=== PATIENT | female | born 1950 | race American Indian/Alaskan Native ===

== ENCOUNTER 2017-04-05 15:20 | Inpatient (IN) | payer MEDICAID, MEDICARE ==
[2017-04-05] MEDS: PROVENTIL IH ONE ×2 (15:35→15:36)
[2017-04-05] MEDS ORDERED: PROVENTIL IH ONE ×2 (15:37→20:37)
[2017-04-05] MEDS ORDERED: ADRENALIN ONE ×2 (15:42→15:44)
[2017-04-05] MEDS ORDERED: ADRENALIN SUB-Q ONE (15:47)
[2017-04-05 16:37] LABS: Hematocrit 27.2 % (30.3-42.9); Hemoglobin 8.9 gm/dl (10.1-14.3); Mean Corpuscular HGB Conc 33 % (30-34); Mean Corpuscular Hemoglobin 33 pg (28-32); Mean Corpuscular Volume 101 fl (79-97); Platelet Count 151 K/mm3 (140-440); Red Blood Count 2.69 M/mm3 (3.65-5.03)
[2017-04-05 16:39] LABS: Red Cell Distribution Width 20.4 % (13.2-15.2)
[2017-04-05 17:13] LABS: Alanine Aminotransferase 45 units/L (7-56); Albumin 2.2 g/dL (3.9-5); BUN/Creatinine Ratio 16; Blood Urea Nitrogen 8 mg/dL (7-17); Calcium 6.7 mg/dL (8.4-10.2); Hemolysis Index 10
--- NOTE | 2017-04-05 17:24 | XRay Report ---
FINAL REPORT PROCEDURE: XR CHEST 1V AP TECHNIQUE: Chest radiograph anteroposterior view. CPT 96469 HISTORY: Dyspnea COMPARISON: No prior studies are available for comparison. FINDINGS: Heart: Normal. Mediastinum/Vessels: Normal. Lungs/Pleural space: No infiltrate, effusion, or pneumothorax. Bony thorax: There is an old healed fracture of the proximal left humerus. Life support devices: None. IMPRESSION: No radiographic evidence of acute cardiopulmonary abnormality.
[2017-04-05 17:32] LABS: Basophils % (Manual) 0 % (0.0-1.8); Eosinophils % (Manual) 0 % (0.0-4.3); Monocytes % (Manual) 0 % (0.0-7.3); Total Cells Counted 100
[2017-04-05 17:35] LABS: Anisocytosis 1+; Target Cells 2+; Tear Drop Cells Few
[2017-04-05 17:36] LABS: Platelet Estimate Consistent w Auto
--- NOTE | 2017-04-05 20:36 | Emergency Department Report ---
ED General Adult HPI - General Chief complaint: Dyspnea/Respdistress Stated complaint: DIFFICULTY BREATHING Time Seen by Provider: 04/05/17 20:13 Source: EMS Mode of arrival: Stretcher Limitations: Other - History of Present Illness Initial comments: Patient is a 67-year-old [place] female with a past medical historyCOPD hypertension who is presenting with shortness of breath and respiratory distress. Patient was noted by family to have facial swelling blistering on the legs and shortness of breath several days ago. The leg swelling has decreased however the shortness of breath is gotten worse. Patient is complaining of a mild cough for the last 1-2 days. She denies fever nausea vomiting diarrhea body aches at this time. Patient was noted by paramedics to be 84% on room air on arrival. Patient was started on CPAP and continued on BiPAP on her arrival. - Related Data Home Medications Medication Instructions Recorded Confirmed Last Taken Budesoni/Formotero 160-4.5(Nf) 2 puff INHALATION BID 10/05/13 10/05/13 Unknown [Symbicort 160-4.5 (Nf)] Furosemide [Lasix] 10 mg PO QDAY 10/05/13 10/05/13 Unknown Previous Rx's Medication Instructions Recorded Last Taken Type Aspirin [Aspirin BABY CHEW TAB] 81 mg PO QDAY #60 tab.chew 07/28/14 Unknown Rx Budesoni/Formotero 160-4.5(Nf) 2 puff IH BID #1 inha 07/28/14 Unknown Rx [Symbicort 160-4.5] Furosemide [Lasix] 20 mg PO DAILY #30 vial 07/28/14 Unknown Rx Ipratropium/Albuterol Sulfate 1 spray IH QID #1 aer.w.adap 07/28/14 Unknown Rx [Combivent Respimat] Ipratropium/Albuterol Sulfate 1 ampul IH Q8HRT #90 ampul.neb 07/28/14 Unknown Rx [Duoneb 0.5 mg-3 mg/3 ml Soln] Levothyroxine [Synthroid] 100 mcg PO DAILY@0600 #30 tablet 07/28/14 Unknown Rx Levothyroxine [Synthroid] 125 mcg PO QAM #30 tablet 07/28/14 Unknown Rx Losartan [Cozaar] 25 mg PO QDAY #30 tablet 07/28/14 Unknown Rx Losartan [Cozaar] 25 mg PO QDAY #30 tablet 07/28/14 Unknown Rx Potassium Chloride 10 Meq [KCl 10 meq PO ONCE #30 piggyback 07/28/14 Unknown Rx 10Meq/100Ml] Potassium Chloride [K-Dur] 20 meq PO QDAY #30 tablet 07/28/14 Unknown Rx Prednisone 20 mg PO BID #10 tablet 07/28/14 Unknown Rx levETIRAcetam [Keppra TAB] 500 mg PO BID #60 tablet 07/28/14 Unknown Rx HYDROcodone/APAP 5-325 [Early 1 - 2 each PO Q6HR PRN #30 tablet 05/25/15 Unknown Rx 5/325] Allergies Allergy/AdvReac Type Severity Reaction Status Date / Time No Known Allergies Allergy Unverified 10/02/13 20:47 ED Review of Systems ROS: Stated complaint: DIFFICULTY BREATHING Other details as noted in HPI Cardiovascular: dyspnea on exertion, orthopnea, edema. denies: chest pain, palpitations ED Past Medical Hx - Past Medical History Previous Medical History?: Yes Hx Hypertension: Yes Hx Heart Attack/AMI: No Hx Congestive Heart Failure: No Hx Diabetes: No Hx Deep Vein Thrombosis: No Hx Pulmonary Embolism: No Hx Liver Disease: No Hx Renal Disease: No Hx Arthritis: Yes Hx Seizures: No Hx Kidney Stones: No Hx Asthma: No Hx COPD: Yes Hx Tuberculosis: No Hx Dementia: No Hx HIV: No Additional medical history: hypothyroid - Surgical History Past Surgical History?: Yes Hx Coronary Stent: No Hx Open Heart Surgery: No Hx Pacemaker: No Hx Internal Defibrillator: No Hx Cholecystectomy: No Hx Appendectomy: No Hx Breast Surgery: No Additional Surgical History: Tubal ligation - Social History Smoking Status: Current Some Day Smoker (occasional) Substance Use Type: Alcohol (daily beer) - Medications Home Medications: Home Medications Medication Instructions Recorded Confirmed Last Taken Type Budesoni/Formotero 160-4.5(Nf) 2 puff INHALATION BID 10/05/13 10/05/13 Unknown History [Symbicort 160-4.5 (Nf)] Furosemide [Lasix] 10 mg PO QDAY 10/05/13 10/05/13 Unknown History Aspirin [Aspirin BABY CHEW TAB] 81 mg PO QDAY #60 tab.chew 07/28/14 Unknown Rx Budesoni/Formotero 160-4.5(Nf) 2 puff IH BID #1 inha 07/28/14 Unknown Rx [Symbicort 160-4.5] Furosemide [Lasix] 20 mg PO DAILY #30 vial 07/28/14 Unknown Rx Ipratropium/Albuterol Sulfate 1 spray IH QID #1 aer.w.adap 07/28/14 Unknown Rx [Combivent Respimat] Ipratropium/Albuterol Sulfate 1 ampul IH Q8HRT #90 ampul.neb 07/28/14 Unknown Rx [Duoneb 0.5 mg-3 mg/3 ml Soln] Levothyroxine [Synthroid] 100 mcg PO DAILY@0600 #30 tablet 07/28/14 Unknown Rx Levothyroxine [Synthroid] 125 mcg PO QAM #30 tablet 07/28/14 Unknown Rx Losartan [Cozaar] 25 mg PO QDAY #30 tablet 07/28/14 Unknown Rx Losartan [Cozaar] 25 mg PO QDAY #30 tablet 07/28/14 Unknown Rx Potassium Chloride 10 Meq [KCl 10 meq PO ONCE #30 piggyback 07/28/14 Unknown Rx 10Meq/100Ml] Potassium Chloride [K-Dur] 20 meq PO QDAY #30 tablet 07/28/14 Unknown Rx Prednisone 20 mg PO BID #10 tablet 07/28/14 Unknown Rx levETIRAcetam [Keppra TAB] 500 mg PO BID #60 tablet 07/28/14 Unknown Rx HYDROcodone/APAP 5-325 [Early 1 - 2 each PO Q6HR PRN #30 tablet 05/25/15 Unknown Rx 5/325] ED Physical Exam - General Limitations: Other General appearance: alert, in no apparent distress - Head Head exam: Present: atraumatic, normocephalic - Eye Eye exam: Present: normal appearance - ENT ENT exam: Present: mucous membranes moist - Neck Neck exam: Present: normal inspection - Respiratory Respiratory exam: Present: respiratory distress, wheezes, rales, rhonchi. Absent: stridor, chest wall tenderness, accessory muscle use - Cardiovascular Cardiovascular Exam: Present: normal rhythm, tachycardia. Absent: regular rate , systolic murmur, diastolic murmur, rubs, gallop - GI/Abdominal GI/Abdominal exam: Present: soft, normal bowel sounds. Absent: distended, tenderness, guarding - Extremities Exam Extremities exam: Present: pedal edema, other (patient has several areas of blistering on the bilateral legs). Absent: normal inspection - Back Exam Back exam: Present: normal inspection - Neurological Exam Neurological exam: Present: alert, oriented X3 - Psychiatric Psychiatric exam: Present: normal affect, normal mood - Skin Skin exam: Present: warm, dry, intact, normal color. Absent: rash ED Course Vital Signs 04/05/17 04/05/17 04/05/17 15:30 15:32 15:35 Temperature Pulse Rate 92 H Pulse Rate [ 92 H Anterior Bilateral Middle Lobe] Respiratory 28 H Rate Respiratory 28 H Rate [Anterior Bilateral Middle Lobe] Blood Pressure 138/119 O2 Sat by Pulse 99 37 L Oximetry 04/05/17 04/05/17 04/05/17 15:45 15:46 15:48 Temperature Pulse Rate 99 H Pulse Rate [ 98 H Anterior Bilateral Middle Lobe] Respiratory 24 24 Rate Respiratory 23 Rate [Anterior Bilateral Middle Lobe] Blood Pressure 136/84 O2 Sat by Pulse 84 Oximetry 04/05/17 04/05/17 04/05/17 16:03 16:12 16:15 Temperature 97.6 F Pulse Rate 93 H 109 H 97 H Pulse Rate [ Anterior Bilateral Middle Lobe] Respiratory 24 25 H 24 Rate Respiratory Rate [Anterior Bilateral Middle Lobe] Blood Pressure 138/119 O2 Sat by Pulse Oximetry 04/05/17 04/05/17 04/05/17 16:31 16:45 17:00 Temperature Pulse Rate 97 H 97 H 95 H Pulse Rate [ Anterior Bilateral Middle Lobe] Respiratory 23 26 H 21 Rate Respiratory Rate [Anterior Bilateral Middle Lobe] Blood Pressure 138/119 109/78 118/70 O2 Sat by Pulse 41 L 100 Oximetry 04/05/17 04/05/17 04/05/17 19:00 19:30 20:00 Temperature Pulse Rate 105 H 105 H 103 H Pulse Rate [ Anterior Bilateral Middle Lobe] Respiratory 26 H 27 H 26 H Rate Respiratory Rate [Anterior Bilateral Middle Lobe] Blood Pressure 94/69 111/82 119/68 O2 Sat by Pulse Oximetry 04/05/17 04/05/17 04/05/17 20:30 21:00 21:02 Temperature Pulse Rate 107 H 106 H Pulse Rate [ 106 H Anterior Bilateral Middle Lobe] Respiratory 22 26 H Rate Respiratory 24 Rate [Anterior Bilateral Middle Lobe] Blood Pressure 97/57 108/59 O2 Sat by Pulse 100 Oximetry 04/05/17 04/05/17 04/05/17 21:42 22:00 23:00 Temperature Pulse Rate 115 H 115 H Pulse Rate [ 110 H Anterior Bilateral Middle Lobe] Respiratory 26 H 16 Rate Respiratory 22 Rate [Anterior Bilateral Middle Lobe] Blood Pressure 113/54 118/93 O2 Sat by Pulse 96 Oximetry 04/05/17 04/06/17 23:10 00:00 Temperature Pulse Rate 111 H 111 H Pulse Rate [ Anterior Bilateral Middle Lobe] Respiratory 13 21 Rate Respiratory Rate [Anterior Bilateral Middle Lobe] Blood Pressure 95/64 118/93 O2 Sat by Pulse 97 Oximetry - Phlebotomy Reason for Blood Draw by MD: to place line Obtained Bloods via: peripheral vein stick Additional Comments: 20-gauge IV was placed in the left antecubital fossa secondary to patient needing a CTA of the chest to rule out PE. ED Medical Decision Making - Lab Data Result diagrams: 04/05/17 16:14 04/05/17 16:14 Lab Results 04/05/17 04/05/17 04/05/17 Range/Units 16:14 16:14 20:43 WBC 17.4 H (4.5-11.0) K/mm3 RBC 2.69 L (3.65-5.03) M/mm3 Hgb 8.9 L (10.1-14.3) gm/dl Hct 27.2 L (30.3-42.9) % MCV 101 H (79-97) fl MCH 33 H (28-32) pg MCHC 33 (30-34) % RDW 20.4 H (13.2-15.2) % Plt Count 151 (140-440) K/mm3 Add Manual Diff Complete Total Counted 100 Seg Neuts % (Manual) 98.0 H (40.0-70.0) % Band Neutrophils % 0 % Lymphocytes % (Manual) 2.0 L (13.4-35.0) % Reactive Lymphs % (Man) 0 % Monocytes % (Manual) 0 (0.0-7.3) % Eosinophils % (Manual) 0 (0.0-4.3) % Basophils % (Manual) 0 (0.0-1.8) % Metamyelocytes % 0 % Myelocytes % 0 % Promyelocytes % 0 % Blast Cells % 0 % Nucleated RBC % 4.0 H (0.0-0.9) % Seg Neutrophils # Man 17.1 H (1.8-7.7) K/mm3 Band Neutrophils # 0.0 K/mm3 Lymphocytes # (Manual) 0.3 L (1.2-5.4) K/mm3 Abs React Lymphs (Man) 0.0 K/mm3 Monocytes # (Manual) 0.0 (0.0-0.8) K/mm3 Eosinophils # (Manual) 0.0 (0.0-0.4) K/mm3 Basophils # (Manual) 0.0 (0.0-0.1) K/mm3 Metamyelocytes # 0.0 K/mm3 Myelocytes # 0.0 K/mm3 Promyelocytes # 0.0 K/mm3 Blast Cells # 0.0 K/mm3 WBC Morphology Not Reportable Hypersegmented Neuts Not Reportable Hyposegmented Neuts Not Reportable Hypogranular Neuts Not Reportable Smudge Cells Not Reportable Toxic Granulation Not Reportable Toxic Vacuolation Not Reportable Dohle Bodies Not Reportable Pelger-Huet Anomaly Not Reportable Monique Rods Not Reportable Platelet Estimate Consistent w auto Clumped Platelets Not Reportable Plt Clumps, EDTA Not Reportable Large Platelets Not Reportable Giant Platelets Not Reportable Platelet Satelliting Not Reportable Plt Morphology Comment Not Reportable RBC Morphology Not Reportable Dimorphic RBCs Not Reportable Polychromasia Not Reportable Hypochromasia Not Reportable Poikilocytosis Not Reportable Anisocytosis 1+ Microcytosis Not Reportable Macrocytosis Not Reportable Spherocytes Not Reportable Pappenheimer Bodies Not Reportable Sickle Cells Not Reportable Target Cells 2+ Tear Drop Cells Few Ovalocytes Not Reportable Helmet Cells Not Reportable [place] Bodies Not Reportable [place] Rings Not Reportable [place] Cells Not Reportable Bite Cells Not Reportable Crenated Cell Not Reportable Elliptocytes Not Reportable Acanthocytes (Spur) Not Reportable Rouleaux Not Reportable Hemoglobin C Crystals Not Reportable Schistocytes Not Reportable Malaria parasites Not Reportable Vincent Bodies Not Reportable Hem Pathologist Commnt No D-Dimer (0-234) ng/mlDDU Sodium 140 (137-145) mmol/L Potassium 3.3 L (3.6-5.0) mmol/L Chloride 95.0 L (98-107) mmol/L Carbon Dioxide 25 (22-30) mmol/L Anion Gap 23 mmol/L BUN 8 (7-17) mg/dL Creatinine 0.5 L (0.7-1.2) mg/dL Estimated GFR > 60 ml/min BUN/Creatinine Ratio 16 % Glucose 65 (65-100) mg/dL Calcium 6.7 L (8.4-10.2) mg/dL Total Bilirubin 1.00 (0.1-1.2) mg/dL AST 166 H (5-40) units/L ALT 45 (7-56) units/L Alkaline Phosphatase 124 (35-129) units/L Troponin T 0.090 H (0.00-0.029) ng/mL NT-Pro-B Natriuret Pep 6486 H (0-900) pg/mL Total Protein 6.7 (6.3-8.2) g/dL Albumin 2.2 L (3.9-5) g/dL Albumin/Globulin Ratio 0.5 % Triglycerides 64 (2-149) mg/dL Cholesterol 98 (50-199) mg/dL LDL Cholesterol Direct 54 (50-130) mg/dL HDL Cholesterol 32 L (40-59) mg/dL Cholesterol/HDL Ratio 3.06 % 04/05/17 Range/Units 20:43 WBC (4.5-11.0) K/mm3 RBC (3.65-5.03) M/mm3 Hgb (10.1-14.3) gm/dl Hct (30.3-42.9) % MCV (79-97) fl MCH (28-32) pg MCHC (30-34) % RDW (13.2-15.2) % Plt Count (140-440) K/mm3 Add Manual Diff Total Counted Seg Neuts % (Manual) (40.0-70.0) % Band Neutrophils % % Lymphocytes % (Manual) (13.4-35.0) % Reactive Lymphs % (Man) % Monocytes % (Manual) (0.0-7.3) % Eosinophils % (Manual) (0.0-4.3) % Basophils % (Manual) (0.0-1.8) % Metamyelocytes % % Myelocytes % % Promyelocytes % % Blast Cells % % Nucleated RBC % (0.0-0.9) % Seg Neutrophils # Man (1.8-7.7) K/mm3 Band Neutrophils # K/mm3 Lymphocytes # (Manual) (1.2-5.4) K/mm3 Abs React Lymphs (Man) K/mm3 Monocytes # (Manual) (0.0-0.8) K/mm3 Eosinophils # (Manual) (0.0-0.4) K/mm3 Basophils # (Manual) (0.0-0.1) K/mm3 Metamyelocytes # K/mm3 Myelocytes # K/mm3 Promyelocytes # K/mm3 Blast Cells # K/mm3 WBC Morphology Hypersegmented Neuts Hyposegmented Neuts Hypogranular Neuts Smudge Cells Toxic Granulation Toxic Vacuolation Dohle Bodies Pelger-Huet Anomaly Monique Rods Platelet Estimate Clumped Platelets Plt Clumps, EDTA Large Platelets Giant Platelets Platelet Satelliting Plt Morphology Comment RBC Morphology Dimorphic RBCs Polychromasia Hypochromasia Poikilocytosis Anisocytosis Microcytosis Macrocytosis Spherocytes Pappenheimer Bodies Sickle Cells Target Cells Tear Drop Cells Ovalocytes Helmet Cells [place] Bodies [place] Rings Alfred[place] Cells Bite Cells Crenated Cell Elliptocytes Acanthocytes (Spur) Rouleaux Hemoglobin C Crystals Schistocytes Malaria parasites Vincent Bodies Hem Pathologist Commnt D-Dimer 4892.81 H (0-234) ng/mlDDU Sodium (137-145) mmol/L Potassium (3.6-5.0) mmol/L Chloride (98-107) mmol/L Carbon Dioxide (22-30) mmol/L Anion Gap mmol/L BUN (7-17) mg/dL Creatinine (0.7-1.2) mg/dL Estimated GFR ml/min BUN/Creatinine Ratio % Glucose (65-100) mg/dL Calcium (8.4-10.2) mg/dL Total Bilirubin (0.1-1.2) mg/dL AST (5-40) units/L ALT (7-56) units/L Alkaline Phosphatase (35-129) units/L Troponin T (0.00-0.029) ng/mL NT-Pro-B Natriuret Pep (0-900) pg/mL Total Protein (6.3-8.2) g/dL Albumin (3.9-5) g/dL Albumin/Globulin Ratio % Triglycerides (2-149) mg/dL Cholesterol (50-199) mg/dL LDL Cholesterol Direct (50-130) mg/dL HDL Cholesterol (40-59) mg/dL Cholesterol/HDL Ratio % - EKG Data -: EKG Interpreted by Me - EKG Data Interpretation: other (EKG shows sinus tachycardia with a rate of 114 axis is leftward intervals is a prolonged QT is no ST segment elevation or depression time of interpretation 2144) - Radiology Data Radiology results: report reviewed Chest x-ray read as within normal limits. CT angiogram showed no evidence of PE however there is a right upper lobe infiltrate consistent with pneumonia as well as COPD changes - Medical Decision Making Patient is a 67-year-old F Gilberto a female who is presenting with respiratory distress patient was started on BiPAP and her breathing has improved since her arrival. Patient initially thought to have possible COPD CHF combination secondary to the recent history of leg swelling. Patient does sound as though she has rails as well. BNP was elevated patient was given Lasix. Elevated d- dimer was seen on laboratory studies as well. I placed a peripheral line in the left before meals joint and was able to do a CT with contrast. There is no PE seen on this exam however pneumonia was noted. Patient will be started on Levaquin and antibiotics. She'll be admitted at this time. Critical care time in (mins) excluding proc time.: 30 Critical care attestation.: If time is entered above; I have spent that time in minutes in the direct care of this critically ill patient, excluding procedure time. ED Disposition Clinical Impression: COPD exacerbation, Acute respiratory distress Pneumonia Qualifiers: Pneumonia type: due to unspecified organism Laterality: right Lung location: upper lobe of lung Qualified Code(s): J18.1 - Lobar pneumonia, unspecified organism Disposition: OP ADMIT IP TO THIS HOSP Is pt being admited?: Yes Does the pt Need Aspirin: No Condition: Critical Instructions: Bacterial Pneumonia (ED), Chronic Bronchitis (ED) Referrals: PRIMARY CARE, [Primary Care Provider] - 3-5 Days
[2017-04-05] MEDS ORDERED: ATROVENT IH ONE (20:37)
[2017-04-05] MEDS ORDERED: LASIX IV ONE (21:20)
[2017-04-05 21:49] LABS: Chol/HDL Ratio 3.06 %
--- NOTE | 2017-04-06 01:18 | Cat Scan Report ---
FINAL REPORT PROCEDURE: CT ANGIO CHEST TECHNIQUE: Computerized tomographic angiography of the chest was performed after the IV injection of iodinated nonionic contrast including image processing. The image data was postprocessed using 2-dimensional multiplanar reformatted (MPR) and 3-dimensional (MIP and/or volume rendered) techniques. HISTORY: elevated ddimer COMPARISON: No prior studies are available for comparison. FINDINGS: Heart and pericardium: Normal. Thoracic aorta: Mild atherosclerosis of the aorta. Pulmonary vasculature: Normal. Lymph nodes: No enlarged thoracic lymph nodes. Lungs: COPD with fibrosis. Slight infiltrate right upper lung. Mild atelectasis bilateral lower lungs. No effusion or pneumothorax. The central airway is patent. Pleural space: No effusion, thickening, or pneumothorax. Musculoskeletal structures: Moderate degenerative changes of the thoracic spine. Upper abdominal structures: Fatty infiltration of the liver. Multiple stones identified within the gallbladder lumen.. IMPRESSION: COPD with fibrosis. Slight infiltrate right upper lung. Mild atelectasis bilateral lower lungs. There is no evidence of pulmonary arterial emboli
[2017-04-06] MEDS ORDERED: LEVAQUIN PO ONE (01:25)
[2017-04-06] MEDS ORDERED: MILK OF MAGNESIA PO PRN (02:10)
[2017-04-06] MEDS ORDERED: TYLENOL PO PRN (02:10)
[2017-04-06] MEDS ORDERED: DULCOLAX PR PRN (02:10)
--- NOTE | 2017-04-06 02:10 | History and Physical Report ---
History of Present Illness Date of examination: 04/06/17 History of present illness: 67-year-old woman with a history of COPD, CHF, hyperlipidemia, hypothyroidism, stroke was brought to the emergency room complaining of shortness of breath and a rattling cough. Review Of Systems: Constitutional: no weight loss Ears, eyes, nose, mouth and throat: no nasal congestion, no nasal discharge, no sinus pressure, blurry vision, diplopia Neck: No neck pain or rigidity. Cardiovascular: No chest pain, palpitations Respiratory: + shortness of breath, cough Gastrointestinal: No abdominal pain, hematochezia Genitourinary : no dysuria, frequency , hematuria Musculoskeletal: no muscle ache Integumentary: no rash, no pruritis Neurological: no parathesias, focal weakness Endocrine: no cold or heat intolerance, no polyuria or polydipsia Hematologic/Lymphatic: no easy bruising, no easy bleeding, no gland swelling Allergic/Immunologic: no urticaria, no angioedema. PAST MEDICAL HISTORY: COPD, CHF, hyperlipidemia, hypothyroidism, stroke PAST SURGICAL HISTORY: Tubal ligation FAMILY HISTORY: Hypertension, diabetes SOCIAL HISTORY: Family state that she smokes and drinks, no drugs Medications and Allergies Allergies Allergy/AdvReac Type Severity Reaction Status Date / Time No Known Allergies Allergy Unverified 10/02/13 20:47 Home Medications Medication Instructions Recorded Confirmed Last Taken Type Aspirin [Aspirin BABY CHEW TAB] 81 mg PO QDAY #60 tab.chew 07/28/14 04/07/17 Unknown Rx Budesoni/Formotero 160-4.5(Nf) 2 puff IH BID #1 inha 07/28/14 04/07/17 Unknown Rx [Symbicort 160-4.5] Ipratropium/Albuterol Sulfate 1 ampul IH Q8HRT #90 ampul.neb 07/28/14 04/07/17 Unknown Rx [Duoneb 0.5 mg-3 mg/3 ml Soln] Levothyroxine [Synthroid] 125 mcg PO QAM #30 tablet 07/28/14 04/07/17 Unknown Rx HYDROcodone/APAP 5-325 [[place] 1 - 2 each PO Q6HR PRN #30 tablet 05/25/ Unknown Rx 5/325] Furosemide [Lasix] 40 mg PO DAILY 04/07/17 04/07/17 Unknown History Losartan [Cozaar] 50 mg PO QDAY 04/07/17 04/07/17 Unknown History Losartan/Hydrochlorothiazide 1 each PO DAILY 04/07/17 04/07/17 Unknown History [Losartan-Hctz 50-12.5 mg Tab] Potassium Chloride 10 Meq [KCl 40 meq PO ONCE 04/07/17 04/07/17 Unknown History 10Meq/100Ml] Exam - Physical Exam Narrative exam: Gen. appearance: Patient lying in bed in no acute distress HEENT: Normocephalic/atraumatic, pupils equal round reactive to light, extra occular movement intact, no scleral icterus, no JVD or thyromegaly or nodule, neck is supple, mucous membrane moist, no erythema or exudate Heart: S1-S2, regular rate and rhythm Lungs: Crackles bilateral breathing comfortable Abdomen: Positive bowel sounds, nontender, nondistended, no organomegaly Extremities: No edema, cyanosis, clubbing Neuro:: Oriented 3 , cranial nerves II-12 intact, speech, motor intact Skin: No rash, nodules, warm dry - Constitutional Vitals: Temp Pulse Resp BP Pulse Ox 97.6 F 111 H 21 118/93 97 04/05/17 16:03 04/06/17 00:00 04/06/17 00:00 04/06/17 00:00 04/06/17 00:00 Results - Labs CBC & Chem 7: 04/16/17 18:20 04/16/17 05:30 Labs: Abnormal lab results 04/05/17 04/05/17 04/05/17 Range/Units 16:14 16:14 20:43 WBC 17.4 H (4.5-11.0) K/mm3 RBC 2.69 L (3.65-5.03) M/mm3 Hgb 8.9 L (10.1-14.3) gm/dl Hct 27.2 L (30.3-42.9) % MCV 101 H (79-97) fl MCH 33 H (28-32) pg RDW 20.4 H (13.2-15.2) % Seg Neuts % (Manual) 98.0 H (40.0-70.0) % Lymphocytes % (Manual) 2.0 L (13.4-35.0) % Nucleated RBC % 4.0 H (0.0-0.9) % Seg Neutrophils # Man 17.1 H (1.8-7.7) K/mm3 Lymphocytes # (Manual) 0.3 L (1.2-5.4) K/mm3 D-Dimer (0-234) ng/mlDDU Potassium 3.3 L (3.6-5.0) mmol/L Chloride 95.0 L (98-107) mmol/L Creatinine 0.5 L (0.7-1.2) mg/dL Calcium 6.7 L (8.4-10.2) mg/dL AST 166 H (5-40) units/L Troponin T 0.090 H (0.00-0.029) ng/mL NT-Pro-B Natriuret Pep 6486 H (0-900) pg/mL Albumin 2.2 L (3.9-5) g/dL HDL Cholesterol 32 L (40-59) mg/dL 04/05/17 Range/Units 20:43 WBC (4.5-11.0) K/mm3 RBC (3.65-5.03) M/mm3 Hgb (10.1-14.3) gm/dl Hct (30.3-42.9) % MCV (79-97) fl MCH (28-32) pg RDW (13.2-15.2) % Seg Neuts % (Manual) (40.0-70.0) % Lymphocytes % (Manual) (13.4-35.0) % Nucleated RBC % (0.0-0.9) % Seg Neutrophils # Man (1.8-7.7) K/mm3 Lymphocytes # (Manual) (1.2-5.4) K/mm3 D-Dimer 4892.81 H (0-234) ng/mlDDU Potassium (3.6-5.0) mmol/L Chloride (98-107) mmol/L Creatinine (0.7-1.2) mg/dL Calcium (8.4-10.2) mg/dL AST (5-40) units/L Troponin T (0.00-0.029) ng/mL NT-Pro-B Natriuret Pep (0-900) pg/mL Albumin (3.9-5) g/dL HDL Cholesterol (40-59) mg/dL - Imaging and Cardiology EKG: image reviewed Chest x-ray: image reviewed Assessment and Plan Assessment Acute respiratory failure Community-acquired pneumonia COPD exacerbation CHF, stable Hyperlipidemia Hypothyroidism History of severe Plan Admit medicine Start high-dose steroids, neb treatment, IV antibiotics, continue BiPAP Continue appropriate outpatient medications DVT Prophylaxis
[2017-04-06] MEDS ORDERED: NACL 0.9% 500 ML IR ONE (03:12)
[2017-04-06] MEDS: ZITHROMAX 500 MG in NACL 0.9% 250ML 250 ML IV SCH (04:04)
[2017-04-06] MEDS ORDERED: LEVAQUIN ONE (04:15)
[2017-04-06] MEDS: DUONEB *Not for PRN Use IH SCH ×3 (07:27→20:01)
[2017-04-06] MEDS ORDERED: LOVENOX SUB-Q SCH (10:00)
[2017-04-06] MEDS: LOVENOX SUB-Q SCH (10:49)
--- NOTE | 2017-04-06 11:41 | Event Note ---
Date: 04/06/17 Pateint seen and evaluated Assessment Acute respiratory failure Community-acquired pneumonia COPD exacerbation CHF, stable Hyperlipidemia Hypothyroidism Plan high-dose steroids, neb treatment, IV antibiotics, continue BiPAP Continue appropriate outpatient medications DVT Prophylaxis
[2017-04-06] MEDS: cefTRIAXone 1 GM in NACL 0.9% 20 ML IV SCH (12:39)
[2017-04-06] MEDS ORDERED: LOPRESSOR IV ONE (16:02)
[2017-04-06] MEDS: NACL 0.9% 1000 ML 1,000 ML IV SCH ×2 (16:21→21:59)
[2017-04-06] MEDS ORDERED: CARDIZEM IV SCH (17:00)
[2017-04-06] MEDS ORDERED: CARDIZEM/D5W 100MG/100ML 100 MG/100 ML BAG IV SCH (17:00)
[2017-04-07] MEDS: ZITHROMAX 500 MG in NACL 0.9% 250ML 250 ML IV SCH ×2 (03:00→10:55)
[2017-04-07] MEDS: DUONEB *Not for PRN Use IH SCH ×4 (03:14→20:05)
[2017-04-07 06:08] LABS: Hematocrit 23.2 % (30.3-42.9); Hemoglobin 7.4 gm/dl (10.1-14.3); Mean Corpuscular HGB Conc 32 % (30-34); Mean Corpuscular Hemoglobin 32 pg (28-32); Mean Corpuscular Volume 101 fl (79-97); Platelet Count 104 K/mm3 (140-440); Red Blood Count 2.29 M/mm3 (3.65-5.03)
[2017-04-07 06:30] LABS: BUN/Creatinine Ratio 17; Blood Urea Nitrogen 15 mg/dL (7-17); Calcium 6.2 mg/dL (8.4-10.2); Hemolysis Index 3
[2017-04-07 08:22] LABS: Anisocytosis 1+; Band Neutrophils # (Manual) 1.9 K/mm3; Basophils % (Manual) 0 % (0.0-1.8); Eosinophils % (Manual) 0 % (0.0-4.3); Hypochromasia 1+; Target Cells 2+; Total Cells Counted 100
[2017-04-07 08:23] LABS: Platelet Estimate Consistent w Auto
[2017-04-07] MEDS: LOVENOX SUB-Q SCH (09:13)
[2017-04-07] MEDS ORDERED: K-DUR PO NR (10:00)
[2017-04-07] MEDS: cefTRIAXone 1 GM in NACL 0.9% 20 ML IV SCH (10:13)
[2017-04-07] MEDS ORDERED: Fluarix Quad 2017-2018(36 MOS+ IM ONE (12:00)
[2017-04-07] MEDS ORDERED: HCTZ PO SCH (14:00)
[2017-04-07] MEDS ORDERED: COZAAR PO SCH ×2 (14:00→15:00)
[2017-04-07] MEDS ORDERED: NORCO 5/325 PO PRN (14:25)
[2017-04-07] MEDS ORDERED: POTASSIUM CHLORIDE PO SCH (14:30)
[2017-04-07] MEDS ORDERED: NON-FORMULARY (Losartan/Hydrochlorothiazide [Losartan-Hctz 50-12.5 Mg Tab] 1 EACH) PO SCH (14:30)
[2017-04-07] MEDS ORDERED: NON-FORMULARY (Budesoni/Formotero 160-4.5(Nf) 2 PUFF) IH SCH (14:30)
--- NOTE | 2017-04-07 14:35 | Progress Note ---
Assessment and Plan - Patient Problems (1) Acute respiratory distress Current Visit: Yes Status: Acute Plan to address problem: Cont Abx neb tx and bipap if necessary (2) COPD exacerbation Current Visit: Yes Status: Acute Plan to address problem: Cont Neb tx solu medrol and abx (3) Pneumonia Current Visit: Yes Status: Acute Qualifiers: Pneumonia type: due to unspecified organism Laterality: right Lung location: upper lobe of lung Qualified Code(s): J18.1 - Lobar pneumonia, unspecified organism Plan to address problem: Cont Abx (4) CHF (congestive heart failure) Current Visit: Yes Status: Chronic Qualifiers: Congestive heart failure type: combined Plan to address problem: Cont Lasix (5) HLD (hyperlipidemia) Current Visit: Yes Status: Chronic Qualifiers: Hyperlipidemia type: mixed hyperlipidemia Qualified Code(s): E78.2 - Mixed hyperlipidemia Plan to address problem: Cont statins (6) Hypothyroidism (acquired) Current Visit: Yes Status: Chronic Plan to address problem: Cont Synthyroid (7) Hypokalemia Current Visit: Yes Status: Acute Plan to address problem: Supplemented (8) DVT prophylaxis Current Visit: Yes Status: Acute Plan to address problem: on Lovenox Subjective Date of service: 04/07/17 Principal diagnosis: CAP Acute resp failure Interval history: Sx better Objective - Constitutional Vitals: Vital Signs - 12hr 04/07/17 04/07/17 04/07/17 03:50 03:52 06:11 Temperature 98.3 F 98.3 F Pulse Rate 92 H 101 H Pulse Rate [ Anterior Bilateral Middle Lobe] Pulse Rate [ Right Radial] Respiratory 22 22 Rate Respiratory Rate [Anterior Bilateral Middle Lobe] Blood Pressure 108/64 Blood Pressure [Right] O2 Sat by Pulse 99 Oximetry 04/07/17 04/07/17 04/07/17 09:00 09:54 09:55 Temperature 99.0 F 98.4 F Pulse Rate 51 L 82 Pulse Rate [ 96 H Anterior Bilateral Middle Lobe] Pulse Rate [ Right Radial] Respiratory 18 20 Rate Respiratory 16 Rate [Anterior Bilateral Middle Lobe] Blood Pressure Blood Pressure 124/85 92/53 [Right] O2 Sat by Pulse 98 93 Oximetry 04/07/17 04/07/17 04/07/17 09:59 10:09 10:29 Temperature Pulse Rate Pulse Rate [ 124 H Anterior Bilateral Middle Lobe] Pulse Rate [ 92 H Right Radial] Respiratory 20 Rate Respiratory 18 Rate [Anterior Bilateral Middle Lobe] Blood Pressure Blood Pressure [Right] O2 Sat by Pulse 93 94 Oximetry General appearance: Present: no acute distress, well-nourished - EENT Eyes: PERRL, EOM intact ENT: hearing intact, clear oral mucosa Ears: bilateral: normal - Neck Neck: supple, normal ROM - Respiratory Respiratory effort: normal Respiratory: bilateral: CTA, rhonchi - Breasts Breasts: deferred, normal - Cardiovascular Rhythm: regular Heart Sounds: Present: S1 & S2. Absent: gallop, rub Extremities: pulses intact, No edema, normal color, Full ROM - Gastrointestinal General gastrointestinal: Present: soft, non-tender, non-distended, normal bowel sounds - Genitourinary Female genitourinary: normal - Integumentary Integumentary: clear, warm, dry - Musculoskeletal Musculoskeletal: 1, strength equal bilaterally - Neurologic Neurologic: moves all extremities - Psychiatric Psychiatric: memory intact, appropriate mood/affect, intact judgment & insight - Labs CBC & Chem 7: 04/07/17 05:35 04/07/17 05:35 Labs: Abnormal lab results 04/07/17 04/07/17 Range/Units 05:35 05:35 WBC 17.7 H (4.5-11.0) K/mm3 RBC 2.29 L (3.65-5.03) M/mm3 Hgb 7.4 L (10.1-14.3) gm/dl Hct 23.2 L (30.3-42.9) % MCV 101 H (79-97) fl RDW 20.0 H (13.2-15.2) % Plt Count 104 L (140-440) K/mm3 Seg Neuts % (Manual) 81.0 H (40.0-70.0) % Lymphocytes % (Manual) 4.0 L (13.4-35.0) % Nucleated RBC % 12.0 H (0.0-0.9) % Seg Neutrophils # Man 14.3 H (1.8-7.7) K/mm3 Lymphocytes # (Manual) 0.7 L (1.2-5.4) K/mm3 Potassium 2.9 L* (3.6-5.0) mmol/L Glucose 144 H (65-100) mg/dL Calcium 6.2 L (8.4-10.2) mg/dL - Imaging and cardiology Chest x-ray: report reviewed (Copd) CT scan - chest: report reviewed (Copd with fibrosis Slight infiltrate RUL lung.Mild atelectasis bilateral lower lungs)
[2017-04-07] MEDS ORDERED: K-DUR PO ONE ×2 (14:55→15:00)
[2017-04-07] MEDS ORDERED: DUONEB *Not for PRN Use IH (14:55)
[2017-04-07] MEDS: HCTZ PO SCH (15:27)
[2017-04-07] MEDS: BABY ASPIRIN PO SCH (15:27)
[2017-04-07] MEDS ORDERED: DUONEB *Not for PRN Use IH SCH (16:00)
[2017-04-07] MEDS: LASIX IV SCH (17:31)
[2017-04-07] MEDS: KCL 10MEQ/100ML 10 MEQ/100 ML BAG IV SCH ×2 (17:35→17:36)
[2017-04-07] MEDS: PULMICORT IH SCH (20:05)
[2017-04-07] MEDS: BROVANA NEBU IH SCH (20:56)
[2017-04-07] MEDS: ATIVAN PO PRN (23:56)
[2017-04-08] MEDS ORDERED: ATIVAN IM PRN (00:04)
[2017-04-08] MEDS: DUONEB *Not for PRN Use IH SCH ×4 (02:04→19:26)
[2017-04-08] MEDS: cefTRIAXone 1 GM in NACL 0.9% 20 ML IV SCH (10:00)
[2017-04-08] MEDS: HCTZ PO SCH (10:00)
[2017-04-08] MEDS: SYNTHROID PO SCH (10:00)
[2017-04-08] MEDS: ZITHROMAX 500 MG in NACL 0.9% 250ML 250 ML IV SCH (10:00)
[2017-04-08] MEDS: LOVENOX SUB-Q SCH (10:00)
[2017-04-08] MEDS: LASIX IV SCH (10:00)
[2017-04-08] MEDS: BABY ASPIRIN PO SCH (10:00)
[2017-04-08] MEDS: ATIVAN PO PRN (10:30)
--- NOTE | 2017-04-08 11:03 | Query-Infection ---
Dear ____Roz Date:___04/08/17 Clamshell Operator/CDS: Rohit Phone#:__[phone] Exercise your independent professional judgment when responding to this query. Questions asked do not imply a particular answer is desired or expected. We greatly appreciate your clarification on this issue. Clinical Documentation States: 67 year old female was admitted on 04/06/17 The H&P (Dr. Turner) states " 67-year-old woman with a history of COPD, CHF, hyperlipidemia, hypothyroidism, stroke was brought to the emergency room complaining of shortness of breath " The Progress note (Dr. Courtney 04/07/17) states " - Patient Problems (1) Acute respiratory distress (3) Pneumonia " WBC: 17.7 Pulse rate: 109 Respiratory rate: 28 Clinical findings show: (please check applicable parameters) Infection, known /suspected, with some of the following indicators; Specify the infection: 3 General parameters [ ] Fever (core temp >38.30C or 100.40F) [ ] Hypothermia (core temp <36C) [ x] Heart rate >90 bpm [x ] Tachypnea: >20 bpm or pCO2 < 32 mmHg [ ] Altered mental status [ ] Significant edema / +ve fluid balance (>20 ml/kg 24 h) [ ] Hyperglycemia (Bl. glucose >110 mg/dl) w/o diabetes Inflammatory parameters [x ] Leukocytosis (white blood cell count >12,000/l) [ ] Leukopenia (white blood cell count <4,000/l) [ ] Bandemia (immature WBC > 10%) [ ] Leucocyte Left Shift [ ] Plasma procalcitonin>2 SD above the normal value Hemodynamic and tissue perfusion parameters [ ] Arterial hypotension(SBP <90 mmHg, MAP <70 mmHg,or a SBP drop >40 mmHg in adults) [ ] Hyperlactatemia (>3 mmol/l) [ ] Anion Gap (> 11mEG/l) [ ] Decreased capillary refill or mottling Organ dysfunction parameters [ ] Arterial hypoxemia (PaO2/FIO2 <300) [ ] Creatinine increase =0.5 mg/dl [ ] Acute oliguria (urine output <0.5 ml | kg |h or 45 mM/l for at least 2 hrs) [ ] Coagulation abnormalities (INR >1.5 or activated partial thromboplastin time >60 s) [ ] Ileus (absent gardenia wel sounds) [ ] Thrombocytopenia (platelet count <100,000/l) [ ] Hyperbilirubinemia (plasma total bilirubin >4 mg/dl) According to the clinical indications above, can Bacteremia be further specified? If so, please indicate below and in your Progress Notes and/ or Discharge Summary. Indicate if the condition was present on admission. PHYSICIAN RESPONSE: [ ] Sepsis [ ] Severe Sepsis [ ] Septic Shock [ ] Septicemia [ ] Sepsis now resolved [ ] SIRS due to non-infectious cause with organ dysfunction [ x] SIRS due to non-infectious cause without organ dysfunction [ ] Other: [ ] Comment/Explanation: Present on Admission: [x ] Yes (Y) [ ] Clinically undeterminable (W) [ ] No (N) [ ] Ruled Out Please also document response in your Progress Notes and/or Discharge Summary and indicate if the condition was present on admission Notes: SIRS/ SIRS WITH ORGAN DYSFUNCTION Systemic inflammatory response syndrome (SIRS) generally refers to the systemic response to trauma/neff or other insult such as Acute Myocardial Infarction, Acute Pancreatitis, and Major Surgery with symptoms including fever, tachycardia , tachypnea, and leukocytosis (1). BACTEREMIA Presence of viable bacteria in the circulating blood (2). This term is reserved for patients that do not manifest above SIRS response. SEPTICEMIA Generally refers to a systemic disease associated with the presence of pathological microorganisms or toxins in the blood, which can include bacteria, viruses, fungi or other organisms (1). SEPSIS Generally refers to SIRS due infection (1). SEVERE SEPSIS Generally refers to sepsis associated with acute organ dysfunction (1). SEPTIC SHOCK Generally refers to circulatory failure associated with severe sepsis (2), and defined as hypotension or hypoperfusion despite adequate fluid resuscitation (1 hour) (3). REFERENCES: 1. [place] [employer]/Society of Critical Care Medicine Consensus Conference. Definitions for sepsis and organ failure and guidelines for the use of innovative therapies in sepsis. Critical Care Med 1992;20:864 - 74. 2. Moses segal MM, Nany NOEL, Brandon ABBIE, Norman E, [place] D, Chuck D, Palmer J, [place] SM , Ming JL, Ida G; International Sepsis Definitions Conference. 2001 SCCM/ESICM/ACCP/ATS/SIS International Sepsis Definitions Conference. Intensive Care Med. 2002 Apr;29(4):530-8. Epub 2002Jun 25. Review. PubMed PMID:[id number] 3. ICD-9-CM Official Guidelines for Coding and Reporting 4. Medscape Drugs, Diseases and Procedures references 5. [employer] Textbook of Internal Medicine. 18th Edition MTDD
[2017-04-08] MEDS: PULMICORT IH SCH ×2 (13:04→19:26)
[2017-04-08] MEDS: BROVANA NEBU IH SCH ×2 (13:04→19:26)
[2017-04-08] MEDS ORDERED: ATIVAN IM ONE (15:00)
--- NOTE | 2017-04-08 15:12 | Progress Note ---
Assessment and Plan Assessment and plan: (1) Acute respiratory distress Cont Abx neb tx and bipap if necessary (2) COPD exacerbation Cont Neb tx solu medrol and abx (3) Pneumonia Cont Abx (4) CHF (congestive heart failure) cont lasix (5) HLD (hyperlipidemia) Cont statins (6) Hypothyroidism (acquired) Cont Synthyroid (7) Hypokalemia Supplemented (8) EtOH abuse. CIWA protocol. (9) Sepsis. Present on admission. Elevated lactate and dx of pneumonia. F/U cx results and consider ID consultation History Interval history: Nurse reports patient drinks several beers daily. Hospitalist Physical - Constitutional Vitals: Temp Pulse Resp BP Pulse Ox 97.4 F L 90 16 110/81 99 04/08/17 07:41 04/08/17 10:00 04/08/17 10:00 04/08/17 07:41 04/08/17 10:00 General appearance: Present: no acute distress, well-nourished - EENT Eyes: Present: PERRL, EOM intact ENT: hearing intact, clear oral mucosa, dentition normal - Neck Neck: Present: supple, normal ROM - Respiratory Respiratory effort: normal Respiratory: bilateral: CTA - Cardiovascular Rhythm: regular Heart Sounds: Present: S1 & S2. Absent: gallop, rub - Extremities Extremities: no ischemia, No edema, Full ROM - Abdominal General gastrointestinal: soft, non-tender, non-distended, normal bowel sounds - Integumentary Integumentary: Present: clear, warm, dry - Neurologic Neurologic: CNII-XII intact, moves all extremities Results - Labs CBC & Chem 7: 04/07/17 05:35 04/07/17 05:35 Labs: Laboratory Last Values WBC 17.7 K/mm3 (4.5-11.0) H 04/07/17 05:35 RBC 2.29 M/mm3 (3.65-5.03) L 04/07/17 05:35 Hgb 7.4 gm/dl (10.1-14.3) L 04/07/17 05:35 Hct 23.2 % (30.3-42.9) L 04/07/17 05:35 MCV 101 fl (79-97) H 04/07/17 05:35 MCH 32 pg (28-32) 04/07/17 05:35 MCHC 32 % (30-34) 04/07/17 05:35 RDW 20.0 % (13.2-15.2) H 04/07/17 05:35 Plt Count 104 K/mm3 (140-440) L 04/07/17 05:35 Add Manual Diff Complete 04/07/17 05:35 Total Counted 100 04/07/17 05:35 Seg Neutrophils % Kiln Remover 04/07/17 05:35 Seg Neuts % (Manual) 81.0 % (40.0-70.0) H 04/07/17 05:35 Band Neutrophils % 11.0 % 04/07/17 05:35 Lymphocytes % (Manual) 4.0 % (13.4-35.0) L 04/07/17 05:35 Reactive Lymphs % (Man) 0 % 04/07/17 05:35 Monocytes % (Manual) 4.0 % (0.0-7.3) 04/07/17 05:35 Eosinophils % (Manual) 0 % (0.0-4.3) 04/07/17 05:35 Basophils % (Manual) 0 % (0.0-1.8) 04/07/17 05:35 Metamyelocytes % 0 % 04/07/17 05:35 Myelocytes % 0 % 04/07/17 05:35 Promyelocytes % 0 % 04/07/17 05:35 Blast Cells % 0 % 04/07/17 05:35 Nucleated RBC % 12.0 % (0.0-0.9) H 04/07/17 05:35 Seg Neutrophils # Man 14.3 K/mm3 (1.8-7.7) H 04/07/17 05:35 Band Neutrophils # 1.9 K/mm3 04/07/17 05:35 Lymphocytes # (Manual) 0.7 K/mm3 (1.2-5.4) L 04/07/17 05:35 Abs React Lymphs (Man) 0.0 K/mm3 04/07/17 05:35 Monocytes # (Manual) 0.7 K/mm3 (0.0-0.8) 04/07/17 05:35 Eosinophils # (Manual) 0.0 K/mm3 (0.0-0.4) 04/07/17 05:35 Basophils # (Manual) 0.0 K/mm3 (0.0-0.1) 04/07/17 05:35 Metamyelocytes # 0.0 K/mm3 04/07/17 05:35 Myelocytes # 0.0 K/mm3 04/07/17 05:35 Promyelocytes # 0.0 K/mm3 04/07/17 05:35 Blast Cells # 0.0 K/mm3 04/07/17 05:35 WBC Morphology Not Reportable 04/07/17 05:35 Hypersegmented Neuts Not Reportable 04/07/17 05:35 Hyposegmented Neuts Not Reportable 04/07/17 05:35 Hypogranular Neuts Not Reportable 04/07/17 05:35 Smudge Cells Not Reportable 04/07/17 05:35 Toxic Granulation Not Reportable 04/07/17 05:35 Toxic Vacuolation Not Reportable 04/07/17 05:35 Dohle Bodies Not Reportable 04/07/17 05:35 Pelger-Huet Anomaly Not Reportable 04/07/17 05:35 Monique Rods Not Reportable 04/07/17 05:35 Platelet Estimate Consistent w auto 04/07/17 05:35 Clumped Platelets Not Reportable 04/07/17 05:35 Plt Clumps, EDTA Not Reportable 04/07/17 05:35 Large Platelets Not Reportable 04/07/17 05:35 Giant Platelets Not Reportable 04/07/17 05:35 Platelet Satelliting Not Reportable 04/07/17 05:35 Plt Morphology Comment Not Reportable 04/07/17 05:35 RBC Morphology Not Reportable 04/07/17 05:35 Dimorphic RBCs Not Reportable 04/07/17 05:35 Polychromasia Rare 04/07/17 05:35 Hypochromasia 1+ 04/07/17 05:35 Poikilocytosis Not Reportable 04/07/17 05:35 Anisocytosis 1+ 04/07/17 05:35 Microcytosis Not Reportable 04/07/17 05:35 Macrocytosis Not Reportable 04/07/17 05:35 Spherocytes Not Reportable 04/07/17 05:35 Pappenheimer Bodies Not Reportable 04/07/17 05:35 Sickle Cells Not Reportable 04/07/17 05:35 Target Cells 2+ 04/07/17 05:35 Tear Drop Cells Not Reportable 04/07/17 05:35 Ovalocytes Not Reportable 04/07/17 05:35 Helmet Cells Not Reportable 04/07/17 05:35 [place] Bodies Not Reportable 04/07/17 05:35 [place] Rings Not Reportable 04/07/17 05:35 [place] Cells Not Reportable 04/07/17 05:35 Bite Cells Not Reportable 04/07/17 05:35 Crenated Cell Not Reportable 04/07/17 05:35 Elliptocytes Not Reportable 04/07/17 05:35 Acanthocytes (Spur) Not Reportable 04/07/17 05:35 Rouleaux Not Reportable 04/07/17 05:35 Hemoglobin C Crystals Not Reportable 04/07/17 05:35 Schistocytes Not Reportable 04/07/17 05:35 Malaria parasites Not Reportable 04/07/17 05:35 Vincent Bodies Not Reportable 04/07/17 05:35 Hem Pathologist Commnt No 04/07/17 05:35 D-Dimer 4892.81 ng/mlDDU (0-234) H 04/05/17 20:43 POC ABG pH 7.524 (7.35-7.45) H 04/06/17 04:56 POC ABG pCO2 34.7 (35-45) L 04/06/17 04:56 POC ABG pO2 85 (80-105) 04/06/17 04:56 POC ABG HCO3 28.6 04/06/17 04:56 POC ABG Total CO2 30 04/06/17 04:56 POC ABG O2 Sat 98 04/06/17 04:56 POC ABG Base Excess 6 04/06/17 04:56 FiO2 30 % 04/06/17 04:56 Sodium 140 mmol/L (137-145) 04/07/17 05:35 Potassium 2.9 mmol/L (3.6-5.0) L* 04/07/17 05:35 Chloride 98.3 mmol/L (98-107) 04/07/17 05:35 Carbon Dioxide 25 mmol/L (22-30) 04/07/17 05:35 Anion Gap 20 mmol/L 04/07/17 05:35 BUN 15 mg/dL (7-17) 04/07/17 05:35 Creatinine 0.9 mg/dL (0.7-1.2) D 04/07/17 05:35 Estimated GFR > 60 ml/min 04/07/17 05:35 BUN/Creatinine Ratio 17 % 04/07/17 05:35 Glucose 144 mg/dL (65-100) H 04/07/17 05:35 Lactic Acid 3.60 mmol/L (0.7-2.0) H* 04/06/17 Unknown Calcium 6.2 mg/dL (8.4-10.2) L 04/07/17 05:35 Total Bilirubin 1.00 mg/dL (0.1-1.2) 04/05/17 16:14 AST 166 units/L (5-40) H 04/05/17 16:14 ALT 45 units/L (7-56) 04/05/17 16:14 Alkaline Phosphatase 124 units/L (35-129) 04/05/17 16:14 Troponin T 0.090 ng/mL (0.00-0.029) H 04/05/17 20:43 NT-Pro-B Natriuret Pep 6486 pg/mL (0-900) H 04/05/17 20:43 Total Protein 6.7 g/dL (6.3-8.2) 04/05/17 16:14 Albumin 2.2 g/dL (3.9-5) L 04/05/17 16:14 Albumin/Globulin Ratio 0.5 % 04/05/17 16:14 Triglycerides 64 mg/dL (2-149) 04/05/17 20:43 Cholesterol 98 mg/dL (50-199) 04/05/17 20:43 LDL Cholesterol Direct 54 mg/dL (50-130) 04/05/17 20:43 HDL Cholesterol 32 mg/dL (40-59) L 04/05/17 20:43 Cholesterol/HDL Ratio 3.06 % 04/05/17 20:43
[2017-04-08] MEDS ORDERED: K-DUR PO ONE (16:30)
--- NOTE | 2017-04-08 16:55 | XRay Report ---
FINAL REPORT PROCEDURE: Chest. TECHNIQUE: Portable AP view. HISTORY: Right arm PICC line placement. COMPARISON: Chest 04/05/2017. FINDINGS: The patient is rotated to the right. The heart size is borderline. There is mild tortuosity of the thoracic aorta. The lungs are grossly clear. There are no pleural effusions. There is a right arm PICC line catheter that terminates in the SVC. There are old fractures of left ribs 6, 7, 8 and 9. IMPRESSION: Satisfactory PICC line placement.
[2017-04-08] MEDS: COZAAR PO SCH (18:51)
[2017-04-09] MEDS: DUONEB *Not for PRN Use IH SCH ×4 (02:42→20:50)
[2017-04-09 06:33] LABS: Hemoglobin 6.4 gm/dl (10.1-14.3); Mean Corpuscular HGB Conc 33 % (30-34); Mean Corpuscular Hemoglobin 33 pg (28-32); Mean Corpuscular Volume 101 fl (79-97); Red Blood Count 1.94 M/mm3 (3.65-5.03); Red Cell Distribution Width 19.3 % (13.2-15.2)
[2017-04-09 06:42] LABS: Platelet Count 53 K/mm3 (140-440)
[2017-04-09 06:43] LABS: Hematocrit 19.7 % (30.3-42.9)
[2017-04-09] MEDS ORDERED: NACL 0.9% 500 ML 500 ML IV ONE (06:49)
[2017-04-09 07:01] LABS: Calcium 6.2 mg/dL (8.4-10.2)
[2017-04-09] MEDS: PULMICORT IH SCH ×2 (07:31→20:46)
[2017-04-09] MEDS: BROVANA NEBU IH SCH ×2 (07:31→20:47)
[2017-04-09 08:36] LABS: Basophils % (Manual) 0 % (0.0-1.8); Eosinophils % (Manual) 0 % (0.0-4.3); Total Cells Counted 100
[2017-04-09 08:38] LABS: Band Neutrophils # (Manual) 1.7 K/mm3
[2017-04-09 08:39] LABS: Macrocytosis 1+; Target Cells 3+
[2017-04-09 08:40] LABS: Platelet Estimate Consistent w Auto
--- NOTE | 2017-04-09 10:25 | Progress Note ---
Assessment and Plan Assessment and plan: (1) Acute respiratory distress Cont Abx neb tx and bipap if necessary (2) COPD exacerbation Cont Neb tx solu medrol and abx (3) Pneumonia Cont Abx (4) CHF (congestive heart failure) cont lasix (5) HLD (hyperlipidemia) Cont statins (6) Hypothyroidism (acquired) Cont Synthyroid (7) Hypokalemia Supplemented (8) EtOH abuse. [place] protocol. (9) Sepsis. Present on admission. Elevated lactate and dx of pneumonia. F/U cx results and consider ID consultation (10) Anemia She is status post PRBCs. Follow-up occult stool. Check iron, ferritin, TIBC, B12, folate and reticulocyte count. Consider hematology consultation. (11) Dysphagia. Speech Consultation. History Interval history: Nurse reports patient was coughing while swallowing food. Hospitalist Physical - Constitutional Vitals: Temp Pulse Resp BP Pulse Ox 96.5 F L 84 24 131/89 98 04/09/17 09:49 04/09/17 09:49 04/09/17 09:49 04/09/17 09:49 04/09/17 09:49 General appearance: Present: no acute distress, well-nourished - EENT Eyes: Present: PERRL, EOM intact ENT: hearing intact, clear oral mucosa, dentition normal - Neck Neck: Present: supple, normal ROM - Respiratory Respiratory effort: normal Respiratory: bilateral: CTA - Cardiovascular Rhythm: regular Heart Sounds: Present: S1 & S2. Absent: gallop, rub - Extremities Extremities: no ischemia, No edema, Full ROM - Abdominal General gastrointestinal: soft, non-tender, non-distended, normal bowel sounds - Integumentary Integumentary: Present: clear, warm, dry - Neurologic Neurologic: CNII-XII intact, moves all extremities Results - Labs CBC & Chem 7: 04/09/17 05:30 04/09/17 05:30 Labs: Laboratory Last Values WBC 15.3 K/mm3 (4.5-11.0) H 04/09/17 05:30 RBC 1.94 M/mm3 (3.65-5.03) L 04/09/17 05:30 Hgb 6.4 gm/dl (10.1-14.3) L 04/09/17 05:30 Hct 19.7 % (30.3-42.9) L* 04/09/17 05:30 MCV 101 fl (79-97) H 04/09/17 05:30 MCH 33 pg (28-32) H 04/09/17 05:30 MCHC 33 % (30-34) 04/09/17 05:30 RDW 19.3 % (13.2-15.2) H 04/09/17 05:30 Plt Count 53 K/mm3 (140-440) L 04/09/17 05:30 Add Manual Diff Complete 04/07/17 05:35 Total Counted 100 04/09/17 05:30 Seg Neutrophils % Display Coordinator 04/07/17 05:35 Seg Neuts % (Manual) 78.0 % (40.0-70.0) H 04/09/17 05:30 Band Neutrophils % 11.0 % 04/09/17 05:30 Lymphocytes % (Manual) 5.0 % (13.4-35.0) L 04/09/17 05:30 Reactive Lymphs % (Man) 0 % 04/09/17 05:30 Monocytes % (Manual) 6.0 % (0.0-7.3) 04/09/17 05:30 Eosinophils % (Manual) 0 % (0.0-4.3) 04/09/17 05:30 Basophils % (Manual) 0 % (0.0-1.8) 04/09/17 05:30 Metamyelocytes % 0 % 04/09/17 05:30 Myelocytes % 0 % 04/09/17 05:30 Promyelocytes % 0 % 04/09/17 05:30 Blast Cells % 0 % 04/09/17 05:30 Nucleated RBC % 16.0 % (0.0-0.9) H 04/09/17 05:30 Seg Neutrophils # Man 11.9 K/mm3 (1.8-7.7) H 04/09/17 05:30 Band Neutrophils # 1.7 K/mm3 04/09/17 05:30 Lymphocytes # (Manual) 0.8 K/mm3 (1.2-5.4) L 04/09/17 05:30 Abs React Lymphs (Man) 0.0 K/mm3 04/09/17 05:30 Monocytes # (Manual) 0.9 K/mm3 (0.0-0.8) H 04/09/17 05:30 Eosinophils # (Manual) 0.0 K/mm3 (0.0-0.4) 04/09/17 05:30 Basophils # (Manual) 0.0 K/mm3 (0.0-0.1) 04/09/17 05:30 Metamyelocytes # 0.0 K/mm3 04/09/17 05:30 Myelocytes # 0.0 K/mm3 04/09/17 05:30 Promyelocytes # 0.0 K/mm3 04/09/17 05:30 Blast Cells # 0.0 K/mm3 04/09/17 05:30 WBC Morphology Not Reportable 04/07/17 05:35 Hypersegmented Neuts Not Reportable 04/07/17 05:35 Hyposegmented Neuts Not Reportable 04/07/17 05:35 Hypogranular Neuts Not Reportable 04/07/17 05:35 Smudge Cells Not Reportable 04/07/17 05:35 Toxic Granulation Not Reportable 04/07/17 05:35 Toxic Vacuolation Not Reportable 04/07/17 05:35 Dohle Bodies Not Reportable 04/07/17 05:35 Pelger-Huet Anomaly Not Reportable 04/07/17 05:35 Monique Rods Not Reportable 04/07/17 05:35 Platelet Estimate Consistent w auto 04/09/17 05:30 Clumped Platelets Not Reportable 04/07/17 05:35 Plt Clumps, EDTA Not Reportable 04/07/17 05:35 Large Platelets Not Reportable 04/07/17 05:35 Giant Platelets Not Reportable 04/07/17 05:35 Platelet Satelliting Not Reportable 04/07/17 05:35 Plt Morphology Comment Not Reportable 04/07/17 05:35 RBC Morphology Not Reportable 04/07/17 05:35 Dimorphic RBCs Not Reportable 04/07/17 05:35 Polychromasia Rare 04/07/17 05:35 Hypochromasia 1+ 04/07/17 05:35 Poikilocytosis Not Reportable 04/07/17 05:35 Anisocytosis 1+ 04/07/17 05:35 Microcytosis Not Reportable 04/07/17 05:35 Macrocytosis 1+ 04/09/17 05:30 Spherocytes Not Reportable 04/07/17 05:35 Pappenheimer Bodies Not Reportable 04/07/17 05:35 Sickle Cells Not Reportable 04/07/17 05:35 Target Cells 3+ 04/09/17 05:30 Tear Drop Cells Not Reportable 04/07/17 05:35 Ovalocytes Not Reportable 04/07/17 05:35 Helmet Cells Not Reportable 04/07/17 05:35 [place] Bodies Not Reportable 04/07/17 05:35 [place] Rings Not Reportable 04/07/17 05:35 [place] Cells Not Reportable 04/07/17 05:35 Bite Cells Not Reportable 04/07/17 05:35 Crenated Cell Not Reportable 04/07/17 05:35 Elliptocytes Not Reportable 04/07/17 05:35 Acanthocytes (Spur) Not Reportable 04/07/17 05:35 Rouleaux Not Reportable 04/07/17 05:35 Hemoglobin C Crystals Not Reportable 04/07/17 05:35 Schistocytes Not Reportable 04/07/17 05:35 Malaria parasites Not Reportable 04/07/17 05:35 Vincent Bodies Not Reportable 04/07/17 05:35 Hem Pathologist Commnt No 04/07/17 05:35 D-Dimer 4892.81 ng/mlDDU (0-234) H 04/05/17 20:43 POC ABG pH 7.524 (7.35-7.45) H 04/06/17 04:56 POC ABG pCO2 34.7 (35-45) L 04/06/17 04:56 POC ABG pO2 85 (80-105) 04/06/17 04:56 POC ABG HCO3 28.6 04/06/17 04:56 POC ABG Total CO2 30 04/06/17 04:56 POC ABG O2 Sat 98 04/06/17 04:56 POC ABG Base Excess 6 04/06/17 04:56 FiO2 30 % 04/06/17 04:56 Sodium 140 mmol/L (137-145) 04/09/17 05:30 Potassium 4.4 mmol/L (3.6-5.0) D 04/09/17 05:30 Chloride 100.5 mmol/L (98-107) 04/09/17 05:30 Carbon Dioxide 27 mmol/L (22-30) 04/09/17 05:30 Anion Gap 17 mmol/L 04/09/17 05:30 BUN 20 mg/dL (7-17) H 04/09/17 05:30 Creatinine 1.2 mg/dL (0.7-1.2) 04/09/17 05:30 Estimated GFR 54 ml/min 04/09/17 05:30 BUN/Creatinine Ratio 17 % 04/09/17 05:30 Glucose 126 mg/dL (65-100) H 04/09/17 05:30 Lactic Acid 3.60 mmol/L (0.7-2.0) H* 04/06/17 Unknown Calcium 6.2 mg/dL (8.4-10.2) L 04/09/17 05:30 Total Bilirubin 1.00 mg/dL (0.1-1.2) 04/05/17 16:14 AST 166 units/L (5-40) H 04/05/17 16:14 ALT 45 units/L (7-56) 04/05/17 16:14 Alkaline Phosphatase 124 units/L (35-129) 04/05/17 16:14 Troponin T 0.090 ng/mL (0.00-0.029) H 04/05/17 20:43 NT-Pro-B Natriuret Pep 6486 pg/mL (0-900) H 04/05/17 20:43 Total Protein 6.7 g/dL (6.3-8.2) 04/05/17 16:14 Albumin 2.2 g/dL (3.9-5) L 04/05/17 16:14 Albumin/Globulin Ratio 0.5 % 04/05/17 16:14 Triglycerides 64 mg/dL (2-149) 04/05/17 20:43 Cholesterol 98 mg/dL (50-199) 04/05/17 20:43 LDL Cholesterol Direct 54 mg/dL (50-130) 04/05/17 20:43 HDL Cholesterol 32 mg/dL (40-59) L 04/05/17 20:43 Cholesterol/HDL Ratio 3.06 % 04/05/17 20:43 Blood Type O POSITIVE 04/09/17 07:00 Antibody Screen Negative 04/09/17 07:00 Crossmatch See Detail 04/09/17 07:00
[2017-04-09] MEDS: LOVENOX SUB-Q SCH (10:49)
[2017-04-09] MEDS: COZAAR PO SCH (10:50)
[2017-04-09] MEDS: HCTZ PO SCH (10:50)
[2017-04-09] MEDS: LASIX IV SCH (10:50)
[2017-04-09] MEDS: SYNTHROID PO SCH (10:51)
[2017-04-09] MEDS: BABY ASPIRIN PO SCH (10:51)
--- NOTE | 2017-04-09 11:51 | Consultation ---
History of Present Illness Consult date: 04/09/17 Consult reason: congestive heart failure History of present illness: This is a 67yr old woman with a history of dilated nonischemic cardiomyopathy. 3 years ago she had a normal perfusion thallium stress test but a moderately decreased left ventricular systolic function, EF 35-40% on echocardiogram. 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 She was brought to this hospital with complaints of shortness of breath. A cardiac consultation was requested for CHF. Patient denies chest pain and palpitations. A chest x-ray reports no evidence of CHF. CTA chest reports COPD with fibrosis and infiltrate of right upper lung. No evidence of pulmonary embolus. Labs most notable for a WBC of 15 and severe anemia, hemoglobin of 6.4. Medications and Allergies Allergies Allergy/AdvReac Type Severity Reaction Status Date / Time No Known Allergies Allergy Unverified 10/02/13 20:47 Home Medications Medication Instructions Recorded Confirmed Last Taken Type Aspirin [Aspirin BABY CHEW TAB] 81 mg PO QDAY #60 tab.chew 07/28/14 04/07/17 Unknown Rx Budesoni/Formotero 160-4.5(Nf) 2 puff IH BID #1 inha 07/28/14 04/07/17 Unknown Rx [Symbicort 160-4.5] Ipratropium/Albuterol Sulfate 1 ampul IH Q8HRT #90 ampul.neb 07/28/14 04/07/17 Unknown Rx [Duoneb 0.5 mg-3 mg/3 ml Soln] Levothyroxine [Synthroid] 125 mcg PO QAM #30 tablet 07/28/14 04/07/17 Unknown Rx HYDROcodone/APAP 5-325 [[place] 1 - 2 each PO Q6HR PRN #30 tablet 05/25/15 Unknown Rx 5/325] Furosemide [Lasix] 40 mg PO DAILY 04/07/17 04/07/17 Unknown History Losartan [Cozaar] 50 mg PO QDAY 04/07/17 04/07/17 Unknown History Losartan/Hydrochlorothiazide 1 each PO DAILY 04/07/17 04/07/17 Unknown History [Losartan-Hctz 50-12.5 mg Tab] Potassium Chloride 10 Meq [KCl 40 meq PO ONCE 04/07/17 04/07/17 Unknown History 10Meq/100Ml] Active Meds: Active Medications Acetaminophen (Tylenol) 650 mg PO Q4H PRN PRN Reason: Pain MILD(1-3)/Fever >100.5/YE Acetaminophen/Hydrocodone Bitart ([place] 5/325) 2 each PO Q6HR PRN PRN Reason: Pain Last Admin: 04/07/17 23:55 Dose: 2 each Albuterol (Proventil) 2.5 mg IH Q4HRT PRN PRN Reason: Shortness Of Breath Albuterol/Ipratropium (Duoneb *Not For Prn Use*) 1 ampul IH Q6HRT [facility] Last Admin: 04/09/17 07:31 Dose: Not Given Arformoterol Tartrate (Brovana Nebu) 15 mcg IH Q12HRT [facility] Last Admin: 04/09/17 07:31 Dose: 15 mcg Aspirin (Baby Aspirin) 81 mg PO QDAY [facility] Last Admin: 04/09/17 10:51 Dose: 81 mg Bisacodyl (Dulcolax) 10 mg HI QDAY PRN PRN Reason: Constipation unrelieved by MOM Budesonide (Pulmicort) 1 mg IH Q12HRT [facility] Last Admin: 04/09/17 07:31 Dose: 1 mg Enoxaparin Sodium (Lovenox) 40 mg SUB-Q QDAY@1000 [facility] Last Admin: 04/09/17 10:49 Dose: 40 mg Furosemide (Lasix) 40 mg IV DAILY [facility] Last Admin: 04/09/17 10:50 Dose: 40 mg Hydrochlorothiazide (Hctz) 25 mg PO QDAY [facility] Last Admin: 04/09/17 10:50 Dose: 25 mg Ceftriaxone Sodium 1 gm/ (Sodium Chloride) 20 mls @ 20 mls/10 min IV Q24HR [facility] PRN Reason: Protocol Last Admin: 04/08/17 10:00 Dose: Not Given Sodium Chloride (Nacl 0.9% 1000 Ml) 1,000 mls @ 100 mls/hr IV DIRECT [facility] Last Admin: 04/06/17 21:59 Dose: 100 mls/hr Azithromycin 500 mg/ Sodium (Chloride) 250 mls @ 250 mls/hr IV DAILY [facility] Last Admin: 04/08/17 10:00 Dose: Not Given Levothyroxine Sodium (Synthroid) 125 mcg PO QAM [facility] Last Admin: 04/09/17 10:51 Dose: 125 mcg Lorazepam (Ativan) 0.5 mg IM Q4H PRN PRN Reason: Agitation Losartan Potassium (Cozaar) 50 mg PO QDAY [facility] Last Admin: 04/09/17 10:50 Dose: 50 mg Magnesium Hydroxide (Milk Of Magnesia) 30 ml PO Q4H PRN PRN Reason: Constipation Methylprednisolone Sodium Succinate (Solu-Medrol) 80 mg IV Q6H [facility] Last Admin: 04/09/17 10:48 Dose: 80 mg Ondansetron HCl (Zofran) 4 mg IV Q8H PRN PRN Reason: [facility] Physical Examination Vital Signs Pulse Resp BP Pulse Ox 92 H 28 H 138/119 99 04/05/17 15:30 04/05/17 15:30 04/05/17 15:30 04/05/17 15:30 General appearance: no acute distress Cardiac: Positive: Reg Rate and Rhythm Lungs: Positive: Wheezes Results 04/09/17 05:30 04/09/17 05:30 CBC 04/09/17 Range/Units 05:30 WBC 15.3 H (4.5-11.0) K/mm3 RBC 1.94 L (3.65-5.03) M/mm3 Hgb 6.4 L (10.1-14.3) gm/dl Hct 19.7 L* (30.3-42.9) % Plt Count 53 L (140-440) K/mm3 Comprehensive Metabolic Panel 04/09/17 Range/Units 05:30 Sodium 140 (137-145) mmol/L Potassium 4.4 D (3.6-5.0) mmol/L Chloride 100.5 (98-107) mmol/L Carbon Dioxide 27 (22-30) mmol/L BUN 20 H (7-17) mg/dL Creatinine 1.2 (0.7-1.2) mg/dL Glucose 126 H (65-100) mg/dL Calcium 6.2 L (8.4-10.2) mg/dL Assessment and Plan COPD exacerbation Pneumonia Severe Anemia s/p blood transfusion Dilated Nonischemic CMP EF 35-40% on echo 09/2013 normal perfusion MPI 09/2013 Tobacco abuse
[2017-04-09 11:53] LABS: Iron 42 ug/dL (37-170); Total Iron Binding Capacity 81 mcg/dL (250-450)
[2017-04-09] MEDS: ZITHROMAX 500 MG in NACL 0.9% 250ML 250 ML IV SCH (15:22)
[2017-04-09] MEDS: cefTRIAXone 1 GM in NACL 0.9% 20 ML IV SCH (17:53)
[2017-04-10] MEDS: DUONEB *Not for PRN Use IH SCH ×4 (02:47→19:58)
[2017-04-10] MEDS: PULMICORT IH SCH ×2 (07:15→19:52)
[2017-04-10] MEDS: BROVANA NEBU IH SCH ×2 (07:16→19:52)
[2017-04-10 08:06] LABS: Hematocrit 21.3 % (30.3-42.9)
[2017-04-10] MEDS: LASIX IV SCH (09:53)
[2017-04-10] MEDS: HCTZ PO SCH (09:54)
[2017-04-10] MEDS: COZAAR PO SCH (09:54)
[2017-04-10] MEDS ORDERED: NACL 0.9% 500 ML 500 ML IV ONE (10:00)
[2017-04-10] MEDS: BABY ASPIRIN PO SCH (10:33)
[2017-04-10] MEDS: SYNTHROID PO SCH (10:33)
[2017-04-10] MEDS: LOVENOX SUB-Q SCH (10:33)
[2017-04-10] MEDS: ZITHROMAX 500 MG in NACL 0.9% 250ML 250 ML IV SCH (10:36)
[2017-04-10] MEDS: cefTRIAXone 1 GM in NACL 0.9% 20 ML IV SCH (10:36)
[2017-04-10] MEDS ORDERED: NACL 0.9% 500 ML 500 ML IV SCH (12:18)
--- NOTE | 2017-04-10 12:22 | Progress Note ---
Assessment and Plan Assessment and plan: (1) Acute respiratory distress Cont Abx neb tx and bipap if necessary (2) COPD exacerbation Cont Neb tx solu medrol and abx. Pulmonary consultation. (3) Pneumonia Cont Abx (4) chronic systolic heart failure Compensated. cont lasix. Cardiology signed out (5) HLD (hyperlipidemia) Cont statins (6) Hypothyroidism (acquired) Cont Synthyroid (7) Hypokalemia Supplemented (8) EtOH abuse. CIWA protocol. (9) Sepsis. Present on admission. Elevated lactate and dx of pneumonia. F/U cx results and consider ID consultation (10) Anemia She is status post PRBCs. Follow-up occult stool. Check iron, ferritin, TIBC, B12, folate and reticulocyte count. Consider hematology consultation. (11) Dysphagia. Speech Consultation. History Interval history: Nurse reports patient was coughing while swallowing food. Hospitalist Physical - Constitutional Vitals: Temp Pulse Resp BP Pulse Ox 98.3 F 77 18 79/44 95 04/10/17 05:13 04/10/17 08:28 04/10/17 08:28 04/10/17 08:54 04/10/17 08:28 General appearance: Present: no acute distress - EENT Eyes: Present: PERRL, EOM intact ENT: hearing intact, clear oral mucosa, dentition normal - Neck Neck: Present: supple, normal ROM - Respiratory Respiratory effort: normal Respiratory: bilateral: CTA - Cardiovascular Rhythm: regular Heart Sounds: Present: S1 & S2. Absent: gallop, rub - Extremities Extremities: no ischemia, No edema, Full ROM - Abdominal General gastrointestinal: soft, non-tender, non-distended, normal bowel sounds - Integumentary Integumentary: Present: clear, warm, dry - Neurologic Neurologic: CNII-XII intact, moves all extremities Results - Labs CBC & Chem 7: 04/10/17 Unknown 04/09/17 05:30 Labs: Laboratory Last Values WBC 15.3 K/mm3 (4.5-11.0) H 04/09/17 05:30 RBC 1.94 M/mm3 (3.65-5.03) L 04/09/17 05:30 Hgb 7.0 gm/dl (10.1-14.3) L 04/10/17 Unknown Hct 21.3 % (30.3-42.9) L 04/10/17 Unknown MCV 101 fl (79-97) H 04/09/17 05:30 MCH 33 pg (28-32) H 04/09/17 05:30 MCHC 33 % (30-34) 04/09/17 05:30 RDW 19.3 % (13.2-15.2) H 04/09/17 05:30 Plt Count 53 K/mm3 (140-440) L 04/09/17 05:30 Add Manual Diff Complete 04/09/17 05:30 Total Counted 100 04/09/17 05:30 Seg Neutrophils % Special Investigation Unit Investigator 04/07/17 05:35 Seg Neuts % (Manual) 78.0 % (40.0-70.0) H 04/09/17 05:30 Band Neutrophils % 11.0 % 04/09/17 05:30 Lymphocytes % (Manual) 5.0 % (13.4-35.0) L 04/09/17 05:30 Reactive Lymphs % (Man) 0 % 04/09/17 05:30 Monocytes % (Manual) 6.0 % (0.0-7.3) 04/09/17 05:30 Eosinophils % (Manual) 0 % (0.0-4.3) 04/09/17 05:30 Basophils % (Manual) 0 % (0.0-1.8) 04/09/17 05:30 Metamyelocytes % 0 % 04/09/17 05:30 Myelocytes % 0 % 04/09/17 05:30 Promyelocytes % 0 % 04/09/17 05:30 Blast Cells % 0 % 04/09/17 05:30 Nucleated RBC % 16.0 % (0.0-0.9) H 04/09/17 05:30 Seg Neutrophils # Man 11.9 K/mm3 (1.8-7.7) H 04/09/17 05:30 Band Neutrophils # 1.7 K/mm3 04/09/17 05:30 Lymphocytes # (Manual) 0.8 K/mm3 (1.2-5.4) L 04/09/17 05:30 Abs React Lymphs (Man) 0.0 K/mm3 04/09/17 05:30 Monocytes # (Manual) 0.9 K/mm3 (0.0-0.8) H 04/09/17 05:30 Eosinophils # (Manual) 0.0 K/mm3 (0.0-0.4) 04/09/17 05:30 Basophils # (Manual) 0.0 K/mm3 (0.0-0.1) 04/09/17 05:30 Metamyelocytes # 0.0 K/mm3 04/09/17 05:30 Myelocytes # 0.0 K/mm3 04/09/17 05:30 Promyelocytes # 0.0 K/mm3 04/09/17 05:30 Blast Cells # 0.0 K/mm3 04/09/17 05:30 WBC Morphology Not Reportable 04/09/17 05:30 Hypersegmented Neuts Not Reportable 04/09/17 05:30 Hyposegmented Neuts Not Reportable 04/09/17 05:30 Hypogranular Neuts Not Reportable 04/09/17 05:30 Smudge Cells Not Reportable 04/09/17 05:30 Toxic Granulation Not Reportable 04/09/17 05:30 Toxic Vacuolation Not Reportable 04/09/17 05:30 Dohle Bodies Not Reportable 04/09/17 05:30 Pelger-Huet Anomaly Not Reportable 04/09/17 05:30 Monique Rods Not Reportable 04/09/17 05:30 Platelet Estimate Consistent w auto 04/09/17 05:30 Clumped Platelets Not Reportable 04/09/17 05:30 Plt Clumps, EDTA Not Reportable 04/09/17 05:30 Large Platelets Not Reportable 04/09/17 05:30 Giant Platelets Not Reportable 04/09/17 05:30 Platelet Satelliting Not Reportable 04/09/17 05:30 Plt Morphology Comment Not Reportable 04/09/17 05:30 RBC Morphology Not Reportable 04/09/17 05:30 Dimorphic RBCs Not Reportable 04/09/17 05:30 Polychromasia Not Reportable 04/09/17 05:30 Hypochromasia Not Reportable 04/09/17 05:30 Poikilocytosis Not Reportable 04/09/17 05:30 Anisocytosis Not Reportable 04/09/17 05:30 Microcytosis Not Reportable 04/09/17 05:30 Macrocytosis 1+ 04/09/17 05:30 Spherocytes Not Reportable 04/09/17 05:30 Pappenheimer Bodies Not Reportable 04/09/17 05:30 Sickle Cells Not Reportable 04/09/17 05:30 Target Cells 3+ 04/09/17 05:30 Tear Drop Cells Not Reportable 04/09/17 05:30 Ovalocytes Not Reportable 04/09/17 05:30 Helmet Cells Not Reportable 04/09/17 05:30 Aparicio-F[place] Bodies Not Reportable 04/09/17 05:30 [place] Rings Not Reportable 04/09/17 05:30 [place] Cells Not Reportable 04/09/17 05:30 Bite Cells Not Reportable 04/09/17 05:30 Crenated Cell Not Reportable 04/09/17 05:30 Elliptocytes Not Reportable 04/09/17 05:30 Acanthocytes (Spur) Not Reportable 04/09/17 05:30 Rouleaux Not Reportable 04/09/17 05:30 Hemoglobin C Crystals Not Reportable 04/09/17 05:30 Schistocytes Not Reportable 04/09/17 05:30 Malaria parasites Not Reportable 04/09/17 05:30 Percent Retic 1.53 % (0.78-2.58) 04/09/17 11:23 Vincent Bodies Not Reportable 04/09/17 05:30 Hem Pathologist Commnt No 04/09/17 05:30 D-Dimer 4892.81 ng/mlDDU (0-234) H 04/05/17 20:43 POC ABG pH 7.524 (7.35-7.45) H 04/06/17 04:56 POC ABG pCO2 34.7 (35-45) L 04/06/17 04:56 POC ABG pO2 85 (80-105) 04/06/17 04:56 POC ABG HCO3 28.6 04/06/17 04:56 POC ABG Total CO2 30 04/06/17 04:56 POC ABG O2 Sat 98 04/06/17 04:56 POC ABG Base Excess 6 04/06/17 04:56 FiO2 30 % 04/06/17 04:56 Sodium 140 mmol/L (137-145) 04/09/17 05:30 Potassium 4.4 mmol/L (3.6-5.0) D 04/09/17 05:30 Chloride 100.5 mmol/L (98-107) 04/09/17 05:30 Carbon Dioxide 27 mmol/L (22-30) 04/09/17 05:30 Anion Gap 17 mmol/L 04/09/17 05:30 BUN 20 mg/dL (7-17) H 04/09/17 05:30 Creatinine 1.2 mg/dL (0.7-1.2) 04/09/17 05:30 Estimated GFR 54 ml/min 04/09/17 05:30 BUN/Creatinine Ratio 17 % 04/09/17 05:30 Glucose 126 mg/dL (65-100) H 04/09/17 05:30 Lactic Acid 3.60 mmol/L (0.7-2.0) H* 04/06/17 Unknown Calcium 6.2 mg/dL (8.4-10.2) L 04/09/17 05:30 Iron 42 ug/dL (37-170) 04/09/17 11:23 TIBC 81 mcg/dL (250-450) L 04/09/17 11:23 Ferritin 2314.0 ng/mL (13.0-400.0) H 04/09/17 11:23 Total Bilirubin 1.00 mg/dL (0.1-1.2) 04/05/17 16:14 AST 166 units/L (5-40) H 04/05/17 16:14 ALT 45 units/L (7-56) 04/05/17 16:14 Alkaline Phosphatase 124 units/L (35-129) 04/05/17 16:14 Troponin T 0.090 ng/mL (0.00-0.029) H 04/05/17 20:43 NT-Pro-B Natriuret Pep 6486 pg/mL (0-900) H 04/05/17 20:43 Total Protein 6.7 g/dL (6.3-8.2) 04/05/17 16:14 Albumin 2.2 g/dL (3.9-5) L 04/05/17 16:14 Albumin/Globulin Ratio 0.5 % 04/05/17 16:14 Triglycerides 64 mg/dL (2-149) 04/05/17 20:43 Cholesterol 98 mg/dL (50-199) 04/05/17 20:43 LDL Cholesterol Direct 54 mg/dL (50-130) 04/05/17 20:43 HDL Cholesterol 32 mg/dL (40-59) L 04/05/17 20:43 Cholesterol/HDL Ratio 3.06 % 04/05/17 20:43 Vitamin B12 1641 pg/mL (211-911) H 04/09/17 11:23 Folate 4.55 ng/mL (7.3-26.0) L 04/09/17 11:23 Blood Type O POSITIVE 04/09/17 07:00 Antibody Screen Negative 04/09/17 07:00 Crossmatch See Detail 04/09/17 07:00
--- NOTE | 2017-04-10 14:31 | Consultation ---
History of Present Illness Consult date: 04/10/17 Reason for consult: dyspnea, cough, COPD History of present illness: Called to evaluate case of a 67-year-old female, admitted on April 05 with chief complaint of progressive shortness of breath and coughing. The patient reportedly has prior history of COPD and also congestive heart failure. Per daughter, the patient had been suffering from breathing problems a few days prior to admission. This associated with nonproductive cough. Also lower extremity and facial edema. No allergic reaction reported. She denies fever or chills. She denies also hemoptysis. No chest pain reported. Per family report, the patient smokes daily and also drinks beer frequently Admission chest x-ray showed evidence of COPD with a right upper lobe infiltrate. Chest CTA showed no evidence of pulmonary embolism. It did show COPD changes with mild fibrosis and again a right upper lobe infiltrate Medications and Allergies Allergies Allergy/AdvReac Type Severity Reaction Status Date / Time No Known Allergies Allergy Unverified 10/02/13 20:47 Home Medications Medication Instructions Recorded Confirmed Last Taken Type Aspirin [Aspirin BABY CHEW TAB] 81 mg PO QDAY #60 tab.chew 07/28/14 04/07/17 Unknown Rx Budesoni/Formotero 160-4.5(Nf) 2 puff IH BID #1 inha 07/28/14 04/07/17 Unknown Rx [Symbicort 160-4.5] Ipratropium/Albuterol Sulfate 1 ampul IH Q8HRT #90 ampul.neb 07/28/14 04/07/17 Unknown Rx [Duoneb 0.5 mg-3 mg/3 ml Soln] Levothyroxine [Synthroid] 125 mcg PO QAM #30 tablet 07/28/14 04/07/17 Unknown Rx HYDROcodone/APAP 5-325 [[place] 1 - 2 each PO Q6HR PRN #30 tablet 05/25/15 Unknown Rx 5/325] Furosemide [Lasix] 40 mg PO DAILY 04/07/17 04/07/17 Unknown History Losartan [Cozaar] 50 mg PO QDAY 04/07/17 04/07/17 Unknown History Losartan/Hydrochlorothiazide 1 each PO DAILY 04/07/17 04/07/17 Unknown History [Losartan-Hctz 50-12.5 mg Tab] Potassium Chloride 10 Meq [KCl 40 meq PO ONCE 04/07/17 04/07/17 Unknown History 10Meq/100Ml] Active Meds: Active Medications Acetaminophen (Tylenol) 650 mg PO Q4H PRN PRN Reason: Pain MILD(1-3)/Fever >100.5/YE Acetaminophen/Hydrocodone Bitart ([place] 5/325) 2 each PO Q6HR PRN PRN Reason: Pain Last Admin: 04/07/17 23:55 Dose: 2 each Albuterol (Proventil) 2.5 mg IH Q4HRT PRN PRN Reason: Shortness Of Breath Albuterol/Ipratropium (Duoneb *Not For Prn Use*) 1 ampul IH Q6HRT [facility] Last Admin: 04/10/17 14:05 Dose: 1 ampul Arformoterol Tartrate (Brovana Nebu) 15 mcg IH Q12HRT [facility] Last Admin: 04/10/17 07:16 Dose: 15 mcg Aspirin (Baby Aspirin) 81 mg PO QDAY [facility] Last Admin: 04/10/17 10:33 Dose: 81 mg Bisacodyl (Dulcolax) 10 mg MS QDAY PRN PRN Reason: Constipation unrelieved by MOM Budesonide (Pulmicort) 1 mg IH Q12HRT [facility] Last Admin: 04/10/17 07:15 Dose: 1 mg Enoxaparin Sodium (Lovenox) 40 mg SUB-Q QDAY@1000 [facility] Last Admin: 04/10/17 10:33 Dose: 40 mg Furosemide (Lasix) 40 mg IV DAILY [facility] Last Admin: 04/10/17 09:53 Dose: Not Given Hydrochlorothiazide (Hctz) 25 mg PO QDAY [facility] Last Admin: 04/10/17 09:54 Dose: Not Given Ceftriaxone Sodium 1 gm/ (Sodium Chloride) 20 mls @ 20 mls/10 min IV Q24HR [facility] PRN Reason: Protocol Last Admin: 04/10/17 10:36 Dose: 20 mls/10 min Sodium Chloride (Nacl 0.9% 1000 Ml) 1,000 mls @ 100 mls/hr IV DIRECT [facility] Last Admin: 04/06/17 21:59 Dose: 100 mls/hr Azithromycin 500 mg/ Sodium (Chloride) 250 mls @ 250 mls/hr IV DAILY [facility] Last Admin: 04/10/17 10:36 Dose: 250 mls/hr Sodium Chloride (Nacl 0.9% 500 Ml) 500 mls @ 0 mls/hr IV ONCE [facility] PRN Reason: As Directed Stop: 04/10/17 23:00 Levothyroxine Sodium (Synthroid) 125 mcg PO QAM [facility] Last Admin: 04/10/17 10:33 Dose: 125 mcg Lorazepam (Ativan) 0.5 mg IM Q4H PRN PRN Reason: Agitation Last Admin: 04/09/17 22:03 Dose: 0.5 mg Losartan Potassium (Cozaar) 50 mg PO QDAY [facility] Last Admin: 04/10/17 09:54 Dose: Not Given Magnesium Hydroxide (Milk Of Magnesia) 30 ml PO Q4H PRN PRN Reason: Constipation Methylprednisolone Sodium Succinate (Solu-Medrol) 80 mg IV Q6H [facility] Last Admin: 04/10/17 10:36 Dose: 80 mg Ondansetron HCl (Zofran) 4 mg IV Q8H PRN PRN Reason: N/V unrelieved by Reglan Review of Systems ROS unobtainable: due to mental status Physical Examination Vital signs: Vital Signs Pulse Resp BP Pulse Ox 92 H 28 H 138/119 99 04/05/17 15:30 04/05/17 15:30 04/05/17 15:30 04/05/17 15:30 General appearance: no acute distress, asleep Eyes: non-icteric ENT: oropharynx moist Neck: supple, no JVD Ascultation: Bilateral: wheezes, rales, rhonchi Cardiovascular: regular rate and rhythm Gastrointestinal: normoactive bowel sounds, non-distended Integumentary: normal Extremities: no cyanosis, no edema Musculoskeletal: no deformities non-focal exam, CN II-XII normal mood appropriate, affect normal Results - Laboratory Findings CBC and BMP: 04/10/17 Unknown 04/09/17 05:30 ABG POC ABG pH 7.524 (7.35-7.45) H 04/06/17 04:56 POC ABG pCO2 34.7 (35-45) L 04/06/17 04:56 POC ABG pO2 85 (80-105) 04/06/17 04:56 POC ABG HCO3 28.6 04/06/17 04:56 POC ABG Total CO2 30 04/06/17 04:56 POC ABG O2 Sat 98 04/06/17 04:56 PT/INR, D-dimer D-Dimer 4892.81 ng/mlDDU (0-234) H 04/05/17 20:43 Abnormal lab findings: Abnormal Labs 04/05/17 04/05/17 04/05/17 16:14 16:14 20:43 WBC 17.4 H RBC 2.69 L Hgb 8.9 L Hct 27.2 L MCV 101 H MCH 33 H RDW 20.4 H Plt Count Seg Neuts % (Manual) 98.0 H Lymphocytes % (Manual) 2.0 L Nucleated RBC % 4.0 H Seg Neutrophils # Man 17.1 H Lymphocytes # (Manual) 0.3 L Monocytes # (Manual) D-Dimer POC ABG pH POC ABG pCO2 Potassium 3.3 L Chloride 95.0 L BUN Creatinine 0.5 L Glucose Lactic Acid Calcium 6.7 L TIBC Ferritin AST 166 H Troponin T 0.090 H NT-Pro-B Natriuret Pep 6486 H Albumin 2.2 L HDL Cholesterol 32 L Vitamin B12 Folate Crossmatch 04/05/17 04/06/17 04/06/17 20:43 02:30 04:56 WBC RBC Hgb Hct MCV MCH RDW Plt Count Seg Neuts % (Manual) Lymphocytes % (Manual) Nucleated RBC % Seg Neutrophils # Man Lymphocytes # (Manual) Monocytes # (Manual) D-Dimer 4892.81 H POC ABG pH 7.524 H POC ABG pCO2 34.7 L Potassium Chloride BUN Creatinine Glucose Lactic Acid 3.30 H* Calcium TIBC Ferritin AST Troponin T NT-Pro-B Natriuret Pep Albumin HDL Cholesterol Vitamin B12 Folate Crossmatch 04/06/17 04/06/17 04/07/17 07:38 Unknown 05:35 WBC 17.7 H RBC 2.29 L Hgb 7.4 L Hct 23.2 L MCV 101 H MCH RDW 20.0 H Plt Count 104 L Seg Neuts % (Manual) 81.0 H Lymphocytes % (Manual) 4.0 L Nucleated RBC % 12.0 H Seg Neutrophils # Man 14.3 H Lymphocytes # (Manual) 0.7 L Monocytes # (Manual) D-Dimer POC ABG pH POC ABG pCO2 Potassium Chloride BUN Creatinine Glucose Lactic Acid 3.10 H* 3.60 H* Calcium TIBC Ferritin AST Troponin T NT-Pro-B Natriuret Pep Albumin HDL Cholesterol Vitamin B12 Folate Crossmatch 04/07/17 04/09/17 04/09/17 05:35 05:30 05:30 WBC 15.3 H RBC 1.94 L Hgb 6.4 L Hct 19.7 L* MCV 101 H MCH 33 H RDW 19.3 H Plt Count 53 L Seg Neuts % (Manual) 78.0 H Lymphocytes % (Manual) 5.0 L Nucleated RBC % 16.0 H Seg Neutrophils # Man 11.9 H Lymphocytes # (Manual) 0.8 L Monocytes # (Manual) 0.9 H D-Dimer POC ABG pH POC ABG pCO2 Potassium 2.9 L* Chloride BUN 20 H Creatinine Glucose 144 H 126 H Lactic Acid Calcium 6.2 L 6.2 L TIBC Ferritin AST Troponin T NT-Pro-B Natriuret Pep Albumin HDL Cholesterol Vitamin B12 Folate Crossmatch 04/09/17 04/09/17 04/09/17 07:00 11:23 11:23 WBC RBC Hgb Hct MCV MCH RDW Plt Count Seg Neuts % (Manual) Lymphocytes % (Manual) Nucleated RBC % Seg Neutrophils # Man Lymphocytes # (Manual) Monocytes # (Manual) D-Dimer POC ABG pH POC ABG pCO2 Potassium Chloride BUN Creatinine Glucose Lactic Acid Calcium TIBC 81 L Ferritin 2314.0 H AST Troponin T NT-Pro-B Natriuret Pep Albumin HDL Cholesterol Vitamin B12 Folate Crossmatch See Detail 04/09/17 04/09/17 04/10/17 11:23 11:23 Unknown WBC RBC Hgb 7.0 L Hct 21.3 L MCV MCH RDW Plt Count Seg Neuts % (Manual) Lymphocytes % (Manual) Nucleated RBC % Seg Neutrophils # Man Lymphocytes # (Manual) Monocytes # (Manual) D-Dimer POC ABG pH POC ABG pCO2 Potassium Chloride BUN Creatinine Glucose Lactic Acid Calcium TIBC Ferritin AST Troponin T NT-Pro-B Natriuret Pep Albumin HDL Cholesterol Vitamin B12 1641 H Folate 4.55 L Crossmatch - Diagnostic Findings Chest x-ray: report reviewed, image reviewed CT scan - chest: report reviewed, image reviewed Assessment and Plan Pneumonia. CAP per history COPD with exacerbation Respiratory alkalosis Congestive heart failure/cardiomyopathy with decompensation Tobacco abuse Alcohol abuse. Recommendations Albuterol 2.5 milligram nebulizations every 4-6 hours with or without ipratropium Solu-Medrol 40-60 mg IV every 6-8 hours Oxygen support via nasal cannula or mask to maintain oximetry over 92% Continue antibiotics Gentle diuretics as deemed necessary. Cardiology followed Watch for alcohol withdrawal symptoms and initiate CIWA protocol if necessary Check culture results and adjust antibiotics accordingly DVT prophylaxis
[2017-04-11] MEDS: DUONEB *Not for PRN Use IH SCH ×4 (02:11→22:25)
[2017-04-11 06:12] LABS: Hematocrit 20.9 % (30.3-42.9); Hemoglobin 6.9 gm/dl (10.1-14.3); Mean Corpuscular HGB Conc 33 % (30-34); Mean Corpuscular Hemoglobin 31 pg (28-32); Mean Corpuscular Volume 94 fl (79-97); Red Blood Count 2.24 M/mm3 (3.65-5.03); Red Cell Distribution Width 17.4 % (13.2-15.2)
[2017-04-11 06:19] LABS: Platelet Count 28 K/mm3 (140-440)
[2017-04-11 06:45] LABS: Calcium 5.6 mg/dL (8.4-10.2)
[2017-04-11 07:18] LABS: Basophils % (Manual) 0 % (0.0-1.8); Total Cells Counted 100
[2017-04-11 07:19] LABS: Anisocytosis 1+; Band Neutrophils # (Manual) 2.9 K/mm3; Eosinophils % (Manual) 0 % (0.0-4.3); Macrocytosis 1+; Target Cells 2+
[2017-04-11 07:20] LABS: Platelet Estimate Consistent w Auto; Spherocytes Few
[2017-04-11] MEDS: PULMICORT IH SCH ×2 (07:23→21:33)
[2017-04-11] MEDS: BROVANA NEBU IH SCH ×2 (07:24→21:32)
[2017-04-11] MEDS: NACL 0.9% 1000 ML 1,000 ML IV SCH (09:16)
[2017-04-11] MEDS: cefTRIAXone 1 GM in NACL 0.9% 20 ML IV SCH (09:19)
[2017-04-11] MEDS: SYNTHROID PO SCH (09:20)
[2017-04-11] MEDS: LOVENOX SUB-Q SCH (09:20)
[2017-04-11] MEDS: LASIX IV SCH (09:20)
[2017-04-11] MEDS: BABY ASPIRIN PO SCH (09:21)
--- NOTE | 2017-04-11 09:31 | XRay Report ---
AP CHEST: HISTORY: Pneumonia Bibasilar atelectasis and trace right pleural effusion are suspected. The upper lung zones are clear. Heart size is borderline. Chronic left rib deformities and left humeral deformity are noted. IMPRESSION: Mild bibasilar atelectasis and small right pleural effusion.
--- NOTE | 2017-04-11 11:27 | Progress Note ---
Assessment and Plan Assessment and plan: (1) Acute respiratory distress Cont Abx neb tx and bipap if necessary (2) COPD exacerbation Cont Neb tx solu medrol and abx. Pulmonary consultation. (3) Pneumonia Cont Abx (4) chronic systolic heart failure Compensated. cont lasix. Cardiology signed out (5) HLD (hyperlipidemia) Cont statins (6) Hypothyroidism (acquired) Cont Synthyroid (7) Hypokalemia Supplemented (8) EtOH abuse. CIWA protocol. (9) Sepsis. Present on admission. Elevated lactate and dx of pneumonia. F/U cx results and consider ID consultation (10) Anemia She is status post PRBCs. Follow-up occult stool positive. Consult GI Check iron, ferritin, TIBC, B12, folate and reticulocyte count. Consider hematology consultation. (11) Dysphagia. Speech Consultation. History Interval history: No new issues Hospitalist Physical - Constitutional Vitals: Temp Pulse Resp BP Pulse Ox 97.8 F 80 20 95/57 95 04/11/17 04:39 04/11/17 04:39 04/11/17 04:39 04/11/17 04:39 04/11/17 04:39 General appearance: Present: no acute distress - EENT Eyes: Present: PERRL, EOM intact ENT: hearing intact, clear oral mucosa, dentition normal - Neck Neck: Present: supple, normal ROM - Respiratory Respiratory effort: normal Respiratory: bilateral: CTA - Cardiovascular Rhythm: regular Heart Sounds: Present: S1 & S2. Absent: gallop, rub - Extremities Extremities: no ischemia, No edema, Full ROM - Abdominal General gastrointestinal: soft, non-tender, non-distended, normal bowel sounds - Integumentary Integumentary: Present: clear, warm, dry - Neurologic Neurologic: CNII-XII intact, moves all extremities Results - Labs CBC & Chem 7: 04/11/17 04:30 04/11/17 04:30 Labs: Laboratory Last Values WBC 13.8 K/mm3 (4.5-11.0) H 04/11/17 04:30 RBC 2.24 M/mm3 (3.65-5.03) L 04/11/17 04:30 Hgb 6.9 gm/dl (10.1-14.3) L 04/11/17 04:30 Hct 20.9 % (30.3-42.9) L 04/11/17 04:30 MCV 94 fl (79-97) 04/11/17 04:30 MCH 31 pg (28-32) 04/11/17 04:30 MCHC 33 % (30-34) 04/11/17 04:30 RDW 17.4 % (13.2-15.2) H 04/11/17 04:30 Plt Count 28 K/mm3 (140-440) L 04/11/17 04:30 Add Manual Diff Complete 04/11/17 04:30 Total Counted 100 04/11/17 04:30 Seg Neutrophils % Biologist Aide 04/07/17 05:35 Seg Neuts % (Manual) 66.0 % (40.0-70.0) 04/11/17 04:30 Band Neutrophils % 21.0 % 04/11/17 04:30 Lymphocytes % (Manual) 8.0 % (13.4-35.0) L 04/11/17 04:30 Reactive Lymphs % (Man) 0 % 04/11/17 04:30 Monocytes % (Manual) 5.0 % (0.0-7.3) 04/11/17 04:30 Eosinophils % (Manual) 0 % (0.0-4.3) 04/11/17 04:30 Basophils % (Manual) 0 % (0.0-1.8) 04/11/17 04:30 Metamyelocytes % 0 % 04/11/17 04:30 Myelocytes % 0 % 04/11/17 04:30 Promyelocytes % 0 % 04/11/17 04:30 Blast Cells % 0 % 04/11/17 04:30 Nucleated RBC % 12.0 % (0.0-0.9) H 04/11/17 04:30 Seg Neutrophils # Man 9.1 K/mm3 (1.8-7.7) H 04/11/17 04:30 Band Neutrophils # 2.9 K/mm3 04/11/17 04:30 Lymphocytes # (Manual) 1.1 K/mm3 (1.2-5.4) L 04/11/17 04:30 Abs React Lymphs (Man) 0.0 K/mm3 04/11/17 04:30 Monocytes # (Manual) 0.7 K/mm3 (0.0-0.8) 04/11/17 04:30 Eosinophils # (Manual) 0.0 K/mm3 (0.0-0.4) 04/11/17 04:30 Basophils # (Manual) 0.0 K/mm3 (0.0-0.1) 04/11/17 04:30 Metamyelocytes # 0.0 K/mm3 04/11/17 04:30 Myelocytes # 0.0 K/mm3 04/11/17 04:30 Promyelocytes # 0.0 K/mm3 04/11/17 04:30 Blast Cells # 0.0 K/mm3 04/11/17 04:30 WBC Morphology Not Reportable 04/11/17 04:30 Hypersegmented Neuts Not Reportable 04/11/17 04:30 Hyposegmented Neuts Not Reportable 04/11/17 04:30 Hypogranular Neuts Not Reportable 04/11/17 04:30 Smudge Cells Not Reportable 04/11/17 04:30 Toxic Granulation Not Reportable 04/11/17 04:30 Toxic Vacuolation Not Reportable 04/11/17 04:30 Dohle Bodies Not Reportable 04/11/17 04:30 Pelger-Huet Anomaly Not Reportable 04/11/17 04:30 Monique Rods Not Reportable 04/11/17 04:30 Platelet Estimate Consistent w auto 04/11/17 04:30 Clumped Platelets Not Reportable 04/11/17 04:30 Plt Clumps, EDTA Not Reportable 04/11/17 04:30 Large Platelets Not Reportable 04/11/17 04:30 Giant Platelets Not Reportable 04/11/17 04:30 Platelet Satelliting Not Reportable 04/11/17 04:30 Plt Morphology Comment Not Reportable 04/11/17 04:30 RBC Morphology Not Reportable 04/11/17 04:30 Dimorphic RBCs Not Reportable 04/11/17 04:30 Polychromasia Few 04/11/17 04:30 Hypochromasia Not Reportable 04/11/17 04:30 Poikilocytosis Not Reportable 04/11/17 04:30 Anisocytosis 1+ 04/11/17 04:30 Microcytosis Not Reportable 04/11/17 04:30 Macrocytosis 1+ 04/11/17 04:30 Spherocytes Few 04/11/17 04:30 Pappenheimer Bodies Not Reportable 04/11/17 04:30 Sickle Cells Not Reportable 04/11/17 04:30 Target Cells 2+ 04/11/17 04:30 Tear Drop Cells Not Reportable 04/11/17 04:30 Ovalocytes Not Reportable 04/11/17 04:30 Helmet Cells Not Reportable 04/11/17 04:30 Aparicio-[place] Bodies Not Reportable 04/11/17 04:30 [place] Rings Not Reportable 04/11/17 04:30 [place] Cells Not Reportable 04/11/17 04:30 Bite Cells Not Reportable 04/11/17 04:30 Crenated Cell Not Reportable 04/11/17 04:30 Elliptocytes Not Reportable 04/11/17 04:30 Acanthocytes (Spur) Not Reportable 04/11/17 04:30 Rouleaux Not Reportable 04/11/17 04:30 Hemoglobin C Crystals Not Reportable 04/11/17 04:30 Schistocytes Not Reportable 04/11/17 04:30 Malaria parasites Not Reportable 04/11/17 04:30 Percent Retic 1.53 % (0.78-2.58) 04/09/17 11:23 Vincent Bodies Not Reportable 04/11/17 04:30 Hem Pathologist Commnt No 04/11/17 04:30 D-Dimer 4892.81 ng/mlDDU (0-234) H 04/05/17 20:43 POC ABG pH 7.524 (7.35-7.45) H 04/06/17 04:56 POC ABG pCO2 34.7 (35-45) L 04/06/17 04:56 POC ABG pO2 85 (80-105) 04/06/17 04:56 POC ABG HCO3 28.6 04/06/17 04:56 POC ABG Total CO2 30 04/06/17 04:56 POC ABG O2 Sat 98 04/06/17 04:56 POC ABG Base Excess 6 04/06/17 04:56 FiO2 30 % 04/06/17 04:56 Sodium 134 mmol/L (137-145) L 04/11/17 04:30 Potassium 3.5 mmol/L (3.6-5.0) L D 04/11/17 04:30 Chloride 95.6 mmol/L (98-107) L 04/11/17 04:30 Carbon Dioxide 26 mmol/L (22-30) 04/11/17 04:30 Anion Gap 16 mmol/L 04/11/17 04:30 BUN 24 mg/dL (7-17) H 04/11/17 04:30 Creatinine 1.5 mg/dL (0.7-1.2) H 04/11/17 04:30 Estimated GFR 42 ml/min 04/11/17 04:30 BUN/Creatinine Ratio 16 % 04/11/17 04:30 Glucose 215 mg/dL (65-100) H 04/11/17 04:30 Lactic Acid 3.60 mmol/L (0.7-2.0) H* 04/06/17 Unknown Calcium 5.6 mg/dL (8.4-10.2) L* 04/11/17 04:30 Iron 42 ug/dL (37-170) 04/09/17 11:23 TIBC 81 mcg/dL (250-450) L 04/09/17 11:23 Ferritin 2314.0 ng/mL (13.0-400.0) H 04/09/17 11:23 Total Bilirubin 1.00 mg/dL (0.1-1.2) 04/05/17 16:14 AST 166 units/L (5-40) H 04/05/17 16:14 ALT 45 units/L (7-56) 04/05/17 16:14 Alkaline Phosphatase 124 units/L (35-129) 04/05/17 16:14 Troponin T 0.090 ng/mL (0.00-0.029) H 04/05/17 20:43 NT-Pro-B Natriuret Pep 6486 pg/mL (0-900) H 04/05/17 20:43 Total Protein 6.7 g/dL (6.3-8.2) 04/05/17 16:14 Albumin 2.2 g/dL (3.9-5) L 04/05/17 16:14 Albumin/Globulin Ratio 0.5 % 04/05/17 16:14 Triglycerides 64 mg/dL (2-149) 04/05/17 20:43 Cholesterol 98 mg/dL (50-199) 04/05/17 20:43 LDL Cholesterol Direct 54 mg/dL (50-130) 04/05/17 20:43 HDL Cholesterol 32 mg/dL (40-59) L 04/05/17 20:43 Cholesterol/HDL Ratio 3.06 % 04/05/17 20:43 Vitamin B12 1641 pg/mL (211-911) H 04/09/17 11:23 Folate 4.55 ng/mL (7.3-26.0) L 04/09/17 11:23 Blood Type O POSITIVE 04/09/17 07:00 Antibody Screen Negative 04/09/17 07:00 Crossmatch See Detail 04/09/17 07:00
[2017-04-11] MEDS ORDERED: NACL 0.9% 500 ML 500 ML IV NR (12:00)
--- NOTE | 2017-04-11 14:00 | Gastroenterology Consultation ---
History of Present Illness - Reason for Consult Consult date: 04/11/17 anemia, occult stool positive Requesting physician: SHANNEN RICHARDSON - History of Present Illness Patient is a 67 y/o female with PMH of COPD, CHF, HLD, hypothyroidism, stroke who presented to ED with c/o SOB and cough. She was admitted for acute respiratory distress, COPD exacerbation and Pneumonia. GI has been consulted for anemia. Stool is occult positive. This morning pt was resting in bed w/o acute distress and family at bedside. No hematemesis, melena, or hematochezia per pt and nursing. Admits to occasional dysphagia and 1 episode of vomiting today after lunch. Speech eval is pending for dysphagia. Denies fever, wt loss, abd pain, diarrhea, or constipation. Drinks alcohol almost daily but denies a hx of liver disease. No hx of PUD. Takes ASA daily at home. No Fhx of GI cancers. No previous EGD. Last colonoscopy in 2010 revealed diverticulosis and hemorrhoids. Past History Past Medical History: COPD, heart failure, hyperlipidemia, hypothyroidism, stroke Past Surgical History: Other (tubal ligation) Social history: lives with family, smoking, alcohol abuse Family history: diabetes, hypertension Medications and Allergies Allergies Allergy/AdvReac Type Severity Reaction Status Date / Time No Known Allergies Allergy Unverified 10/02/13 20:47 Home Medications Medication Instructions Recorded Confirmed Last Taken Type Aspirin [Aspirin BABY CHEW TAB] 81 mg PO QDAY #60 tab.chew 07/28/14 04/07/17 Unknown Rx Budesoni/Formotero 160-4.5(Nf) 2 puff IH BID #1 inha 07/28/14 04/07/17 Unknown Rx [Symbicort 160-4.5] Ipratropium/Albuterol Sulfate 1 ampul IH Q8HRT #90 ampul.neb 07/28/14 04/07/17 Unknown Rx [Duoneb 0.5 mg-3 mg/3 ml Soln] Levothyroxine [Synthroid] 125 mcg PO QAM #30 tablet 07/28/14 04/07/17 Unknown Rx HYDROcodone/APAP 5-325 [Par[place]ise 1 - 2 each PO Q6HR PRN #30 tablet 05/25/15 Unknown Rx 5/325] Furosemide [Lasix] 40 mg PO DAILY 04/07/17 04/07/17 Unknown History Losartan [Cozaar] 50 mg PO QDAY 04/07/17 04/07/17 Unknown History Losartan/Hydrochlorothiazide 1 each PO DAILY 04/07/17 04/07/17 Unknown History [Losartan-Hctz 50-12.5 mg Tab] Potassium Chloride 10 Meq [KCl 40 meq PO ONCE 04/07/17 04/07/17 Unknown History 10Meq/100Ml] Active Meds: Active Medications Acetaminophen (Tylenol) 650 mg PO Q4H PRN PRN Reason: Pain MILD(1-3)/Fever >100.5/YE Acetaminophen/Hydrocodone Bitart (Par[place]ise 5/325) 2 each PO Q6HR PRN PRN Reason: Pain Last Admin: 04/07/17 23:55 Dose: 2 each Albuterol (Proventil) 2.5 mg IH Q4HRT PRN PRN Reason: Shortness Of Breath Albuterol/Ipratropium (Duoneb *Not For Prn Use*) 1 ampul IH Q6HRT [facility] Last Admin: 04/11/17 13:32 Dose: 1 ampul Arformoterol Tartrate (Brovana Nebu) 15 mcg IH Q12HRT [facility] Last Admin: 04/11/17 07:24 Dose: 15 mcg Aspirin (Baby Aspirin) 81 mg PO QDAY [facility] Last Admin: 04/11/17 09:21 Dose: 81 mg Azithromycin (Zithromax) 500 mg PO QDAY [facility] Bisacodyl (Dulcolax) 10 mg NV QDAY PRN PRN Reason: Constipation unrelieved by MOM Budesonide (Pulmicort) 1 mg IH Q12HRT [facility] Last Admin: 04/11/17 07:23 Dose: 1 mg Furosemide (Lasix) 40 mg IV DAILY [facility] Last Admin: 04/11/17 09:20 Dose: 40 mg Hydrochlorothiazide (Hctz) 25 mg PO QDAY [facility] Last Admin: 04/10/17 09:54 Dose: Not Given Ceftriaxone Sodium 1 gm/ (Sodium Chloride) 20 mls @ 20 mls/10 min IV Q24HR [facility] PRN Reason: Protocol Last Admin: 04/11/17 09:19 Dose: 20 mls/10 min Sodium Chloride (Nacl 0.9% 1000 Ml) 1,000 mls @ 100 mls/hr IV DIRECT [facility] Last Admin: 04/11/17 09:16 Dose: 100 mls/hr Azithromycin 500 mg/ Sodium (Chloride) 250 mls @ 250 mls/hr IV DAILY [facility] Stop: 04/11/17 23:59 Last Admin: 04/10/17 10:36 Dose: 250 mls/hr Sodium Chloride (Nacl 0.9% 500 Ml) 500 mls @ 0 mls/hr IV ONCE NR PRN Reason: As Directed Stop: 04/11/17 15:00 Levothyroxine Sodium (Synthroid) 125 mcg PO QAM [facility] Last Admin: 04/11/17 09:20 Dose: 125 mcg Lorazepam (Ativan) 0.5 mg IM Q4H PRN PRN Reason: Agitation Last Admin: 04/09/17 22:03 Dose: 0.5 mg Losartan Potassium (Cozaar) 50 mg PO QDAY [facility] Last Admin: 04/10/17 09:54 Dose: Not Given Magnesium Hydroxide (Milk Of Magnesia) 30 ml PO Q4H PRN PRN Reason: Constipation Methylprednisolone Sodium Succinate (Solu-Medrol) 80 mg IV Q6H [facility] Last Admin: 04/11/17 09:19 Dose: 80 mg Ondansetron HCl (Zofran) 4 mg IV Q8H PRN PRN Reason: N/V unrelieved by Regjimmy Review of Systems - Review of Systems All systems: negative Respiratory: shortness of breath Gastrointestinal: vomiting, other (dysphagia), no abdominal pain, no hematemesis , no coffee ground emesis, no BRBPR, no melena, no hematochezia Exam - Constitutional Vital Signs: Temp Pulse Resp BP Pulse Ox 98.2 F 73 18 78/50 99 04/11/17 12:56 04/11/17 13:32 04/11/17 13:32 04/11/17 12:56 04/11/17 12:56 General appearance: no acute distress, obese - EENT Eyes: PERRL, EOM intact ENT: hearing intact - Respiratory Respiratory: bilateral: rhonchi - Cardiovascular Rhythm: regular Heart Sounds: Present: S1 & S2 - Gastrointestinal General gastrointestinal: Present: soft, non-tender, non-distended, normal bowel sounds - Integumentary Integumentary: Present: warm, dry - Neurologic Neurological: alert and oriented x3 - Labs CBC & Chem 7: 04/11/17 04:30 04/11/17 04:30 Lab Results: Laboratory Results - last 24 hr 04/09/17 04/11/17 04/11/17 07:00 04:30 04:30 WBC 13.8 H RBC 2.24 L Hgb 6.9 L Hct 20.9 L MCV 94 MCH 31 MCHC 33 RDW 17.4 H Plt Count 28 L Add Manual Diff Complete Total Counted 100 Seg Neuts % (Manual) 66.0 Band Neutrophils % 21.0 Lymphocytes % (Manual) 8.0 L Reactive Lymphs % (Man) 0 Monocytes % (Manual) 5.0 Eosinophils % (Manual) 0 Basophils % (Manual) 0 Metamyelocytes % 0 Myelocytes % 0 Promyelocytes % 0 Blast Cells % 0 Nucleated RBC % 12.0 H Seg Neutrophils # Man 9.1 H Band Neutrophils # 2.9 Lymphocytes # (Manual) 1.1 L Abs React Lymphs (Man) 0.0 Monocytes # (Manual) 0.7 Eosinophils # (Manual) 0.0 Basophils # (Manual) 0.0 Metamyelocytes # 0.0 Myelocytes # 0.0 Promyelocytes # 0.0 Blast Cells # 0.0 WBC Morphology Not Reportable Hypersegmented Neuts Not Reportable Hyposegmented Neuts Not Reportable Hypogranular Neuts Not Reportable Smudge Cells Not Reportable Toxic Granulation Not Reportable Toxic Vacuolation Not Reportable Dohle Bodies Not Reportable Pelger-Huet Anomaly Not Reportable Monique Rods Not Reportable Platelet Estimate Consistent w auto Clumped Platelets Not Reportable Plt Clumps, EDTA Not Reportable Large Platelets Not Reportable Giant Platelets Not Reportable Platelet Satelliting Not Reportable Plt Morphology Comment Not Reportable RBC Morphology Not Reportable Dimorphic RBCs Not Reportable Polychromasia Few Hypochromasia Not Reportable Poikilocytosis Not Reportable Anisocytosis 1+ Microcytosis Not Reportable Macrocytosis 1+ Spherocytes Few Pappenheimer Bodies Not Reportable Sickle Cells Not Reportable Target Cells 2+ Tear Drop Cells Not Reportable Ovalocytes Not Reportable Helmet Cells Not Reportable [place] Bodies Not Reportable [place] Rings Not Reportable [place] Cells Not Reportable Bite Cells Not Reportable Crenated Cell Not Reportable Elliptocytes Not Reportable Acanthocytes (Spur) Not Reportable Rouleaux Not Reportable Hemoglobin C Crystals Not Reportable Schistocytes Not Reportable Malaria parasites Not Reportable Vincent Bodies Not Reportable Hem Pathologist Commnt No Sodium 134 L Potassium 3.5 L D Chloride 95.6 L Carbon Dioxide 26 Anion Gap 16 BUN 24 H Creatinine 1.5 H Estimated GFR 42 BUN/Creatinine Ratio 16 Glucose 215 H Calcium 5.6 L* Blood Type O POSITIVE Antibody Screen Negative Crossmatch See Detail Assessment and Plan 1.anemia 2.occult stool positive 3.dysphagia- speech eval pending 4.acute respiratory distress 5.COPD exacerbation 6.sepsis 7.pneumonia 8.ETOH abuse -plt 28 -AST elevated at 166 on admission -consistent pattern with alcohol use, however cirrhosis can not be excluded -will order abd U/S and hepatitis panel -continue [facility] protocol -iron 42, TIBC 81, Ferritin 2314, vit B12 1641, folate 4.55 -HGB 6.9- 1 unit of PRBCs transfusing -continue to monitor H/H and transfuse as needed -no active signs of bleeding -hold blood thinning medications-d/c ASA -start on daily PPI -etiology unclear- most likely multifactorial -recommend pt have an EGD/colonoscopy once medically stable -continue supportive care -will follow
--- NOTE | 2017-04-11 14:17 | Progress Note ---
Assessment and Plan Pneumonia. Antibiotics. No fever GI bleeding. Been followed by gastroenterology at this point. Completing blood transfusions due to anemia COPD with exacerbation Respiratory alkalosis Congestive heart failure/cardiomyopathy with decompensation Tobacco abuse Alcohol abuse. Recommendations Continue with Albuterol 2.5 milligram nebulizations every 4-6 hours with ipratropium Solu-Medrol 40-60 mg IV every 6-8 hours Follow GI recommendations regarding GI bleeding management Blood transfusions if hemoglobin under 7 g DL Continue oxygen support via nasal cannula or mask to maintain oximetry over 92% Watch for alcohol withdrawal symptoms and initiate CIWA protocol if necessary Check culture results and adjust antibiotics accordingly DVT prophylaxis with SCDs only Watch for fluid overload/TRACO Discussed with patient daughter in detail. All questions answered. Subjective Date of service: 04/11/17 Principal diagnosis: CAP Acute resp failure Interval history: Feels weak today. Some sharp pressure pain ordered earlier. No cough or expectoration. She is getting her third blood transfusion in the last 24 hours , per family. No other complaints Objective Vital Signs - 12hr 04/11/17 04/11/17 04/11/17 04:39 07:24 07:34 Temperature 97.8 F Pulse Rate 80 Pulse Rate [ 76 81 Anterior Bilateral Throughout] Respiratory 20 Rate Respiratory 20 20 Rate [Anterior Bilateral Throughout] Blood Pressure Blood Pressure 95/57 [Left] O2 Sat by Pulse 95 100 Oximetry 04/11/17 04/11/17 04/11/17 12:41 12:52 12:56 Temperature 87.2 F L 98.2 F 98.2 F Pulse Rate 83 68 85 Pulse Rate [ Anterior Bilateral Throughout] Respiratory 20 18 19 Rate Respiratory Rate [Anterior Bilateral Throughout] Blood Pressure 77/50 55/40 78/50 Blood Pressure [Left] O2 Sat by Pulse 100 97 99 Oximetry 04/11/17 04/11/17 13:32 13:42 Temperature Pulse Rate Pulse Rate [ 73 78 Anterior Bilateral Throughout] Respiratory Rate Respiratory 18 20 Rate [Anterior Bilateral Throughout] Blood Pressure Blood Pressure [Left] O2 Sat by Pulse Oximetry Constitutional: no acute distress, asleep Eyes: non-icteric ENT: oropharynx moist Neck: supple, no JVD Ascultation: Bilateral: wheezes (mild), rhonchi (mild) Cardiovascular: regular rate and rhythm Gastrointestinal: normoactive bowel sounds, non-distended Integumentary: normal Extremities: no cyanosis, no edema Neurologic: normal mental status, non-focal exam, pupils equal and round, CN II- XII normal, other (easily arousable and able to answer all questions) Psychiatric: mood appropriate, affect normal CBC and BMP: 04/11/17 04:30 04/11/17 04:30 ABG, PT/INR, D-dimer: ABG POC ABG pH 7.524 (7.35-7.45) H 04/06/17 04:56 POC ABG pCO2 34.7 (35-45) L 04/06/17 04:56 POC ABG pO2 85 (80-105) 04/06/17 04:56 POC ABG HCO3 28.6 04/06/17 04:56 POC ABG Total CO2 30 04/06/17 04:56 POC ABG O2 Sat 98 04/06/17 04:56 PT/INR, D-dimer D-Dimer 4892.81 ng/mlDDU (0-234) H 04/05/17 20:43 Abnormal lab findings: Abnormal Labs 04/05/17 04/05/17 04/05/17 16:14 16:14 20:43 WBC 17.4 H RBC 2.69 L Hgb 8.9 L Hct 27.2 L MCV 101 H MCH 33 H RDW 20.4 H Plt Count Seg Neuts % (Manual) 98.0 H Lymphocytes % (Manual) 2.0 L Nucleated RBC % 4.0 H Seg Neutrophils # Man 17.1 H Lymphocytes # (Manual) 0.3 L Monocytes # (Manual) D-Dimer POC ABG pH POC ABG pCO2 Sodium Potassium 3.3 L Chloride 95.0 L BUN Creatinine 0.5 L Glucose Lactic Acid Calcium 6.7 L TIBC Ferritin AST 166 H Troponin T 0.090 H NT-Pro-B Natriuret Pep 6486 H Albumin 2.2 L HDL Cholesterol 32 L Vitamin B12 Folate Crossmatch 04/05/17 04/06/17 04/06/17 20:43 02:30 04:56 WBC RBC Hgb Hct MCV MCH RDW Plt Count Seg Neuts % (Manual) Lymphocytes % (Manual) Nucleated RBC % Seg Neutrophils # Man Lymphocytes # (Manual) Monocytes # (Manual) D-Dimer 4892.81 H POC ABG pH 7.524 H POC ABG pCO2 34.7 L Sodium Potassium Chloride BUN Creatinine Glucose Lactic Acid 3.30 H* Calcium TIBC Ferritin AST Troponin T NT-Pro-B Natriuret Pep Albumin HDL Cholesterol Vitamin B12 Folate Crossmatch 04/06/17 04/06/17 04/07/17 07:38 Unknown 05:35 WBC 17.7 H RBC 2.29 L Hgb 7.4 L Hct 23.2 L MCV 101 H MCH RDW 20.0 H Plt Count 104 L Seg Neuts % (Manual) 81.0 H Lymphocytes % (Manual) 4.0 L Nucleated RBC % 12.0 H Seg Neutrophils # Man 14.3 H Lymphocytes # (Manual) 0.7 L Monocytes # (Manual) D-Dimer POC ABG pH POC ABG pCO2 Sodium Potassium Chloride BUN Creatinine Glucose Lactic Acid 3.10 H* 3.60 H* Calcium TIBC Ferritin AST Troponin T NT-Pro-B Natriuret Pep Albumin HDL Cholesterol Vitamin B12 Folate Crossmatch 04/07/17 04/09/17 04/09/17 05:35 05:30 05:30 WBC 15.3 H RBC 1.94 L Hgb 6.4 L Hct 19.7 L* MCV 101 H MCH 33 H RDW 19.3 H Plt Count 53 L Seg Neuts % (Manual) 78.0 H Lymphocytes % (Manual) 5.0 L Nucleated RBC % 16.0 H Seg Neutrophils # Man 11.9 H Lymphocytes # (Manual) 0.8 L Monocytes # (Manual) 0.9 H D-Dimer POC ABG pH POC ABG pCO2 Sodium Potassium 2.9 L* Chloride BUN 20 H Creatinine Glucose 144 H 126 H Lactic Acid Calcium 6.2 L 6.2 L TIBC Ferritin AST Troponin T NT-Pro-B Natriuret Pep Albumin HDL Cholesterol Vitamin B12 Folate Crossmatch 04/09/17 04/09/17 04/09/17 07:00 11:23 11:23 WBC RBC Hgb Hct MCV MCH RDW Plt Count Seg Neuts % (Manual) Lymphocytes % (Manual) Nucleated RBC % Seg Neutrophils # Man Lymphocytes # (Manual) Monocytes # (Manual) D-Dimer POC ABG pH POC ABG pCO2 Sodium Potassium Chloride BUN Creatinine Glucose Lactic Acid Calcium TIBC 81 L Ferritin 2314.0 H AST Troponin T NT-Pro-B Natriuret Pep Albumin HDL Cholesterol Vitamin B12 Folate Crossmatch See Detail 01/01/1504/09/17 04/10/17 11:23 11:23 Unknown WBC RBC Hgb 7.0 L Hct 21.3 L MCV MCH RDW Plt Count Seg Neuts % (Manual) Lymphocytes % (Manual) Nucleated RBC % Seg Neutrophils # Man Lymphocytes # (Manual) Monocytes # (Manual) D-Dimer POC ABG pH POC ABG pCO2 Sodium Potassium Chloride BUN Creatinine Glucose Lactic Acid Calcium TIBC Ferritin AST Troponin T NT-Pro-B Natriuret Pep Albumin HDL Cholesterol Vitamin B12 1641 H Folate 4.55 L Crossmatch 04/11/17 04/11/17 04:30 04:30 WBC 13.8 H RBC 2.24 L Hgb 6.9 L Hct 20.9 L MCV MCH RDW 17.4 H Plt Count 28 L Seg Neuts % (Manual) Lymphocytes % (Manual) 8.0 L Nucleated RBC % 12.0 H Seg Neutrophils # Man 9.1 H Lymphocytes # (Manual) 1.1 L Monocytes # (Manual) D-Dimer POC ABG pH POC ABG pCO2 Sodium 134 L Potassium 3.5 L D Chloride 95.6 L BUN 24 H Creatinine 1.5 H Glucose 215 H Lactic Acid Calcium 5.6 L* TIBC Ferritin AST Troponin T NT-Pro-B Natriuret Pep Albumin HDL Cholesterol Vitamin B12 Folate Crossmatch
[2017-04-11] MEDS ORDERED: PROTONIX IV SCH (15:00)
[2017-04-11] MEDS: COZAAR PO SCH (15:43)
[2017-04-11] MEDS: HCTZ PO SCH (15:44)
[2017-04-11] MEDS: ZITHROMAX 500 MG in NACL 0.9% 250ML 250 ML IV SCH (17:52)
[2017-04-11] MEDS: THERAGRAN-M Tab PO SCH (17:58)
[2017-04-12] MEDS: NACL 0.9% 1000 ML 1,000 ML IV SCH ×2 (00:13→17:55)
[2017-04-12] MEDS: DUONEB *Not for PRN Use IH SCH ×4 (03:04→20:35)
[2017-04-12 06:32] LABS: Hemoglobin 7.6 gm/dl (10.1-14.3); Mean Corpuscular HGB Conc 33 % (30-34); Mean Corpuscular Hemoglobin 31 pg (28-32); Mean Corpuscular Volume 92 fl (79-97); Red Blood Count 2.49 M/mm3 (3.65-5.03); Red Cell Distribution Width 15.8 % (13.2-15.2)
[2017-04-12 06:35] LABS: Platelet Count 37 K/mm3 (140-440)
[2017-04-12 06:41] LABS: INR 1.38 (0.87-1.13)
[2017-04-12 06:46] LABS: Albumin 1.6 g/dL (3.9-5)
[2017-04-12 06:52] LABS: Calcium 5.8 mg/dL (8.4-10.2)
[2017-04-12] MEDS: BROVANA NEBU IH SCH ×2 (07:29→20:35)
[2017-04-12] MEDS: PULMICORT IH SCH ×2 (07:29→20:35)
[2017-04-12 08:07] LABS: Anisocytosis 1+; Macrocytosis 1+; Target Cells 1+
[2017-04-12 08:08] LABS: Platelet Estimate Consistent w Auto
[2017-04-12 08:11] LABS: Band Neutrophils # (Manual) 0.1 K/mm3; Basophils % (Manual) 0 % (0.0-1.8); Eosinophils % (Manual) 0 % (0.0-4.3); Monocytes % (Manual) 0 % (0.0-7.3); Total Cells Counted 100
--- NOTE | 2017-04-12 10:43 | Ultrasound Report ---
ABDOMINAL ULTRASOUND: 04/12/17 CLINICAL: Elevated liver function tests. FINDINGS: Fair quality imaging of the liver with limitations due to body habitus and shadowing from bowel gas. Diffuse increased echogenicity of the liver. The liver appears borderline small with surface nodularity. There is also attenuation of the sound by the liver. No liver mass identified. Partially contracted gallbladder with multiple dependent stones. The gallbladder wall measures 3 mm thick. No pericholecystic fluid. However there is a small amount of perihepatic fluid. The common bile duct measured normal intrahepatic and extrahepatic bile ducts. The common bile duct measures 3 mm. The pancreas is not well imaged due to bowel gas and body habitus. Normal kidneys with nondilated renal collecting systems. The right kidney measures 9.6 x 4.6 x 3.5 cm and the left kidney measures 10.3 x 4.0 x 5.4 cm. No renal mass, calculus or cyst. The spleen is normal and measures approximately 6.9 cm maximum. IMPRESSION: Borderline small liver with increased echogenicity and nodularity suggestive of hepatic cirrhosis. However, no signs of portal hypertension other than mild ascites. Cholelithiasis but no signs of acute cholecystitis or choledocholithiasis. No biliary obstruction. The pancreas was not imaged.
[2017-04-12 11:07] LABS: Hepatitis A Antibody IgM Non-Reactive (NonReactive); Hepatitis B Core IgM Non-Reactive (NonReactive); Hepatitis B Surface Antigen Non-Reactive (Negative); Hepatitis C Virus Antibody Non-Reactive (NonReactive)
[2017-04-12] MEDS: LASIX IV SCH (11:12)
[2017-04-12] MEDS: HCTZ PO SCH (11:12)
[2017-04-12] MEDS: COZAAR PO SCH (11:12)
[2017-04-12] MEDS: cefTRIAXone 1 GM in NACL 0.9% 20 ML IV SCH (11:53)
[2017-04-12] MEDS: THERAGRAN-M Tab PO SCH (11:53)
[2017-04-12] MEDS: NORCO 5/325 PO PRN ×2 (11:53→21:45)
[2017-04-12] MEDS: SYNTHROID PO SCH (11:53)
[2017-04-12] MEDS: ZITHROMAX PO SCH (11:53)
[2017-04-12] MEDS: PROTONIX PO SCH (11:54)
--- NOTE | 2017-04-12 12:09 | Progress Note ---
Assessment and Plan Assessment and plan: (1) Acute respiratory distress Cont Abx neb tx and bipap if necessary (2) COPD exacerbation Cont Neb tx solu medrol and abx. Pulmonary consultation. (3) Pneumonia Cont Abx (4) chronic systolic heart failure Compensated. cont lasix. Cardiology signed out (5) HLD (hyperlipidemia) Cont statins (6) Hypothyroidism (acquired) Cont Synthyroid (7) Hypokalemia Supplemented (8) EtOH abuse. CIWA protocol. (9) Sepsis. Present on admission. Elevated lactate and dx of pneumonia. F/U cx results and consider ID consultation (10) Anemia She is status post PRBCs. Occult stool positive. GI we will hold off on EGD/ colonoscopy until patient medically stable iron 42, TIBC 81, Ferritin 2314, vit B12 1641, folate 4.55. Consider hematology consultation. Aspirin discontinued. Continue PPI daily (11) thrombocytopenia Consider hematology evaluation. (12) Dysphagia. Speech Consultation. (13) . Disposition Patient is requesting for SNF. Case management consultation. History Interval history: No new issues Hospitalist Physical - Constitutional Vitals: Temp Pulse Resp BP Pulse Ox 94.8 F L 59 L 21 102/76 99 04/11/17 15:16 04/12/17 11:12 04/12/17 07:40 04/12/17 11:12 04/12/17 07:30 General appearance: Present: no acute distress - EENT Eyes: Present: PERRL, EOM intact ENT: hearing intact, clear oral mucosa, dentition normal - Neck Neck: Present: supple, normal ROM - Respiratory Respiratory effort: normal Respiratory: bilateral: CTA - Cardiovascular Rhythm: regular Heart Sounds: Present: S1 & S2. Absent: gallop, rub - Extremities Extremities: no ischemia, No edema, Full ROM - Abdominal General gastrointestinal: soft, non-tender, non-distended, normal bowel sounds - Integumentary Integumentary: Present: clear, warm, dry - Neurologic Neurologic: CNII-XII intact, moves all extremities Results - Labs CBC & Chem 7: 04/12/17 06:05 04/12/17 06:05 Labs: Laboratory Last Values WBC 11.4 K/mm3 (4.5-11.0) H 04/12/17 06:05 RBC 2.49 M/mm3 (3.65-5.03) L 04/12/17 06:05 Hgb 7.6 gm/dl (10.1-14.3) L 04/12/17 06:05 Hct 23.0 % (30.3-42.9) L 04/12/17 06:05 MCV 92 fl (79-97) 04/12/17 06:05 MCH 31 pg (28-32) 04/12/17 06:05 MCHC 33 % (30-34) 04/12/17 06:05 RDW 15.8 % (13.2-15.2) H 04/12/17 06:05 Plt Count 37 K/mm3 (140-440) L 04/12/17 06:05 Add Manual Diff Complete 04/12/17 06:05 Total Counted 100 04/12/17 06:05 Seg Neutrophils % Surgical Technologist 04/07/17 05:35 Seg Neuts % (Manual) 97.0 % (40.0-70.0) H 04/12/17 06:05 Band Neutrophils % 1.0 % 04/12/17 06:05 Lymphocytes % (Manual) 2.0 % (13.4-35.0) L 04/12/17 06:05 Reactive Lymphs % (Man) 0 % 04/12/17 06:05 Monocytes % (Manual) 0 % (0.0-7.3) 04/12/17 06:05 Eosinophils % (Manual) 0 % (0.0-4.3) 04/12/17 06:05 Basophils % (Manual) 0 % (0.0-1.8) 04/12/17 06:05 Metamyelocytes % 0 % 04/12/17 06:05 Myelocytes % 0 % 04/12/17 06:05 Promyelocytes % 0 % 04/12/17 06:05 Blast Cells % 0 % 04/12/17 06:05 Nucleated RBC % 31.0 % (0.0-0.9) H 04/12/17 06:05 Seg Neutrophils # Man 11.1 K/mm3 (1.8-7.7) H 04/12/17 06:05 Band Neutrophils # 0.1 K/mm3 04/12/17 06:05 Lymphocytes # (Manual) 0.2 K/mm3 (1.2-5.4) L 04/12/17 06:05 Abs React Lymphs (Man) 0.0 K/mm3 04/12/17 06:05 Monocytes # (Manual) 0.0 K/mm3 (0.0-0.8) 04/12/17 06:05 Eosinophils # (Manual) 0.0 K/mm3 (0.0-0.4) 04/12/17 06:05 Basophils # (Manual) 0.0 K/mm3 (0.0-0.1) 04/12/17 06:05 Metamyelocytes # 0.0 K/mm3 04/12/17 06:05 Myelocytes # 0.0 K/mm3 04/12/17 06:05 Promyelocytes # 0.0 K/mm3 04/12/17 06:05 Blast Cells # 0.0 K/mm3 04/12/17 06:05 WBC Morphology Not Reportable 04/12/17 06:05 Hypersegmented Neuts Not Reportable 04/12/17 06:05 Hyposegmented Neuts Not Reportable 04/12/17 06:05 Hypogranular Neuts Not Reportable 04/12/17 06:05 Smudge Cells Not Reportable 04/12/17 06:05 Toxic Granulation Not Reportable 04/12/17 06:05 Toxic Vacuolation Not Reportable 04/12/17 06:05 Dohle Bodies Not Reportable 04/12/17 06:05 Pelger-Huet Anomaly Not Reportable 04/12/17 06:05 Monique Rods Not Reportable 04/12/17 06:05 Platelet Estimate Consistent w auto 04/12/17 06:05 Clumped Platelets Not Reportable 04/12/17 06:05 Plt Clumps, EDTA Not Reportable 04/12/17 06:05 Large Platelets Not Reportable 04/12/17 06:05 Giant Platelets Not Reportable 04/12/17 06:05 Platelet Satelliting Not Reportable 04/12/17 06:05 Plt Morphology Comment Not Reportable 04/12/17 06:05 RBC Morphology Not Reportable 04/12/17 06:05 Dimorphic RBCs Not Reportable 04/12/17 06:05 Polychromasia Few 04/12/17 06:05 Hypochromasia Not Reportable 04/12/17 06:05 Poikilocytosis Not Reportable 04/12/17 06:05 Anisocytosis 1+ 04/12/17 06:05 Microcytosis Not Reportable 04/12/17 06:05 Macrocytosis 1+ 04/12/17 06:05 Spherocytes Not Reportable 04/12/17 06:05 Pappenheimer Bodies Not Reportable 04/12/17 06:05 Sickle Cells Not Reportable 04/12/17 06:05 Target Cells 1+ 04/12/17 06:05 Tear Drop Cells Not Reportable 04/12/17 06:05 Ovalocytes Not Reportable 04/12/17 06:05 Helmet Cells Not Reportable 04/12/17 06:05 Aparicio-[place] Bodies Not Reportable 04/12/17 06:05 [place] Rings Not Reportable 04/12/17 06:05 [place] Cells Not Reportable 04/12/17 06:05 Bite Cells Not Reportable 04/12/17 06:05 Crenated Cell Not Reportable 04/12/17 06:05 Elliptocytes Not Reportable 04/12/17 06:05 Acanthocytes (Spur) Not Reportable 04/12/17 06:05 Rouleaux Not Reportable 04/12/17 06:05 Hemoglobin C Crystals Not Reportable 04/12/17 06:05 Schistocytes Not Reportable 04/12/17 06:05 Malaria parasites Not Reportable 04/12/17 06:05 Percent Retic 1.53 % (0.78-2.58) 04/09/17 11:23 Vincent Bodies Not Reportable 04/12/17 06:05 Hem Pathologist Commnt No 04/12/17 06:05 PT 17.7 Sec. (12.2-14.9) H 04/12/17 06:05 INR 1.38 (0.87-1.13) H 04/12/17 06:05 D-Dimer 4892.81 ng/mlDDU (0-234) H 04/05/17 20:43 POC ABG pH 7.410 (7.35-7.45) 04/11/17 22:15 POC ABG pCO2 35.2 (35-45) 04/11/17 22:15 POC ABG pO2 55 (80-105) L 04/11/17 22:15 POC ABG HCO3 22.3 04/11/17 22:15 POC ABG Total CO2 23 04/11/17 22:15 POC ABG O2 Sat 89 04/11/17 22:15 POC ABG Base Excess -2 04/11/17 22:15 FiO2 21 % 04/11/17 22:15 Sodium 131 mmol/L (137-145) L 04/12/17 06:05 Potassium 4.0 mmol/L (3.6-5.0) 04/12/17 06:05 Chloride 95.4 mmol/L (98-107) L 04/12/17 06:05 Carbon Dioxide 21 mmol/L (22-30) L 04/12/17 06:05 Anion Gap 19 mmol/L 04/12/17 06:05 BUN 30 mg/dL (7-17) H 04/12/17 06:05 Creatinine 1.9 mg/dL (0.7-1.2) H 04/12/17 06:05 Estimated GFR 32 ml/min 04/12/17 06:05 BUN/Creatinine Ratio 16 % 04/12/17 06:05 Glucose 208 mg/dL (65-100) H 04/12/17 06:05 Lactic Acid 3.60 mmol/L (0.7-2.0) H* 04/06/17 Unknown Calcium 5.8 mg/dL (8.4-10.2) L* 04/12/17 06:05 Iron 42 ug/dL (37-170) 04/09/17 11:23 TIBC 81 mcg/dL (250-450) L 04/09/17 11:23 Ferritin 2314.0 ng/mL (13.0-400.0) H 04/09/17 11:23 Total Bilirubin 0.50 mg/dL (0.1-1.2) 04/12/17 06:05 AST 75 units/L (5-40) H 04/12/17 06:05 ALT 57 units/L (7-56) H 04/12/17 06:05 Alkaline Phosphatase 72 units/L (35-129) 04/12/17 06:05 Troponin T 0.090 ng/mL (0.00-0.029) H 04/05/17 20:43 NT-Pro-B Natriuret Pep 6486 pg/mL (0-900) H 04/05/17 20:43 Total Protein 4.0 g/dL (6.3-8.2) L 04/12/17 06:05 Albumin 1.6 g/dL (3.9-5) L 04/12/17 06:05 Albumin/Globulin Ratio 0.7 % 04/12/17 06:05 Triglycerides 64 mg/dL (2-149) 04/05/17 20:43 Cholesterol 98 mg/dL (50-199) 04/05/17 20:43 LDL Cholesterol Direct 54 mg/dL (50-130) 04/05/17 20:43 HDL Cholesterol 32 mg/dL (40-59) L 04/05/17 20:43 Cholesterol/HDL Ratio 3.06 % 04/05/17 20:43 Vitamin B12 1641 pg/mL (211-911) H 04/09/17 11:23 Folate 4.55 ng/mL (7.3-26.0) L 04/09/17 11:23 Hepatitis A IgM Ab Non-reactive (NonReactive) 04/12/17 07:42 Hep Bs Antigen Non-reactive (Negative) 04/12/17 07:42 Hep B Core IgM Ab Non-reactive (NonReactive) 04/12/17 07:42 Hepatitis C Antibody Non-reactive (NonReactive) 04/12/17 07:42 Blood Type O POSITIVE 04/09/17 07:00 Antibody Screen Negative 04/09/17 07:00 Crossmatch See Detail 04/09/17 07:00
[2017-04-12] MEDS: ZOFRAN IV PRN (13:56)
--- NOTE | 2017-04-12 17:02 | Progress Note ---
Assessment and Plan Pneumonia. Antibiotics. No fever GI bleeding. Been followed by gastroenterology at this point. Completing blood transfusions due to anemia COPD with exacerbation Respiratory alkalosis Congestive heart failure/cardiomyopathy with decompensation Tobacco abuse Alcohol abuse. Recommendations Continue with Albuterol 2.5 milligram nebulizations every 4-6 hours with ipratropium Solu-Medrol 40-60 mg IV every 6-8 hours Follow GI recommendations regarding GI bleeding management Blood transfusions if hemoglobin under 7 g DL Continue oxygen support via nasal cannula or mask to maintain oximetry over 92% Watch for alcohol withdrawal symptoms and initiate CIWA protocol if necessary Check culture results and adjust antibiotics accordingly DVT prophylaxis with SCDs only Watch for fluid overload/TRACO Subjective Date of service: 04/12/17 Principal diagnosis: CAP Acute resp failure Interval history: Patient feeling better no increased shortness of breath. Objective Vital Signs - 12hr 04/12/17 04/12/17 04/12/17 07:30 07:40 09:43 Pulse Rate 59 L Pulse Rate [ 53 L 55 L Anterior Bilateral Throughout] Respiratory Rate Respiratory 18 21 Rate [Anterior Bilateral Throughout] Blood Pressure 95/72 O2 Sat by Pulse 99 93 Oximetry 04/12/17 04/12/17 04/12/17 09:44 11:12 13:15 Pulse Rate 59 L Pulse Rate [ 59 L Anterior Bilateral Throughout] Respiratory 22 Rate Respiratory 18 Rate [Anterior Bilateral Throughout] Blood Pressure 95/72 102/76 O2 Sat by Pulse Oximetry 04/12/17 13:24 Pulse Rate Pulse Rate [ 61 Anterior Bilateral Throughout] Respiratory Rate Respiratory 18 Rate [Anterior Bilateral Throughout] Blood Pressure O2 Sat by Pulse Oximetry Constitutional: no acute distress, asleep Eyes: non-icteric ENT: oropharynx moist Neck: supple, no JVD Ascultation: Bilateral: wheezes (mild), rales, rhonchi (mild) Cardiovascular: regular rate and rhythm Gastrointestinal: normoactive bowel sounds, non-distended Integumentary: normal Extremities: no cyanosis, no edema Neurologic: normal mental status, non-focal exam, pupils equal and round, CN II- XII normal, other (easily arousable and able to answer all questions) Psychiatric: mood appropriate, affect normal CBC and BMP: 04/12/17 06:05 04/12/17 06:05 ABG, PT/INR, D-dimer: ABG POC ABG pH 7.410 (7.35-7.45) 04/11/17 22:15 POC ABG pCO2 35.2 (35-45) 04/11/17 22:15 POC ABG pO2 55 (80-105) L 04/11/17 22:15 POC ABG HCO3 22.3 04/11/17 22:15 POC ABG Total CO2 23 04/11/17 22:15 POC ABG O2 Sat 89 04/11/17 22:15 PT/INR, D-dimer PT 17.7 Sec. (12.2-14.9) H 04/12/17 06:05 INR 1.38 (0.87-1.13) H 04/12/17 06:05 D-Dimer 4892.81 ng/mlDDU (0-234) H 04/05/17 20:43 Abnormal lab findings: Abnormal Labs 04/05/17 04/05/17 04/05/17 16:14 16:14 20:43 WBC 17.4 H RBC 2.69 L Hgb 8.9 L Hct 27.2 L MCV 101 H MCH 33 H RDW 20.4 H Plt Count Seg Neuts % (Manual) 98.0 H Lymphocytes % (Manual) 2.0 L Nucleated RBC % 4.0 H Seg Neutrophils # Man 17.1 H Lymphocytes # (Manual) 0.3 L Monocytes # (Manual) PT INR D-Dimer POC ABG pH POC ABG pCO2 POC ABG pO2 Sodium Potassium 3.3 L Chloride 95.0 L Carbon Dioxide BUN Creatinine 0.5 L Glucose Lactic Acid Calcium 6.7 L TIBC Ferritin AST 166 H ALT Troponin T 0.090 H NT-Pro-B Natriuret Pep 6486 H Total Protein Albumin 2.2 L HDL Cholesterol 32 L Vitamin B12 Folate Crossmatch 04/05/17 04/06/17 04/06/17 20:43 02:30 04:56 WBC RBC Hgb Hct MCV MCH RDW Plt Count Seg Neuts % (Manual) Lymphocytes % (Manual) Nucleated RBC % Seg Neutrophils # Man Lymphocytes # (Manual) Monocytes # (Manual) PT INR D-Dimer 4892.81 H POC ABG pH 7.524 H POC ABG pCO2 34.7 L POC ABG pO2 Sodium Potassium Chloride Carbon Dioxide BUN Creatinine Glucose Lactic Acid 3.30 H* Calcium TIBC Ferritin AST ALT Troponin T NT-Pro-B Natriuret Pep Total Protein Albumin HDL Cholesterol Vitamin B12 Folate Crossmatch 04/06/17 04/06/17 04/07/17 07:38 Unknown 05:35 WBC 17.7 H RBC 2.29 L Hgb 7.4 L Hct 23.2 L MCV 101 H MCH RDW 20.0 H Plt Count 104 L Seg Neuts % (Manual) 81.0 H Lymphocytes % (Manual) 4.0 L Nucleated RBC % 12.0 H Seg Neutrophils # Man 14.3 H Lymphocytes # (Manual) 0.7 L Monocytes # (Manual) PT INR D-Dimer POC ABG pH POC ABG pCO2 POC ABG pO2 Sodium Potassium Chloride Carbon Dioxide BUN Creatinine Glucose Lactic Acid 3.10 H* 3.60 H* Calcium TIBC Ferritin AST ALT Troponin T NT-Pro-B Natriuret Pep Total Protein Albumin HDL Cholesterol Vitamin B12 Folate Crossmatch 04/07/17 04/09/17 04/09/17 05:35 05:30 05:30 WBC 15.3 H RBC 1.94 L Hgb 6.4 L Hct 19.7 L* MCV 101 H MCH 33 H RDW 19.3 H Plt Count 53 L Seg Neuts % (Manual) 78.0 H Lymphocytes % (Manual) 5.0 L Nucleated RBC % 16.0 H Seg Neutrophils # Man 11.9 H Lymphocytes # (Manual) 0.8 L Monocytes # (Manual) 0.9 H PT INR D-Dimer POC ABG pH POC ABG pCO2 POC ABG pO2 Sodium Potassium 2.9 L* Chloride Carbon Dioxide BUN 20 H Creatinine Glucose 144 H 126 H Lactic Acid Calcium 6.2 L 6.2 L TIBC Ferritin AST ALT Troponin T NT-Pro-B Natriuret Pep Total Protein Albumin HDL Cholesterol Vitamin B12 Folate Crossmatch 04/09/17 04/09/17 04/09/17 07:00 11:23 11:23 WBC RBC Hgb Hct MCV MCH RDW Plt Count Seg Neuts % (Manual) Lymphocytes % (Manual) Nucleated RBC % Seg Neutrophils # Man Lymphocytes # (Manual) Monocytes # (Manual) PT INR D-Dimer POC ABG pH POC ABG pCO2 POC ABG pO2 Sodium Potassium Chloride Carbon Dioxide BUN Creatinine Glucose Lactic Acid Calcium TIBC 81 L Ferritin 2314.0 H AST ALT Troponin T NT-Pro-B Natriuret Pep Total Protein Albumin HDL Cholesterol Vitamin B12 Folate Crossmatch See Detail 04/09/17 04/09/17 04/10/17 11:23 11:23 Unknown WBC RBC Hgb 7.0 L Hct 21.3 L MCV MCH RDW Plt Count Seg Neuts % (Manual) Lymphocytes % (Manual) Nucleated RBC % Seg Neutrophils # Man Lymphocytes # (Manual) Monocytes # (Manual) PT INR D-Dimer POC ABG pH POC ABG pCO2 POC ABG pO2 Sodium Potassium Chloride Carbon Dioxide BUN Creatinine Glucose Lactic Acid Calcium TIBC Ferritin AST ALT Troponin T NT-Pro-B Natriuret Pep Total Protein Albumin HDL Cholesterol Vitamin B12 1641 H Folate 4.55 L Crossmatch 04/11/17 04/11/17 04/11/17 04:30 04:30 22:15 WBC 13.8 H RBC 2.24 L Hgb 6.9 L Hct 20.9 L MCV MCH RDW 17.4 H Plt Count 28 L Seg Neuts % (Manual) Lymphocytes % (Manual) 8.0 L Nucleated RBC % 12.0 H Seg Neutrophils # Man 9.1 H Lymphocytes # (Manual) 1.1 L Monocytes # (Manual) PT INR D-Dimer POC ABG pH POC ABG pCO2 POC ABG pO2 55 L Sodium 134 L Potassium 3.5 L D Chloride 95.6 L Carbon Dioxide BUN 24 H Creatinine 1.5 H Glucose 215 H Lactic Acid Calcium 5.6 L* TIBC Ferritin AST ALT Troponin T NT-Pro-B Natriuret Pep Total Protein Albumin HDL Cholesterol Vitamin B12 Folate Crossmatch 04/12/17 04/12/17 04/12/17 06:05 06:05 06:05 WBC 11.4 H RBC 2.49 L Hgb 7.6 L Hct 23.0 L MCV MCH RDW 15.8 H Plt Count 37 L Seg Neuts % (Manual) 97.0 H Lymphocytes % (Manual) 2.0 L Nucleated RBC % 31.0 H Seg Neutrophils # Man 11.1 H Lymphocytes # (Manual) 0.2 L Monocytes # (Manual) PT 17.7 H INR 1.38 H D-Dimer POC ABG pH POC ABG pCO2 POC ABG pO2 Sodium 131 L Potassium Chloride 95.4 L Carbon Dioxide 21 L BUN 30 H Creatinine 1.9 H Glucose 208 H Lactic Acid Calcium 5.8 L* TIBC Ferritin AST 75 H ALT 57 H Troponin T NT-Pro-B Natriuret Pep Total Protein 4.0 L Albumin 1.6 L HDL Cholesterol Vitamin B12 Folate Crossmatch
--- NOTE | 2017-04-12 20:02 | Gastroenterology Progress Note ---
Assessment and Plan - Patient Problems (1) Anemia Current Visit: Yes Status: Acute Plan to address problem: - Hx of negative EGD/colon in the recent past ([facility] per family; encouraged to get records). - Likely multifactorial and at least partly due to EtOH use and malnutrition. - Stable without gross bleeding upper or lower. - Will continue MVI therapy, CIWA protocol, and nutritional support. - Possible EGD/colonoscopy repeat next week depending on clinical course including current COPD flare as well as course of thrombocytopenia. Subjective Date of service: 04/12/17 Principal diagnosis: Liver Disease Interval history: The patient has mild anemia, but no significant vomiting. She is much more alert today without abdominal pain. No blood in the stool. Objective - Constitutional Vitals: Temp Pulse Resp BP Pulse Ox 94.8 F L 61 18 102/76 93 04/11/17 15:16 04/12/17 13:24 04/12/17 13:24 04/12/17 11:12 04/12/17 09:43 General appearance: no acute distress - Respiratory Respiratory effort: normal Respiratory: bilateral: CTA - Cardiovascular Rhythm: regular Heart Sounds: Present: S1 & S2 - Gastrointestinal General gastrointestinal: Present: soft, non-tender, non-distended - Labs CBC & Chem 7: 04/12/17 06:05 04/12/17 06:05 Labs: Laboratory Results - last 24 hr 04/09/17 04/11/17 04/12/17 07:00 22:15 06:05 WBC 11.4 H RBC 2.49 L Hgb 7.6 L Hct 23.0 L MCV 92 MCH 31 MCHC 33 RDW 15.8 H Plt Count 37 L Add Manual Diff Complete Total Counted 100 Seg Neuts % (Manual) 97.0 H Band Neutrophils % 1.0 Lymphocytes % (Manual) 2.0 L Reactive Lymphs % (Man) 0 Monocytes % (Manual) 0 Eosinophils % (Manual) 0 Basophils % (Manual) 0 Metamyelocytes % 0 Myelocytes % 0 Promyelocytes % 0 Blast Cells % 0 Nucleated RBC % 31.0 H Seg Neutrophils # Man 11.1 H Band Neutrophils # 0.1 Lymphocytes # (Manual) 0.2 L Abs React Lymphs (Man) 0.0 Monocytes # (Manual) 0.0 Eosinophils # (Manual) 0.0 Basophils # (Manual) 0.0 Metamyelocytes # 0.0 Myelocytes # 0.0 Promyelocytes # 0.0 Blast Cells # 0.0 WBC Morphology Not Reportable Hypersegmented Neuts Not Reportable Hyposegmented Neuts Not Reportable Hypogranular Neuts Not Reportable Smudge Cells Not Reportable Toxic Granulation Not Reportable Toxic Vacuolation Not Reportable Dohle Bodies Not Reportable Pelger-Huet Anomaly Not Reportable Monique Rods Not Reportable Platelet Estimate Consistent w auto Clumped Platelets Not Reportable Plt Clumps, EDTA Not Reportable Large Platelets Not Reportable Giant Platelets Not Reportable Platelet Satelliting Not Reportable Plt Morphology Comment Not Reportable RBC Morphology Not Reportable Dimorphic RBCs Not Reportable Polychromasia Few Hypochromasia Not Reportable Poikilocytosis Not Reportable Anisocytosis 1+ Microcytosis Not Reportable Macrocytosis 1+ Spherocytes Not Reportable Pappenheimer Bodies Not Reportable Sickle Cells Not Reportable Target Cells 1+ Tear Drop Cells Not Reportable Ovalocytes Not Reportable Helmet Cells Not Reportable [place] Bodies Not Reportable [place] Rings Not Reportable [place] Cells Not Reportable Bite Cells Not Reportable Crenated Cell Not Reportable Elliptocytes Not Reportable Acanthocytes (Spur) Not Reportable Rouleaux Not Reportable Hemoglobin C Crystals Not Reportable Schistocytes Not Reportable Malaria parasites Not Reportable Vincent Bodies Not Reportable Hem Pathologist Commnt No PT INR POC ABG pH 7.410 POC ABG pCO2 35.2 POC ABG pO2 55 L POC ABG HCO3 22.3 POC ABG Total CO2 23 POC ABG O2 Sat 89 POC ABG Base Excess -2 FiO2 21 Sodium Potassium Chloride Carbon Dioxide Anion Gap BUN Creatinine Estimated GFR BUN/Creatinine Ratio Glucose Calcium Total Bilirubin AST ALT Alkaline Phosphatase Total Protein Albumin Albumin/Globulin Ratio Hepatitis A IgM Ab Hep Bs Antigen Hep B Core IgM Ab Hepatitis C Antibody Crossmatch See Detail 04/12/17 04/12/17 04/12/17 06:05 06:05 07:42 WBC RBC Hgb Hct MCV MCH MCHC RDW Plt Count Add Manual Diff Total Counted Seg Neuts % (Manual) Band Neutrophils % Lymphocytes % (Manual) Reactive Lymphs % (Man) Monocytes % (Manual) Eosinophils % (Manual) Basophils % (Manual) Metamyelocytes % Myelocytes % Promyelocytes % Blast Cells % Nucleated RBC % Seg Neutrophils # Man Band Neutrophils # Lymphocytes # (Manual) Abs React Lymphs (Man) Monocytes # (Manual) Eosinophils # (Manual) Basophils # (Manual) Metamyelocytes # Myelocytes # Promyelocytes # Blast Cells # WBC Morphology Hypersegmented Neuts Hyposegmented Neuts Hypogranular Neuts Smudge Cells Toxic Granulation Toxic Vacuolation Dohle Bodies Pelger-Huet Anomaly Monique Rods Platelet Estimate Clumped Platelets Plt Clumps, EDTA Large Platelets Giant Platelets Platelet Satelliting Plt Morphology Comment RBC Morphology Dimorphic RBCs Polychromasia Hypochromasia Poikilocytosis Anisocytosis Microcytosis Macrocytosis Spherocytes Pappenheimer Bodies Sickle Cells Target Cells Tear Drop Cells Ovalocytes Helmet Cells [place] Bodies [place] Rings Alfredito Cells Bite Cells Crenated Cell Elliptocytes Acanthocytes (Spur) Rouleaux Hemoglobin C Crystals Schistocytes Malaria parasites Vincent Bodies Hem Pathologist Commnt PT 17.7 H INR 1.38 H POC ABG pH POC ABG pCO2 POC ABG pO2 POC ABG HCO3 POC ABG Total CO2 POC ABG O2 Sat POC ABG Base Excess FiO2 Sodium 131 L Potassium 4.0 Chloride 95.4 L Carbon Dioxide 21 L Anion Gap 19 BUN 30 H Creatinine 1.9 H Estimated GFR 32 BUN/Creatinine Ratio 16 Glucose 208 H Calcium 5.8 L* Total Bilirubin 0.50 AST 75 H ALT 57 H Alkaline Phosphatase 72 Total Protein 4.0 L Albumin 1.6 L Albumin/Globulin Ratio 0.7 Hepatitis A IgM Ab Non-reactive Hep Bs Antigen Non-reactive Hep B Core IgM Ab Non-reactive Hepatitis C Antibody Non-reactive Crossmatch
--- NOTE | 2017-04-12 23:23 | Consultation ---
History of Present Illness - Reason for Consult Consult date: 04/12/17 bicytopenia. Requesting physician: JULIET PEREZ - History of Present Illness Thank you for this consult, patient seen/examined, records reviewed from the computer. kindly asked to see for the reasons above. She presented with CHF/PNa , had previous hx of CVA.feretin elevated, and may be reactive.Hepatitis panel negative so far.folate low, B12 ok.pt elevated.with mild elevation of the LTFs.ABD US ok.CTa no arterial embolism.see further w/up. will follow you. Past History Past Medical History: COPD, heart failure, hyperlipidemia, hypothyroidism, stroke Past Surgical History: Other (tubal ligation) Social history: lives with family, smoking, alcohol abuse Family history: diabetes, hypertension Medications and Allergies Allergies Allergy/AdvReac Type Severity Reaction Status Date / Time No Known Allergies Allergy Unverified 10/02/13 20:47 Home Medications Medication Instructions Recorded Confirmed Last Taken Type Aspirin [Aspirin BABY CHEW TAB] 81 mg PO QDAY #60 tab.chew 07/28/14 04/07/17 Unknown Rx Budesoni/Formotero 160-4.5(Nf) 2 puff IH BID #1 inha 07/28/14 04/07/17 Unknown Rx [Symbicort 160-4.5] Ipratropium/Albuterol Sulfate 1 ampul IH Q8HRT #90 ampul.neb 07/28/14 04/07/17 Unknown Rx [Duoneb 0.5 mg-3 mg/3 ml Soln] Levothyroxine [Synthroid] 125 mcg PO QAM #30 tablet 07/28/14 04/07/17 Unknown Rx HYDROcodone/APAP 5-325 [[place] 1 - 2 each PO Q6HR PRN #30 tablet 05/25/15 Unknown Rx 5/325] Furosemide [Lasix] 40 mg PO DAILY 04/07/17 04/07/17 Unknown History Losartan [Cozaar] 50 mg PO QDAY 04/07/17 04/07/17 Unknown History Losartan/Hydrochlorothiazide 1 each PO DAILY 04/07/17 04/07/17 Unknown History [Losartan-Hctz 50-12.5 mg Tab] Potassium Chloride 10 Meq [KCl 40 meq PO ONCE 04/07/17 04/07/17 Unknown History 10Meq/100Ml] Active Meds: Active Medications Acetaminophen (Tylenol) 650 mg PO Q4H PRN PRN Reason: Pain MILD(1-3)/Fever >100.5/YE Acetaminophen/Hydrocodone Bitart ([place] 5/325) 1 each PO Q8HR PRN PRN Reason: Pain Last Admin: 04/12/17 11:53 Dose: 1 each Albuterol (Proventil) 2.5 mg IH Q4HRT PRN PRN Reason: Shortness Of Breath Albuterol/Ipratropium (Duoneb *Not For Prn Use*) 1 ampul IH Q6HRT [facility] Last Admin: 04/12/17 20:35 Dose: Not Given Arformoterol Tartrate (Brovana Nebu) 15 mcg IH Q12HRT [facility] Last Admin: 04/12/17 20:35 Dose: 15 mcg Azithromycin (Zithromax) 500 mg PO QDAY [facility] Last Admin: 04/12/17 11:53 Dose: 500 mg Bisacodyl (Dulcolax) 10 mg NC QDAY PRN PRN Reason: Constipation unrelieved by MOM Budesonide (Pulmicort) 1 mg IH Q12HRT [facility] Last Admin: 04/12/17 20:35 Dose: 1 mg Furosemide (Lasix) 40 mg IV DAILY [facility] Last Admin: 04/12/17 11:12 Dose: Not Given Hydrochlorothiazide (Hctz) 25 mg PO QDAY [facility] Last Admin: 04/12/17 11:12 Dose: Not Given Ceftriaxone Sodium 1 gm/ (Sodium Chloride) 20 mls @ 20 mls/10 min IV Q24HR [facility] PRN Reason: Protocol Last Admin: 04/12/17 11:53 Dose: 20 mls/10 min Sodium Chloride (Nacl 0.9% 1000 Ml) 1,000 mls @ 100 mls/hr IV DIRECT [facility] Last Admin: 04/12/17 17:55 Dose: 100 mls/hr Levothyroxine Sodium (Synthroid) 125 mcg PO QAM [facility] Last Admin: 04/12/17 11:53 Dose: 125 mcg Lorazepam (Ativan) 0.5 mg IM Q4H PRN PRN Reason: Agitation Last Admin: 04/09/17 22:03 Dose: 0.5 mg Losartan Potassium (Cozaar) 50 mg PO QDAY [facility] Last Admin: 01/13/18 11:12 Dose: Not Given Magnesium Hydroxide (Milk Of Magnesia) 30 ml PO Q4H PRN PRN Reason: Constipation Methylprednisolone Sodium Succinate (Solu-Medrol) 80 mg IV Q6H [facility] Last Admin: 04/12/17 16:50 Dose: 80 mg Multivitamins/Minerals (Theragran-M Tab) 1 each PO QDAY [facility] Last Admin: 04/12/17 11:53 Dose: 1 each Ondansetron HCl (Zofran) 4 mg IV Q8H PRN PRN Reason: N/V unrelieved by Regjimmy Last Admin: 04/12/17 13:56 Dose: 4 mg Pantoprazole Sodium (Protonix) 40 mg PO QDAY [facility] Last Admin: 04/12/17 11:54 Dose: 40 mg Review of Systems Constitutional: fatigue, weakness Breasts: deferred Exam - Constitutional Vitals: Temp Pulse Resp BP Pulse Ox 94.8 F L 100 H 20 102/76 98 04/11/17 15:16 04/12/17 20:55 04/12/17 20:55 04/12/17 11:12 04/12/17 20:37 General appearance: Present: mild distress - EENT Eyes: Present: PERRL ENT: hearing intact, clear oral mucosa - Neck Neck: Present: supple, normal ROM - Respiratory Respiratory effort: normal Respiratory: bilateral: CTA - Cardiovascular Heart Sounds: Present: S1 & S2. Absent: rub, click - Extremities Extremities: pulses symmetrical, No edema Peripheral Pulses: within normal limits - Abdominal General gastrointestinal: Present: soft, non-tender, non-distended, normal bowel sounds Female genitourinary: Present: deferred - Rectal Rectal Exam: deferred - Integumentary Integumentary: Present: clear, warm, dry - Musculoskeletal Musculoskeletal: gait normal, strength equal bilaterally - Psychiatric Psychiatric: appropriate mood/affect - Neurologic Neurologic: moves all extremities Results - Labs CBC & Chem 7: 04/12/17 06:05 04/12/17 06:05 Labs: Abnormal lab results 04/12/17 04/12/17 04/12/17 Range/Units 06:05 06:05 06:05 WBC 11.4 H (4.5-11.0) K/mm3 RBC 2.49 L (3.65-5.03) M/mm3 Hgb 7.6 L (10.1-14.3) gm/dl Hct 23.0 L (30.3-42.9) % RDW 15.8 H (13.2-15.2) % Plt Count 37 L (140-440) K/mm3 Seg Neuts % (Manual) 97.0 H (40.0-70.0) % Lymphocytes % (Manual) 2.0 L (13.4-35.0) % Nucleated RBC % 31.0 H (0.0-0.9) % Seg Neutrophils # Man 11.1 H (1.8-7.7) K/mm3 Lymphocytes # (Manual) 0.2 L (1.2-5.4) K/mm3 PT 17.7 H (12.2-14.9) Sec. INR 1.38 H (0.87-1.13) Sodium 131 L (137-145) mmol/L Chloride 95.4 L (98-107) mmol/L Carbon Dioxide 21 L (22-30) mmol/L BUN 30 H (7-17) mg/dL Creatinine 1.9 H (0.7-1.2) mg/dL Glucose 208 H (65-100) mg/dL Calcium 5.8 L* (8.4-10.2) mg/dL AST 75 H (5-40) units/L ALT 57 H (7-56) units/L Total Protein 4.0 L (6.3-8.2) g/dL Albumin 1.6 L (3.9-5) g/dL Assessment and Plan - Patient Problems (1) Anemia Current Visit: Yes Status: Acute Plan to address problem: see orders. (2) CHF (congestive heart failure) Current Visit: Yes Status: Chronic Qualifiers: Congestive heart failure type: combined Plan to address problem: follow you. (3) Thrombocytopenia Current Visit: Yes Status: Acute Plan to address problem: see orders.
[2017-04-13] MEDS ORDERED: CATHFLO IV ONE (00:19)
[2017-04-13] MEDS ORDERED: WATER FOR INJ (PF) 10 ML ONE (00:41)
[2017-04-13] MEDS: ZOFRAN IV PRN ×2 (00:54→10:56)
[2017-04-13] MEDS: DUONEB *Not for PRN Use IH SCH ×4 (02:49→20:38)
[2017-04-13 03:45] LABS: INR 1.33 (0.87-1.13)
[2017-04-13 03:46] LABS: Partial Thromboplastin Time 33.2 Sec. (24.2-36.6)
[2017-04-13] MEDS: BROVANA NEBU IH SCH ×2 (08:11→20:38)
[2017-04-13] MEDS: PULMICORT IH SCH ×2 (08:11→20:37)
--- NOTE | 2017-04-13 10:17 | Progress Note ---
Assessment and Plan Assessment and plan: (1) Acute respiratory distress Cont Abx neb tx and bipap if necessary (2) COPD exacerbation Cont Neb tx solu medrol and abx. Pulmonary consultation. (3) Pneumonia Cont Abx (4) chronic systolic heart failure Compensated. cont lasix. Cardiology signed off (5) HLD (hyperlipidemia) Cont statins (6) Hypothyroidism (acquired) Cont Synthyroid (7) Hypokalemia Supplemented (8) EtOH abuse. CIWA protocol. (9) Sepsis. Present on admission. Elevated lactate and dx of pneumonia. F/U cx results and consider ID consultation (10) Anemia She is status post PRBCs. Occult stool positive. GI we will hold off on EGD/ colonoscopy until patient medically stable, potentially next week iron 42, TIBC 81, Ferritin 2314, vit B12 1641, folate 4.55. Consider hematology consultation. Aspirin discontinued. Continue PPI daily. Likely multifactorial and at least partly due to EtOH use and malnutrition. (11) thrombocytopenia Consider hematology evaluation. (12) Dysphagia. Speech Consultation. (13) . Disposition Patient is requesting for SNF. Case management consultation. History Interval history: No new issues Hospitalist Physical - Constitutional Vitals: Temp Pulse Resp BP Pulse Ox 98.9 F 69 18 92/64 100 04/13/17 09:54 04/13/17 09:54 04/13/17 09:54 04/13/17 09:54 04/13/17 09:54 General appearance: Present: no acute distress - EENT Eyes: Present: PERRL, EOM intact ENT: hearing intact, clear oral mucosa, dentition normal - Neck Neck: Present: supple, normal ROM - Respiratory Respiratory effort: normal Respiratory: bilateral: CTA - Cardiovascular Rhythm: regular Heart Sounds: Present: S1 & S2. Absent: gallop, rub - Extremities Extremities: no ischemia, No edema, Full ROM - Abdominal General gastrointestinal: soft, non-tender, non-distended, normal bowel sounds - Integumentary Integumentary: Present: clear, warm, dry - Neurologic Neurologic: CNII-XII intact, moves all extremities Results - Labs CBC & Chem 7: 04/14/17 06:10 04/14/17 06:10 Labs: Laboratory Last Values WBC 11.4 K/mm3 (4.5-11.0) H 04/12/17 06:05 RBC 2.49 M/mm3 (3.65-5.03) L 04/12/17 06:05 Hgb 7.6 gm/dl (10.1-14.3) L 04/12/17 06:05 Hct 23.0 % (30.3-42.9) L 04/12/17 06:05 MCV 92 fl (79-97) 04/12/17 06:05 MCH 31 pg (28-32) 04/12/17 06:05 MCHC 33 % (30-34) 04/12/17 06:05 RDW 15.8 % (13.2-15.2) H 04/12/17 06:05 Plt Count 37 K/mm3 (140-440) L 04/12/17 06:05 Add Manual Diff Complete 04/12/17 06:05 Total Counted 100 04/12/17 06:05 Seg Neutrophils % Tea Leaf Reader 04/07/17 05:35 Seg Neuts % (Manual) 97.0 % (40.0-70.0) H 04/12/17 06:05 Band Neutrophils % 1.0 % 04/12/17 06:05 Lymphocytes % (Manual) 2.0 % (13.4-35.0) L 04/12/17 06:05 Reactive Lymphs % (Man) 0 % 04/12/17 06:05 Monocytes % (Manual) 0 % (0.0-7.3) 04/12/17 06:05 Eosinophils % (Manual) 0 % (0.0-4.3) 04/12/17 06:05 Basophils % (Manual) 0 % (0.0-1.8) 04/12/17 06:05 Metamyelocytes % 0 % 04/12/17 06:05 Myelocytes % 0 % 04/12/17 06:05 Promyelocytes % 0 % 04/12/17 06:05 Blast Cells % 0 % 04/12/17 06:05 Nucleated RBC % 31.0 % (0.0-0.9) H 04/12/17 06:05 Seg Neutrophils # Man 11.1 K/mm3 (1.8-7.7) H 04/12/17 06:05 Band Neutrophils # 0.1 K/mm3 04/12/17 06:05 Lymphocytes # (Manual) 0.2 K/mm3 (1.2-5.4) L 04/12/17 06:05 Abs React Lymphs (Man) 0.0 K/mm3 04/12/17 06:05 Monocytes # (Manual) 0.0 K/mm3 (0.0-0.8) 04/12/17 06:05 Eosinophils # (Manual) 0.0 K/mm3 (0.0-0.4) 04/12/17 06:05 Basophils # (Manual) 0.0 K/mm3 (0.0-0.1) 04/12/17 06:05 Metamyelocytes # 0.0 K/mm3 04/12/17 06:05 Myelocytes # 0.0 K/mm3 04/12/17 06:05 Promyelocytes # 0.0 K/mm3 04/12/17 06:05 Blast Cells # 0.0 K/mm3 04/12/17 06:05 WBC Morphology Not Reportable 04/12/17 06:05 Hypersegmented Neuts Not Reportable 04/12/17 06:05 Hyposegmented Neuts Not Reportable 04/12/17 06:05 Hypogranular Neuts Not Reportable 04/12/17 06:05 Smudge Cells Not Reportable 04/12/17 06:05 Toxic Granulation Not Reportable 04/12/17 06:05 Toxic Vacuolation Not Reportable 04/12/17 06:05 Dohle Bodies Not Reportable 04/12/17 06:05 Pelger-Huet Anomaly Not Reportable 04/12/17 06:05 Monique Rods Not Reportable 04/12/17 06:05 Platelet Estimate Consistent w auto 04/12/17 06:05 Clumped Platelets Not Reportable 04/12/17 06:05 Plt Clumps, EDTA Not Reportable 04/12/17 06:05 Large Platelets Not Reportable 04/12/17 06:05 Giant Platelets Not Reportable 04/12/17 06:05 Platelet Satelliting Not Reportable 04/12/17 06:05 Plt Morphology Comment Not Reportable 04/12/17 06:05 RBC Morphology Not Reportable 04/12/17 06:05 Dimorphic RBCs Not Reportable 04/12/17 06:05 Polychromasia Few 04/12/17 06:05 Hypochromasia Not Reportable 04/12/17 06:05 Poikilocytosis Not Reportable 04/12/17 06:05 Anisocytosis 1+ 04/12/17 06:05 Microcytosis Not Reportable 04/12/17 06:05 Macrocytosis 1+ 04/12/17 06:05 Spherocytes Not Reportable 04/12/17 06:05 Pappenheimer Bodies Not Reportable 04/12/17 06:05 Sickle Cells Not Reportable 04/12/17 06:05 Target Cells 1+ 04/12/17 06:05 Tear Drop Cells Not Reportable 04/12/17 06:05 Ovalocytes Not Reportable 04/12/17 06:05 Helmet Cells Not Reportable 04/12/17 06:05 A[place] Bodies Not Reportable 04/12/17 06:05 Rochelle Rings Not Reportable 04/12/17 06:05 [place] Cells Not Reportable 04/12/17 06:05 Bite Cells Not Reportable 04/12/17 06:05 Crenated Cell Not Reportable 04/12/17 06:05 Elliptocytes Not Reportable 04/12/17 06:05 Acanthocytes (Spur) Not Reportable 04/12/17 06:05 Rouleaux Not Reportable 04/12/17 06:05 Hemoglobin C Crystals Not Reportable 04/12/17 06:05 Schistocytes Not Reportable 04/12/17 06:05 Malaria parasites Not Reportable 04/12/17 06:05 ESR 24 mm/Hr (0-20) 04/13/17 03:00 Percent Retic 1.53 % (0.78-2.58) 04/09/17 11:23 Vincent Bodies Not Reportable 04/12/17 06:05 Hem Pathologist Commnt No 04/12/17 06:05 PT 17.2 Sec. (12.2-14.9) H 04/13/17 03:00 INR 1.33 (0.87-1.13) H 04/13/17 03:00 APTT 33.2 Sec. (24.2-36.6) 04/13/17 03:00 Fibrinogen 153 mg/dl (211-480) L 04/13/17 03:00 D-Dimer 2989.51 ng/mlDDU (0-234) H 04/13/17 03:00 POC ABG pH 7.410 (7.35-7.45) 04/11/17 22:15 POC ABG pCO2 35.2 (35-45) 04/11/17 22:15 POC ABG pO2 55 (80-105) L 04/11/17 22:15 POC ABG HCO3 22.3 04/11/17 22:15 POC ABG Total CO2 23 04/11/17 22:15 POC ABG O2 Sat 89 04/11/17 22:15 POC ABG Base Excess -2 04/11/17 22:15 FiO2 21 % 04/11/17 22:15 Sodium 131 mmol/L (137-145) L 04/12/17 06:05 Potassium 4.0 mmol/L (3.6-5.0) 04/12/17 06:05 Chloride 95.4 mmol/L (98-107) L 04/12/17 06:05 Carbon Dioxide 21 mmol/L (22-30) L 04/12/17 06:05 Anion Gap 19 mmol/L 04/12/17 06:05 BUN 30 mg/dL (7-17) H 04/12/17 06:05 Creatinine 1.9 mg/dL (0.7-1.2) H 04/12/17 06:05 Estimated GFR 32 ml/min 04/12/17 06:05 BUN/Creatinine Ratio 16 % 04/12/17 06:05 Glucose 208 mg/dL (65-100) H 04/12/17 06:05 Lactic Acid 3.60 mmol/L (0.7-2.0) H* 04/06/17 Unknown Calcium 5.8 mg/dL (8.4-10.2) L* 04/12/17 06:05 Iron 42 ug/dL (37-170) 04/09/17 11:23 TIBC 81 mcg/dL (250-450) L 04/09/17 11:23 Ferritin 2314.0 ng/mL (13.0-400.0) H 04/09/17 11:23 Total Bilirubin 0.50 mg/dL (0.1-1.2) 04/12/17 06:05 AST 75 units/L (5-40) H 04/12/17 06:05 ALT 57 units/L (7-56) H 04/12/17 06:05 Alkaline Phosphatase 72 units/L (35-129) 04/12/17 06:05 Lactate Dehydrogenase 648 units/L (91-180) H 04/13/17 03:00 Troponin T 0.090 ng/mL (0.00-0.029) H 04/05/17 20:43 NT-Pro-B Natriuret Pep 6486 pg/mL (0-900) H 04/05/17 20:43 Total Protein 4.0 g/dL (6.3-8.2) L 04/12/17 06:05 Albumin 1.6 g/dL (3.9-5) L 04/12/17 06:05 Albumin/Globulin Ratio 0.7 % 04/12/17 06:05 Triglycerides 64 mg/dL (2-149) 04/05/17 20:43 Cholesterol 98 mg/dL (50-199) 04/05/17 20:43 LDL Cholesterol Direct 54 mg/dL (50-130) 04/05/17 20:43 HDL Cholesterol 32 mg/dL (40-59) L 04/05/17 20:43 Cholesterol/HDL Ratio 3.06 % 04/05/17 20:43 Vitamin B12 1641 pg/mL (211-911) H 04/09/17 11:23 Folate 4.55 ng/mL (7.3-26.0) L 04/09/17 11:23 Rheumatoid Factor 32 IU/ml (0-13) H 04/13/17 03:00 Hepatitis A IgM Ab Non-reactive (NonReactive) 04/12/17 07:42 Hep Bs Antigen Non-reactive (Negative) 04/12/17 07:42 Hep B Core IgM Ab Non-reactive (NonReactive) 04/12/17 07:42 Hepatitis C Antibody Non-reactive (NonReactive) 04/12/17 07:42 Blood Type O POSITIVE 04/09/17 07:00 Antibody Screen Negative 04/09/17 07:00 Crossmatch See Detail 04/09/17 07:00
[2017-04-13] MEDS: THERAGRAN-M Tab PO SCH (10:41)
[2017-04-13] MEDS: ZITHROMAX PO SCH (10:42)
[2017-04-13] MEDS: SYNTHROID PO SCH (10:42)
[2017-04-13] MEDS: cefTRIAXone 1 GM in NACL 0.9% 20 ML IV SCH (10:43)
[2017-04-13] MEDS: PROTONIX PO SCH (10:43)
[2017-04-13] MEDS: LASIX IV SCH (10:43)
[2017-04-13] MEDS: COZAAR PO SCH (10:44)
[2017-04-13] MEDS: HCTZ PO SCH (10:44)
[2017-04-13] MEDS: NACL 0.9% 1000 ML 1,000 ML IV SCH (10:53)
--- NOTE | 2017-04-13 17:24 | Progress Note ---
Assessment and Plan Pneumonia. Antibiotics. No fever GI bleeding. Been followed by gastroenterology at this point. Completing blood transfusions due to anemia COPD with exacerbation Respiratory alkalosis Congestive heart failure/cardiomyopathy with decompensation Tobacco abuse Alcohol abuse. Recommendations Continue with Albuterol 2.5 milligram nebulizations every 4-6 hours with ipratropium Solu-Medrol 40-60 mg IV every 6-8 hours Follow GI recommendations regarding GI bleeding management Blood transfusions if hemoglobin under 7 g DL Continue oxygen support via nasal cannula or mask to maintain oximetry over 92% Watch for alcohol withdrawal symptoms and initiate CIWA protocol if necessary Check culture results and adjust antibiotics accordingly DVT prophylaxis with SCDs only Repeat CXR Subjective Date of service: 04/13/17 Principal diagnosis: Liver Disease Interval history: Patient feeling better no increased shortness of breath. Objective Vital Signs - 12hr 04/13/17 04/13/17 04/13/17 08:09 08:20 09:09 Temperature Pulse Rate Pulse Rate [ 102 H 102 H Anterior Bilateral Throughout] Pulse Rate [ Apical] Respiratory Rate Respiratory 18 18 Rate [Anterior Bilateral Throughout] Blood Pressure Blood Pressure [Left] O2 Sat by Pulse 98 Oximetry 04/13/17 04/13/17 04/13/17 09:54 10:00 10:44 Temperature 98.9 F Pulse Rate 69 85 Pulse Rate [ Anterior Bilateral Throughout] Pulse Rate [ 74 Apical] Respiratory 18 19 Rate Respiratory Rate [Anterior Bilateral Throughout] Blood Pressure 92/62 Blood Pressure 92/64 [Left] O2 Sat by Pulse 100 Oximetry 04/13/17 04/13/17 04/13/17 13:29 15:30 15:40 Temperature 97.9 F Pulse Rate 92 H Pulse Rate [ 103 H 104 H Anterior Bilateral Throughout] Pulse Rate [ Apical] Respiratory 20 Rate Respiratory 18 18 Rate [Anterior Bilateral Throughout] Blood Pressure Blood Pressure 149/99 [Left] O2 Sat by Pulse 95 Oximetry Constitutional: no acute distress, asleep Eyes: non-icteric ENT: oropharynx moist Neck: supple, no JVD Ascultation: Bilateral: wheezes (mild), rales, rhonchi (mild) Cardiovascular: regular rate and rhythm Gastrointestinal: normoactive bowel sounds, non-distended Integumentary: normal Extremities: no cyanosis, no edema Neurologic: normal mental status, non-focal exam, pupils equal and round, CN II- XII normal, other (easily arousable and able to answer all questions) Psychiatric: mood appropriate, affect normal CBC and BMP: 04/12/17 06:05 04/12/17 06:05 ABG, PT/INR, D-dimer: ABG POC ABG pH 7.410 (7.35-7.45) 04/11/17 22:15 POC ABG pCO2 35.2 (35-45) 04/11/17 22:15 POC ABG pO2 55 (80-105) L 04/11/17 22:15 POC ABG HCO3 22.3 04/11/17 22:15 POC ABG Total CO2 23 04/11/17 22:15 POC ABG O2 Sat 89 04/11/17 22:15 PT/INR, D-dimer PT 17.2 Sec. (12.2-14.9) H 04/13/17 03:00 INR 1.33 (0.87-1.13) H 04/13/17 03:00 D-Dimer 2989.51 ng/mlDDU (0-234) H 04/13/17 03:00 Abnormal lab findings: Abnormal Labs 04/05/17 04/05/17 04/05/17 16:14 16:14 20:43 WBC 17.4 H RBC 2.69 L Hgb 8.9 L Hct 27.2 L MCV 101 H MCH 33 H RDW 20.4 H Plt Count Seg Neuts % (Manual) 98.0 H Lymphocytes % (Manual) 2.0 L Nucleated RBC % 4.0 H Seg Neutrophils # Man 17.1 H Lymphocytes # (Manual) 0.3 L Monocytes # (Manual) PT INR Fibrinogen D-Dimer POC ABG pH POC ABG pCO2 POC ABG pO2 Sodium Potassium 3.3 L Chloride 95.0 L Carbon Dioxide BUN Creatinine 0.5 L Glucose Lactic Acid Calcium 6.7 L TIBC Ferritin AST 166 H ALT Lactate Dehydrogenase Troponin T 0.090 H NT-Pro-B Natriuret Pep 6486 H Total Protein Albumin 2.2 L HDL Cholesterol 32 L Vitamin B12 Folate Rheumatoid Factor Crossmatch 04/05/17 04/06/17 04/06/17 20:43 02:30 04:56 WBC RBC Hgb Hct MCV MCH RDW Plt Count Seg Neuts % (Manual) Lymphocytes % (Manual) Nucleated RBC % Seg Neutrophils # Man Lymphocytes # (Manual) Monocytes # (Manual) PT INR Fibrinogen D-Dimer 4892.81 H POC ABG pH 7.524 H POC ABG pCO2 34.7 L POC ABG pO2 Sodium Potassium Chloride Carbon Dioxide BUN Creatinine Glucose Lactic Acid 3.30 H* Calcium TIBC Ferritin AST ALT Lactate Dehydrogenase Troponin T NT-Pro-B Natriuret Pep Total Protein Albumin HDL Cholesterol Vitamin B12 Folate Rheumatoid Factor Crossmatch 04/06/17 04/06/17 04/07/17 07:38 Unknown 05:35 WBC 17.7 H RBC 2.29 L Hgb 7.4 L Hct 23.2 L MCV 101 H MCH RDW 20.0 H Plt Count 104 L Seg Neuts % (Manual) 81.0 H Lymphocytes % (Manual) 4.0 L Nucleated RBC % 12.0 H Seg Neutrophils # Man 14.3 H Lymphocytes # (Manual) 0.7 L Monocytes # (Manual) PT INR Fibrinogen D-Dimer POC ABG pH POC ABG pCO2 POC ABG pO2 Sodium Potassium Chloride Carbon Dioxide BUN Creatinine Glucose Lactic Acid 3.10 H* 3.60 H* Calcium TIBC Ferritin AST ALT Lactate Dehydrogenase Troponin T NT-Pro-B Natriuret Pep Total Protein Albumin HDL Cholesterol Vitamin B12 Folate Rheumatoid Factor Crossmatch 04/07/17 04/09/17 04/09/17 05:35 05:30 05:30 WBC 15.3 H RBC 1.94 L Hgb 6.4 L Hct 19.7 L* MCV 101 H MCH 33 H RDW 19.3 H Plt Count 53 L Seg Neuts % (Manual) 78.0 H Lymphocytes % (Manual) 5.0 L Nucleated RBC % 16.0 H Seg Neutrophils # Man 11.9 H Lymphocytes # (Manual) 0.8 L Monocytes # (Manual) 0.9 H PT INR Fibrinogen D-Dimer POC ABG pH POC ABG pCO2 POC ABG pO2 Sodium Potassium 2.9 L* Chloride Carbon Dioxide BUN 20 H Creatinine Glucose 144 H 126 H Lactic Acid Calcium 6.2 L 6.2 L TIBC Ferritin AST ALT Lactate Dehydrogenase Troponin T NT-Pro-B Natriuret Pep Total Protein Albumin HDL Cholesterol Vitamin B12 Folate Rheumatoid Factor Crossmatch 04/09/17 04/09/17 04/09/17 07:00 11:23 11:23 WBC RBC Hgb Hct MCV MCH RDW Plt Count Seg Neuts % (Manual) Lymphocytes % (Manual) Nucleated RBC % Seg Neutrophils # Man Lymphocytes # (Manual) Monocytes # (Manual) PT INR Fibrinogen D-Dimer POC ABG pH POC ABG pCO2 POC ABG pO2 Sodium Potassium Chloride Carbon Dioxide BUN Creatinine Glucose Lactic Acid Calcium TIBC 81 L Ferritin 2314.0 H AST ALT Lactate Dehydrogenase Troponin T NT-Pro-B Natriuret Pep Total Protein Albumin HDL Cholesterol Vitamin B12 Folate Rheumatoid Factor Crossmatch See Detail 04/09/17 04/09/17 04/10/17 11:23 11:23 Unknown WBC RBC Hgb 7.0 L Hct 21.3 L MCV MCH RDW Plt Count Seg Neuts % (Manual) Lymphocytes % (Manual) Nucleated RBC % Seg Neutrophils # Man Lymphocytes # (Manual) Monocytes # (Manual) PT INR Fibrinogen D-Dimer POC ABG pH POC ABG pCO2 POC ABG pO2 Sodium Potassium Chloride Carbon Dioxide BUN Creatinine Glucose Lactic Acid Calcium TIBC Ferritin AST ALT Lactate Dehydrogenase Troponin T NT-Pro-B Natriuret Pep Total Protein Albumin HDL Cholesterol Vitamin B12 1641 H Folate 4.55 L Rheumatoid Factor Crossmatch 04/11/17 04/11/17 04/11/17 04:30 04:30 22:15 WBC 13.8 H RBC 2.24 L Hgb 6.9 L Hct 20.9 L MCV MCH RDW 17.4 H Plt Count 28 L Seg Neuts % (Manual) Lymphocytes % (Manual) 8.0 L Nucleated RBC % 12.0 H Seg Neutrophils # Man 9.1 H Lymphocytes # (Manual) 1.1 L Monocytes # (Manual) PT INR Fibrinogen D-Dimer POC ABG pH POC ABG pCO2 POC ABG pO2 55 L Sodium 134 L Potassium 3.5 L D Chloride 95.6 L Carbon Dioxide BUN 24 H Creatinine 1.5 H Glucose 215 H Lactic Acid Calcium 5.6 L* TIBC Ferritin AST ALT Lactate Dehydrogenase Troponin T NT-Pro-B Natriuret Pep Total Protein Albumin HDL Cholesterol Vitamin B12 Folate Rheumatoid Factor Crossmatch 04/12/17 04/12/17 04/12/17 06:05 06:05 06:05 WBC 11.4 H RBC 2.49 L Hgb 7.6 L Hct 23.0 L MCV MCH RDW 15.8 H Plt Count 37 L Seg Neuts % (Manual) 97.0 H Lymphocytes % (Manual) 2.0 L Nucleated RBC % 31.0 H Seg Neutrophils # Man 11.1 H Lymphocytes # (Manual) 0.2 L Monocytes # (Manual) PT 17.7 H INR 1.38 H Fibrinogen D-Dimer POC ABG pH POC ABG pCO2 POC ABG pO2 Sodium 131 L Potassium Chloride 95.4 L Carbon Dioxide 21 L BUN 30 H Creatinine 1.9 H Glucose 208 H Lactic Acid Calcium 5.8 L* TIBC Ferritin AST 75 H ALT 57 H Lactate Dehydrogenase Troponin T NT-Pro-B Natriuret Pep Total Protein 4.0 L Albumin 1.6 L HDL Cholesterol Vitamin B12 Folate Rheumatoid Factor Crossmatch 04/13/17 04/13/17 04/13/17 03:00 03:00 03:00 WBC RBC Hgb Hct MCV MCH RDW Plt Count Seg Neuts % (Manual) Lymphocytes % (Manual) Nucleated RBC % Seg Neutrophils # Man Lymphocytes # (Manual) Monocytes # (Manual) PT 17.2 H INR 1.33 H Fibrinogen 153 L D-Dimer 2989.51 H POC ABG pH POC ABG pCO2 POC ABG pO2 Sodium Potassium Chloride Carbon Dioxide BUN Creatinine Glucose Lactic Acid Calcium TIBC Ferritin AST ALT Lactate Dehydrogenase 648 H Troponin T NT-Pro-B Natriuret Pep Total Protein Albumin HDL Cholesterol Vitamin B12 Folate Rheumatoid Factor 32 H Crossmatch
[2017-04-13] MEDS ORDERED: TYLENOL PO PRN (20:39)
--- NOTE | 2017-04-13 20:49 | Gastroenterology Progress Note ---
Assessment and Plan - Patient Problems (1) Anemia Current Visit: Yes Status: Acute Plan to address problem: - Hx of negative EGD/colon in the recent past ([facility] per family; encouraged to get records). - Likely multifactorial and at least partly due to EtOH use/cirrhosis and malnutrition. - Stable without gross bleeding upper or lower. - Will continue MVI therapy, and nutritional support. - Possible EGD/colonoscopy repeat next week depending on clinical course including current COPD flare as well as course of thrombocytopenia. (2) Cirrhosis Current Visit: Yes Status: Acute Plan to address problem: - Hepatitis panel (-); hx of heavy EtOH. - Continue supportive care with MVI therapy, nutrition, albumin. - Will hold lasix as creatinine worsening. - Protonix daily therapy, and endoscopy (for varices screen) when clinically improved. - No signs of withdrawal or agitation; will markedly reduce her benzos and d/c all narcotics given her lethargy. - Patient must resume PT tomorrow. (3) Acute renal insufficiency Current Visit: Yes Status: Acute Plan to address problem: - Will hold lasix, and give IV albumin. (4) CHF (congestive heart failure) Current Visit: Yes Status: Acute Plan to address problem: - Given EtOH and ascites/edema with EF 35-40% 4 years ago, will repeat TTE tomorrow. Subjective Date of service: 04/13/17 Principal diagnosis: Liver Disease Interval history: The patient remains lethargic but answers questions. States she is nauseated and has a poor appetite. No gross bleeding noted. Objective - Constitutional Vitals: Temp Pulse Resp BP Pulse Ox 97.9 F 98 H 18 149/99 96 04/13/17 13:29 04/13/17 20:38 04/13/17 20:38 04/13/17 13:29 04/13/17 20:39 General appearance: no acute distress - Respiratory Respiratory effort: normal Respiratory: bilateral: CTA - Cardiovascular Rhythm: regular Heart Sounds: Present: S1 & S2 - Gastrointestinal General gastrointestinal: Present: soft, non-tender, distended (minimal ascites) - Labs CBC & Chem 7: 04/12/17 06:05 04/12/17 06:05 Labs: Laboratory Results - last 24 hr 04/13/17 04/13/17 04/13/17 03:00 03:00 03:00 ESR 24 PT 17.2 H INR 1.33 H APTT 33.2 Fibrinogen 153 L D-Dimer 2989.51 H Lactate Dehydrogenase Rheumatoid Factor 32 H 04/13/17 03:00 ESR PT INR APTT Fibrinogen D-Dimer Lactate Dehydrogenase 648 H Rheumatoid Factor
--- NOTE | 2017-04-13 22:26 | Progress Note ---
Assessment and Plan - Patient Problems (1) Anemia Current Visit: Yes Status: Acute Plan to address problem: see orders. transfusion replacements. (2) CHF (congestive heart failure) Current Visit: Yes Status: Chronic Qualifiers: Congestive heart failure type: combined Plan to address problem: follow you. (3) Thrombocytopenia Current Visit: Yes Status: Acute Plan to address problem: see orders. see notes. Subjective Date of service: 04/13/17 Principal diagnosis: Liver Disease Interval history: Patient seen/examined, resting in bed, sluggish.labs reviewed, as well as notes.Fibrinogen low, D-dimer elevated, with very high Ldh, indicating consumptive coagulopathy. She may have some auto immune d/o. along with other things l, and perhaps bkleeding contributing to her thrombocytopenia. She may benefit from some steriods.IF any procedure is intended, PLT can be given, +/_ FFP if indicated.Will continue to follow you.Still awaiting [id number]., and folate. Objective - Constitutional Vitals: Vital Signs - 12hr 04/13/17 04/13/17 04/13/17 10:44 13:29 15:30 Temperature 97.9 F Pulse Rate 85 92 H Pulse Rate [ 103 H Anterior Bilateral Throughout] Pulse Rate [ Posterior Bilateral Throughout] Respiratory 20 Rate Respiratory 18 Rate [Anterior Bilateral Throughout] Respiratory Rate [Posterior Bilateral Throughout] Blood Pressure 92/62 Blood Pressure 149/99 [Left] O2 Sat by Pulse 95 Oximetry 04/13/17 04/13/17 04/13/17 15:40 17:27 19:32 Temperature 98.2 F Pulse Rate 74 73 Pulse Rate [ 104 H Anterior Bilateral Throughout] Pulse Rate [ Posterior Bilateral Throughout] Respiratory 23 Rate Respiratory 18 Rate [Anterior Bilateral Throughout] Respiratory Rate [Posterior Bilateral Throughout] Blood Pressure 69/40 Blood Pressure [Left] O2 Sat by Pulse 93 Oximetry 04/13/17 04/13/17 20:38 20:39 Temperature Pulse Rate Pulse Rate [ Anterior Bilateral Throughout] Pulse Rate [ 98 H Posterior Bilateral Throughout] Respiratory Rate Respiratory Rate [Anterior Bilateral Throughout] Respiratory 18 Rate [Posterior Bilateral Throughout] Blood Pressure Blood Pressure [Left] O2 Sat by Pulse 96 Oximetry General appearance: Present: mild distress - EENT Eyes: PERRL, EOM intact ENT: hearing intact, clear oral mucosa Ears: bilateral: normal - Neck Neck: supple, normal ROM - Respiratory Respiratory effort: normal Respiratory: bilateral: CTA - Breasts Breasts: normal - Cardiovascular Rhythm: regular Heart Sounds: Present: S1 & S2. Absent: gallop, rub Extremities: pulses intact, No edema, normal color, Full ROM - Gastrointestinal General gastrointestinal: Present: soft, non-tender, non-distended, normal bowel sounds - Genitourinary Female genitourinary: normal - Integumentary Integumentary: clear, warm, dry - Musculoskeletal Musculoskeletal: 1, strength equal bilaterally - Neurologic Neurologic: moves all extremities - Psychiatric Psychiatric: memory intact, appropriate mood/affect, intact judgment & insight - Labs CBC & Chem 7: 04/12/17 06:05 04/12/17 06:05 Labs: Abnormal lab results 04/13/17 04/13/17 04/13/17 Range/Units 03:00 03:00 03:00 PT 17.2 H (12.2-14.9) Sec. INR 1.33 H (0.87-1.13) Fibrinogen 153 L (211-480) mg/dl D-Dimer 2989.51 H (0-234) ng/mlDDU Lactate Dehydrogenase 648 H (91-180) units/L Rheumatoid Factor 32 H (0-13) IU/ml
--- NOTE | 2017-04-13 23:12 | XRay Report ---
FINAL REPORT EXAM: XR CHEST 1V AP HISTORY: Pneumonia TECHNIQUE: AP portable view of the chest. PRIORS: 04/08/2017 FINDINGS: The cardiomediastinal silhouette appears normal. The lungs are hypo aerated but clear. There is chronic deformity of the left humerus consistent with an old fracture. IMPRESSION: No evidence of acute cardiopulmonary disease.
[2017-04-13] MEDS: ALBURX 25% (ALBUMIN) IV SCH (23:21)
[2017-04-14] MEDS: ZOFRAN IV PRN (02:55)
[2017-04-14] MEDS: DUONEB *Not for PRN Use IH SCH ×4 (03:27→20:34)
[2017-04-14 07:02] LABS: Mean Corpuscular HGB Conc 31 % (30-34); Mean Corpuscular Hemoglobin 29 pg (28-32); Mean Corpuscular Volume 93 fl (79-97); Platelet Count 111 K/mm3 (140-440); Red Blood Count 1.66 M/mm3 (3.65-5.03); Red Cell Distribution Width 16.8 % (13.2-15.2)
[2017-04-14 07:33] LABS: Albumin 2.2 g/dL (3.9-5); Calcium 6.1 mg/dL (8.4-10.2)
[2017-04-14] MEDS: ALBURX 25% (ALBUMIN) IV SCH ×3 (07:35→22:55)
[2017-04-14 07:41] LABS: Hematocrit 15.5 % (30.3-42.9); Hemoglobin 4.8 gm/dl (10.1-14.3)
--- NOTE | 2017-04-14 08:45 | Gastroenterology Progress Note ---
Assessment and Plan - Patient Problems (1) Anemia Current Visit: Yes Status: Acute Plan to address problem: Falling H&H precipitously overnight, but no signs of GI blood loss per d/w nurse. Transfusion ordered per nurse by Dr. Calderón. Will need close f/u given risks of GI blood loss. (2) Cirrhosis Current Visit: Yes Status: Acute Plan to address problem: Stable, probably improving mental status. (3) TIA (transient ischemic attack) Current Visit: No Status: Acute (4) COPD (chronic obstructive pulmonary disease) Current Visit: No Status: Chronic (5) Cardiomyopathy Current Visit: No Status: Chronic Subjective Date of service: 04/14/17 Principal diagnosis: Liver Disease Interval history: The patient denies any discomfort. Weeping from skin lesions per nurse. Objective - Exam Narrative Exam: No BMs overnight per d/w nurse. No vomiting. - Constitutional Vitals: Temp Pulse Resp BP Pulse Ox 99.0 F 83 21 154/120 96 04/14/17 01:12 04/14/17 04:53 04/14/17 04:53 04/14/17 04:53 04/14/17 04:53 General appearance: no acute distress - EENT ENT: hearing intact - Neck Neck: supple, normal ROM - Respiratory Respiratory effort: normal Respiratory: bilateral: CTA - Cardiovascular Rhythm: regular - Gastrointestinal General gastrointestinal: Present: soft, non-tender, non-distended, normal bowel sounds - Neurologic Neurological: oriented to person, oriented to place, oriented to time, other ( mild lethargy) - Labs CBC & Chem 7: 04/14/17 06:10 04/14/17 06:10 Labs: Laboratory Results - last 24 hr 04/14/17 04/14/17 06:10 06:10 WBC 26.3 H RBC 1.66 L Hgb 4.8 L* Hct 15.5 L* D MCV 93 MCH 29 MCHC 31 RDW 16.8 H Plt Count 111 L D Seg Neutrophils % Computer Artist Sodium 132 L Potassium 4.8 Chloride 95.3 L Carbon Dioxide 20 L Anion Gap 22 BUN 41 H Creatinine 2.7 H Estimated GFR 21 BUN/Creatinine Ratio 15 Glucose 124 H Calcium 6.1 L Total Bilirubin 0.80 AST 73 H ALT 53 Alkaline Phosphatase 66 Total Protein 4.4 L Albumin 2.2 L Albumin/Globulin Ratio 1.0
--- NOTE | 2017-04-14 09:06 | Progress Note ---
Assessment and Plan 67 y/o female with acute exacerbation of COPD, now with acute blood loss anemia , concern for GI bleed, source not known. 1. IV working, please give steroids. 2. Would suggest giving lasix in between transfusions as she did not get her HCTZ yesterday secondary to "low blood pressure", although MAP was adequate 3. continue supplemental O2 4. Continue neb treatments. 5. Pending further results and testing, may need emergent scope, ICU care. Should consider repeating H/H if no overt signs of bleeding. Subjective Date of service: 04/14/17 Principal diagnosis: Liver Disease Interval history: HgB dropped to 5 this am. Vitals stable. patient sleepy but easily aroused. Transfusion ordered by primary and GI saw this am. Per patient breathing is stable. Did not get steroids as her IV access was not working. Adjusted by IV team now and it works. Objective Vital Signs - 12hr 04/13/17 04/13/17 04/13/17 22:00 23:36 23:54 Temperature Pulse Rate 89 69 Pulse Rate [ 68 Apical] Respiratory 20 20 20 Rate Blood Pressure 122/88 108/93 O2 Sat by Pulse Oximetry 04/14/17 04/14/17 04/14/17 00:24 01:12 04:53 Temperature 99.0 F Pulse Rate 54 L 64 83 Pulse Rate [ Apical] Respiratory 20 21 21 Rate Blood Pressure 155/83 125/103 154/120 O2 Sat by Pulse 96 96 Oximetry Constitutional: no acute distress, asleep Eyes: non-icteric ENT: oropharynx moist Neck: supple, no JVD Ascultation: Bilateral: wheezes (mild), rales, rhonchi (mild) Cardiovascular: regular rate and rhythm Gastrointestinal: normoactive bowel sounds, non-distended Integumentary: normal Extremities: no cyanosis, no edema Neurologic: normal mental status, non-focal exam, pupils equal and round, CN II- XII normal, other (easily arousable and able to answer all questions) Psychiatric: mood appropriate, affect normal CBC and BMP: 04/14/17 06:10 04/14/17 06:10 ABG, PT/INR, D-dimer: ABG POC ABG pH 7.410 (7.35-7.45) 04/11/17 22:15 POC ABG pCO2 35.2 (35-45) 04/11/17 22:15 POC ABG pO2 55 (80-105) L 04/11/17 22:15 POC ABG HCO3 22.3 04/11/17 22:15 POC ABG Total CO2 23 04/11/17 22:15 POC ABG O2 Sat 89 04/11/17 22:15 PT/INR, D-dimer PT 17.2 Sec. (12.2-14.9) H 04/13/17 03:00 INR 1.33 (0.87-1.13) H 04/13/17 03:00 D-Dimer 2989.51 ng/mlDDU (0-234) H 04/13/17 03:00 Abnormal lab findings: Abnormal Labs 04/05/17 04/05/17 04/05/17 16:14 16:14 20:43 WBC 17.4 H RBC 2.69 L Hgb 8.9 L Hct 27.2 L MCV 101 H MCH 33 H RDW 20.4 H Plt Count Seg Neuts % (Manual) 98.0 H Lymphocytes % (Manual) 2.0 L Nucleated RBC % 4.0 H Seg Neutrophils # Man 17.1 H Lymphocytes # (Manual) 0.3 L Monocytes # (Manual) PT INR Fibrinogen D-Dimer POC ABG pH POC ABG pCO2 POC ABG pO2 Sodium Potassium 3.3 L Chloride 95.0 L Carbon Dioxide BUN Creatinine 0.5 L Glucose Lactic Acid Calcium 6.7 L TIBC Ferritin AST 166 H ALT Lactate Dehydrogenase Troponin T 0.090 H NT-Pro-B Natriuret Pep 6486 H Total Protein Albumin 2.2 L HDL Cholesterol 32 L Vitamin B12 Folate Rheumatoid Factor Crossmatch 04/05/17 04/06/17 04/06/17 20:43 02:30 04:56 WBC RBC Hgb Hct MCV MCH RDW Plt Count Seg Neuts % (Manual) Lymphocytes % (Manual) Nucleated RBC % Seg Neutrophils # Man Lymphocytes # (Manual) Monocytes # (Manual) PT INR Fibrinogen D-Dimer 4892.81 H POC ABG pH 7.524 H POC ABG pCO2 34.7 L POC ABG pO2 Sodium Potassium Chloride Carbon Dioxide BUN Creatinine Glucose Lactic Acid 3.30 H* Calcium TIBC Ferritin AST ALT Lactate Dehydrogenase Troponin T NT-Pro-B Natriuret Pep Total Protein Albumin HDL Cholesterol Vitamin B12 Folate Rheumatoid Factor Crossmatch 04/06/17 04/06/17 04/07/17 07:38 Unknown 05:35 WBC 17.7 H RBC 2.29 L Hgb 7.4 L Hct 23.2 L MCV 101 H MCH RDW 20.0 H Plt Count 104 L Seg Neuts % (Manual) 81.0 H Lymphocytes % (Manual) 4.0 L Nucleated RBC % 12.0 H Seg Neutrophils # Man 14.3 H Lymphocytes # (Manual) 0.7 L Monocytes # (Manual) PT INR Fibrinogen D-Dimer POC ABG pH POC ABG pCO2 POC ABG pO2 Sodium Potassium Chloride Carbon Dioxide BUN Creatinine Glucose Lactic Acid 3.10 H* 3.60 H* Calcium TIBC Ferritin AST ALT Lactate Dehydrogenase Troponin T NT-Pro-B Natriuret Pep Total Protein Albumin HDL Cholesterol Vitamin B12 Folate Rheumatoid Factor Crossmatch 04/07/17 04/09/17 04/09/17 05:35 05:30 05:30 WBC 15.3 H RBC 1.94 L Hgb 6.4 L Hct 19.7 L* MCV 101 H MCH 33 H RDW 19.3 H Plt Count 53 L Seg Neuts % (Manual) 78.0 H Lymphocytes % (Manual) 5.0 L Nucleated RBC % 16.0 H Seg Neutrophils # Man 11.9 H Lymphocytes # (Manual) 0.8 L Monocytes # (Manual) 0.9 H PT INR Fibrinogen D-Dimer POC ABG pH POC ABG pCO2 POC ABG pO2 Sodium Potassium 2.9 L* Chloride Carbon Dioxide BUN 20 H Creatinine Glucose 144 H 126 H Lactic Acid Calcium 6.2 L 6.2 L TIBC Ferritin AST ALT Lactate Dehydrogenase Troponin T NT-Pro-B Natriuret Pep Total Protein Albumin HDL Cholesterol Vitamin B12 Folate Rheumatoid Factor Crossmatch 04/09/17 04/09/17 04/09/17 07:00 11:23 11:23 WBC RBC Hgb Hct MCV MCH RDW Plt Count Seg Neuts % (Manual) Lymphocytes % (Manual) Nucleated RBC % Seg Neutrophils # Man Lymphocytes # (Manual) Monocytes # (Manual) PT INR Fibrinogen D-Dimer POC ABG pH POC ABG pCO2 POC ABG pO2 Sodium Potassium Chloride Carbon Dioxide BUN Creatinine Glucose Lactic Acid Calcium TIBC 81 L Ferritin 2314.0 H AST ALT Lactate Dehydrogenase Troponin T NT-Pro-B Natriuret Pep Total Protein Albumin HDL Cholesterol Vitamin B12 Folate Rheumatoid Factor Crossmatch See Detail 04/09/17 04/09/17 04/10/17 11:23 11:23 Unknown WBC RBC Hgb 7.0 L Hct 21.3 L MCV MCH RDW Plt Count Seg Neuts % (Manual) Lymphocytes % (Manual) Nucleated RBC % Seg Neutrophils # Man Lymphocytes # (Manual) Monocytes # (Manual) PT INR Fibrinogen D-Dimer POC ABG pH POC ABG pCO2 POC ABG pO2 Sodium Potassium Chloride Carbon Dioxide BUN Creatinine Glucose Lactic Acid Calcium TIBC Ferritin AST ALT Lactate Dehydrogenase Troponin T NT-Pro-B Natriuret Pep Total Protein Albumin HDL Cholesterol Vitamin B12 1641 H Folate 4.55 L Rheumatoid Factor Crossmatch 04/11/17 04/11/17 04/11/17 04:30 04:30 22:15 WBC 13.8 H RBC 2.24 L Hgb 6.9 L Hct 20.9 L MCV MCH RDW 17.4 H Plt Count 28 L Seg Neuts % (Manual) Lymphocytes % (Manual) 8.0 L Nucleated RBC % 12.0 H Seg Neutrophils # Man 9.1 H Lymphocytes # (Manual) 1.1 L Monocytes # (Manual) PT INR Fibrinogen D-Dimer POC ABG pH POC ABG pCO2 POC ABG pO2 55 L Sodium 134 L Potassium 3.5 L D Chloride 95.6 L Carbon Dioxide BUN 24 H Creatinine 1.5 H Glucose 215 H Lactic Acid Calcium 5.6 L* TIBC Ferritin AST ALT Lactate Dehydrogenase Troponin T NT-Pro-B Natriuret Pep Total Protein Albumin HDL Cholesterol Vitamin B12 Folate Rheumatoid Factor Crossmatch 04/12/17 04/12/17 04/12/17 06:05 06:05 06:05 WBC 11.4 H RBC 2.49 L Hgb 7.6 L Hct 23.0 L MCV MCH RDW 15.8 H Plt Count 37 L Seg Neuts % (Manual) 97.0 H Lymphocytes % (Manual) 2.0 L Nucleated RBC % 31.0 H Seg Neutrophils # Man 11.1 H Lymphocytes # (Manual) 0.2 L Monocytes # (Manual) PT 17.7 H INR 1.38 H Fibrinogen D-Dimer POC ABG pH POC ABG pCO2 POC ABG pO2 Sodium 131 L Potassium Chloride 95.4 L Carbon Dioxide 21 L BUN 30 H Creatinine 1.9 H Glucose 208 H Lactic Acid Calcium 5.8 L* TIBC Ferritin AST 75 H ALT 57 H Lactate Dehydrogenase Troponin T NT-Pro-B Natriuret Pep Total Protein 4.0 L Albumin 1.6 L HDL Cholesterol Vitamin B12 Folate Rheumatoid Factor Crossmatch 04/13/17 04/13/17 04/13/17 03:00 03:00 03:00 WBC RBC Hgb Hct MCV MCH RDW Plt Count Seg Neuts % (Manual) Lymphocytes % (Manual) Nucleated RBC % Seg Neutrophils # Man Lymphocytes # (Manual) Monocytes # (Manual) PT 17.2 H INR 1.33 H Fibrinogen 153 L D-Dimer 2989.51 H POC ABG pH POC ABG pCO2 POC ABG pO2 Sodium Potassium Chloride Carbon Dioxide BUN Creatinine Glucose Lactic Acid Calcium TIBC Ferritin AST ALT Lactate Dehydrogenase 648 H Troponin T NT-Pro-B Natriuret Pep Total Protein Albumin HDL Cholesterol Vitamin B12 Folate Rheumatoid Factor 32 H Crossmatch 04/14/17 04/14/17 06:10 06:10 WBC 26.3 H RBC 1.66 L Hgb 4.8 L* Hct 15.5 L* D MCV MCH RDW 16.8 H Plt Count 111 L D Seg Neuts % (Manual) Lymphocytes % (Manual) Nucleated RBC % Seg Neutrophils # Man Lymphocytes # (Manual) Monocytes # (Manual) PT INR Fibrinogen D-Dimer POC ABG pH POC ABG pCO2 POC ABG pO2 Sodium 132 L Potassium Chloride 95.3 L Carbon Dioxide 20 L BUN 41 H Creatinine 2.7 H Glucose 124 H Lactic Acid Calcium 6.1 L TIBC Ferritin AST 73 H ALT Lactate Dehydrogenase Troponin T NT-Pro-B Natriuret Pep Total Protein 4.4 L Albumin 2.2 L HDL Cholesterol Vitamin B12 Folate Rheumatoid Factor Crossmatch
[2017-04-14] MEDS: PULMICORT IH SCH ×2 (09:11→20:34)
[2017-04-14] MEDS: BROVANA NEBU IH SCH ×2 (09:11→20:34)
[2017-04-14 09:48] LABS: Anisocytosis 1+; Band Neutrophils # (Manual) 1.8 K/mm3; Basophils % (Manual) 0 % (0.0-1.8); Eosinophils % (Manual) 0 % (0.0-4.3); Total Cells Counted 100
[2017-04-14 09:49] LABS: Hypochromasia 2+; Target Cells 1+
[2017-04-14] MEDS ORDERED: NACL 0.9% 500 ML 500 ML IV NR (10:00)
[2017-04-14] MEDS: ZITHROMAX PO SCH (10:51)
[2017-04-14] MEDS: SYNTHROID PO SCH (10:51)
[2017-04-14] MEDS: cefTRIAXone 1 GM in NACL 0.9% 20 ML IV SCH (10:51)
[2017-04-14] MEDS: THERAGRAN-M Tab PO SCH (10:51)
[2017-04-14] MEDS: PROTONIX PO SCH (10:51)
[2017-04-14] MEDS: HCTZ PO SCH (11:03)
[2017-04-14] MEDS: COZAAR PO SCH (11:03)
--- NOTE | 2017-04-14 11:19 | Progress Note ---
<EDWARD CERDA - Last Filed: 04/14/17 11:41> Assessment and Plan Assessment and plan: (1) Acute respiratory distress Cont Abx neb tx and bipap if necessary (2) COPD exacerbation Cont Neb tx solu medrol and abx. Pulmonary consultation. (3) Pneumonia Cont Abx (4) chronic systolic heart failure Compensated. cont lasix. Cardiology signed off (5) HLD (hyperlipidemia) Cont statins (6) Hypothyroidism (acquired) Cont Synthyroid (7) Hypokalemia Now stable, will continue to montor (8) EtOH abuse. CIWA protocol. (9) Sepsis. Present on admission. Elevated lactate and dx of pneumonia. F/U cx results and consider ID consultation (10) Anemia Hbg dropped to 4.8 overnight 2 units PRBC ordered Occult stool positive. GI we will hold off on EGD/colonoscopy until patient medically stable, potentially next week iron 42, TIBC 81, Ferritin 2314, vit B12 1641, folate 4.55. Aspirin discontinued. Continue PPI daily. Likely multifactorial and at least partly due to EtOH use and malnutrition. Hematology following (11) thrombocytopenia Hematology following (12) Dysphagia. Speech Consultation (13) . Disposition Patient is requesting for SNF. Case management consultation. History Interval history: Patient was seen and examined. She wasn't responsive to verbal stimuli but was awaken by light touch. Appeared very lethargic. Labs and nursing notes reviewed Hospitalist Physical - Constitutional Vitals: Temp Pulse Resp BP Pulse Ox 97.4 F L 83 18 68/46 92 04/14/17 08:05 04/14/17 04:53 04/14/17 08:05 04/14/17 11:03 04/14/17 09:19 General appearance: Present: no acute distress, other (lethargic) - EENT Eyes: Present: PERRL, EOM intact ENT: hearing intact, clear oral mucosa - Respiratory Respiratory effort: normal Respiratory: bilateral: rhonchi, wheezing - Cardiovascular Rhythm: regular Heart Sounds: Present: S1 & S2 - Extremities Extremities: pulses intact Extremity abnormal: edema (1+) - Abdominal General gastrointestinal: soft, non-tender, non-distended - Integumentary Integumentary: Present: clear, warm, dry - Psychiatric Psychiatric: appropriate mood/affect, cooperative - Neurologic Neurologic: CNII-XII intact, moves all extremities - Allied Health Allied health notes reviewed: nursing Results - Labs CBC & Chem 7: 04/14/17 06:10 04/14/17 06:10 Labs: Laboratory Last Values WBC 26.3 K/mm3 (4.5-11.0) H 04/14/17 06:10 RBC 1.66 M/mm3 (3.65-5.03) L 04/14/17 06:10 Hgb 4.8 gm/dl (10.1-14.3) L* 04/14/17 06:10 Hct 15.5 % (30.3-42.9) L* D 04/14/17 06:10 MCV 93 fl (79-97) 04/14/17 06:10 MCH 29 pg (28-32) 04/14/17 06:10 MCHC 31 % (30-34) 04/14/17 06:10 RDW 16.8 % (13.2-15.2) H 04/14/17 06:10 Plt Count 111 K/mm3 (140-440) L D 04/14/17 06:10 Add Manual Diff Complete 04/14/17 06:10 Total Counted 100 04/14/17 06:10 Seg Neutrophils % Consulting Services Manager 04/14/17 06:10 Seg Neuts % (Manual) 89.0 % (40.0-70.0) H 04/14/17 06:10 Band Neutrophils % 7.0 % 04/14/17 06:10 Lymphocytes % (Manual) 3.0 % (13.4-35.0) L 04/14/17 06:10 Reactive Lymphs % (Man) 0 % 04/14/17 06:10 Monocytes % (Manual) 1.0 % (0.0-7.3) 04/14/17 06:10 Eosinophils % (Manual) 0 % (0.0-4.3) 04/14/17 06:10 Basophils % (Manual) 0 % (0.0-1.8) 04/14/17 06:10 Metamyelocytes % 0 % 04/14/17 06:10 Myelocytes % 0 % 04/14/17 06:10 Promyelocytes % 0 % 04/14/17 06:10 Blast Cells % 0 % 04/14/17 06:10 Nucleated RBC % 6.0 % (0.0-0.9) H 04/14/17 06:10 Seg Neutrophils # Man 23.4 K/mm3 (1.8-7.7) H 04/14/17 06:10 Band Neutrophils # 1.8 K/mm3 04/14/17 06:10 Lymphocytes # (Manual) 0.8 K/mm3 (1.2-5.4) L 04/14/17 06:10 Abs React Lymphs (Man) 0.0 K/mm3 04/14/17 06:10 Monocytes # (Manual) 0.3 K/mm3 (0.0-0.8) 04/14/17 06:10 Eosinophils # (Manual) 0.0 K/mm3 (0.0-0.4) 04/14/17 06:10 Basophils # (Manual) 0.0 K/mm3 (0.0-0.1) 04/14/17 06:10 Metamyelocytes # 0.0 K/mm3 04/14/17 06:10 Myelocytes # 0.0 K/mm3 04/14/17 06:10 Promyelocytes # 0.0 K/mm3 04/14/17 06:10 Blast Cells # 0.0 K/mm3 04/14/17 06:10 WBC Morphology Not Reportable 04/14/17 06:10 Hypersegmented Neuts Not Reportable 04/14/17 06:10 Hyposegmented Neuts Not Reportable 04/14/17 06:10 Hypogranular Neuts Not Reportable 04/14/17 06:10 Smudge Cells Not Reportable 04/14/17 06:10 Toxic Granulation Not Reportable 04/14/17 06:10 Toxic Vacuolation Not Reportable 04/14/17 06:10 Dohle Bodies Not Reportable 04/14/17 06:10 Pelger-Huet Anomaly Not Reportable 04/14/17 06:10 Monique Rods Not Reportable 04/14/17 06:10 Platelet Estimate Not Reportable 04/14/17 06:10 Clumped Platelets Not Reportable 04/14/17 06:10 Plt Clumps, EDTA Not Reportable 04/14/17 06:10 Large Platelets Not Reportable 04/14/17 06:10 Giant Platelets Not Reportable 04/14/17 06:10 Platelet Satelliting Not Reportable 04/14/17 06:10 Plt Morphology Comment Not Reportable 04/14/17 06:10 RBC Morphology Not Reportable 04/14/17 06:10 Dimorphic RBCs Not Reportable 04/14/17 06:10 Polychromasia Few 04/14/17 06:10 Hypochromasia 2+ 04/14/17 06:10 Poikilocytosis Not Reportable 04/14/17 06:10 Anisocytosis 1+ 04/14/17 06:10 Microcytosis Not Reportable 04/14/17 06:10 Macrocytosis Not Reportable 04/14/17 06:10 Spherocytes Not Reportable 04/14/17 06:10 Pappenheimer Bodies Not Reportable 04/14/17 06:10 Sickle Cells Not Reportable 04/14/17 06:10 Target Cells 1+ 04/14/17 06:10 Tear Drop Cells Not Reportable 04/14/17 06:10 Ovalocytes Not Reportable 04/14/17 06:10 Helmet Cells Not Reportable 04/14/17 06:10 [place] Bodies Not Reportable 04/14/17 06:10 [place] Rings Not Reportable 04/14/17 06:10 [place] Cells Not Reportable 04/14/17 06:10 Bite Cells Not Reportable 04/14/17 06:10 Crenated Cell Not Reportable 04/14/17 06:10 Elliptocytes Not Reportable 04/14/17 06:10 Acanthocytes (Spur) Not Reportable 04/14/17 06:10 Rouleaux Not Reportable 04/14/17 06:10 Hemoglobin C Crystals Not Reportable 04/14/17 06:10 Schistocytes Not Reportable 04/14/17 06:10 Malaria parasites Not Reportable 04/14/17 06:10 ESR 24 mm/Hr (0-20) 04/13/17 03:00 Percent Retic 1.53 % (0.78-2.58) 04/09/17 11:23 Vincent Bodies Not Reportable 04/14/17 06:10 Hem Pathologist Commnt No 04/14/17 06:10 PT 17.2 Sec. (12.2-14.9) H 04/13/17 03:00 INR 1.33 (0.87-1.13) H 04/13/17 03:00 APTT 33.2 Sec. (24.2-36.6) 04/13/17 03:00 Fibrinogen 153 mg/dl (211-480) L 04/13/17 03:00 D-Dimer 2989.51 ng/mlDDU (0-234) H 04/13/17 03:00 POC ABG pH 7.410 (7.35-7.45) 04/11/17 22:15 POC ABG pCO2 35.2 (35-45) 04/11/17 22:15 POC ABG pO2 55 (80-105) L 04/11/17 22:15 POC ABG HCO3 22.3 04/11/17 22:15 POC ABG Total CO2 23 04/11/17 22:15 POC ABG O2 Sat 89 04/11/17 22:15 POC ABG Base Excess -2 04/11/17 22:15 FiO2 21 % 04/11/17 22:15 Sodium 132 mmol/L (137-145) L 04/14/17 06:10 Potassium 4.8 mmol/L (3.6-5.0) 04/14/17 06:10 Chloride 95.3 mmol/L (98-107) L 04/14/17 06:10 Carbon Dioxide 20 mmol/L (22-30) L 04/14/17 06:10 Anion Gap 22 mmol/L 04/14/17 06:10 BUN 41 mg/dL (7-17) H 04/14/17 06:10 Creatinine 2.7 mg/dL (0.7-1.2) H 04/14/17 06:10 Estimated GFR 21 ml/min 04/14/17 06:10 BUN/Creatinine Ratio 15 % 04/14/17 06:10 Glucose 124 mg/dL (65-100) H 04/14/17 06:10 Lactic Acid 3.60 mmol/L (0.7-2.0) H* 04/06/17 Unknown Calcium 6.1 mg/dL (8.4-10.2) L 04/14/17 06:10 Iron 42 ug/dL (37-170) 04/09/17 11:23 TIBC 81 mcg/dL (250-450) L 04/09/17 11:23 Ferritin 2314.0 ng/mL (13.0-400.0) H 04/09/17 11:23 Total Bilirubin 0.80 mg/dL (0.1-1.2) 04/14/17 06:10 AST 73 units/L (5-40) H 04/14/17 06:10 ALT 53 units/L (7-56) 04/14/17 06:10 Alkaline Phosphatase 66 units/L (35-129) 04/14/17 06:10 Lactate Dehydrogenase 648 units/L (91-180) H 04/13/17 03:00 Troponin T 0.090 ng/mL (0.00-0.029) H 04/05/17 20:43 NT-Pro-B Natriuret Pep 6486 pg/mL (0-900) H 04/05/17 20:43 Total Protein 4.4 g/dL (6.3-8.2) L 04/14/17 06:10 Albumin 2.2 g/dL (3.9-5) L 04/14/17 06:10 Albumin/Globulin Ratio 1.0 % 04/14/17 06:10 Triglycerides 64 mg/dL (2-149) 04/05/17 20:43 Cholesterol 98 mg/dL (50-199) 04/05/17 20:43 LDL Cholesterol Direct 54 mg/dL (50-130) 04/05/17 20:43 HDL Cholesterol 32 mg/dL (40-59) L 04/05/17 20:43 Cholesterol/HDL Ratio 3.06 % 04/05/17 20:43 Vitamin B12 1641 pg/mL (211-911) H 04/09/17 11:23 Folate 4.55 ng/mL (7.3-26.0) L 04/09/17 11:23 Rheumatoid Factor 32 IU/ml (0-13) H 04/13/17 03:00 Hepatitis A IgM Ab Non-reactive (NonReactive) 04/12/17 07:42 Hep Bs Antigen Non-reactive (Negative) 04/12/17 07:42 Hep B Core IgM Ab Non-reactive (NonReactive) 04/12/17 07:42 Hepatitis C Antibody Non-reactive (NonReactive) 04/12/17 07:42 Blood Type O POSITIVE 04/09/17 07:00 Antibody Screen Negative 04/09/17 07:00 Crossmatch See Detail 04/09/17 07:00 <SHANNEN RICHARDSON R - Last Filed: 04/15/17 10:54> Assessment and Plan Assessment and plan: I saw and evaluated the patient. I agree with the findings and the plan of care as documented in the Nurse Practitioner's~note, with the following corrections and additions. Hospitalist Physical - Constitutional Vitals: Temp Pulse Resp BP Pulse Ox 97.7 F 81 20 89/62 96 04/15/17 08:28 04/15/17 08:28 04/15/17 08:28 04/15/17 08:28 04/15/17 08:28 Results - Labs CBC & Chem 7: 04/15/17 07:30 04/15/17 07:30 Labs: Laboratory Last Values WBC 22.0 K/mm3 (4.5-11.0) H 04/15/17 07:30 RBC 2.16 M/mm3 (3.65-5.03) L 04/15/17 07:30 Hgb 6.1 gm/dl (10.1-14.3) L 04/15/17 07:30 Hct 18.9 % (30.3-42.9) L* 04/15/17 07:30 MCV 88 fl (79-97) 04/15/17 07:30 MCH 28 pg (28-32) 04/15/17 07:30 MCHC 32 % (30-34) 04/15/17 07:30 RDW 18.2 % (13.2-15.2) H 04/15/17 07:30 Plt Count 96 K/mm3 (140-440) L 04/15/17 07:30 Add Manual Diff Complete 04/15/17 07:30 Total Counted 100 04/15/17 07:30 Seg Neutrophils % Consulting Services Manager 04/15/17 07:30 Seg Neuts % (Manual) 92.0 % (40.0-70.0) H 04/15/17 07:30 Band Neutrophils % 6.0 % 04/15/17 07:30 Lymphocytes % (Manual) 1.0 % (13.4-35.0) L 04/15/17 07:30 Reactive Lymphs % (Man) 0 % 04/15/17 07:30 Monocytes % (Manual) 1.0 % (0.0-7.3) 04/15/17 07:30 Eosinophils % (Manual) 0 % (0.0-4.3) 04/15/17 07:30 Basophils % (Manual) 0 % (0.0-1.8) 04/15/17 07:30 Metamyelocytes % 0 % 04/15/17 07:30 Myelocytes % 0 % 04/15/17 07:30 Promyelocytes % 0 % 04/15/17 07:30 Blast Cells % 0 % 04/15/17 07:30 Nucleated RBC % 7.0 % (0.0-0.9) H 04/15/17 07:30 Seg Neutrophils # Man 20.2 K/mm3 (1.8-7.7) H 04/15/17 07:30 Band Neutrophils # 1.3 K/mm3 04/15/17 07:30 Lymphocytes # (Manual) 0.2 K/mm3 (1.2-5.4) L 04/15/17 07:30 Abs React Lymphs (Man) 0.0 K/mm3 04/15/17 07:30 Monocytes # (Manual) 0.2 K/mm3 (0.0-0.8) 04/15/17 07:30 Eosinophils # (Manual) 0.0 K/mm3 (0.0-0.4) 04/15/17 07:30 Basophils # (Manual) 0.0 K/mm3 (0.0-0.1) 04/15/17 07:30 Metamyelocytes # 0.0 K/mm3 04/15/17 07:30 Myelocytes # 0.0 K/mm3 04/15/17 07:30 Promyelocytes # 0.0 K/mm3 04/15/17 07:30 Blast Cells # 0.0 K/mm3 04/15/17 07:30 WBC Morphology Not Reportable 04/15/17 07:30 Hypersegmented Neuts Not Reportable 04/15/17 07:30 Hyposegmented Neuts Not Reportable 04/15/17 07:30 Hypogranular Neuts Not Reportable 04/15/17 07:30 Smudge Cells Not Reportable 04/15/17 07:30 Toxic Granulation Not Reportable 04/15/17 07:30 Toxic Vacuolation Not Reportable 04/15/17 07:30 Dohle Bodies Not Reportable 04/15/17 07:30 Pelger-Huet Anomaly Not Reportable 04/15/17 07:30 Monique Rods Not Reportable 04/15/17 07:30 Platelet Estimate Consistent w auto 04/15/17 07:30 Clumped Platelets Not Reportable 04/15/17 07:30 Plt Clumps, EDTA Not Reportable 04/15/17 07:30 Large Platelets Not Reportable 04/15/17 07:30 Giant Platelets Not Reportable 04/15/17 07:30 Platelet Satelliting Not Reportable 04/15/17 07:30 Plt Morphology Comment Not Reportable 04/15/17 07:30 RBC Morphology Not Reportable 04/15/17 07:30 Dimorphic RBCs Not Reportable 04/15/17 07:30 Polychromasia Not Reportable 04/15/17 07:30 Hypochromasia Not Reportable 04/15/17 07:30 Poikilocytosis Not Reportable 04/15/17 07:30 Anisocytosis 2+ 04/15/17 07:30 Microcytosis Not Reportable 04/15/17 07:30 Macrocytosis 1+ 04/15/17 07:30 Spherocytes Not Reportable 04/15/17 07:30 Pappenheimer Bodies Not Reportable 04/15/17 07:30 Sickle Cells Not Reportable 04/15/17 07:30 Target Cells 1+ 04/15/17 07:30 Tear Drop Cells Not Reportable 04/15/17 07:30 Ovalocytes Not Reportable 04/15/17 07:30 Helmet Cells Not Reportable 04/15/17 07:30 [place] Bodies Not Reportable 04/15/17 07:30 [place] Rings Not Reportable 04/15/17 07:30 [place] Cells Not Reportable 04/15/17 07:30 Bite Cells Not Reportable 04/15/17 07:30 Crenated Cell Not Reportable 04/15/17 07:30 Elliptocytes Not Reportable 04/15/17 07:30 Acanthocytes (Spur) Not Reportable 04/15/17 07:30 Rouleaux Not Reportable 04/15/17 07:30 Hemoglobin C Crystals Not Reportable 04/15/17 07:30 Schistocytes Not Reportable 04/15/17 07:30 Malaria parasites Not Reportable 04/15/17 07:30 ESR 24 mm/Hr (0-20) 04/13/17 03:00 Percent Retic 1.53 % (0.78-2.58) 04/09/17 11:23 Vincent Bodies Not Reportable 04/15/17 07:30 Hem Pathologist Commnt No 04/15/17 07:30 PT 17.2 Sec. (12.2-14.9) H 04/13/17 03:00 INR 1.33 (0.87-1.13) H 04/13/17 03:00 APTT 33.2 Sec. (24.2-36.6) 04/13/17 03:00 Fibrinogen 153 mg/dl (211-480) L 04/13/17 03:00 D-Dimer 2989.51 ng/mlDDU (0-234) H 04/13/17 03:00 POC ABG pH 7.410 (7.35-7.45) 04/11/17 22:15 POC ABG pCO2 35.2 (35-45) 04/11/17 22:15 POC ABG pO2 55 (80-105) L 04/11/17 22:15 POC ABG HCO3 22.3 04/11/17 22:15 POC ABG Total CO2 23 04/11/17 22:15 POC ABG O2 Sat 89 04/11/17 22:15 POC ABG Base Excess -2 04/11/17 22:15 FiO2 21 % 04/11/17 22:15 Sodium 134 mmol/L (137-145) L 04/15/17 07:30 Potassium 5.4 mmol/L (3.6-5.0) H 04/15/17 07:30 Chloride 95.1 mmol/L (98-107) L 04/15/17 07:30 Carbon Dioxide 20 mmol/L (22-30) L 04/15/17 07:30 Anion Gap 24 mmol/L 04/15/17 07:30 BUN 45 mg/dL (7-17) H 04/15/17 07:30 Creatinine 2.9 mg/dL (0.7-1.2) H 04/15/17 07:30 Estimated GFR 19 ml/min 04/15/17 07:30 BUN/Creatinine Ratio 16 % 04/15/17 07:30 Glucose 103 mg/dL (65-100) H 04/15/17 07:30 POC Glucose 121 (70-105) H 04/14/17 22:15 Lactic Acid 3.60 mmol/L (0.7-2.0) H* 04/06/17 Unknown Calcium 6.5 mg/dL (8.4-10.2) L 04/15/17 07:30 Iron 42 ug/dL (37-170) 04/09/17 11:23 TIBC 81 mcg/dL (250-450) L 04/09/17 11:23 Ferritin 2314.0 ng/mL (13.0-400.0) H 04/09/17 11:23 Total Bilirubin 0.80 mg/dL (0.1-1.2) 04/14/17 06:10 AST 73 units/L (5-40) H 04/14/17 06:10 ALT 53 units/L (7-56) 04/14/17 06:10 Alkaline Phosphatase 66 units/L (35-129) 04/14/17 06:10 Lactate Dehydrogenase 648 units/L (91-180) H 04/13/17 03:00 Troponin T 0.090 ng/mL (0.00-0.029) H 04/05/17 20:43 NT-Pro-B Natriuret Pep 6486 pg/mL (0-900) H 04/05/17 20:43 Total Protein 4.4 g/dL (6.3-8.2) L 04/14/17 06:10 Albumin 2.2 g/dL (3.9-5) L 04/14/17 06:10 Albumin/Globulin Ratio 1.0 % 04/14/17 06:10 Triglycerides 64 mg/dL (2-149) 04/05/17 20:43 Cholesterol 98 mg/dL (50-199) 04/05/17 20:43 LDL Cholesterol Direct 54 mg/dL (50-130) 04/05/17 20:43 HDL Cholesterol 32 mg/dL (40-59) L 04/05/17 20:43 Cholesterol/HDL Ratio 3.06 % 04/05/17 20:43 Vitamin B12 1641 pg/mL (211-911) H 04/09/17 11:23 Folate 4.55 ng/mL (7.3-26.0) L 04/09/17 11:23 Rheumatoid Factor 32 IU/ml (0-13) H 04/13/17 03:00 Hepatitis A IgM Ab Non-reactive (NonReactive) 04/12/17 07:42 Hep Bs Antigen Non-reactive (Negative) 04/12/17 07:42 Hep B Core IgM Ab Non-reactive (NonReactive) 04/12/17 07:42 Hepatitis C Antibody Non-reactive (NonReactive) 04/12/17 07:42 Blood Type O POSITIVE 04/14/17 11:31 Antibody Screen Negative 04/14/17 11:31 Crossmatch See Detail 04/14/17 11:31
--- NOTE | 2017-04-14 22:08 | Progress Note ---
Assessment and Plan - Patient Problems (1) Anemia Current Visit: Yes Status: Acute Plan to address problem: see orders. transfusion replacements. (2) CHF (congestive heart failure) Current Visit: Yes Status: Chronic Qualifiers: Congestive heart failure type: combined Plan to address problem: follow you. (3) Thrombocytopenia Current Visit: Yes Status: Acute Plan to address problem: see orders. see notes. Subjective Date of service: 04/14/17 Principal diagnosis: Liver Disease Interval history: Patient seen/examined, resting in bed, sluggish.labs reviewed, as well as notes.Fibrinogen low, D-dimer elevated, with very high Ldh, indicating consumptive coagulopathy. She may have some auto immune d/o. along with other things l, and perhaps bkleeding contributing to her thrombocytopenia. She may benefit from some steriods.IF any procedure is intended, PLT can be given, +/_ FFP if indicated.Will continue to follow you.Still awaiting [id number]., and folate. Patient seen, resting in bed. Labs/notes reviewed, s/p replacement transfusion. Will do P[facility] panel.Steroid still recommended. Objective - Constitutional Vitals: Vital Signs - 12hr 04/14/17 04/14/17 04/14/17 11:03 13:00 13:15 Temperature 97.7 F Pulse Rate 66 Pulse Rate [ Anterior Bilateral Throughout] Pulse Rate [ Posterior Bilateral Throughout] Respiratory 18 Rate Respiratory Rate [Anterior Bilateral Throughout] Respiratory Rate [Posterior Bilateral Throughout] Blood Pressure 68/46 80/56 69/50 Blood Pressure 69/50 [Left] O2 Sat by Pulse Oximetry 04/14/17 04/14/17 04/14/17 13:30 14:00 14:02 Temperature 97 F L 96.8 F L Pulse Rate 56 L 91 H Pulse Rate [ Anterior Bilateral Throughout] Pulse Rate [ Posterior Bilateral Throughout] Respiratory 19 18 Rate Respiratory Rate [Anterior Bilateral Throughout] Respiratory Rate [Posterior Bilateral Throughout] Blood Pressure 58/43 70/42 Blood Pressure 58/43 70/42 [Left] O2 Sat by Pulse 95 Oximetry 04/14/17 04/14/17 04/14/17 14:30 15:00 15:30 Temperature 97.1 F L 97.2 F L 96.9 F L Pulse Rate 68 87 53 L Pulse Rate [ Anterior Bilateral Throughout] Pulse Rate [ Posterior Bilateral Throughout] Respiratory 18 19 20 Rate Respiratory Rate [Anterior Bilateral Throughout] Respiratory Rate [Posterior Bilateral Throughout] Blood Pressure Blood Pressure 74/47 71/52 67/43 [Left] O2 Sat by Pulse 93 91 Oximetry 04/14/17 04/14/17 04/14/17 16:00 16:30 16:53 Temperature 97.2 F L 98.1 F 97.4 F L Pulse Rate 72 56 L 69 Pulse Rate [ Anterior Bilateral Throughout] Pulse Rate [ Posterior Bilateral Throughout] Respiratory 20 18 20 Rate Respiratory Rate [Anterior Bilateral Throughout] Respiratory Rate [Posterior Bilateral Throughout] Blood Pressure Blood Pressure 84/49 86/56 83/45 [Left] O2 Sat by Pulse 93 Oximetry 04/14/17 04/14/17 04/14/17 20:23 20:24 20:30 Temperature Pulse Rate 55 L Pulse Rate [ Anterior Bilateral Throughout] Pulse Rate [ 68 Posterior Bilateral Throughout] Respiratory 16 Rate Respiratory Rate [Anterior Bilateral Throughout] Respiratory 20 Rate [Posterior Bilateral Throughout] Blood Pressure 68/45 Blood Pressure [Left] O2 Sat by Pulse 25 L 19 L Oximetry 04/14/17 04/14/17 04/14/17 20:45 20:47 21:00 Temperature Pulse Rate 83 Pulse Rate [ 62 Anterior Bilateral Throughout] Pulse Rate [ Posterior Bilateral Throughout] Respiratory 18 Rate Respiratory 20 Rate [Anterior Bilateral Throughout] Respiratory Rate [Posterior Bilateral Throughout] Blood Pressure 100/52 Blood Pressure [Left] O2 Sat by Pulse 70 L 88 Oximetry 04/14/17 04/14/17 21:15 21:39 Temperature 92.6 F L Pulse Rate 77 Pulse Rate [ Anterior Bilateral Throughout] Pulse Rate [ Posterior Bilateral Throughout] Respiratory 16 Rate Respiratory Rate [Anterior Bilateral Throughout] Respiratory Rate [Posterior Bilateral Throughout] Blood Pressure 96/76 96/76 Blood Pressure [Left] O2 Sat by Pulse 81 L Oximetry General appearance: Present: mild distress, well-nourished - EENT Eyes: PERRL, EOM intact ENT: hearing intact, clear oral mucosa Ears: bilateral: normal - Neck Neck: supple, normal ROM - Respiratory Respiratory: bilateral: diminished - Breasts Breasts: deferred - Cardiovascular Rhythm: regular Heart Sounds: Present: S1 & S2. Absent: gallop, rub Extremities: pulses intact, No edema, normal color, Full ROM - Gastrointestinal General gastrointestinal: Present: soft, non-tender, non-distended, normal bowel sounds Rectal Exam: deferred - Genitourinary Female genitourinary: deferred - Integumentary Integumentary: clear, warm, dry - Musculoskeletal Musculoskeletal: 1, strength equal bilaterally - Neurologic Neurologic: moves all extremities - Psychiatric Psychiatric: memory intact, appropriate mood/affect, intact judgment & insight - Labs CBC & Chem 7: 04/14/17 06:10 04/14/17 06:10 Labs: Abnormal lab results 04/09/17 04/14/17 04/14/17 Range/Units 07:00 06:10 06:10 WBC 26.3 H (4.5-11.0) K/mm3 RBC 1.66 L (3.65-5.03) M/mm3 Hgb 4.8 L* (10.1-14.3) gm/dl Hct 15.5 L* D (30.3-42.9) % RDW 16.8 H (13.2-15.2) % Plt Count 111 L D (140-440) K/mm3 Seg Neuts % (Manual) 89.0 H (40.0-70.0) % Lymphocytes % (Manual) 3.0 L (13.4-35.0) % Nucleated RBC % 6.0 H (0.0-0.9) % Seg Neutrophils # Man 23.4 H (1.8-7.7) K/mm3 Lymphocytes # (Manual) 0.8 L (1.2-5.4) K/mm3 Sodium 132 L (137-145) mmol/L Chloride 95.3 L (98-107) mmol/L Carbon Dioxide 20 L (22-30) mmol/L BUN 41 H (7-17) mg/dL Creatinine 2.7 H (0.7-1.2) mg/dL Glucose 124 H (65-100) mg/dL Calcium 6.1 L (8.4-10.2) mg/dL AST 73 H (5-40) units/L Total Protein 4.4 L (6.3-8.2) g/dL Albumin 2.2 L (3.9-5) g/dL Crossmatch See Detail 04/14/17 Range/Units 11:31 WBC (4.5-11.0) K/mm3 RBC (3.65-5.03) M/mm3 Hgb (10.1-14.3) gm/dl Hct (30.3-42.9) % RDW (13.2-15.2) % Plt Count (140-440) K/mm3 Seg Neuts % (Manual) (40.0-70.0) % Lymphocytes % (Manual) (13.4-35.0) % Nucleated RBC % (0.0-0.9) % Seg Neutrophils # Man (1.8-7.7) K/mm3 Lymphocytes # (Manual) (1.2-5.4) K/mm3 Sodium (137-145) mmol/L Chloride (98-107) mmol/L Carbon Dioxide (22-30) mmol/L BUN (7-17) mg/dL Creatinine (0.7-1.2) mg/dL Glucose (65-100) mg/dL Calcium (8.4-10.2) mg/dL AST (5-40) units/L Total Protein (6.3-8.2) g/dL Albumin (3.9-5) g/dL Crossmatch See Detail
[2017-04-15] MEDS: DUONEB *Not for PRN Use IH SCH ×4 (02:46→20:30)
[2017-04-15] MEDS: ALBURX 25% (ALBUMIN) IV SCH ×2 (05:14→19:27)
[2017-04-15 07:59] LABS: Hemoglobin 6.1 gm/dl (10.1-14.3); Mean Corpuscular HGB Conc 32 % (30-34); Mean Corpuscular Hemoglobin 28 pg (28-32); Mean Corpuscular Volume 88 fl (79-97); Red Blood Count 2.16 M/mm3 (3.65-5.03); Red Cell Distribution Width 18.2 % (13.2-15.2)
[2017-04-15] MEDS: BROVANA NEBU IH SCH ×2 (08:12→20:29)
[2017-04-15] MEDS: PULMICORT IH SCH ×2 (08:12→20:29)
[2017-04-15 08:14] LABS: Hematocrit 18.9 % (30.3-42.9); Platelet Count 96 K/mm3 (140-440)
[2017-04-15 08:31] LABS: Calcium 6.5 mg/dL (8.4-10.2)
--- NOTE | 2017-04-15 09:56 | Gastroenterology Progress Note ---
<IRAM SCOTT - Last Filed: 04/15/17 10:28> Assessment and Plan 1.anemia 2.cirrhosis 3.acute respiratory distress 4..COPD exacerbation 5.sepsis 6..pneumonia 7..ETOH abuse Anemia -stool occult positive -HGB 6.1-s/p 2 units PRBCs yesterday -continue to monitor H/H and transfuse as needed -no active signs of bleeding -etiology-likely multifactorial and at least partly due to ETOH/cirrhosis/ malnutrition -continue PPI, MVI, nutritional support, and supportive care -Recommend EGD/colonoscopy once medically stable- pulmonary clearance needed Cirrhosis -abd U/S showed cirrhosis -hapatitis panel negative -etiology 2/2 ETOH abuse -recommend EGD for varices screen once medically stable -avoid narcotics -continue CIWA protocol -continue supportive care (MVI, nutrition, albumin) Subjective Date of service: 04/15/17 Principal diagnosis: anemia Interval history: Patient sitting up in bed eating breakfast. No acute distress. No active signs of bleeding overnight or this am per nursing. Objective - Constitutional Vitals: Temp Pulse Resp BP Pulse Ox 95.4 F L 67 17 74/47 98 04/15/17 04:23 04/15/17 08:13 04/15/17 08:13 04/15/17 04:23 04/15/17 08:13 General appearance: no acute distress - Respiratory Respiratory: bilateral: diminished (anterior) - Cardiovascular Rhythm: regular Heart Sounds: Present: S1 & S2 - Gastrointestinal General gastrointestinal: Present: soft, non-tender, non-distended, normal bowel sounds - Labs CBC & Chem 7: 04/15/17 07:30 04/15/17 07:30 Labs: Laboratory Results - last 24 hr 04/09/17 04/14/17 04/14/17 07:00 11:31 22:15 WBC RBC Hgb Hct MCV MCH MCHC RDW Plt Count Seg Neutrophils % Sodium Potassium Chloride Carbon Dioxide Anion Gap BUN Creatinine Estimated GFR BUN/Creatinine Ratio Glucose POC Glucose 121 H Calcium Blood Type O POSITIVE Antibody Screen Negative Crossmatch See Detail See Detail 04/15/17 04/15/17 07:30 07:30 WBC 22.0 H RBC 2.16 L Hgb 6.1 L Hct 18.9 L* MCV 88 MCH 28 MCHC 32 RDW 18.2 H Plt Count 96 L Seg Neutrophils % Lock Tender Sodium 134 L Potassium 5.4 H Chloride 95.1 L Carbon Dioxide 20 L Anion Gap 24 BUN 45 H Creatinine 2.9 H Estimated GFR 19 BUN/Creatinine Ratio 16 Glucose 103 H POC Glucose Calcium 6.5 L Blood Type Antibody Screen Crossmatch <KENDELL SERRANO - Last Filed: 04/15/17 13:37> Assessment and Plan - Patient Problems (1) Anemia Current Visit: Yes Status: Acute Plan to address problem: Patient was seen and examined. The cause of the falling H&H. No signs of GI bleeding. Would recommend CT to r/o a retroperitoneal bleed. Kendell Serrano MD (2) Cirrhosis Current Visit: Yes Status: Acute (3) TIA (transient ischemic attack) Current Visit: No Status: Acute (4) COPD (chronic obstructive pulmonary disease) Current Visit: No Status: Chronic (5) Cardiomyopathy Current Visit: No Status: Chronic Objective - Constitutional Vitals: Temp Pulse Resp BP Pulse Ox 97.7 F 76 20 98/61 64 L 04/15/17 08:28 04/15/17 12:41 04/15/17 12:41 04/15/17 12:41 04/15/17 12:41 - Labs CBC & Chem 7: 04/15/17 07:30 04/15/17 07:30 Labs: Laboratory Results - last 24 hr 04/09/17 04/14/17 04/14/17 07:00 11:31 22:15 WBC RBC Hgb Hct MCV MCH MCHC RDW Plt Count Add Manual Diff Total Counted Seg Neutrophils % Seg Neuts % (Manual) Band Neutrophils % Lymphocytes % (Manual) Reactive Lymphs % (Man) Monocytes % (Manual) Eosinophils % (Manual) Basophils % (Manual) Metamyelocytes % Myelocytes % Promyelocytes % Blast Cells % Nucleated RBC % Seg Neutrophils # Man Band Neutrophils # Lymphocytes # (Manual) Abs React Lymphs (Man) Monocytes # (Manual) Eosinophils # (Manual) Basophils # (Manual) Metamyelocytes # Myelocytes # Promyelocytes # Blast Cells # WBC Morphology Hypersegmented Neuts Hyposegmented Neuts Hypogranular Neuts Smudge Cells Toxic Granulation Toxic Vacuolation Dohle Bodies Pelger-Huet Anomaly Monique Rods Platelet Estimate Clumped Platelets Plt Clumps, EDTA Large Platelets Giant Platelets Platelet Satelliting Plt Morphology Comment RBC Morphology Dimorphic RBCs Polychromasia Hypochromasia Poikilocytosis Anisocytosis Microcytosis Macrocytosis Spherocytes Pappenheimer Bodies Sickle Cells Target Cells Tear Drop Cells Ovalocytes Helmet Cells [place] Bodies [place] Rings [place] Cells Bite Cells Crenated Cell Elliptocytes Acanthocytes (Spur) Rouleaux Hemoglobin C Crystals Schistocytes Malaria parasites Vincent Bodies Hem Pathologist Commnt Sodium Potassium Chloride Carbon Dioxide Anion Gap BUN Creatinine Estimated GFR BUN/Creatinine Ratio Glucose POC Glucose 121 H Calcium Blood Type O POSITIVE Antibody Screen Negative Crossmatch See Detail See Detail 04/15/17 04/15/17 07:30 07:30 WBC 22.0 H RBC 2.16 L Hgb 6.1 L Hct 18.9 L* MCV 88 MCH 28 MCHC 32 RDW 18.2 H Plt Count 96 L Add Manual Diff Complete Total Counted 100 Seg Neutrophils % Lock Tender Seg Neuts % (Manual) 92.0 H Band Neutrophils % 6.0 Lymphocytes % (Manual) 1.0 L Reactive Lymphs % (Man) 0 Monocytes % (Manual) 1.0 Eosinophils % (Manual) 0 Basophils % (Manual) 0 Metamyelocytes % 0 Myelocytes % 0 Promyelocytes % 0 Blast Cells % 0 Nucleated RBC % 7.0 H Seg Neutrophils # Man 20.2 H Band Neutrophils # 1.3 Lymphocytes # (Manual) 0.2 L Abs React Lymphs (Man) 0.0 Monocytes # (Manual) 0.2 Eosinophils # (Manual) 0.0 Basophils # (Manual) 0.0 Metamyelocytes # 0.0 Myelocytes # 0.0 Promyelocytes # 0.0 Blast Cells # 0.0 WBC Morphology Not Reportable Hypersegmented Neuts Not Reportable Hyposegmented Neuts Not Reportable Hypogranular Neuts Not Reportable Smudge Cells Not Reportable Toxic Granulation Not Reportable Toxic Vacuolation Not Reportable Dohle Bodies Not Reportable Pelger-Huet Anomaly Not Reportable Monique Rods Not Reportable Platelet Estimate Consistent w auto Clumped Platelets Not Reportable Plt Clumps, EDTA Not Reportable Large Platelets Not Reportable Giant Platelets Not Reportable Platelet Satelliting Not Reportable Plt Morphology Comment Not Reportable RBC Morphology Not Reportable Dimorphic RBCs Not Reportable Polychromasia Not Reportable Hypochromasia Not Reportable Poikilocytosis Not Reportable Anisocytosis 2+ Microcytosis Not Reportable Macrocytosis 1+ Spherocytes Not Reportable Pappenheimer Bodies Not Reportable Sickle Cells Not Reportable Target Cells 1+ Tear Drop Cells Not Reportable Ovalocytes Not Reportable Helmet Cells Not Reportable [place] Bodies Not Reportable [place] Rings Not Reportable [place] Cells Not Reportable Bite Cells Not Reportable Crenated Cell Not Reportable Elliptocytes Not Reportable Acanthocytes (Spur) Not Reportable Rouleaux Not Reportable Hemoglobin C Crystals Not Reportable Schistocytes Not Reportable Malaria parasites Not Reportable Vincent Bodies Not Reportable Hem Pathologist Commnt No Sodium 134 L Potassium 5.4 H Chloride 95.1 L Carbon Dioxide 20 L Anion Gap 24 BUN 45 H Creatinine 2.9 H Estimated GFR 19 BUN/Creatinine Ratio 16 Glucose 103 H POC Glucose Calcium 6.5 L Blood Type Antibody Screen Crossmatch
[2017-04-15 10:26] LABS: Total Cells Counted 100
[2017-04-15 10:27] LABS: Anisocytosis 2+; Band Neutrophils # (Manual) 1.3 K/mm3; Basophils % (Manual) 0 % (0.0-1.8); Eosinophils % (Manual) 0 % (0.0-4.3); Macrocytosis 1+; Platelet Estimate Consistent w Auto; Target Cells 1+
[2017-04-15] MEDS: COZAAR PO SCH (10:30)
[2017-04-15] MEDS: HCTZ PO SCH (10:30)
[2017-04-15] MEDS: THERAGRAN-M Tab PO SCH (10:31)
[2017-04-15] MEDS: ZITHROMAX PO SCH (10:31)
[2017-04-15] MEDS: SYNTHROID PO SCH (10:31)
[2017-04-15] MEDS: PROTONIX PO SCH (10:31)
--- NOTE | 2017-04-15 11:19 | Progress Note ---
Assessment and Plan Assessment and plan: (1) Acute respiratory distress Cont Abx neb tx and bipap if necessary (2) COPD exacerbation Cont Neb tx solu medrol and abx. Pulmonary consultation. (3) Pneumonia Cont Abx (4) chronic systolic heart failure Compensated. cont lasix. Cardiology signed off (5) HLD (hyperlipidemia) Cont statins (6) Hypothyroidism (acquired) Cont Synthyroid (7) Hypokalemia Now stable, will continue to montor (8) EtOH abuse. CIWA protocol. (9) Sepsis. Present on admission. Elevated lactate and dx of pneumonia. F/U cx results and consider ID consultation (10) Anemia 2 units PRBC transfused yesterday hemoglobin now 6.1, Transfuse 1 unit today Occult stool positive. GI we will hold off on EGD/colonoscopy until patient medically stable, potentially next week iron 42, TIBC 81, Ferritin 2314, vit B12 1641, folate 4.55. Aspirin discontinued. Continue PPI daily. Likely multifactorial and at least partly due to EtOH use and malnutrition. Hematology and GI following (11) thrombocytopenia Hematology following (12) Dysphagia. Speech Consultation (13) Hypotension Antihypertensives held, IV fluids, continue to monitor BP (14) Disposition Patient is requesting for SNF. Case management consultation. History Interval history: Patient was seen and examined. No acute distress. No new issues overnight. Hospitalist Physical - Constitutional Vitals: Temp Pulse Resp BP Pulse Ox 97.7 F 81 20 89/62 96 04/15/17 08:28 04/15/17 08:28 04/15/17 08:28 04/15/17 08:28 04/15/17 08:28 General appearance: Present: mild distress, well-nourished - EENT Eyes: Present: PERRL, EOM intact ENT: hearing intact, clear oral mucosa - Neck Neck: Present: supple, normal ROM - Respiratory Respiratory effort: normal Respiratory: bilateral: CTA - Cardiovascular Rhythm: regular Heart Sounds: Present: S1 & S2 - Extremities Extremities: no ischemia, No edema Peripheral Pulses: within normal limits - Abdominal General gastrointestinal: soft, non-tender, non-distended - Integumentary Integumentary: Present: clear, warm, dry - Psychiatric Psychiatric: appropriate mood/affect, cooperative - Neurologic Neurologic: CNII-XII intact, moves all extremities - Allied Health Allied health notes reviewed: nursing Results - Labs CBC & Chem 7: 04/15/17 07:30 04/15/17 07:30 Labs: Laboratory Last Values WBC 22.0 K/mm3 (4.5-11.0) H 04/15/17 07:30 RBC 2.16 M/mm3 (3.65-5.03) L 04/15/17 07:30 Hgb 6.1 gm/dl (10.1-14.3) L 04/15/17 07:30 Hct 18.9 % (30.3-42.9) L* 04/15/17 07:30 MCV 88 fl (79-97) 04/15/17 07:30 MCH 28 pg (28-32) 04/15/17 07:30 MCHC 32 % (30-34) 04/15/17 07:30 RDW 18.2 % (13.2-15.2) H 04/15/17 07:30 Plt Count 96 K/mm3 (140-440) L 04/15/17 07:30 Add Manual Diff Complete 04/15/17 07:30 Total Counted 100 04/15/17 07:30 Seg Neutrophils % Air Quality Chemist 04/15/17 07:30 Seg Neuts % (Manual) 92.0 % (40.0-70.0) H 04/15/17 07:30 Band Neutrophils % 6.0 % 04/15/17 07:30 Lymphocytes % (Manual) 1.0 % (13.4-35.0) L 04/15/17 07:30 Reactive Lymphs % (Man) 0 % 04/15/17 07:30 Monocytes % (Manual) 1.0 % (0.0-7.3) 04/15/17 07:30 Eosinophils % (Manual) 0 % (0.0-4.3) 04/15/17 07:30 Basophils % (Manual) 0 % (0.0-1.8) 04/15/17 07:30 Metamyelocytes % 0 % 04/15/17 07:30 Myelocytes % 0 % 04/15/17 07:30 Promyelocytes % 0 % 04/15/17 07:30 Blast Cells % 0 % 04/15/17 07:30 Nucleated RBC % 7.0 % (0.0-0.9) H 04/15/17 07:30 Seg Neutrophils # Man 20.2 K/mm3 (1.8-7.7) H 04/15/17 07:30 Band Neutrophils # 1.3 K/mm3 04/15/17 07:30 Lymphocytes # (Manual) 0.2 K/mm3 (1.2-5.4) L 04/15/17 07:30 Abs React Lymphs (Man) 0.0 K/mm3 04/15/17 07:30 Monocytes # (Manual) 0.2 K/mm3 (0.0-0.8) 04/15/17 07:30 Eosinophils # (Manual) 0.0 K/mm3 (0.0-0.4) 04/15/17 07:30 Basophils # (Manual) 0.0 K/mm3 (0.0-0.1) 04/15/17 07:30 Metamyelocytes # 0.0 K/mm3 04/15/17 07:30 Myelocytes # 0.0 K/mm3 04/15/17 07:30 Promyelocytes # 0.0 K/mm3 04/15/17 07:30 Blast Cells # 0.0 K/mm3 04/15/17 07:30 WBC Morphology Not Reportable 04/15/17 07:30 Hypersegmented Neuts Not Reportable 04/15/17 07:30 Hyposegmented Neuts Not Reportable 04/15/17 07:30 Hypogranular Neuts Not Reportable 04/15/17 07:30 Smudge Cells Not Reportable 04/15/17 07:30 Toxic Granulation Not Reportable 04/15/17 07:30 Toxic Vacuolation Not Reportable 04/15/17 07:30 Dohle Bodies Not Reportable 04/15/17 07:30 Pelger-Huet Anomaly Not Reportable 04/15/17 07:30 Monique Rods Not Reportable 04/15/17 07:30 Platelet Estimate Consistent w auto 04/15/17 07:30 Clumped Platelets Not Reportable 04/15/17 07:30 Plt Clumps, EDTA Not Reportable 04/15/17 07:30 Large Platelets Not Reportable 04/15/17 07:30 Giant Platelets Not Reportable 04/15/17 07:30 Platelet Satelliting Not Reportable 04/15/17 07:30 Plt Morphology Comment Not Reportable 04/15/17 07:30 RBC Morphology Not Reportable 04/15/17 07:30 Dimorphic RBCs Not Reportable 04/15/17 07:30 Polychromasia Not Reportable 04/15/17 07:30 Hypochromasia Not Reportable 04/15/17 07:30 Poikilocytosis Not Reportable 04/15/17 07:30 Anisocytosis 2+ 04/15/17 07:30 Microcytosis Not Reportable 04/15/17 07:30 Macrocytosis 1+ 04/15/17 07:30 Spherocytes Not Reportable 04/15/17 07:30 Pappenheimer Bodies Not Reportable 04/15/17 07:30 Sickle Cells Not Reportable 04/15/17 07:30 Target Cells 1+ 04/15/17 07:30 Tear Drop Cells Not Reportable 04/15/17 07:30 Ovalocytes Not Reportable 04/15/17 07:30 Helmet Cells Not Reportable 04/15/17 07:30 [place]par[place] Bodies Not Reportable 04/15/17 07:30 [place] Rings Not Reportable 04/15/17 07:30 [place] Cells Not Reportable 04/15/17 07:30 Bite Cells Not Reportable 04/15/17 07:30 Crenated Cell Not Reportable 04/15/17 07:30 Elliptocytes Not Reportable 04/15/17 07:30 Acanthocytes (Spur) Not Reportable 04/15/17 07:30 Rouleaux Not Reportable 04/15/17 07:30 Hemoglobin C Crystals Not Reportable 04/15/17 07:30 Schistocytes Not Reportable 04/15/17 07:30 Malaria parasites Not Reportable 04/15/17 07:30 ESR 24 mm/Hr (0-20) 04/13/17 03:00 Percent Retic 1.53 % (0.78-2.58) 04/09/17 11:23 Vincent Bodies Not Reportable 04/15/17 07:30 Hem Pathologist Commnt No 04/15/17 07:30 PT 17.2 Sec. (12.2-14.9) H 04/13/17 03:00 INR 1.33 (0.87-1.13) H 04/13/17 03:00 APTT 33.2 Sec. (24.2-36.6) 04/13/17 03:00 Fibrinogen 153 mg/dl (211-480) L 04/13/17 03:00 D-Dimer 2989.51 ng/mlDDU (0-234) H 04/13/17 03:00 POC ABG pH 7.410 (7.35-7.45) 04/11/17 22:15 POC ABG pCO2 35.2 (35-45) 04/11/17 22:15 POC ABG pO2 55 (80-105) L 04/11/17 22:15 POC ABG HCO3 22.3 04/11/17 22:15 POC ABG Total CO2 23 04/11/17 22:15 POC ABG O2 Sat 89 04/11/17 22:15 POC ABG Base Excess -2 04/11/17 22:15 FiO2 21 % 04/11/17 22:15 Sodium 134 mmol/L (137-145) L 04/15/17 07:30 Potassium 5.4 mmol/L (3.6-5.0) H 04/15/17 07:30 Chloride 95.1 mmol/L (98-107) L 04/15/17 07:30 Carbon Dioxide 20 mmol/L (22-30) L 04/15/17 07:30 Anion Gap 24 mmol/L 04/15/17 07:30 BUN 45 mg/dL (7-17) H 04/15/17 07:30 Creatinine 2.9 mg/dL (0.7-1.2) H 04/15/17 07:30 Estimated GFR 19 ml/min 04/15/17 07:30 BUN/Creatinine Ratio 16 % 04/15/17 07:30 Glucose 103 mg/dL (65-100) H 04/15/17 07:30 POC Glucose 121 (70-105) H 04/14/17 22:15 Lactic Acid 3.60 mmol/L (0.7-2.0) H* 04/06/17 Unknown Calcium 6.5 mg/dL (8.4-10.2) L 04/15/17 07:30 Iron 42 ug/dL (37-170) 04/09/17 11:23 TIBC 81 mcg/dL (250-450) L 04/09/17 11:23 Ferritin 2314.0 ng/mL (13.0-400.0) H 04/09/17 11:23 Total Bilirubin 0.80 mg/dL (0.1-1.2) 04/14/17 06:10 AST 73 units/L (5-40) H 04/14/17 06:10 ALT 53 units/L (7-56) 04/14/17 06:10 Alkaline Phosphatase 66 units/L (35-129) 04/14/17 06:10 Lactate Dehydrogenase 648 units/L (91-180) H 04/13/17 03:00 Troponin T 0.090 ng/mL (0.00-0.029) H 04/05/17 20:43 NT-Pro-B Natriuret Pep 6486 pg/mL (0-900) H 04/05/17 20:43 Total Protein 4.4 g/dL (6.3-8.2) L 04/14/17 06:10 Albumin 2.2 g/dL (3.9-5) L 04/14/17 06:10 Albumin/Globulin Ratio 1.0 % 04/14/17 06:10 Triglycerides 64 mg/dL (2-149) 04/05/17 20:43 Cholesterol 98 mg/dL (50-199) 04/05/17 20:43 LDL Cholesterol Direct 54 mg/dL (50-130) 04/05/17 20:43 HDL Cholesterol 32 mg/dL (40-59) L 04/05/17 20:43 Cholesterol/HDL Ratio 3.06 % 04/05/17 20:43 Vitamin B12 1641 pg/mL (211-911) H 04/09/17 11:23 Folate 4.55 ng/mL (7.3-26.0) L 04/09/17 11:23 Rheumatoid Factor 32 IU/ml (0-13) H 04/13/17 03:00 Hepatitis A IgM Ab Non-reactive (NonReactive) 04/12/17 07:42 Hep Bs Antigen Non-reactive (Negative) 04/12/17 07:42 Hep B Core IgM Ab Non-reactive (NonReactive) 04/12/17 07:42 Hepatitis C Antibody Non-reactive (NonReactive) 04/12/17 07:42 Blood Type O POSITIVE 04/14/17 11:31 Antibody Screen Negative 04/14/17 11:31 Crossmatch See Detail 04/14/17 11:31
[2017-04-15] MEDS ORDERED: NACL 0.9% 500 ML 500 ML IV SCH (12:00)
--- NOTE | 2017-04-15 14:38 | Progress Note ---
Assessment and Plan 67 y/o female with acute exacerbation of COPD, now with acute blood loss anemia , concern for GI bleed, source not known. 1. Currently patient is on room air with a sat of 98%. She has several other comorbid diseases that would contribute to her being a high risk for any type of procedure. Her COPD appears to be stale and undercontrol at this point. She would be a moderate to high risk for pulmonary complication in the perioperative period, but I feel that benefits outweigh the risk and that if she has complications we would manage them. One option would be to elective intubate the patient to perform both procedures and be done with it at one time. We would be happy to help manage in the ICU if this is needed. Please call with any questions. Steroids are currently serving dual purpose from a lung and heme standpoint. Subjective Date of service: 04/15/17 Principal diagnosis: anemia Interval history: Patient still bleeding but no overt evidence. Given 2 units of PRBC's on yesterday but HgB only came up to 6.1. BP has been stable. GI awaiting medical clearance from pulmonary (us) Objective Vital Signs - 12hr 04/15/17 04/15/17 04/15/17 02:42 02:54 04:23 Temperature 95.4 F L Pulse Rate Pulse Rate [ 77 Anterior Bilateral Throughout] Pulse Rate [ 73 Posterior Bilateral Throughout] Respiratory 20 Rate Respiratory 16 Rate [Anterior Bilateral Throughout] Respiratory 16 Rate [Posterior Bilateral Throughout] Blood Pressure 74/47 O2 Sat by Pulse Oximetry 04/15/17 04/15/17 04/15/17 08:00 08:13 08:28 Temperature 97.7 F Pulse Rate 81 Pulse Rate [ Anterior Bilateral Throughout] Pulse Rate [ 66 67 Posterior Bilateral Throughout] Respiratory 20 Rate Respiratory Rate [Anterior Bilateral Throughout] Respiratory 17 17 Rate [Posterior Bilateral Throughout] Blood Pressure 89/62 O2 Sat by Pulse 98 96 Oximetry 04/15/17 12:41 Temperature Pulse Rate 76 Pulse Rate [ Anterior Bilateral Throughout] Pulse Rate [ Posterior Bilateral Throughout] Respiratory 20 Rate Respiratory Rate [Anterior Bilateral Throughout] Respiratory Rate [Posterior Bilateral Throughout] Blood Pressure 98/61 O2 Sat by Pulse 64 L Oximetry Constitutional: no acute distress, asleep Eyes: non-icteric ENT: oropharynx moist Neck: supple, no JVD Ascultation: Bilateral: wheezes (mild), rales, rhonchi (mild) Cardiovascular: regular rate and rhythm Gastrointestinal: normoactive bowel sounds, non-distended Integumentary: normal Extremities: no cyanosis, no edema Neurologic: normal mental status, non-focal exam, pupils equal and round, CN II- XII normal, other (easily arousable and able to answer all questions) Psychiatric: mood appropriate, affect normal CBC and BMP: 04/15/17 07:30 04/15/17 07:30 ABG, PT/INR, D-dimer: ABG POC ABG pH 7.410 (7.35-7.45) 04/11/17 22:15 POC ABG pCO2 35.2 (35-45) 04/11/17 22:15 POC ABG pO2 55 (80-105) L 04/11/17 22:15 POC ABG HCO3 22.3 04/11/17 22:15 POC ABG Total CO2 23 04/11/17 22:15 POC ABG O2 Sat 89 04/11/17 22:15 PT/INR, D-dimer PT 17.2 Sec. (12.2-14.9) H 04/13/17 03:00 INR 1.33 (0.87-1.13) H 04/13/17 03:00 D-Dimer 2989.51 ng/mlDDU (0-234) H 04/13/17 03:00 Abnormal lab findings: Abnormal Labs 04/05/17 04/05/17 04/05/17 16:14 16:14 20:43 WBC 17.4 H RBC 2.69 L Hgb 8.9 L Hct 27.2 L MCV 101 H MCH 33 H RDW 20.4 H Plt Count Seg Neuts % (Manual) 98.0 H Lymphocytes % (Manual) 2.0 L Nucleated RBC % 4.0 H Seg Neutrophils # Man 17.1 H Lymphocytes # (Manual) 0.3 L Monocytes # (Manual) PT INR Fibrinogen D-Dimer POC ABG pH POC ABG pCO2 POC ABG pO2 Sodium Potassium 3.3 L Chloride 95.0 L Carbon Dioxide BUN Creatinine 0.5 L Glucose POC Glucose Lactic Acid Calcium 6.7 L TIBC Ferritin AST 166 H ALT Lactate Dehydrogenase Troponin T 0.090 H NT-Pro-B Natriuret Pep 6486 H Total Protein Albumin 2.2 L HDL Cholesterol 32 L Vitamin B12 Folate Rheumatoid Factor Crossmatch 04/05/17 04/06/17 04/06/17 20:43 02:30 04:56 WBC RBC Hgb Hct MCV MCH RDW Plt Count Seg Neuts % (Manual) Lymphocytes % (Manual) Nucleated RBC % Seg Neutrophils # Man Lymphocytes # (Manual) Monocytes # (Manual) PT INR Fibrinogen D-Dimer 4892.81 H POC ABG pH 7.524 H POC ABG pCO2 34.7 L POC ABG pO2 Sodium Potassium Chloride Carbon Dioxide BUN Creatinine Glucose POC Glucose Lactic Acid 3.30 H* Calcium TIBC Ferritin AST ALT Lactate Dehydrogenase Troponin T NT-Pro-B Natriuret Pep Total Protein Albumin HDL Cholesterol Vitamin B12 Folate Rheumatoid Factor Crossmatch 04/06/17 04/06/17 04/07/17 07:38 Unknown 05:35 WBC 17.7 H RBC 2.29 L Hgb 7.4 L Hct 23.2 L MCV 101 H MCH RDW 20.0 H Plt Count 104 L Seg Neuts % (Manual) 81.0 H Lymphocytes % (Manual) 4.0 L Nucleated RBC % 12.0 H Seg Neutrophils # Man 14.3 H Lymphocytes # (Manual) 0.7 L Monocytes # (Manual) PT INR Fibrinogen D-Dimer POC ABG pH POC ABG pCO2 POC ABG pO2 Sodium Potassium Chloride Carbon Dioxide BUN Creatinine Glucose POC Glucose Lactic Acid 3.10 H* 3.60 H* Calcium TIBC Ferritin AST ALT Lactate Dehydrogenase Troponin T NT-Pro-B Natriuret Pep Total Protein Albumin HDL Cholesterol Vitamin B12 Folate Rheumatoid Factor Crossmatch 04/07/17 04/09/17 04/09/17 05:35 05:30 05:30 WBC 15.3 H RBC 1.94 L Hgb 6.4 L Hct 19.7 L* MCV 101 H MCH 33 H RDW 19.3 H Plt Count 53 L Seg Neuts % (Manual) 78.0 H Lymphocytes % (Manual) 5.0 L Nucleated RBC % 16.0 H Seg Neutrophils # Man 11.9 H Lymphocytes # (Manual) 0.8 L Monocytes # (Manual) 0.9 H PT INR Fibrinogen D-Dimer POC ABG pH POC ABG pCO2 POC ABG pO2 Sodium Potassium 2.9 L* Chloride Carbon Dioxide BUN 20 H Creatinine Glucose 144 H 126 H POC Glucose Lactic Acid Calcium 6.2 L 6.2 L TIBC Ferritin AST ALT Lactate Dehydrogenase Troponin T NT-Pro-B Natriuret Pep Total Protein Albumin HDL Cholesterol Vitamin B12 Folate Rheumatoid Factor Crossmatch 04/09/17 04/09/17 04/09/17 07:00 11:23 11:23 WBC RBC Hgb Hct MCV MCH RDW Plt Count Seg Neuts % (Manual) Lymphocytes % (Manual) Nucleated RBC % Seg Neutrophils # Man Lymphocytes # (Manual) Monocytes # (Manual) PT INR Fibrinogen D-Dimer POC ABG pH POC ABG pCO2 POC ABG pO2 Sodium Potassium Chloride Carbon Dioxide BUN Creatinine Glucose POC Glucose Lactic Acid Calcium TIBC 81 L Ferritin 2314.0 H AST ALT Lactate Dehydrogenase Troponin T NT-Pro-B Natriuret Pep Total Protein Albumin HDL Cholesterol Vitamin B12 Folate Rheumatoid Factor Crossmatch See Detail 04/09/17 04/09/17 04/10/17 11:23 11:23 Unknown WBC RBC Hgb 7.0 L Hct 21.3 L MCV MCH RDW Plt Count Seg Neuts % (Manual) Lymphocytes % (Manual) Nucleated RBC % Seg Neutrophils # Man Lymphocytes # (Manual) Monocytes # (Manual) PT INR Fibrinogen D-Dimer POC ABG pH POC ABG pCO2 POC ABG pO2 Sodium Potassium Chloride Carbon Dioxide BUN Creatinine Glucose POC Glucose Lactic Acid Calcium TIBC Ferritin AST ALT Lactate Dehydrogenase Troponin T NT-Pro-B Natriuret Pep Total Protein Albumin HDL Cholesterol Vitamin B12 1641 H Folate 4.55 L Rheumatoid Factor Crossmatch 04/11/17 04/11/17 04/11/17 04:30 04:30 22:15 WBC 13.8 H RBC 2.24 L Hgb 6.9 L Hct 20.9 L MCV MCH RDW 17.4 H Plt Count 28 L Seg Neuts % (Manual) Lymphocytes % (Manual) 8.0 L Nucleated RBC % 12.0 H Seg Neutrophils # Man 9.1 H Lymphocytes # (Manual) 1.1 L Monocytes # (Manual) PT INR Fibrinogen D-Dimer POC ABG pH POC ABG pCO2 POC ABG pO2 55 L Sodium 134 L Potassium 3.5 L D Chloride 95.6 L Carbon Dioxide BUN 24 H Creatinine 1.5 H Glucose 215 H POC Glucose Lactic Acid Calcium 5.6 L* TIBC Ferritin AST ALT Lactate Dehydrogenase Troponin T NT-Pro-B Natriuret Pep Total Protein Albumin HDL Cholesterol Vitamin B12 Folate Rheumatoid Factor Crossmatch 04/12/17 04/12/17 04/12/17 06:05 06:05 06:05 WBC 11.4 H RBC 2.49 L Hgb 7.6 L Hct 23.0 L MCV MCH RDW 15.8 H Plt Count 37 L Seg Neuts % (Manual) 97.0 H Lymphocytes % (Manual) 2.0 L Nucleated RBC % 31.0 H Seg Neutrophils # Man 11.1 H Lymphocytes # (Manual) 0.2 L Monocytes # (Manual) PT 17.7 H INR 1.38 H Fibrinogen D-Dimer POC ABG pH POC ABG pCO2 POC ABG pO2 Sodium 131 L Potassium Chloride 95.4 L Carbon Dioxide 21 L BUN 30 H Creatinine 1.9 H Glucose 208 H POC Glucose Lactic Acid Calcium 5.8 L* TIBC Ferritin AST 75 H ALT 57 H Lactate Dehydrogenase Troponin T NT-Pro-B Natriuret Pep Total Protein 4.0 L Albumin 1.6 L HDL Cholesterol Vitamin B12 Folate Rheumatoid Factor Crossmatch 04/13/17 04/13/17 04/13/17 03:00 03:00 03:00 WBC RBC Hgb Hct MCV MCH RDW Plt Count Seg Neuts % (Manual) Lymphocytes % (Manual) Nucleated RBC % Seg Neutrophils # Man Lymphocytes # (Manual) Monocytes # (Manual) PT 17.2 H INR 1.33 H Fibrinogen 153 L D-Dimer 2989.51 H POC ABG pH POC ABG pCO2 POC ABG pO2 Sodium Potassium Chloride Carbon Dioxide BUN Creatinine Glucose POC Glucose Lactic Acid Calcium TIBC Ferritin AST ALT Lactate Dehydrogenase 648 H Troponin T NT-Pro-B Natriuret Pep Total Protein Albumin HDL Cholesterol Vitamin B12 Folate Rheumatoid Factor 32 H Crossmatch 04/14/17 04/14/17 04/14/17 06:10 06:10 11:31 WBC 26.3 H RBC 1.66 L Hgb 4.8 L* Hct 15.5 L* D MCV MCH RDW 16.8 H Plt Count 111 L D Seg Neuts % (Manual) 89.0 H Lymphocytes % (Manual) 3.0 L Nucleated RBC % 6.0 H Seg Neutrophils # Man 23.4 H Lymphocytes # (Manual) 0.8 L Monocytes # (Manual) PT INR Fibrinogen D-Dimer POC ABG pH POC ABG pCO2 POC ABG pO2 Sodium 132 L Potassium Chloride 95.3 L Carbon Dioxide 20 L BUN 41 H Creatinine 2.7 H Glucose 124 H POC Glucose Lactic Acid Calcium 6.1 L TIBC Ferritin AST 73 H ALT Lactate Dehydrogenase Troponin T NT-Pro-B Natriuret Pep Total Protein 4.4 L Albumin 2.2 L HDL Cholesterol Vitamin B12 Folate Rheumatoid Factor Crossmatch See Detail 04/14/17 04/15/17 04/15/17 22:15 07:30 07:30 WBC 22.0 H RBC 2.16 L Hgb 6.1 L Hct 18.9 L* MCV MCH RDW 18.2 H Plt Count 96 L Seg Neuts % (Manual) 92.0 H Lymphocytes % (Manual) 1.0 L Nucleated RBC % 7.0 H Seg Neutrophils # Man 20.2 H Lymphocytes # (Manual) 0.2 L Monocytes # (Manual) PT INR Fibrinogen D-Dimer POC ABG pH POC ABG pCO2 POC ABG pO2 Sodium 134 L Potassium 5.4 H Chloride 95.1 L Carbon Dioxide 20 L BUN 45 H Creatinine 2.9 H Glucose 103 H POC Glucose 121 H Lactic Acid Calcium 6.5 L TIBC Ferritin AST ALT Lactate Dehydrogenase Troponin T NT-Pro-B Natriuret Pep Total Protein Albumin HDL Cholesterol Vitamin B12 Folate Rheumatoid Factor Crossmatch
[2017-04-15] MEDS: cefTRIAXone 1 GM in NACL 0.9% 20 ML IV SCH (19:27)
--- NOTE | 2017-04-15 19:59 | Progress Note ---
Assessment and Plan - Patient Problems (1) Anemia Current Visit: Yes Status: Acute Plan to address problem: see orders. transfusion replacements. other w/up still pending results. (2) CHF (congestive heart failure) Current Visit: Yes Status: Chronic Qualifiers: Congestive heart failure type: combined Plan to address problem: follow you. (3) Thrombocytopenia Current Visit: Yes Status: Acute Plan to address problem: see orders. see notes. Beta -2 quite high, will await other w/up for myeloma. Subjective Date of service: 04/15/17 Principal diagnosis: anemia Interval history: Patient seen/examined, resting in bed, sluggish.labs reviewed, as well as notes.Fibrinogen low, D-dimer elevated, with very high Ldh, indicating consumptive coagulopathy. She may have some auto immune d/o. along with other things l, and perhaps bkleeding contributing to her thrombocytopenia. She may benefit from some steriods.IF any procedure is intended, PLT can be given, +/_ FFP if indicated.Will continue to follow you.Still awaiting [id number]., and folate. Patient seen, resting in bed. Labs/notes reviewed, s/p replacement transfusion. Will do PNH panel.Steroid still recommended. Patient seen, resting in bed, family at the bed side, record /labs reviewed.It appears that she responded some to steroid as recommended. Objective - Constitutional Vitals: Vital Signs - 12hr 04/15/17 04/15/17 04/15/17 08:00 08:13 08:28 Temperature 97.7 F Pulse Rate 81 Pulse Rate [ 66 67 Posterior Bilateral Throughout] Respiratory 20 Rate Respiratory 17 17 Rate [Posterior Bilateral Throughout] Blood Pressure 89/62 O2 Sat by Pulse 98 96 Oximetry 04/15/17 04/15/17 04/15/17 12:41 15:43 15:45 Temperature Pulse Rate 76 Pulse Rate [ Posterior Bilateral Throughout] Respiratory 20 Rate Respiratory Rate [Posterior Bilateral Throughout] Blood Pressure 98/61 86/44 87/56 O2 Sat by Pulse 64 L Oximetry 04/15/17 04/15/17 04/15/17 17:18 17:42 18:00 Temperature Pulse Rate 76 Pulse Rate [ Posterior Bilateral Throughout] Respiratory Rate Respiratory Rate [Posterior Bilateral Throughout] Blood Pressure 80/52 99/64 O2 Sat by Pulse Oximetry General appearance: Present: mild distress - EENT Eyes: PERRL, EOM intact ENT: hearing intact, clear oral mucosa Ears: bilateral: normal - Neck Neck: supple, normal ROM - Respiratory Respiratory effort: normal Respiratory: bilateral: CTA - Breasts Breasts: deferred - Cardiovascular Rhythm: regular Heart Sounds: Present: S1 & S2. Absent: gallop, rub Extremities: pulses intact, No edema, normal color, Full ROM - Gastrointestinal General gastrointestinal: Present: soft, non-tender, non-distended, normal bowel sounds Rectal Exam: deferred - Genitourinary Female genitourinary: deferred - Integumentary Integumentary: clear, warm, dry - Musculoskeletal Musculoskeletal: 1, strength equal bilaterally - Neurologic Neurologic: moves all extremities - Psychiatric Psychiatric: appropriate mood/affect, memory intact - Labs CBC & Chem 7: 04/15/17 07:30 04/15/17 07:30 Labs: Abnormal lab results 04/09/17 04/13/17 04/14/17 Range/Units 07:00 03:00 11:31 WBC (4.5-11.0) K/mm3 RBC (3.65-5.03) M/mm3 Hgb (10.1-14.3) gm/dl Hct (30.3-42.9) % RDW (13.2-15.2) % Plt Count (140-440) K/mm3 Seg Neuts % (Manual) (40.0-70.0) % Lymphocytes % (Manual) (13.4-35.0) % Nucleated RBC % (0.0-0.9) % Seg Neutrophils # Man (1.8-7.7) K/mm3 Lymphocytes # (Manual) (1.2-5.4) K/mm3 Sodium (137-145) mmol/L Potassium (3.6-5.0) mmol/L Chloride (98-107) mmol/L Carbon Dioxide (22-30) mmol/L BUN (7-17) mg/dL Creatinine (0.7-1.2) mg/dL Glucose (65-100) mg/dL POC Glucose (70-105) Calcium (8.4-10.2) mg/dL [id number] 15.00 H (<=2.51) mg/L Crossmatch See Detail See Detail 04/14/17 04/15/17 04/15/17 Range/Units 22:15 07:30 07:30 WBC 22.0 H (4.5-11.0) K/mm3 RBC 2.16 L (3.65-5.03) M/mm3 Hgb 6.1 L (10.1-14.3) gm/dl Hct 18.9 L* (30.3-42.9) % RDW 18.2 H (13.2-15.2) % Plt Count 96 L (140-440) K/mm3 Seg Neuts % (Manual) 92.0 H (40.0-70.0) % Lymphocytes % (Manual) 1.0 L (13.4-35.0) % Nucleated RBC % 7.0 H (0.0-0.9) % Seg Neutrophils # Man 20.2 H (1.8-7.7) K/mm3 Lymphocytes # (Manual) 0.2 L (1.2-5.4) K/mm3 Sodium 134 L (137-145) mmol/L Potassium 5.4 H (3.6-5.0) mmol/L Chloride 95.1 L (98-107) mmol/L Carbon Dioxide 20 L (22-30) mmol/L BUN 45 H (7-17) mg/dL Creatinine 2.9 H (0.7-1.2) mg/dL Glucose 103 H (65-100) mg/dL POC Glucose 121 H (70-105) Calcium 6.5 L (8.4-10.2) mg/dL [id number] (<=2.51) mg/L Crossmatch
[2017-04-16] MEDS: ALBURX 25% (ALBUMIN) IV SCH ×3 (00:52→17:35)
[2017-04-16] MEDS: DUONEB *Not for PRN Use IH SCH ×4 (01:44→20:33)
[2017-04-16 06:37] LABS: Calcium 6.4 mg/dL (8.4-10.2)
[2017-04-16 06:55] LABS: Hematocrit 23.7 % (30.3-42.9); Hemoglobin 7.7 gm/dl (10.1-14.3); Mean Corpuscular HGB Conc 33 % (30-34); Mean Corpuscular Hemoglobin 29 pg (28-32); Mean Corpuscular Volume 89 fl (79-97); Platelet Count 115 K/mm3 (140-440); Red Blood Count 2.66 M/mm3 (3.65-5.03); Red Cell Distribution Width 17.8 % (13.2-15.2)
[2017-04-16 09:06] LABS: Band Neutrophils # (Manual) 3.3 K/mm3; Basophils % (Manual) 0 % (0.0-1.8); Eosinophils % (Manual) 0 % (0.0-4.3); Total Cells Counted 100
[2017-04-16 09:07] LABS: Anisocytosis 1+; Target Cells Few
[2017-04-16] MEDS: PULMICORT IH SCH ×2 (09:17→20:33)
[2017-04-16] MEDS: BROVANA NEBU IH SCH ×2 (09:18→20:33)
--- NOTE | 2017-04-16 09:35 | Progress Note ---
Assessment and Plan 67 y/o female with acute exacerbation of COPD, now with acute blood loss anemia , concern for GI bleed, source not known, now with altered mental state. 1. Per nursing, screaming all night. Given ativan around 0100. Asked RT for stat ABG. Will follow up results. may need to have several bowel movements, could be encephalopathic from liver disease and anemia could be exacerbating this. 2. Change H/H to q6 hours. Need to keep patient NPO and likely place NG tube for bowel prep. Await GI to see today 3. Steroids actually ordered by GI and Heme wants to continue them. Respiratory status has been stable 4. Overall prognosis is guarded given all of her comorbidities. Subjective Date of service: 04/16/17 Principal diagnosis: anemia Interval history: This am, eyes open, breathing. Currently getting neb treatment but not responding to verbal stimuli. She will look at me when I call her name but will not answer questions appropriately or at all. Withdraws from pain. No family currently at bedside. HgB this am is 7.7 Objective Vital Signs - 12hr 04/15/17 04/15/17 04/16/17 21:38 23:59 00:04 Temperature Pulse Rate 84 82 Pulse Rate [ Posterior Bilateral Throughout] Pulse Rate [ Right Radial] Respiratory 14 Rate Respiratory Rate [Posterior Bilateral Throughout] Blood Pressure 91/57 91/57 O2 Sat by Pulse 85 Oximetry 04/16/17 04/16/17 04/16/17 00:10 00:20 00:30 Temperature Pulse Rate 80 85 79 Pulse Rate [ Posterior Bilateral Throughout] Pulse Rate [ Right Radial] Respiratory 13 18 14 Rate Respiratory Rate [Posterior Bilateral Throughout] Blood Pressure 91/57 91/57 O2 Sat by Pulse 68 L 97 96 Oximetry 04/16/17 04/16/17 04/16/17 00:40 00:50 01:00 Temperature Pulse Rate 80 80 84 Pulse Rate [ Posterior Bilateral Throughout] Pulse Rate [ Right Radial] Respiratory 19 20 13 Rate Respiratory Rate [Posterior Bilateral Throughout] Blood Pressure 91/57 91/57 102/51 O2 Sat by Pulse 97 97 96 Oximetry 04/16/17 04/16/17 04/16/17 01:10 01:20 01:29 Temperature Pulse Rate 81 81 Pulse Rate [ Posterior Bilateral Throughout] Pulse Rate [ 86 Right Radial] Respiratory 14 14 16 Rate Respiratory Rate [Posterior Bilateral Throughout] Blood Pressure 102/51 102/51 O2 Sat by Pulse 96 Oximetry 04/16/17 04/16/17 04/16/17 01:30 01:40 01:50 Temperature Pulse Rate 82 80 85 Pulse Rate [ Posterior Bilateral Throughout] Pulse Rate [ Right Radial] Respiratory 13 17 22 Rate Respiratory Rate [Posterior Bilateral Throughout] Blood Pressure 102/51 92/55 92/55 O2 Sat by Pulse 98 96 97 Oximetry 04/16/17 04/16/17 04/16/17 02:00 02:10 02:17 Temperature 97.5 F L Pulse Rate 85 78 Pulse Rate [ Posterior Bilateral Throughout] Pulse Rate [ Right Radial] Respiratory 15 16 Rate Respiratory Rate [Posterior Bilateral Throughout] Blood Pressure 100/52 100/52 O2 Sat by Pulse 98 97 Oximetry 04/16/17 04/16/17 04/16/17 02:20 02:30 02:40 Temperature Pulse Rate 95 H 80 85 Pulse Rate [ Posterior Bilateral Throughout] Pulse Rate [ Right Radial] Respiratory 15 19 18 Rate Respiratory Rate [Posterior Bilateral Throughout] Blood Pressure 100/52 102/51 102/51 O2 Sat by Pulse 97 Oximetry 04/16/17 04/16/17 04/16/17 02:50 03:00 03:10 Temperature Pulse Rate 79 81 76 Pulse Rate [ Posterior Bilateral Throughout] Pulse Rate [ Right Radial] Respiratory 14 17 15 Rate Respiratory Rate [Posterior Bilateral Throughout] Blood Pressure 102/51 102/51 107/52 O2 Sat by Pulse 93 97 Oximetry 04/16/17 04/16/17 04/16/17 03:20 03:30 03:40 Temperature Pulse Rate 82 79 82 Pulse Rate [ Posterior Bilateral Throughout] Pulse Rate [ Right Radial] Respiratory 17 17 18 Rate Respiratory Rate [Posterior Bilateral Throughout] Blood Pressure 107/52 107/52 107/52 O2 Sat by Pulse 97 98 97 Oximetry 04/16/17 04/16/17 04/16/17 03:50 04:00 04:10 Temperature Pulse Rate 80 79 82 Pulse Rate [ Posterior Bilateral Throughout] Pulse Rate [ Right Radial] Respiratory 18 17 14 Rate Respiratory Rate [Posterior Bilateral Throughout] Blood Pressure 107/52 92/58 92/58 O2 Sat by Pulse 97 96 97 Oximetry 04/16/17 04/16/17 04/16/17 04:20 04:30 04:40 Temperature Pulse Rate 87 82 81 Pulse Rate [ Posterior Bilateral Throughout] Pulse Rate [ Right Radial] Respiratory 15 18 16 Rate Respiratory Rate [Posterior Bilateral Throughout] Blood Pressure 92/58 92/58 92/58 O2 Sat by Pulse 97 96 96 Oximetry 04/16/17 04/16/17 04/16/17 04:50 05:00 05:10 Temperature Pulse Rate 81 81 77 Pulse Rate [ Posterior Bilateral Throughout] Pulse Rate [ Right Radial] Respiratory 19 21 18 Rate Respiratory Rate [Posterior Bilateral Throughout] Blood Pressure 92/58 89/62 89/62 O2 Sat by Pulse Oximetry 04/16/17 04/16/17 04/16/17 05:20 05:29 05:30 Temperature Pulse Rate 75 85 Pulse Rate [ Posterior Bilateral Throughout] Pulse Rate [ 77 Right Radial] Respiratory 14 12 19 Rate Respiratory Rate [Posterior Bilateral Throughout] Blood Pressure 89/62 89/62 O2 Sat by Pulse Oximetry 04/16/17 04/16/17 04/16/17 05:40 05:50 06:00 Temperature Pulse Rate 83 81 83 Pulse Rate [ Posterior Bilateral Throughout] Pulse Rate [ Right Radial] Respiratory 14 16 16 Rate Respiratory Rate [Posterior Bilateral Throughout] Blood Pressure 89/62 89/62 103/66 O2 Sat by Pulse Oximetry 04/16/17 04/16/17 04/16/17 06:10 06:17 06:20 Temperature 97.5 F L Pulse Rate 83 87 Pulse Rate [ Posterior Bilateral Throughout] Pulse Rate [ Right Radial] Respiratory 14 16 Rate Respiratory Rate [Posterior Bilateral Throughout] Blood Pressure 103/66 103/66 O2 Sat by Pulse 100 Oximetry 04/16/17 04/16/17 04/16/17 06:30 06:40 06:50 Temperature Pulse Rate 81 79 70 Pulse Rate [ Posterior Bilateral Throughout] Pulse Rate [ Right Radial] Respiratory 21 16 13 Rate Respiratory Rate [Posterior Bilateral Throughout] Blood Pressure 103/66 103/66 103/66 O2 Sat by Pulse 93 99 Oximetry 04/16/17 04/16/17 04/16/17 07:00 07:10 07:20 Temperature Pulse Rate 86 77 82 Pulse Rate [ Posterior Bilateral Throughout] Pulse Rate [ Right Radial] Respiratory 15 12 16 Rate Respiratory Rate [Posterior Bilateral Throughout] Blood Pressure 103/66 104/40 104/40 O2 Sat by Pulse 99 100 88 Oximetry 04/16/17 04/16/17 04/16/17 07:30 07:40 07:50 Temperature Pulse Rate 79 75 76 Pulse Rate [ Posterior Bilateral Throughout] Pulse Rate [ Right Radial] Respiratory 15 14 16 Rate Respiratory Rate [Posterior Bilateral Throughout] Blood Pressure 104/40 104/40 104/40 O2 Sat by Pulse 96 98 98 Oximetry 04/16/17 09:18 Temperature Pulse Rate Pulse Rate [ 65 Posterior Bilateral Throughout] Pulse Rate [ Right Radial] Respiratory Rate Respiratory 11 L Rate [Posterior Bilateral Throughout] Blood Pressure O2 Sat by Pulse Oximetry Constitutional: no acute distress, asleep Eyes: non-icteric ENT: oropharynx moist Neck: supple, no JVD Ascultation: Bilateral: wheezes (mild), rales, rhonchi (mild) Cardiovascular: regular rate and rhythm Gastrointestinal: normoactive bowel sounds, non-distended Integumentary: normal Extremities: no cyanosis, no edema Neurologic: normal mental status, non-focal exam, pupils equal and round, CN II- XII normal, other (easily arousable and able to answer all questions) Psychiatric: mood appropriate, affect normal CBC and BMP: 04/16/17 05:30 04/16/17 05:30 ABG, PT/INR, D-dimer: ABG POC ABG pH 7.410 (7.35-7.45) 04/11/17 22:15 POC ABG pCO2 35.2 (35-45) 04/11/17 22:15 POC ABG pO2 55 (80-105) L 04/11/17 22:15 POC ABG HCO3 22.3 04/11/17 22:15 POC ABG Total CO2 23 04/11/17 22:15 POC ABG O2 Sat 89 04/11/17 22:15 PT/INR, D-dimer PT 17.2 Sec. (12.2-14.9) H 04/13/17 03:00 INR 1.33 (0.87-1.13) H 04/13/17 03:00 D-Dimer 2989.51 ng/mlDDU (0-234) H 04/13/17 03:00 Abnormal lab findings: Abnormal Labs 04/05/17 04/05/17 04/05/17 16:14 16:14 20:43 WBC 17.4 H RBC 2.69 L Hgb 8.9 L Hct 27.2 L MCV 101 H MCH 33 H RDW 20.4 H Plt Count Seg Neuts % (Manual) 98.0 H Lymphocytes % (Manual) 2.0 L Nucleated RBC % 4.0 H Seg Neutrophils # Man 17.1 H Lymphocytes # (Manual) 0.3 L Monocytes # (Manual) PT INR Fibrinogen D-Dimer POC ABG pH POC ABG pCO2 POC ABG pO2 Sodium Potassium 3.3 L Chloride 95.0 L Carbon Dioxide BUN Creatinine 0.5 L Glucose POC Glucose Lactic Acid Calcium 6.7 L TIBC Ferritin AST 166 H ALT Lactate Dehydrogenase Troponin T 0.090 H NT-Pro-B Natriuret Pep 6486 H Total Protein Albumin 2.2 L Pppt-9-Wpgearsskdnfa HDL Cholesterol 32 L Vitamin B12 Folate Rheumatoid Factor Crossmatch 04/05/17 04/06/17 04/06/17 20:43 02:30 04:56 WBC RBC Hgb Hct MCV MCH RDW Plt Count Seg Neuts % (Manual) Lymphocytes % (Manual) Nucleated RBC % Seg Neutrophils # Man Lymphocytes # (Manual) Monocytes # (Manual) PT INR Fibrinogen D-Dimer 4892.81 H POC ABG pH 7.524 H POC ABG pCO2 34.7 L POC ABG pO2 Sodium Potassium Chloride Carbon Dioxide BUN Creatinine Glucose POC Glucose Lactic Acid 3.30 H* Calcium TIBC Ferritin AST ALT Lactate Dehydrogenase Troponin T NT-Pro-B Natriuret Pep Total Protein Albumin Qovl-6-Dpyrvsbzsiplo HDL Cholesterol Vitamin B12 Folate Rheumatoid Factor Crossmatch 04/06/17 04/06/17 04/07/17 07:38 Unknown 05:35 WBC 17.7 H RBC 2.29 L Hgb 7.4 L Hct 23.2 L MCV 101 H MCH RDW 20.0 H Plt Count 104 L Seg Neuts % (Manual) 81.0 H Lymphocytes % (Manual) 4.0 L Nucleated RBC % 12.0 H Seg Neutrophils # Man 14.3 H Lymphocytes # (Manual) 0.7 L Monocytes # (Manual) PT INR Fibrinogen D-Dimer POC ABG pH POC ABG pCO2 POC ABG pO2 Sodium Potassium Chloride Carbon Dioxide BUN Creatinine Glucose POC Glucose Lactic Acid 3.10 H* 3.60 H* Calcium TIBC Ferritin AST ALT Lactate Dehydrogenase Troponin T NT-Pro-B Natriuret Pep Total Protein Albumin Zmay-8-Yeyhulikdpvuh HDL Cholesterol Vitamin B12 Folate Rheumatoid Factor Crossmatch 04/07/17 04/09/17 04/09/17 05:35 05:30 05:30 WBC 15.3 H RBC 1.94 L Hgb 6.4 L Hct 19.7 L* MCV 101 H MCH 33 H RDW 19.3 H Plt Count 53 L Seg Neuts % (Manual) 78.0 H Lymphocytes % (Manual) 5.0 L Nucleated RBC % 16.0 H Seg Neutrophils # Man 11.9 H Lymphocytes # (Manual) 0.8 L Monocytes # (Manual) 0.9 H PT INR Fibrinogen D-Dimer POC ABG pH POC ABG pCO2 POC ABG pO2 Sodium Potassium 2.9 L* Chloride Carbon Dioxide BUN 20 H Creatinine Glucose 144 H 126 H POC Glucose Lactic Acid Calcium 6.2 L 6.2 L TIBC Ferritin AST ALT Lactate Dehydrogenase Troponin T NT-Pro-B Natriuret Pep Total Protein Albumin Efww-4-Dwgwwrswcsyzc HDL Cholesterol Vitamin B12 Folate Rheumatoid Factor Crossmatch 04/09/17 04/09/17 04/09/17 07:00 11:23 11:23 WBC RBC Hgb Hct MCV MCH RDW Plt Count Seg Neuts % (Manual) Lymphocytes % (Manual) Nucleated RBC % Seg Neutrophils # Man Lymphocytes # (Manual) Monocytes # (Manual) PT INR Fibrinogen D-Dimer POC ABG pH POC ABG pCO2 POC ABG pO2 Sodium Potassium Chloride Carbon Dioxide BUN Creatinine Glucose POC Glucose Lactic Acid Calcium TIBC 81 L Ferritin 2314.0 H AST ALT Lactate Dehydrogenase Troponin T NT-Pro-B Natriuret Pep Total Protein Albumin Vygh-1-Mwekwibqogknq HDL Cholesterol Vitamin B12 Folate Rheumatoid Factor Crossmatch See Detail 04/09/17 04/09/17 04/10/17 11:23 11:23 Unknown WBC RBC Hgb 7.0 L Hct 21.3 L MCV MCH RDW Plt Count Seg Neuts % (Manual) Lymphocytes % (Manual) Nucleated RBC % Seg Neutrophils # Man Lymphocytes # (Manual) Monocytes # (Manual) PT INR Fibrinogen D-Dimer POC ABG pH POC ABG pCO2 POC ABG pO2 Sodium Potassium Chloride Carbon Dioxide BUN Creatinine Glucose POC Glucose Lactic Acid Calcium TIBC Ferritin AST ALT Lactate Dehydrogenase Troponin T NT-Pro-B Natriuret Pep Total Protein Albumin Dghi-6-Jactxqwibjcuh HDL Cholesterol Vitamin B12 1641 H Folate 4.55 L Rheumatoid Factor Crossmatch 04/11/17 04/11/17 04/11/17 04:30 04:30 22:15 WBC 13.8 H RBC 2.24 L Hgb 6.9 L Hct 20.9 L MCV MCH RDW 17.4 H Plt Count 28 L Seg Neuts % (Manual) Lymphocytes % (Manual) 8.0 L Nucleated RBC % 12.0 H Seg Neutrophils # Man 9.1 H Lymphocytes # (Manual) 1.1 L Monocytes # (Manual) PT INR Fibrinogen D-Dimer POC ABG pH POC ABG pCO2 POC ABG pO2 55 L Sodium 134 L Potassium 3.5 L D Chloride 95.6 L Carbon Dioxide BUN 24 H Creatinine 1.5 H Glucose 215 H POC Glucose Lactic Acid Calcium 5.6 L* TIBC Ferritin AST ALT Lactate Dehydrogenase Troponin T NT-Pro-B Natriuret Pep Total Protein Albumin Notj-8-Lciixdmpywttb HDL Cholesterol Vitamin B12 Folate Rheumatoid Factor Crossmatch 04/12/17 04/12/17 04/12/17 06:05 06:05 06:05 WBC 11.4 H RBC 2.49 L Hgb 7.6 L Hct 23.0 L MCV MCH RDW 15.8 H Plt Count 37 L Seg Neuts % (Manual) 97.0 H Lymphocytes % (Manual) 2.0 L Nucleated RBC % 31.0 H Seg Neutrophils # Man 11.1 H Lymphocytes # (Manual) 0.2 L Monocytes # (Manual) PT 17.7 H INR 1.38 H Fibrinogen D-Dimer POC ABG pH POC ABG pCO2 POC ABG pO2 Sodium 131 L Potassium Chloride 95.4 L Carbon Dioxide 21 L BUN 30 H Creatinine 1.9 H Glucose 208 H POC Glucose Lactic Acid Calcium 5.8 L* TIBC Ferritin AST 75 H ALT 57 H Lactate Dehydrogenase Troponin T NT-Pro-B Natriuret Pep Total Protein 4.0 L Albumin 1.6 L Ipom-4-Lkpxmddbaesgl HDL Cholesterol Vitamin B12 Folate Rheumatoid Factor Crossmatch 04/13/17 04/13/17 04/13/17 03:00 03:00 03:00 WBC RBC Hgb Hct MCV MCH RDW Plt Count Seg Neuts % (Manual) Lymphocytes % (Manual) Nucleated RBC % Seg Neutrophils # Man Lymphocytes # (Manual) Monocytes # (Manual) PT 17.2 H INR 1.33 H Fibrinogen 153 L D-Dimer 2989.51 H POC ABG pH POC ABG pCO2 POC ABG pO2 Sodium Potassium Chloride Carbon Dioxide BUN Creatinine Glucose POC Glucose Lactic Acid Calcium TIBC Ferritin AST ALT Lactate Dehydrogenase Troponin T NT-Pro-B Natriuret Pep Total Protein Albumin Tshm-4-Xzoytnahlrheh 15.00 H HDL Cholesterol Vitamin B12 Folate Rheumatoid Factor 32 H Crossmatch 04/13/17 04/14/17 04/14/17 03:00 06:10 06:10 WBC 26.3 H RBC 1.66 L Hgb 4.8 L* Hct 15.5 L* D MCV MCH RDW 16.8 H Plt Count 111 L D Seg Neuts % (Manual) 89.0 H Lymphocytes % (Manual) 3.0 L Nucleated RBC % 6.0 H Seg Neutrophils # Man 23.4 H Lymphocytes # (Manual) 0.8 L Monocytes # (Manual) PT INR Fibrinogen D-Dimer POC ABG pH POC ABG pCO2 POC ABG pO2 Sodium 132 L Potassium Chloride 95.3 L Carbon Dioxide 20 L BUN 41 H Creatinine 2.7 H Glucose 124 H POC Glucose Lactic Acid Calcium 6.1 L TIBC Ferritin AST 73 H ALT Lactate Dehydrogenase 648 H Troponin T NT-Pro-B Natriuret Pep Total Protein 4.4 L Albumin 2.2 L Htam-5-Xzbcxbzkpzipb HDL Cholesterol Vitamin B12 Folate Rheumatoid Factor Crossmatch 04/14/17 04/14/17 04/15/17 11:31 22:15 07:30 WBC 22.0 H RBC 2.16 L Hgb 6.1 L Hct 18.9 L* MCV MCH RDW 18.2 H Plt Count 96 L Seg Neuts % (Manual) 92.0 H Lymphocytes % (Manual) 1.0 L Nucleated RBC % 7.0 H Seg Neutrophils # Man 20.2 H Lymphocytes # (Manual) 0.2 L Monocytes # (Manual) PT INR Fibrinogen D-Dimer POC ABG pH POC ABG pCO2 POC ABG pO2 Sodium Potassium Chloride Carbon Dioxide BUN Creatinine Glucose POC Glucose 121 H Lactic Acid Calcium TIBC Ferritin AST ALT Lactate Dehydrogenase Troponin T NT-Pro-B Natriuret Pep Total Protein Albumin Uaul-6-Bybtybhyjxqyp HDL Cholesterol Vitamin B12 Folate Rheumatoid Factor Crossmatch See Detail 04/15/17 04/16/17 04/16/17 07:30 05:30 05:30 WBC 21.8 H RBC 2.66 L Hgb 7.7 L Hct 23.7 L MCV MCH RDW 17.8 H Plt Count 115 L Seg Neuts % (Manual) 82 H Lymphocytes % (Manual) 2 L Nucleated RBC % 7.0 H Seg Neutrophils # Man 17.8 H Lymphocytes # (Manual) 0.4 L Monocytes # (Manual) PT INR Fibrinogen D-Dimer POC ABG pH POC ABG pCO2 POC ABG pO2 Sodium 134 L 130 L Potassium 5.4 H Chloride 95.1 L 91.4 L Carbon Dioxide 20 L 21 L BUN 45 H 46 H Creatinine 2.9 H 2.7 H Glucose 103 H 139 H POC Glucose Lactic Acid Calcium 6.5 L 6.4 L TIBC Ferritin AST ALT Lactate Dehydrogenase Troponin T NT-Pro-B Natriuret Pep Total Protein Albumin Yipi-5-Zvkkfjuotndvj HDL Cholesterol Vitamin B12 Folate Rheumatoid Factor Crossmatch
[2017-04-16] MEDS: ZITHROMAX PO SCH (10:00)
[2017-04-16] MEDS: THERAGRAN-M Tab PO SCH (10:40)
[2017-04-16 10:58] LABS: INR 1.22 (0.87-1.13)
[2017-04-16 10:59] LABS: Partial Thromboplastin Time 34.1 Sec. (24.2-36.6)
[2017-04-16 12:42] LABS: Basophils # (Auto) 0.1 K/mm3 (0.0-0.1); Monocytes # (Auto) 0.7 K/mm3 (0.0-0.8); Monocytes % (Auto) 3.1 % (0.0-7.3)
[2017-04-16 13:15] LABS: Hematocrit 24.2 % (30.3-42.9); Hemoglobin 7.8 gm/dl (10.1-14.3)
--- NOTE | 2017-04-16 17:30 | Gastroenterology Progress Note ---
Assessment and Plan - Patient Problems (1) Anemia Current Visit: Yes Status: Acute Plan to address problem: No evidence of GI bleeding. Rule out hemolysis, retroperitoneal bleed. Needs CT abdomen. 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 (3) TIA (transient ischemic attack) Current Visit: No Status: Acute (4) COPD (chronic obstructive pulmonary disease) Current Visit: No Status: Chronic (5) Cardiomyopathy Current Visit: No Status: Chronic (6) Altered mental state Current Visit: Yes Status: Acute Plan to address problem: Probably ETOH withdrawl. On high dose solumedrol. Rule out steroid psychosis. Would decrease the steroids at this point. Check ammonia level. Subjective Date of service: 04/16/17 Principal diagnosis: anemia, cirrhosis Interval history: Confused. Not engaging the examiner. Objective - Exam Narrative Exam: Calm but confused. Daughter feeding her. - Constitutional Vitals: Temp Pulse Resp BP Pulse Ox 98.5 F 78 16 103/70 100 04/16/17 12:00 04/16/17 14:08 04/16/17 14:08 04/16/17 09:00 04/16/17 09:00 General appearance: no acute distress - EENT ENT: hearing intact, clear oral mucosa - Neck Neck: supple, normal ROM - Respiratory Respiratory effort: normal Respiratory: bilateral: CTA - Cardiovascular Rhythm: regular - Gastrointestinal General gastrointestinal: Present: soft, non-tender, non-distended, normal bowel sounds - Neurologic Neurological: disoriented - Labs CBC & Chem 7: 04/16/17 12:15 04/16/17 05:30 Labs: Laboratory Results - last 24 hr 04/13/17 04/13/17 04/14/17 03:00 03:00 11:31 WBC RBC Hgb Hct MCV MCH MCHC RDW Plt Count [place] % (Auto) Eos % (Auto) [place] # Eos # Baso # Add Manual Diff Total Counted Seg Neutrophils % Seg Neuts % (Manual) Band Neutrophils % Lymphocytes % (Manual) Reactive Lymphs % (Man) Monocytes % (Manual) Eosinophils % (Manual) Basophils % (Manual) Metamyelocytes % Myelocytes % Promyelocytes % Blast Cells % Nucleated RBC % Seg Neutrophils # Seg Neutrophils # Man Band Neutrophils # Lymphocytes # (Manual) Abs React Lymphs (Man) Monocytes # (Manual) Eosinophils # (Manual) Basophils # (Manual) Metamyelocytes # Myelocytes # Promyelocytes # Blast Cells # WBC Morphology Hypersegmented Neuts Hyposegmented Neuts Hypogranular Neuts Smudge Cells Toxic Granulation Toxic Vacuolation Dohle Bodies Pelger-Huet Anomaly Monique Rods Platelet Estimate Clumped Platelets Plt Clumps, EDTA Large Platelets Giant Platelets Platelet Satelliting Plt Morphology Comment RBC Morphology Dimorphic RBCs Polychromasia Hypochromasia Poikilocytosis Anisocytosis Microcytosis Macrocytosis Spherocytes Pappenheimer Bodies Sickle Cells Target Cells Tear Drop Cells Ovalocytes Helmet Cells [place] Bodies [place] Rings [place] Cells Bite Cells Crenated Cell Elliptocytes Acanthocytes (Spur) Rouleaux Hemoglobin C Crystals Schistocytes Malaria parasites Vincent Bodies Hem Pathologist Commnt PT INR APTT Lupus Anticoagulant see below POC ABG pH POC ABG pCO2 POC ABG pO2 POC ABG HCO3 POC ABG Total CO2 POC ABG O2 Sat POC ABG Base Excess FiO2 Sodium Potassium Chloride Carbon Dioxide Anion Gap BUN Creatinine Estimated GFR BUN/Creatinine Ratio Glucose Calcium Immunofix Electrophor see below Blood Type Antibody Screen Crossmatch See Detail 04/16/17 04/16/17 04/16/17 05:30 05:30 09:45 WBC 21.8 H RBC 2.66 L Hgb 7.7 L Hct 23.7 L MCV 89 MCH 29 MCHC 33 RDW 17.8 H Plt Count 115 L [place] % (Auto) 3.1 Eos % (Auto) 0.0 [place] # 0.7 Eos # 0.0 Baso # 0.1 Add Manual Diff Complete Total Counted 100 Seg Neutrophils % [place] Hand Seg Neuts % (Manual) 82 H Band Neutrophils % 15.0 Lymphocytes % (Manual) 2 L Reactive Lymphs % (Man) 0 Monocytes % (Manual) 1.0 Eosinophils % (Manual) 0 Basophils % (Manual) 0 Metamyelocytes % 0 Myelocytes % 0 Promyelocytes % 0 Blast Cells % 0 Nucleated RBC % 7.0 H Seg Neutrophils # 21.5 H Seg Neutrophils # Man 17.8 H Band Neutrophils # 3.3 Lymphocytes # (Manual) 0.4 L Abs React Lymphs (Man) 0.0 Monocytes # (Manual) 0.2 Eosinophils # (Manual) 0.0 Basophils # (Manual) 0.0 Metamyelocytes # 0.0 Myelocytes # 0.0 Promyelocytes # 0.0 Blast Cells # 0.0 WBC Morphology Not Reportable Hypersegmented Neuts Not Reportable Hyposegmented Neuts Not Reportable Hypogranular Neuts Not Reportable Smudge Cells Not Reportable Toxic Granulation Not Reportable Toxic Vacuolation Not Reportable Dohle Bodies Not Reportable Pelger-Huet Anomaly Not Reportable Monique Rods Not Reportable Platelet Estimate Not Reportable Clumped Platelets Not Reportable Plt Clumps, EDTA Not Reportable Large Platelets Not Reportable Giant Platelets Not Reportable Platelet Satelliting Not Reportable Plt Morphology Comment Not Reportable RBC Morphology Not Reportable Dimorphic RBCs Not Reportable Polychromasia Few Hypochromasia Not Reportable Poikilocytosis Not Reportable Anisocytosis 1+ Microcytosis Not Reportable Macrocytosis Not Reportable Spherocytes Not Reportable Pappenheimer Bodies Not Reportable Sickle Cells Not Reportable Target Cells Few Tear Drop Cells Not Reportable Ovalocytes Not Reportable Helmet Cells Not Reportable [place] Bodies Not Reportable [place] Rings Not Reportable [place] Cells Not Reportable Bite Cells Not Reportable Crenated Cell Not Reportable Elliptocytes Not Reportable Acanthocytes (Spur) Not Reportable Rouleaux Not Reportable Hemoglobin C Crystals Not Reportable Schistocytes Not Reportable Malaria parasites Not Reportable Vincent Bodies Not Reportable Hem Pathologist Commnt No PT INR APTT Lupus Anticoagulant POC ABG pH 7.356 POC ABG pCO2 40.4 POC ABG pO2 75 L POC ABG HCO3 22.6 POC ABG Total CO2 24 POC ABG O2 Sat 94 POC ABG Base Excess -3 FiO2 1.5 Sodium 130 L Potassium 4.8 Chloride 91.4 L Carbon Dioxide 21 L Anion Gap 22 BUN 46 H Creatinine 2.7 H Estimated GFR 21 BUN/Creatinine Ratio 17 Glucose 139 H Calcium 6.4 L Immunofix Electrophor Blood Type Antibody Screen Crossmatch 04/16/17 04/16/17 04/16/17 09:55 12:15 15:34 WBC RBC Hgb 7.8 L Hct 24.2 L MCV MCH MCHC RDW Plt Count [place] % (Auto) Eos % (Auto) [place] # Eos # Baso # Add Manual Diff Total Counted Seg Neutrophils % Seg Neuts % (Manual) Band Neutrophils % Lymphocytes % (Manual) Reactive Lymphs % (Man) Monocytes % (Manual) Eosinophils % (Manual) Basophils % (Manual) Metamyelocytes % Myelocytes % Promyelocytes % Blast Cells % Nucleated RBC % Seg Neutrophils # Seg Neutrophils # Man Band Neutrophils # Lymphocytes # (Manual) Abs React Lymphs (Man) Monocytes # (Manual) Eosinophils # (Manual) Basophils # (Manual) Metamyelocytes # Myelocytes # Promyelocytes # Blast Cells # WBC Morphology Hypersegmented Neuts Hyposegmented Neuts Hypogranular Neuts Smudge Cells Toxic Granulation Toxic Vacuolation Dohle Bodies Pelger-Huet Anomaly Monique Rods Platelet Estimate Clumped Platelets Plt Clumps, EDTA Large Platelets Giant Platelets Platelet Satelliting Plt Morphology Comment RBC Morphology Dimorphic RBCs Polychromasia Hypochromasia Poikilocytosis Anisocytosis Microcytosis Macrocytosis Spherocytes Pappenheimer Bodies Sickle Cells Target Cells Tear Drop Cells Ovalocytes Helmet Cells [place] Bodies [place] Rings [place] Cells Bite Cells Crenated Cell Elliptocytes Acanthocytes (Spur) Rouleaux Hemoglobin C Crystals Schistocytes Malaria parasites Vincent Bodies Hem Pathologist Commnt PT 16.1 H INR 1.22 H APTT 34.1 Lupus Anticoagulant POC ABG pH POC ABG pCO2 POC ABG pO2 POC ABG HCO3 POC ABG Total CO2 POC ABG O2 Sat POC ABG Base Excess FiO2 Sodium Potassium Chloride Carbon Dioxide Anion Gap BUN Creatinine Estimated GFR BUN/Creatinine Ratio Glucose Calcium Immunofix Electrophor Blood Type O POSITIVE Antibody Screen Negative Crossmatch
[2017-04-16 18:38] LABS: Hematocrit 24.8 % (30.3-42.9); Hemoglobin 7.9 gm/dl (10.1-14.3)
--- NOTE | 2017-04-16 19:11 | Progress Note ---
Assessment and Plan Assessment and plan: (1) Acute respiratory distress - Improving saturating well on In oxygen (2) COPD exacerbation Cont Neb tx solu medrol and abx. Pulmonary following. ABG normal. (3) Pneumonia Cont Abx (4) chronic systolic heart failure Compensated. cont lasix (5) HLD (hyperlipidemia) Cont statins (6) Hypothyroidism (acquired) Cont Synthyroid (7) Hypokalemia Now stable, will continue to montor (8) EtOH abuse. CIWA protocol. (9) Sepsis. Present on admission. Elevated lactate and dx of pneumonia. F/U cx results and consider ID consultation (10) Anemia - Gi consulted , FOBT is positive - Multifactorial - H/H holding (11) thrombocytopenia Hematology following (12) Dysphagia. Speech Consultation (13) Hypotension Antihypertensives held, IV fluids, continue to monitor BP (14) Disposition Patient is requesting for SNF. Case management consultation. The high probability of a clinically significant, sudden or life threatening deterioration of the [GI, CV, Neurology] system(s) required my full and direct attention, intervention and personal management. The aggregate critical care time was [34] minutes. This time is in addition to time spent performing reported procedures but includes the following: [x] Data Review and interpretation [x] Patient assessment and monitoring of vital signs [x] Documentation [x] Medication orders and management History Interval history: patient is demented and non communicative, management plan discussed with the family members were in the room Hospitalist Physical - Physical exam Narrative exam: Not in cardiopulmonary distress. On intranasal oxygen The patient appeared well nourished and normally developed. Vital signs as documented. Head exam is unremarkable. No scleral icterus . Neck is without jugular venous distension, thyromegaly, or carotid bruits. Lungs are clear to auscultation. Cardiac exam reveals regular rate and Rhythm. First and second heart sounds normal. No murmurs, rubs or gallops. Abdominal exam reveals normal bowel sounds, no masses, no organomegaly and no aortic enlargement. Extremities are nonedematous and both femoral and pedal pulses are normal. 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, and communicative - Constitutional Vitals: Temp Pulse Resp BP Pulse Ox 98.5 F 78 16 103/70 100 04/16/17 12:00 04/16/17 14:08 04/16/17 14:08 04/16/17 09:00 04/16/17 09:00 General appearance: Present: mild distress Results - Labs CBC & Chem 7: 04/17/17 05:50 04/16/17 05:30 Labs: Laboratory Last Values WBC 21.8 K/mm3 (4.5-11.0) H 04/16/17 05:30 RBC 2.66 M/mm3 (3.65-5.03) L 04/16/17 05:30 Hgb 7.9 gm/dl (10.1-14.3) L 04/16/17 18:20 Hct 24.8 % (30.3-42.9) L 04/16/17 18:20 MCV 89 fl (79-97) 04/16/17 05:30 MCH 29 pg (28-32) 04/16/17 05:30 MCHC 33 % (30-34) 04/16/17 05:30 RDW 17.8 % (13.2-15.2) H 04/16/17 05:30 Plt Count 115 K/mm3 (140-440) L 04/16/17 05:30 [place] % (Auto) 3.1 % (0.0-7.3) 04/16/17 05:30 Eos % (Auto) 0.0 % (0.0-4.3) 04/16/17 05:30 [place] # 0.7 K/mm3 (0.0-0.8) 04/16/17 05:30 Eos # 0.0 K/mm3 (0.0-0.4) 04/16/17 05:30 Baso # 0.1 K/mm3 (0.0-0.1) 04/16/17 05:30 Add Manual Diff Complete 04/16/17 05:30 Total Counted 100 04/16/17 05:30 Seg Neutrophils % [employer] 04/16/17 05:30 Seg Neuts % (Manual) 82 % (40.0-70.0) H 04/16/17 05:30 Band Neutrophils % 15.0 % 04/16/17 05:30 Lymphocytes % (Manual) 2 % (13.4-35.0) L 04/16/17 05:30 Reactive Lymphs % (Man) 0 % 04/16/17 05:30 Monocytes % (Manual) 1.0 % (0.0-7.3) 04/16/17 05:30 Eosinophils % (Manual) 0 % (0.0-4.3) 04/16/17 05:30 Basophils % (Manual) 0 % (0.0-1.8) 04/16/17 05:30 Metamyelocytes % 0 % 04/16/17 05:30 Myelocytes % 0 % 04/16/17 05:30 Promyelocytes % 0 % 04/16/17 05:30 Blast Cells % 0 % 04/16/17 05:30 Nucleated RBC % 7.0 % (0.0-0.9) H 04/16/17 05:30 Seg Neutrophils # 21.5 K/mm3 (1.8-7.7) H 04/16/17 05:30 Seg Neutrophils # Man 17.8 K/mm3 (1.8-7.7) H 04/16/17 05:30 Band Neutrophils # 3.3 K/mm3 04/16/17 05:30 Lymphocytes # (Manual) 0.4 K/mm3 (1.2-5.4) L 04/16/17 05:30 Abs React Lymphs (Man) 0.0 K/mm3 04/16/17 05:30 Monocytes # (Manual) 0.2 K/mm3 (0.0-0.8) 04/16/17 05:30 Eosinophils # (Manual) 0.0 K/mm3 (0.0-0.4) 04/16/17 05:30 Basophils # (Manual) 0.0 K/mm3 (0.0-0.1) 04/16/17 05:30 Metamyelocytes # 0.0 K/mm3 04/16/17 05:30 Myelocytes # 0.0 K/mm3 04/16/17 05:30 Promyelocytes # 0.0 K/mm3 04/16/17 05:30 Blast Cells # 0.0 K/mm3 04/16/17 05:30 WBC Morphology Not Reportable 04/16/17 05:30 Hypersegmented Neuts Not Reportable 04/16/17 05:30 Hyposegmented Neuts Not Reportable 04/16/17 05:30 Hypogranular Neuts Not Reportable 04/16/17 05:30 Smudge Cells Not Reportable 04/16/17 05:30 Toxic Granulation Not Reportable 04/16/17 05:30 Toxic Vacuolation Not Reportable 04/16/17 05:30 Dohle Bodies Not Reportable 04/16/17 05:30 Pelger-Huet Anomaly Not Reportable 04/16/17 05:30 Monique Rods Not Reportable 04/16/17 05:30 Platelet Estimate Not Reportable 04/16/17 05:30 Clumped Platelets Not Reportable 04/16/17 05:30 Plt Clumps, EDTA Not Reportable 04/16/17 05:30 Large Platelets Not Reportable 04/16/17 05:30 Giant Platelets Not Reportable 04/16/17 05:30 Platelet Satelliting Not Reportable 04/16/17 05:30 Plt Morphology Comment Not Reportable 04/16/17 05:30 RBC Morphology Not Reportable 04/16/17 05:30 Dimorphic RBCs Not Reportable 04/16/17 05:30 Polychromasia Few 04/16/17 05:30 Hypochromasia Not Reportable 04/16/17 05:30 Poikilocytosis Not Reportable 04/16/17 05:30 Anisocytosis 1+ 04/16/17 05:30 Microcytosis Not Reportable 04/16/17 05:30 Macrocytosis Not Reportable 04/16/17 05:30 Spherocytes Not Reportable 04/16/17 05:30 Pappenheimer Bodies Not Reportable 04/16/17 05:30 Sickle Cells Not Reportable 04/16/17 05:30 Target Cells Few 04/16/17 05:30 Tear Drop Cells Not Reportable 04/16/17 05:30 Ovalocytes Not Reportable 04/16/17 05:30 Helmet Cells Not Reportable 04/16/17 05:30 Aparicio-Pitman Bodies Not Reportable 04/16/17 05:30 [place] Rings Not Reportable 04/16/17 05:30 Alfredito Cells Not Reportable 04/16/17 05:30 Bite Cells Not Reportable 04/16/17 05:30 Crenated Cell Not Reportable 04/16/17 05:30 Elliptocytes Not Reportable 04/16/17 05:30 Acanthocytes (Spur) Not Reportable 04/16/17 05:30 Rouleaux Not Reportable 04/16/17 05:30 Hemoglobin C Crystals Not Reportable 04/16/17 05:30 Schistocytes Not Reportable 04/16/17 05:30 Malaria parasites Not Reportable 04/16/17 05:30 ESR 24 mm/Hr (0-20) 04/13/17 03:00 Percent Retic 1.53 % (0.78-2.58) 04/09/17 11:23 Vincent Bodies Not Reportable 04/16/17 05:30 Hem Pathologist Commnt No 04/16/17 05:30 PT 16.1 Sec. (12.2-14.9) H 04/16/17 09:55 INR 1.22 (0.87-1.13) H 04/16/17 09:55 APTT 34.1 Sec. (24.2-36.6) 04/16/17 09:55 Fibrinogen 153 mg/dl (211-480) L 04/13/17 03:00 D-Dimer 2989.51 ng/mlDDU (0-234) H 04/13/17 03:00 Lupus Anticoagulant see below 04/13/17 03:00 POC ABG pH 7.356 (7.35-7.45) 04/16/17 09:45 POC ABG pCO2 40.4 (35-45) 04/16/17 09:45 POC ABG pO2 75 (80-105) L 04/16/17 09:45 POC ABG HCO3 22.6 04/16/17 09:45 POC ABG Total CO2 24 04/16/17 09:45 POC ABG O2 Sat 94 04/16/17 09:45 POC ABG Base Excess -3 04/16/17 09:45 FiO2 1.5 % 04/16/17 09:45 Sodium 130 mmol/L (137-145) L 04/16/17 05:30 Potassium 4.8 mmol/L (3.6-5.0) 04/16/17 05:30 Chloride 91.4 mmol/L (98-107) L 04/16/17 05:30 Carbon Dioxide 21 mmol/L (22-30) L 04/16/17 05:30 Anion Gap 22 mmol/L 04/16/17 05:30 BUN 46 mg/dL (7-17) H 04/16/17 05:30 Creatinine 2.7 mg/dL (0.7-1.2) H 04/16/17 05:30 Estimated GFR 21 ml/min 04/16/17 05:30 BUN/Creatinine Ratio 17 % 04/16/17 05:30 Glucose 139 mg/dL (65-100) H 04/16/17 05:30 POC Glucose 121 (70-105) H 04/14/17 22:15 Lactic Acid 3.60 mmol/L (0.7-2.0) H* 04/06/17 Unknown Calcium 6.4 mg/dL (8.4-10.2) L 04/16/17 05:30 Iron 42 ug/dL (37-170) 04/09/17 11:23 TIBC 81 mcg/dL (250-450) L 04/09/17 11:23 Ferritin 2314.0 ng/mL (13.0-400.0) H 04/09/17 11:23 Total Bilirubin 0.80 mg/dL (0.1-1.2) 04/14/17 06:10 AST 73 units/L (5-40) H 04/14/17 06:10 ALT 53 units/L (7-56) 04/14/17 06:10 Alkaline Phosphatase 66 units/L (35-129) 04/14/17 06:10 Lactate Dehydrogenase 648 units/L (91-180) H 04/13/17 03:00 Troponin T 0.090 ng/mL (0.00-0.029) H 04/05/17 20:43 NT-Pro-B Natriuret Pep 6486 pg/mL (0-900) H 04/05/17 20:43 Total Protein 4.4 g/dL (6.3-8.2) L 04/14/17 06:10 Albumin 2.2 g/dL (3.9-5) L 04/14/17 06:10 Albumin/Globulin Ratio 1.0 % 04/14/17 06:10 Tmod-7-Ilogmlskrylex 15.00 mg/L (<=2.51) H 04/13/17 03:00 Triglycerides 64 mg/dL (2-149) 04/05/17 20:43 Cholesterol 98 mg/dL (50-199) 04/05/17 20:43 LDL Cholesterol Direct 54 mg/dL (50-130) 04/05/17 20:43 HDL Cholesterol 32 mg/dL (40-59) L 04/05/17 20:43 Cholesterol/HDL Ratio 3.06 % 04/05/17 20:43 Vitamin B12 1641 pg/mL (211-911) H 04/09/17 11:23 Folate 4.55 ng/mL (7.3-26.0) L 04/09/17 11:23 Immunofix Electrophor see below 04/13/17 03:00 Rheumatoid Factor 32 IU/ml (0-13) H 04/13/17 03:00 Hepatitis A IgM Ab Non-reactive (NonReactive) 04/12/17 07:42 Hep Bs Antigen Non-reactive (Negative) 04/12/17 07:42 Hep B Core IgM Ab Non-reactive (NonReactive) 04/12/17 07:42 Hepatitis C Antibody Non-reactive (NonReactive) 04/12/17 07:42 Blood Type O POSITIVE 04/16/17 15:34 Antibody Screen Negative 04/16/17 15:34 Crossmatch See Detail 04/14/17 11:31
--- NOTE | 2017-04-16 20:27 | Progress Note ---
Assessment and Plan - Patient Problems (1) Anemia Current Visit: Yes Status: Acute Plan to address problem: see orders. transfusion replacements. other w/up still pending results. (2) CHF (congestive heart failure) Current Visit: Yes Status: Chronic Qualifiers: Congestive heart failure type: combined Plan to address problem: follow you. (3) Thrombocytopenia Current Visit: Yes Status: Acute Plan to address problem: see orders. see notes. Beta -2 quite high, will await other w/up for myeloma. pending w/up results. Subjective Date of service: 04/16/17 Principal diagnosis: anemia, cirrhosis Interval history: Patient seen/examined, resting in bed, sluggish.labs reviewed, as well as notes.Fibrinogen low, D-dimer elevated, with very high Ldh, indicating consumptive coagulopathy. She may have some auto immune d/o. along with other things l, and perhaps bkleeding contributing to her thrombocytopenia. She may benefit from some steriods.IF any procedure is intended, PLT can be given, +/_ FFP if indicated.Will continue to follow you.Still awaiting [id number]., and folate. Patient seen, resting in bed. Labs/notes reviewed, s/p replacement transfusion. Will do P[facility] panel.Steroid still recommended. Patient seen, resting in bed, family at the bed side, record /labs reviewed.It appears that she responded some to steroid as recommended. Patient seen today, transfered to the unit overnight due to decline as per notes /report reviewed. She remains slow/sluggish as usual.anemia persists, despite replacement transfusion.She will need GI scope, and if NL, will consider BM bx. Objective - Constitutional Vitals: Vital Signs - 12hr 04/16/17 04/16/17 04/16/17 09:00 09:18 09:44 Temperature Pulse Rate 75 Pulse Rate [ 65 77 Posterior Bilateral Throughout] Respiratory 12 Rate Respiratory 11 L 15 Rate [Posterior Bilateral Throughout] Blood Pressure 103/70 O2 Sat by Pulse 100 Oximetry 04/16/17 04/16/17 04/16/17 12:00 13:52 14:08 Temperature 98.5 F Pulse Rate Pulse Rate [ 76 78 Posterior Bilateral Throughout] Respiratory Rate Respiratory 16 16 Rate [Posterior Bilateral Throughout] Blood Pressure O2 Sat by Pulse Oximetry 04/16/17 16:00 Temperature 98.6 F Pulse Rate Pulse Rate [ Posterior Bilateral Throughout] Respiratory Rate Respiratory Rate [Posterior Bilateral Throughout] Blood Pressure O2 Sat by Pulse Oximetry General appearance: Present: mild distress - EENT Eyes: PERRL, EOM intact ENT: hearing intact, clear oral mucosa Ears: bilateral: normal - Neck Neck: supple, normal ROM - Respiratory Respiratory effort: normal Respiratory: bilateral: CTA - Breasts Breasts: deferred - Cardiovascular Rhythm: regular Heart Sounds: Present: S1 & S2. Absent: gallop, rub Extremities: pulses intact, No edema, normal color, Full ROM - Gastrointestinal General gastrointestinal: Present: soft, non-tender, non-distended, normal bowel sounds Rectal Exam: deferred - Genitourinary Female genitourinary: deferred - Integumentary Integumentary: clear, warm, dry - Musculoskeletal Musculoskeletal: 1, strength equal bilaterally - Neurologic Neurologic: moves all extremities - Labs CBC & Chem 7: 04/16/17 18:20 04/16/17 05:30 Labs: Abnormal lab results 04/16/17 04/16/17 04/16/17 Range/Units 05:30 05:30 09:45 WBC 21.8 H (4.5-11.0) K/mm3 RBC 2.66 L (3.65-5.03) M/mm3 Hgb 7.7 L (10.1-14.3) gm/dl Hct 23.7 L (30.3-42.9) % RDW 17.8 H (13.2-15.2) % Plt Count 115 L (140-440) K/mm3 Seg Neuts % (Manual) 82 H (40.0-70.0) % Lymphocytes % (Manual) 2 L (13.4-35.0) % Nucleated RBC % 7.0 H (0.0-0.9) % Seg Neutrophils # 21.5 H (1.8-7.7) K/mm3 Seg Neutrophils # Man 17.8 H (1.8-7.7) K/mm3 Lymphocytes # (Manual) 0.4 L (1.2-5.4) K/mm3 PT (12.2-14.9) Sec. INR (0.87-1.13) POC ABG pO2 75 L (80-105) Sodium 130 L (137-145) mmol/L Chloride 91.4 L (98-107) mmol/L Carbon Dioxide 21 L (22-30) mmol/L BUN 46 H (7-17) mg/dL Creatinine 2.7 H (0.7-1.2) mg/dL Glucose 139 H (65-100) mg/dL Calcium 6.4 L (8.4-10.2) mg/dL 04/16/17 04/16/17 04/16/17 Range/Units 09:55 12:15 18:20 WBC (4.5-11.0) K/mm3 RBC (3.65-5.03) M/mm3 Hgb 7.8 L 7.9 L (10.1-14.3) gm/dl Hct 24.2 L 24.8 L (30.3-42.9) % RDW (13.2-15.2) % Plt Count (140-440) K/mm3 Seg Neuts % (Manual) (40.0-70.0) % Lymphocytes % (Manual) (13.4-35.0) % Nucleated RBC % (0.0-0.9) % Seg Neutrophils # (1.8-7.7) K/mm3 Seg Neutrophils # Man (1.8-7.7) K/mm3 Lymphocytes # (Manual) (1.2-5.4) K/mm3 PT 16.1 H (12.2-14.9) Sec. INR 1.22 H (0.87-1.13) POC ABG pO2 (80-105) Sodium (137-145) mmol/L Chloride (98-107) mmol/L Carbon Dioxide (22-30) mmol/L BUN (7-17) mg/dL Creatinine (0.7-1.2) mg/dL Glucose (65-100) mg/dL Calcium (8.4-10.2) mg/dL
[2017-04-17] MEDS: DUONEB *Not for PRN Use IH SCH ×4 (01:33→21:36)
[2017-04-17 01:46] LABS: Hematocrit 22.3 % (30.3-42.9); Hemoglobin 7.3 gm/dl (10.1-14.3)
[2017-04-17 04:29] LABS: Albumin 1.6 g/dL (3.8-4.8); Gamma Globulin 1.1 g/dL (0.8-1.7)
[2017-04-17 06:37] LABS: Hematocrit 22.3 % (30.3-42.9); Hemoglobin 7.4 gm/dl (10.1-14.3)
[2017-04-17] MEDS: BROVANA NEBU IH SCH ×2 (08:08→21:36)
[2017-04-17] MEDS: PULMICORT IH SCH ×2 (08:08→21:36)
[2017-04-17] MEDS: PROTONIX PO SCH ×2 (10:42→10:43)
[2017-04-17] MEDS: SYNTHROID PO SCH ×2 (10:42→10:43)
[2017-04-17] MEDS: THERAGRAN-M Tab PO SCH (10:43)
--- NOTE | 2017-04-17 11:25 | Progress Note ---
Assessment and Plan 67 y/o female with acute exacerbation of COPD, now with acute blood loss anemia , concern for GI bleed, source not known, now with altered mental state. 1. Will stop q6hour H/H's. 2. Continue steroid therapy. 3. Steroids actually ordered by GI and Heme wants to continue them. Respiratory status has been stable 4. Overall prognosis is guarded given all of her comorbidities. 5. Will transfer out of unit, now that GI does not plan to scope Subjective Date of service: 04/17/17 Principal diagnosis: anemia, cirrhosis Interval history: No acute events. No evidence of eliane bleeding. Now GI not planning on scoping. q6hour H/H's have been stable the last 24 hours. Patient more awake and alert today. Objective Vital Signs - 12hr 04/17/17 04/17/17 04/17/17 00:00 01:00 01:33 Temperature 97.7 F Pulse Rate 85 84 Pulse Rate [ Anterior Bilateral Throughout] Pulse Rate [ 85 Posterior Bilateral Throughout] Pulse Rate [ 76 Right Radial] Respiratory 14 15 Rate Respiratory Rate [Anterior Bilateral Throughout] Respiratory 16 Rate [Posterior Bilateral Throughout] Blood Pressure 117/76 115/72 O2 Sat by Pulse 98 96 Oximetry 04/17/17 04/17/17 04/17/17 01:49 02:00 03:00 Temperature Pulse Rate 87 89 Pulse Rate [ Anterior Bilateral Throughout] Pulse Rate [ 80 Posterior Bilateral Throughout] Pulse Rate [ Right Radial] Respiratory 18 17 Rate Respiratory Rate [Anterior Bilateral Throughout] Respiratory 15 Rate [Posterior Bilateral Throughout] Blood Pressure 115/75 101/68 O2 Sat by Pulse 94 93 Oximetry 04/17/17 04/17/17 04/17/17 04:00 05:00 06:01 Temperature 97.6 F Pulse Rate 88 95 H 85 Pulse Rate [ Anterior Bilateral Throughout] Pulse Rate [ Posterior Bilateral Throughout] Pulse Rate [ 80 Right Radial] Respiratory 15 21 26 H Rate Respiratory Rate [Anterior Bilateral Throughout] Respiratory Rate [Posterior Bilateral Throughout] Blood Pressure 98/58 98/58 O2 Sat by Pulse 90 89 98 Oximetry 04/17/17 04/17/17 04/17/17 07:01 07:50 08:00 Temperature 98.6 F Pulse Rate 89 88 Pulse Rate [ 82 Anterior Bilateral Throughout] Pulse Rate [ Posterior Bilateral Throughout] Pulse Rate [ Right Radial] Respiratory 18 17 Rate Respiratory 16 Rate [Anterior Bilateral Throughout] Respiratory Rate [Posterior Bilateral Throughout] Blood Pressure 100/75 103/70 O2 Sat by Pulse 93 87 Oximetry 04/17/17 04/17/17 04/17/17 08:02 08:14 09:00 Temperature Pulse Rate 92 H Pulse Rate [ 84 Anterior Bilateral Throughout] Pulse Rate [ Posterior Bilateral Throughout] Pulse Rate [ Right Radial] Respiratory 14 Rate Respiratory 18 Rate [Anterior Bilateral Throughout] Respiratory Rate [Posterior Bilateral Throughout] Blood Pressure 102/66 O2 Sat by Pulse 94 94 Oximetry Constitutional: no acute distress, asleep Eyes: non-icteric ENT: oropharynx moist Neck: supple, no JVD Ascultation: Bilateral: wheezes (mild), rales, rhonchi (mild) Cardiovascular: regular rate and rhythm Gastrointestinal: normoactive bowel sounds, non-distended Integumentary: normal Extremities: no cyanosis, no edema Neurologic: normal mental status, non-focal exam, pupils equal and round, CN II- XII normal, other (easily arousable and able to answer all questions) Psychiatric: mood appropriate, affect normal CBC and BMP: 04/17/17 05:50 04/16/17 05:30 ABG, PT/INR, D-dimer: ABG POC ABG pH 7.356 (7.35-7.45) 04/16/17 09:45 POC ABG pCO2 40.4 (35-45) 04/16/17 09:45 POC ABG pO2 75 (80-105) L 04/16/17 09:45 POC ABG HCO3 22.6 04/16/17 09:45 POC ABG Total CO2 24 04/16/17 09:45 POC ABG O2 Sat 94 04/16/17 09:45 PT/INR, D-dimer PT 16.1 Sec. (12.2-14.9) H 04/16/17 09:55 INR 1.22 (0.87-1.13) H 04/16/17 09:55 D-Dimer 2989.51 ng/mlDDU (0-234) H 04/13/17 03:00 Abnormal lab findings: Abnormal Labs 04/05/17 04/05/17 04/05/17 16:14 16:14 20:43 WBC 17.4 H RBC 2.69 L Hgb 8.9 L Hct 27.2 L MCV 101 H MCH 33 H RDW 20.4 H Plt Count Seg Neuts % (Manual) 98.0 H Lymphocytes % (Manual) 2.0 L Nucleated RBC % 4.0 H Seg Neutrophils # Seg Neutrophils # Man 17.1 H Lymphocytes # (Manual) 0.3 L Monocytes # (Manual) PT INR Fibrinogen D-Dimer POC ABG pH POC ABG pCO2 POC ABG pO2 Sodium Potassium 3.3 L Chloride 95.0 L Carbon Dioxide BUN Creatinine 0.5 L Glucose POC Glucose Lactic Acid Calcium 6.7 L TIBC Ferritin AST 166 H ALT Lactate Dehydrogenase Troponin T 0.090 H NT-Pro-B Natriuret Pep 6486 H Serum Total Protein Total Protein Albumin 2.2 L Rqqdj-5-Cymzwjbzj Heyl-4-Vvgcyhzkxewar PEP Interpretation HDL Cholesterol 32 L Vitamin B12 Folate Rheumatoid Factor Crossmatch 04/05/17 04/06/17 04/06/17 20:43 02:30 04:56 WBC RBC Hgb Hct MCV MCH RDW Plt Count Seg Neuts % (Manual) Lymphocytes % (Manual) Nucleated RBC % Seg Neutrophils # Seg Neutrophils # Man Lymphocytes # (Manual) Monocytes # (Manual) PT INR Fibrinogen D-Dimer 4892.81 H POC ABG pH 7.524 H POC ABG pCO2 34.7 L POC ABG pO2 Sodium Potassium Chloride Carbon Dioxide BUN Creatinine Glucose POC Glucose Lactic Acid 3.30 H* Calcium TIBC Ferritin AST ALT Lactate Dehydrogenase Troponin T NT-Pro-B Natriuret Pep Serum Total Protein Total Protein Albumin Otscb-2-Riqvzwdxn Brno-2-Xyxijvqgnnchd PEP Interpretation HDL Cholesterol Vitamin B12 Folate Rheumatoid Factor Crossmatch 04/06/17 04/06/17 04/07/17 07:38 Unknown 05:35 WBC 17.7 H RBC 2.29 L Hgb 7.4 L Hct 23.2 L MCV 101 H MCH RDW 20.0 H Plt Count 104 L Seg Neuts % (Manual) 81.0 H Lymphocytes % (Manual) 4.0 L Nucleated RBC % 12.0 H Seg Neutrophils # Seg Neutrophils # Man 14.3 H Lymphocytes # (Manual) 0.7 L Monocytes # (Manual) PT INR Fibrinogen D-Dimer POC ABG pH POC ABG pCO2 POC ABG pO2 Sodium Potassium Chloride Carbon Dioxide BUN Creatinine Glucose POC Glucose Lactic Acid 3.10 H* 3.60 H* Calcium TIBC Ferritin AST ALT Lactate Dehydrogenase Troponin T NT-Pro-B Natriuret Pep Serum Total Protein Total Protein Albumin Lxwsl-3-Vftxmiztc Gdqf-5-Qxsxierogfdjn PEP Interpretation HDL Cholesterol Vitamin B12 Folate Rheumatoid Factor Crossmatch 04/07/17 04/09/17 04/09/17 05:35 05:30 05:30 WBC 15.3 H RBC 1.94 L Hgb 6.4 L Hct 19.7 L* MCV 101 H MCH 33 H RDW 19.3 H Plt Count 53 L Seg Neuts % (Manual) 78.0 H Lymphocytes % (Manual) 5.0 L Nucleated RBC % 16.0 H Seg Neutrophils # Seg Neutrophils # Man 11.9 H Lymphocytes # (Manual) 0.8 L Monocytes # (Manual) 0.9 H PT INR Fibrinogen D-Dimer POC ABG pH POC ABG pCO2 POC ABG pO2 Sodium Potassium 2.9 L* Chloride Carbon Dioxide BUN 20 H Creatinine Glucose 144 H 126 H POC Glucose Lactic Acid Calcium 6.2 L 6.2 L TIBC Ferritin AST ALT Lactate Dehydrogenase Troponin T NT-Pro-B Natriuret Pep Serum Total Protein Total Protein Albumin Izbil-0-Ojgzbwgve Ogkh-1-Gthfifmkuqrjz PEP Interpretation HDL Cholesterol Vitamin B12 Folate Rheumatoid Factor Crossmatch 04/09/17 04/09/17 04/09/17 07:00 11:23 11:23 WBC RBC Hgb Hct MCV MCH RDW Plt Count Seg Neuts % (Manual) Lymphocytes % (Manual) Nucleated RBC % Seg Neutrophils # Seg Neutrophils # Man Lymphocytes # (Manual) Monocytes # (Manual) PT INR Fibrinogen D-Dimer POC ABG pH POC ABG pCO2 POC ABG pO2 Sodium Potassium Chloride Carbon Dioxide BUN Creatinine Glucose POC Glucose Lactic Acid Calcium TIBC 81 L Ferritin 2314.0 H AST ALT Lactate Dehydrogenase Troponin T NT-Pro-B Natriuret Pep Serum Total Protein Total Protein Albumin Wlkhs-5-Snruneyjn Aqtk-3-Uipxihzdenrcq PEP Interpretation HDL Cholesterol Vitamin B12 Folate Rheumatoid Factor Crossmatch See Detail 04/09/17 04/09/17 04/10/17 11:23 11:23 Unknown WBC RBC Hgb 7.0 L Hct 21.3 L MCV MCH RDW Plt Count Seg Neuts % (Manual) Lymphocytes % (Manual) Nucleated RBC % Seg Neutrophils # Seg Neutrophils # Man Lymphocytes # (Manual) Monocytes # (Manual) PT INR Fibrinogen D-Dimer POC ABG pH POC ABG pCO2 POC ABG pO2 Sodium Potassium Chloride Carbon Dioxide BUN Creatinine Glucose POC Glucose Lactic Acid Calcium TIBC Ferritin AST ALT Lactate Dehydrogenase Troponin T NT-Pro-B Natriuret Pep Serum Total Protein Total Protein Albumin Wwzwc-4-Xcytizkph Wmsc-1-Cbzfjkzqnxeed PEP Interpretation HDL Cholesterol Vitamin B12 1641 H Folate 4.55 L Rheumatoid Factor Crossmatch 04/11/17 04/11/17 04/11/17 04:30 04:30 22:15 WBC 13.8 H RBC 2.24 L Hgb 6.9 L Hct 20.9 L MCV MCH RDW 17.4 H Plt Count 28 L Seg Neuts % (Manual) Lymphocytes % (Manual) 8.0 L Nucleated RBC % 12.0 H Seg Neutrophils # Seg Neutrophils # Man 9.1 H Lymphocytes # (Manual) 1.1 L Monocytes # (Manual) PT INR Fibrinogen D-Dimer POC ABG pH POC ABG pCO2 POC ABG pO2 55 L Sodium 134 L Potassium 3.5 L D Chloride 95.6 L Carbon Dioxide BUN 24 H Creatinine 1.5 H Glucose 215 H POC Glucose Lactic Acid Calcium 5.6 L* TIBC Ferritin AST ALT Lactate Dehydrogenase Troponin T NT-Pro-B Natriuret Pep Serum Total Protein Total Protein Albumin Wrqvv-1-Daianvlea Amjx-7-Gscnzpngytakr PEP Interpretation HDL Cholesterol Vitamin B12 Folate Rheumatoid Factor Crossmatch 04/12/17 04/12/17 04/12/17 06:05 06:05 06:05 WBC 11.4 H RBC 2.49 L Hgb 7.6 L Hct 23.0 L MCV MCH RDW 15.8 H Plt Count 37 L Seg Neuts % (Manual) 97.0 H Lymphocytes % (Manual) 2.0 L Nucleated RBC % 31.0 H Seg Neutrophils # Seg Neutrophils # Man 11.1 H Lymphocytes # (Manual) 0.2 L Monocytes # (Manual) PT 17.7 H INR 1.38 H Fibrinogen D-Dimer POC ABG pH POC ABG pCO2 POC ABG pO2 Sodium 131 L Potassium Chloride 95.4 L Carbon Dioxide 21 L BUN 30 H Creatinine 1.9 H Glucose 208 H POC Glucose Lactic Acid Calcium 5.8 L* TIBC Ferritin AST 75 H ALT 57 H Lactate Dehydrogenase Troponin T NT-Pro-B Natriuret Pep Serum Total Protein Total Protein 4.0 L Albumin 1.6 L Zvxij-4-Zpnilqcho Efcv-2-Msdtqyoofjsbh PEP Interpretation HDL Cholesterol Vitamin B12 Folate Rheumatoid Factor Crossmatch 04/13/17 04/13/17 04/13/17 03:00 03:00 03:00 WBC RBC Hgb Hct MCV MCH RDW Plt Count Seg Neuts % (Manual) Lymphocytes % (Manual) Nucleated RBC % Seg Neutrophils # Seg Neutrophils # Man Lymphocytes # (Manual) Monocytes # (Manual) PT 17.2 H INR 1.33 H Fibrinogen 153 L D-Dimer 2989.51 H POC ABG pH POC ABG pCO2 POC ABG pO2 Sodium Potassium Chloride Carbon Dioxide BUN Creatinine Glucose POC Glucose Lactic Acid Calcium TIBC Ferritin AST ALT Lactate Dehydrogenase Troponin T NT-Pro-B Natriuret Pep Serum Total Protein Total Protein Albumin Asfkl-3-Ocaxzaahs Hxjz-7-Qpscpktvfutte 15.00 H PEP Interpretation HDL Cholesterol Vitamin B12 Folate Rheumatoid Factor 32 H Crossmatch 04/13/17 04/13/17 04/14/17 03:00 03:00 06:10 WBC 26.3 H RBC 1.66 L Hgb 4.8 L* Hct 15.5 L* D MCV MCH RDW 16.8 H Plt Count 111 L D Seg Neuts % (Manual) 89.0 H Lymphocytes % (Manual) 3.0 L Nucleated RBC % 6.0 H Seg Neutrophils # Seg Neutrophils # Man 23.4 H Lymphocytes # (Manual) 0.8 L Monocytes # (Manual) PT INR Fibrinogen D-Dimer POC ABG pH POC ABG pCO2 POC ABG pO2 Sodium Potassium Chloride Carbon Dioxide BUN Creatinine Glucose POC Glucose Lactic Acid Calcium TIBC Ferritin AST ALT Lactate Dehydrogenase 648 H Troponin T NT-Pro-B Natriuret Pep Serum Total Protein 3.8 L Total Protein Albumin 1.6 L Zxzdn-9-Dokgukntt 0.3 L Phrs-1-Rcvsvneoyxuef PEP Interpretation see below H HDL Cholesterol Vitamin B12 Folate Rheumatoid Factor Crossmatch 04/14/17 04/14/17 04/14/17 06:10 11:31 22:15 WBC RBC Hgb Hct MCV MCH RDW Plt Count Seg Neuts % (Manual) Lymphocytes % (Manual) Nucleated RBC % Seg Neutrophils # Seg Neutrophils # Man Lymphocytes # (Manual) Monocytes # (Manual) PT INR Fibrinogen D-Dimer POC ABG pH POC ABG pCO2 POC ABG pO2 Sodium 132 L Potassium Chloride 95.3 L Carbon Dioxide 20 L BUN 41 H Creatinine 2.7 H Glucose 124 H POC Glucose 121 H Lactic Acid Calcium 6.1 L TIBC Ferritin AST 73 H ALT Lactate Dehydrogenase Troponin T NT-Pro-B Natriuret Pep Serum Total Protein Total Protein 4.4 L Albumin 2.2 L Ecidi-6-Xvqzlgbog Insn-9-Fqmjkhqsaurao PEP Interpretation HDL Cholesterol Vitamin B12 Folate Rheumatoid Factor Crossmatch See Detail 04/15/17 04/15/17 04/16/17 07:30 07:30 05:30 WBC 22.0 H 21.8 H RBC 2.16 L 2.66 L Hgb 6.1 L 7.7 L Hct 18.9 L* 23.7 L MCV MCH RDW 18.2 H 17.8 H Plt Count 96 L 115 L Seg Neuts % (Manual) 92.0 H 82 H Lymphocytes % (Manual) 1.0 L 2 L Nucleated RBC % 7.0 H 7.0 H Seg Neutrophils # 21.5 H Seg Neutrophils # Man 20.2 H 17.8 H Lymphocytes # (Manual) 0.2 L 0.4 L Monocytes # (Manual) PT INR Fibrinogen D-Dimer POC ABG pH POC ABG pCO2 POC ABG pO2 Sodium 134 L Potassium 5.4 H Chloride 95.1 L Carbon Dioxide 20 L BUN 45 H Creatinine 2.9 H Glucose 103 H POC Glucose Lactic Acid Calcium 6.5 L TIBC Ferritin AST ALT Lactate Dehydrogenase Troponin T NT-Pro-B Natriuret Pep Serum Total Protein Total Protein Albumin Trfvt-5-Otlbhmeqq Dlmk-8-Yfdfmjjvzkrcd PEP Interpretation HDL Cholesterol Vitamin B12 Folate Rheumatoid Factor Crossmatch 04/16/17 04/16/17 04/16/17 05:30 09:45 09:55 WBC RBC Hgb Hct MCV MCH RDW Plt Count Seg Neuts % (Manual) Lymphocytes % (Manual) Nucleated RBC % Seg Neutrophils # Seg Neutrophils # Man Lymphocytes # (Manual) Monocytes # (Manual) PT 16.1 H INR 1.22 H Fibrinogen D-Dimer POC ABG pH POC ABG pCO2 POC ABG pO2 75 L Sodium 130 L Potassium Chloride 91.4 L Carbon Dioxide 21 L BUN 46 H Creatinine 2.7 H Glucose 139 H POC Glucose Lactic Acid Calcium 6.4 L TIBC Ferritin AST ALT Lactate Dehydrogenase Troponin T NT-Pro-B Natriuret Pep Serum Total Protein Total Protein Albumin Ymwhq-0-Msfpaleel Dkwc-6-Irvsffvnerbwu PEP Interpretation HDL Cholesterol Vitamin B12 Folate Rheumatoid Factor Crossmatch 04/16/17 04/16/17 04/17/17 12:15 18:20 01:00 WBC RBC Hgb 7.8 L 7.9 L 7.3 L Hct 24.2 L 24.8 L 22.3 L MCV MCH RDW Plt Count Seg Neuts % (Manual) Lymphocytes % (Manual) Nucleated RBC % Seg Neutrophils # Seg Neutrophils # Man Lymphocytes # (Manual) Monocytes # (Manual) PT INR Fibrinogen D-Dimer POC ABG pH POC ABG pCO2 POC ABG pO2 Sodium Potassium Chloride Carbon Dioxide BUN Creatinine Glucose POC Glucose Lactic Acid Calcium TIBC Ferritin AST ALT Lactate Dehydrogenase Troponin T NT-Pro-B Natriuret Pep Serum Total Protein Total Protein Albumin Fgpvh-0-Psryhklky Vrjw-4-Qfozrfnigcwhz PEP Interpretation HDL Cholesterol Vitamin B12 Folate Rheumatoid Factor Crossmatch 04/17/17 05:50 WBC RBC Hgb 7.4 L Hct 22.3 L MCV MCH RDW Plt Count Seg Neuts % (Manual) Lymphocytes % (Manual) Nucleated RBC % Seg Neutrophils # Seg Neutrophils # Man Lymphocytes # (Manual) Monocytes # (Manual) PT INR Fibrinogen D-Dimer POC ABG pH POC ABG pCO2 POC ABG pO2 Sodium Potassium Chloride Carbon Dioxide BUN Creatinine Glucose POC Glucose Lactic Acid Calcium TIBC Ferritin AST ALT Lactate Dehydrogenase Troponin T NT-Pro-B Natriuret Pep Serum Total Protein Total Protein Albumin Xbzad-8-Qroanvizq Wrdn-1-Mrxldezghvqwm PEP Interpretation HDL Cholesterol Vitamin B12 Folate Rheumatoid Factor Crossmatch
[2017-04-17 13:04] LABS: Hematocrit 22.9 % (30.3-42.9); Hemoglobin 7.6 gm/dl (10.1-14.3)
--- NOTE | 2017-04-17 13:49 | Gastroenterology Progress Note ---
Assessment and Plan - Patient Problems (1) Anemia Current Visit: Yes Status: Acute Plan to address problem: Multifactorial, no evidence of bleeding. (2) Cirrhosis Current Visit: Yes Status: Acute Plan to address problem: Normal ammonia level. Stable advanced cirrhosis. No ascites or bleeding. (3) TIA (transient ischemic attack) Current Visit: No Status: Acute (4) COPD (chronic obstructive pulmonary disease) Current Visit: No Status: Chronic (5) Cardiomyopathy Current Visit: No Status: Chronic (6) Altered mental state Current Visit: Yes Status: Acute Plan to address problem: May have underlying dementia or ETOH related brain damage. Does not appear to have hepatic encephalopathy. She may benefit from considering SNF/hospice upon discharge. Subjective Date of service: 04/17/17 Principal diagnosis: anemia, cirrhosis Interval history: The patient denies any discomfort Objective - Constitutional Vitals: Temp Pulse Resp BP Pulse Ox 98.6 F 92 H 14 102/66 94 04/17/17 12:00 04/17/17 09:00 04/17/17 09:00 04/17/17 09:00 04/17/17 09:00 General appearance: no acute distress, other (Calm but disoriented.) - EENT ENT: hearing intact, clear oral mucosa, dentition normal - Respiratory Respiratory: bilateral: rhonchi - Breasts Breasts: deferred - Cardiovascular Rhythm: regular Heart Sounds: Present: systolic murmur (2/6 systolic murmur) - Gastrointestinal General gastrointestinal: Present: soft, non-tender, non-distended, normal bowel sounds - Neurologic Neurological: disoriented, generalized weakness, other (Oriented x 1 to person.) - Labs CBC & Chem 7: 04/17/17 12:10 04/16/17 05:30 Labs: Laboratory Results - last 24 hr 04/13/17 04/16/17 04/16/17 03:00 15:34 18:20 Hgb 7.9 L Hct 24.8 L Ammonia Serum Total Protein 3.8 L Albumin 1.6 L Aqyai-4-Lhsnaaewa 0.3 Gezvj-1-Gpqwsubnn 0.3 L Beta Globulins 0.4 Gamma Globulins 1.1 Abnorm Protein Band 1 see below PEP Interpretation see below H Blood Type O POSITIVE Antibody Screen Negative 04/17/17 04/17/17 04/17/17 01:00 05:50 05:50 Hgb 7.3 L 7.4 L Hct 22.3 L 22.3 L Ammonia 32.0 Serum Total Protein Albumin Zxsbf-5-Uqebimzcm Olsxt-3-Tobwsswrv Beta Globulins Gamma Globulins Abnorm Protein Band 1 PEP Interpretation Blood Type Antibody Screen 04/17/17 12:10 Hgb 7.6 L Hct 22.9 L Ammonia Serum Total Protein Albumin Udehz-5-Bttgrpfsm Ckbco-9-Vyuinxycm Beta Globulins Gamma Globulins Abnorm Protein Band 1 PEP Interpretation Blood Type Antibody Screen
--- NOTE | 2017-04-17 18:20 | Progress Note ---
Assessment and Plan Assessment and plan: 67-year-old -[place] female with past medical history significant for chronic systolic CHF, COPD, anemia presented to the emergency department for the complaints of shortness of breath. COPD exacerbation - Patient is managed with IV Solu-Medrol, IV antibiotics, - Pulmonary is following Acute respiratory failure - Improving saturating well on [place] oxygen Sepsis Pneumonia - Treated with IV antibiotic chronic systolic heart failure - Compensated. cont lasix Hypothyroidism (acquired) C- ont Synthyroid EtOH abuse. - [facility] protocol. Anemia - Gi consulted , FOBT is positive - Multifactorial - H/H holding thrombocytopenia Hematology following Dysphagia. Speech Consultation Hemant Hernando syndrome - Replacement of fluid loss - Continue Solu-Medrol - Supportive care - Wound care consult - We don't have Molded Goods Operator The high probability of a clinically significant, sudden or life threatening deterioration of the [GI, CV, Neurology] system(s) required my full and direct attention, intervention and personal management. The aggregate critical care time was [34] minutes. This time is in addition to time spent performing reported procedures but includes the following: [x] Data Review and interpretation [x] Patient assessment and monitoring of vital signs [x] Documentation [x] Medication orders and management History Interval history: patient is demented and non communicative, management plan discussed with the family members were in the room, patient has skin lesion, which was worsened recently. Hospitalist Physical - Physical exam Narrative exam: Not in cardiopulmonary distress. On intranasal oxygen The patient appeared well nourished and normally developed. Vital signs as documented. Head exam is unremarkable. No scleral icterus . Neck is without jugular venous distension, thyromegaly, or carotid bruits. Lungs are clear to auscultation. Cardiac exam reveals regular rate and Rhythm. First and second heart sounds normal. No murmurs, rubs or gallops. Abdominal exam reveals normal bowel sounds, no masses, no organomegaly and no aortic enlargement. Extremities are nonedematous and both femoral and pedal pulses are normal. Skin sloughed skin all over, ~35% GLOBE TESTER: Patient is sleepy, and communicative - Constitutional Vitals: Temp Pulse Resp BP Pulse Ox 98.6 F 85 18 102/66 94 04/17/17 12:00 04/17/17 14:38 04/17/17 14:38 04/17/17 09:00 04/17/17 09:00 General appearance: Present: mild distress Results - Labs CBC & Chem 7: 04/17/17 12:10 04/16/17 05:30 Labs: Laboratory Last Values WBC 21.8 K/mm3 (4.5-11.0) H 04/16/17 05:30 RBC 2.66 M/mm3 (3.65-5.03) L 04/16/17 05:30 Hgb 7.6 gm/dl (10.1-14.3) L 04/17/17 12:10 Hct 22.9 % (30.3-42.9) L 04/17/17 12:10 MCV 89 fl (79-97) 04/16/17 05:30 MCH 29 pg (28-32) 04/16/17 05:30 MCHC 33 % (30-34) 04/16/17 05:30 RDW 17.8 % (13.2-15.2) H 04/16/17 05:30 Plt Count 115 K/mm3 (140-440) L 04/16/17 05:30 Harnett % (Auto) 3.1 % (0.0-7.3) 04/16/17 05:30 Eos % (Auto) 0.0 % (0.0-4.3) 04/16/17 05:30 Harnett # 0.7 K/mm3 (0.0-0.8) 04/16/17 05:30 Eos # 0.0 K/mm3 (0.0-0.4) 04/16/17 05:30 Baso # 0.1 K/mm3 (0.0-0.1) 04/16/17 05:30 Add Manual Diff Complete 04/16/17 05:30 Total Counted 100 04/16/17 05:30 Seg Neutrophils % Machine I Coremaker 04/16/17 05:30 Seg Neuts % (Manual) 82 % (40.0-70.0) H 04/16/17 05:30 Band Neutrophils % 15.0 % 04/16/17 05:30 Lymphocytes % (Manual) 2 % (13.4-35.0) L 04/16/17 05:30 Reactive Lymphs % (Man) 0 % 04/16/17 05:30 Monocytes % (Manual) 1.0 % (0.0-7.3) 04/16/17 05:30 Eosinophils % (Manual) 0 % (0.0-4.3) 04/16/17 05:30 Basophils % (Manual) 0 % (0.0-1.8) 04/16/17 05:30 Metamyelocytes % 0 % 04/16/17 05:30 Myelocytes % 0 % 04/16/17 05:30 Promyelocytes % 0 % 04/16/17 05:30 Blast Cells % 0 % 04/16/17 05:30 Nucleated RBC % 7.0 % (0.0-0.9) H 04/16/17 05:30 Seg Neutrophils # 21.5 K/mm3 (1.8-7.7) H 04/16/17 05:30 Seg Neutrophils # Man 17.8 K/mm3 (1.8-7.7) H 04/16/17 05:30 Band Neutrophils # 3.3 K/mm3 04/16/17 05:30 Lymphocytes # (Manual) 0.4 K/mm3 (1.2-5.4) L 04/16/17 05:30 Abs React Lymphs (Man) 0.0 K/mm3 04/16/17 05:30 Monocytes # (Manual) 0.2 K/mm3 (0.0-0.8) 04/16/17 05:30 Eosinophils # (Manual) 0.0 K/mm3 (0.0-0.4) 04/16/17 05:30 Basophils # (Manual) 0.0 K/mm3 (0.0-0.1) 04/16/17 05:30 Metamyelocytes # 0.0 K/mm3 04/16/17 05:30 Myelocytes # 0.0 K/mm3 04/16/17 05:30 Promyelocytes # 0.0 K/mm3 04/16/17 05:30 Blast Cells # 0.0 K/mm3 04/16/17 05:30 WBC Morphology Not Reportable 04/16/17 05:30 Hypersegmented Neuts Not Reportable 04/16/17 05:30 Hyposegmented Neuts Not Reportable 04/16/17 05:30 Hypogranular Neuts Not Reportable 04/16/17 05:30 Smudge Cells Not Reportable 04/16/17 05:30 Toxic Granulation Not Reportable 04/16/17 05:30 Toxic Vacuolation Not Reportable 04/16/17 05:30 Dohle Bodies Not Reportable 04/16/17 05:30 Pelger-Huet Anomaly Not Reportable 04/16/17 05:30 Monique Rods Not Reportable 04/16/17 05:30 Platelet Estimate Not Reportable 04/16/17 05:30 Clumped Platelets Not Reportable 04/16/17 05:30 Plt Clumps, EDTA Not Reportable 04/16/17 05:30 Large Platelets Not Reportable 04/16/17 05:30 Giant Platelets Not Reportable 04/16/17 05:30 Platelet Satelliting Not Reportable 04/16/17 05:30 Plt Morphology Comment Not Reportable 04/16/17 05:30 RBC Morphology Not Reportable 04/16/17 05:30 Dimorphic RBCs Not Reportable 04/16/17 05:30 Polychromasia Few 04/16/17 05:30 Hypochromasia Not Reportable 04/16/17 05:30 Poikilocytosis Not Reportable 04/16/17 05:30 Anisocytosis 1+ 04/16/17 05:30 Microcytosis Not Reportable 04/16/17 05:30 Macrocytosis Not Reportable 04/16/17 05:30 Spherocytes Not Reportable 04/16/17 05:30 Pappenheimer Bodies Not Reportable 04/16/17 05:30 Sickle Cells Not Reportable 04/16/17 05:30 Target Cells Few 04/16/17 05:30 Tear Drop Cells Not Reportable 04/16/17 05:30 Ovalocytes Not Reportable 04/16/17 05:30 Helmet Cells Not Reportable 04/16/17 05:30 [place] Bodies Not Reportable 04/16/17 05:30 [place] Rings Not Reportable 04/16/17 05:30 [place] Cells Not Reportable 04/16/17 05:30 Bite Cells Not Reportable 04/16/17 05:30 Crenated Cell Not Reportable 04/16/17 05:30 Elliptocytes Not Reportable 04/16/17 05:30 Acanthocytes (Spur) Not Reportable 04/16/17 05:30 Rouleaux Not Reportable 04/16/17 05:30 Hemoglobin C Crystals Not Reportable 04/16/17 05:30 Schistocytes Not Reportable 04/16/17 05:30 Malaria parasites Not Reportable 04/16/17 05:30 ESR 24 mm/Hr (0-20) 04/13/17 03:00 Percent Retic 1.53 % (0.78-2.58) 04/09/17 11:23 Vincent Bodies Not Reportable 04/16/17 05:30 Hem Pathologist Commnt No 04/16/17 05:30 PT 16.1 Sec. (12.2-14.9) H 04/16/17 09:55 INR 1.22 (0.87-1.13) H 04/16/17 09:55 APTT 34.1 Sec. (24.2-36.6) 04/16/17 09:55 Fibrinogen 153 mg/dl (211-480) L 04/13/17 03:00 D-Dimer 2989.51 ng/mlDDU (0-234) H 04/13/17 03:00 Lupus Anticoagulant see below 04/13/17 03:00 POC ABG pH 7.356 (7.35-7.45) 04/16/17 09:45 POC ABG pCO2 40.4 (35-45) 04/16/17 09:45 POC ABG pO2 75 (80-105) L 04/16/17 09:45 POC ABG HCO3 22.6 04/16/17 09:45 POC ABG Total CO2 24 04/16/17 09:45 POC ABG O2 Sat 94 04/16/17 09:45 POC ABG Base Excess -3 04/16/17 09:45 FiO2 1.5 % 04/16/17 09:45 Sodium 130 mmol/L (137-145) L 04/16/17 05:30 Potassium 4.8 mmol/L (3.6-5.0) 04/16/17 05:30 Chloride 91.4 mmol/L (98-107) L 04/16/17 05:30 Carbon Dioxide 21 mmol/L (22-30) L 04/16/17 05:30 Anion Gap 22 mmol/L 04/16/17 05:30 BUN 46 mg/dL (7-17) H 04/16/17 05:30 Creatinine 2.7 mg/dL (0.7-1.2) H 04/16/17 05:30 Estimated GFR 21 ml/min 04/16/17 05:30 BUN/Creatinine Ratio 17 % 04/16/17 05:30 Glucose 139 mg/dL (65-100) H 04/16/17 05:30 POC Glucose 121 (70-105) H 04/14/17 22:15 Lactic Acid 3.60 mmol/L (0.7-2.0) H* 04/06/17 Unknown Calcium 6.4 mg/dL (8.4-10.2) L 04/16/17 05:30 Iron 42 ug/dL (37-170) 04/09/17 11:23 TIBC 81 mcg/dL (250-450) L 04/09/17 11:23 Ferritin 2314.0 ng/mL (13.0-400.0) H 04/09/17 11:23 Total Bilirubin 0.80 mg/dL (0.1-1.2) 04/14/17 06:10 AST 73 units/L (5-40) H 04/14/17 06:10 ALT 53 units/L (7-56) 04/14/17 06:10 Alkaline Phosphatase 66 units/L (35-129) 04/14/17 06:10 Ammonia 32.0 umol/L (25-60) 04/17/17 05:50 Lactate Dehydrogenase 648 units/L (91-180) H 04/13/17 03:00 Troponin T 0.090 ng/mL (0.00-0.029) H 04/05/17 20:43 NT-Pro-B Natriuret Pep 6486 pg/mL (0-900) H 04/05/17 20:43 Serum Total Protein 3.8 g/dL (6.1-8.1) L 04/13/17 03:00 Total Protein 4.4 g/dL (6.3-8.2) L 04/14/17 06:10 Albumin 2.2 g/dL (3.9-5) L 04/14/17 06:10 Albumin/Globulin Ratio 1.0 % 04/14/17 06:10 Dpnmr-3-Bdvkcakat 0.3 g/dL (0.2-0.3) 04/13/17 03:00 Ydqsi-6-Tpnfqbcyg 0.3 g/dL (0.5-0.9) L 04/13/17 03:00 Beta Globulins 0.4 g/dL (0.2-0.5) 04/13/17 03:00 Vgqu-0-Qcvmpdweygame 15.00 mg/L (<=2.51) H 04/13/17 03:00 Gamma Globulins 1.1 g/dL (0.8-1.7) 04/13/17 03:00 Abnorm Protein Band 1 see below 04/13/17 03:00 PEP Interpretation see below H 04/13/17 03:00 Triglycerides 64 mg/dL (2-149) 04/05/17 20:43 Cholesterol 98 mg/dL (50-199) 04/05/17 20:43 LDL Cholesterol Direct 54 mg/dL (50-130) 04/05/17 20:43 HDL Cholesterol 32 mg/dL (40-59) L 04/05/17 20:43 Cholesterol/HDL Ratio 3.06 % 04/05/17 20:43 Vitamin B12 1641 pg/mL (211-911) H 04/09/17 11:23 Folate 4.55 ng/mL (7.3-26.0) L 04/09/17 11:23 Immunofix Electrophor see below 04/13/17 03:00 Rheumatoid Factor 32 IU/ml (0-13) H 04/13/17 03:00 Hepatitis A IgM Ab Non-reactive (NonReactive) 04/12/17 07:42 Hep Bs Antigen Non-reactive (Negative) 04/12/17 07:42 Hep B Core IgM Ab Non-reactive (NonReactive) 04/12/17 07:42 Hepatitis C Antibody Non-reactive (NonReactive) 04/12/17 07:42 Blood Type O POSITIVE 04/16/17 15:34 Antibody Screen Negative 04/16/17 15:34 Crossmatch See Detail 04/14/17 11:31
[2017-04-17 19:51] LABS: Hematocrit 23.9 % (30.3-42.9); Hemoglobin 7.9 gm/dl (10.1-14.3)
--- NOTE | 2017-04-17 21:39 | Progress Note ---
Assessment and Plan - Patient Problems (1) Anemia Current Visit: Yes Status: Acute Plan to address problem: see orders. transfusion replacements. other w/up still pending results. see notes. (2) CHF (congestive heart failure) Current Visit: Yes Status: Chronic Qualifiers: Congestive heart failure type: combined Plan to address problem: follow you. (3) Thrombocytopenia Current Visit: Yes Status: Acute Plan to address problem: see orders. see notes. Beta -2 quite high, will await other w/up for myeloma. pending w/up results. ESLD.see notes. Subjective Date of service: 04/17/17 Principal diagnosis: anemia, cirrhosis Interval history: Patient seen/examined, resting in bed, sluggish.labs reviewed, as well as notes.Fibrinogen low, D-dimer elevated, with very high Ldh, indicating consumptive coagulopathy. She may have some auto immune d/o. along with other things l, and perhaps bkleeding contributing to her thrombocytopenia. She may benefit from some steriods.IF any procedure is intended, PLT can be given, +/_ FFP if indicated.Will continue to follow you.Still awaiting [id number]., and folate. Patient seen, resting in bed. Labs/notes reviewed, s/p replacement transfusion. Will do PNH panel.Steroid still recommended. Patient seen, resting in bed, family at the bed side, record /labs reviewed.It appears that she responded some to steroid as recommended. Patient seen today, transferred to the unit overnight due to decline as per notes/report reviewed. She remains slow/sluggish as usual.anemia persists, despite replacement transfusion.She will need GI scope, and if NL, will consider BM bx. Patient seen/examined in the ICU, record reviewed, case d/w her daughter. Patient with debility, non coherent enough due to chronic brain insult from etoh abuse, and given ESLD, her chances for even moderate functional recovery is quite grim. rec supportive care. Objective - Constitutional Vitals: Vital Signs - 12hr 04/17/17 04/17/17 04/17/17 10:00 11:00 12:00 Temperature 98.6 F Pulse Rate 87 88 92 H Pulse Rate [ Posterior Bilateral Throughout] Respiratory 17 19 20 Rate Respiratory Rate [Posterior Bilateral Throughout] Blood Pressure 119/82 128/76 135/78 O2 Sat by Pulse 96 89 100 Oximetry 04/17/17 04/17/17 04/17/17 13:00 13:01 14:00 Temperature Pulse Rate 88 86 Pulse Rate [ Posterior Bilateral Throughout] Respiratory 16 19 17 Rate Respiratory Rate [Posterior Bilateral Throughout] Blood Pressure 115/70 111/79 O2 Sat by Pulse 93 100 Oximetry 04/17/17 04/17/17 04/17/17 14:30 14:38 15:01 Temperature Pulse Rate 103 H Pulse Rate [ 93 H 85 Posterior Bilateral Throughout] Respiratory 21 Rate Respiratory 18 18 Rate [Posterior Bilateral Throughout] Blood Pressure 135/111 O2 Sat by Pulse Oximetry 04/17/17 04/17/17 04/17/17 16:00 16:01 17:01 Temperature 98.7 F Pulse Rate 93 H 78 Pulse Rate [ Posterior Bilateral Throughout] Respiratory 18 14 Rate Respiratory Rate [Posterior Bilateral Throughout] Blood Pressure 113/75 135/111 O2 Sat by Pulse Oximetry 04/17/17 04/17/17 18:01 19:01 Temperature Pulse Rate 94 H 89 Pulse Rate [ Posterior Bilateral Throughout] Respiratory 18 16 Rate Respiratory Rate [Posterior Bilateral Throughout] Blood Pressure 135/111 135/111 O2 Sat by Pulse Oximetry General appearance: Present: mild distress - EENT Eyes: PERRL, EOM intact ENT: hearing intact, clear oral mucosa Ears: bilateral: normal - Neck Neck: supple, normal ROM - Respiratory Respiratory: bilateral: rhonchi - Breasts Breasts: deferred - Cardiovascular Rhythm: regular Heart Sounds: Present: S1 & S2. Absent: gallop, rub Extremities: pulses intact, No edema, normal color, Full ROM - Gastrointestinal General gastrointestinal: Present: soft, non-tender, non-distended, normal bowel sounds Rectal Exam: deferred - Genitourinary Female genitourinary: deferred - Integumentary Integumentary: clear, warm, dry - Neurologic Neurologic: moves all extremities - Psychiatric Psychiatric: appropriate mood/affect - Labs CBC & Chem 7: 04/17/17 19:34 04/16/17 05:30 Labs: Abnormal lab results 04/13/17 04/17/17 04/17/17 Range/Units 03:00 01:00 05:50 Hgb 7.3 L 7.4 L (10.1-14.3) gm/dl Hct 22.3 L 22.3 L (30.3-42.9) % Serum Total Protein 3.8 L (6.1-8.1) g/dL Albumin 1.6 L (3.8-4.8) g/dL Hhpvv-8-Nfocwnrij 0.3 L (0.5-0.9) g/dL PEP Interpretation see below H 04/17/17 04/17/17 Range/Units 12:10 19:34 Hgb 7.6 L 7.9 L (10.1-14.3) gm/dl Hct 22.9 L 23.9 L (30.3-42.9) % Serum Total Protein (6.1-8.1) g/dL Albumin (3.8-4.8) g/dL Jrqqk-5-Sojgwqfgc (0.5-0.9) g/dL PEP Interpretation
[2017-04-17 22:00] LABS: ANA Screen, IFA Negative (Negative)
[2017-04-17] MEDS: ZOFRAN IV PRN (22:51)
[2017-04-17] MEDS: ATIVAN IM PRN (22:52)
[2017-04-18] MEDS: DUONEB *Not for PRN Use IH SCH ×4 (01:19→21:22)
[2017-04-18 04:31] LABS: Hematocrit 23.2 % (30.3-42.9); Hemoglobin 7.7 gm/dl (10.1-14.3); Mean Corpuscular HGB Conc 33 % (30-34); Mean Corpuscular Hemoglobin 30 pg (28-32); Mean Corpuscular Volume 90 fl (79-97); Platelet Count 106 K/mm3 (140-440); Red Blood Count 2.59 M/mm3 (3.65-5.03); Red Cell Distribution Width 18.6 % (13.2-15.2)
[2017-04-18 04:40] LABS: Calcium 7.3 mg/dL (8.4-10.2)
[2017-04-18] MEDS: PROVENTIL IH PRN (05:03)
[2017-04-18 07:31] LABS: Basophils % (Manual) 0 % (0.0-1.8); Total Cells Counted 100
[2017-04-18 07:33] LABS: Anisocytosis 1+; Eosinophils % (Manual) 0 % (0.0-4.3); Macrocytosis 1+
[2017-04-18 07:34] LABS: Platelet Estimate Consistent w Auto; Target Cells 1+
[2017-04-18] MEDS: PULMICORT IH SCH ×2 (08:00→20:28)
[2017-04-18] MEDS: BROVANA NEBU IH SCH ×2 (08:01→20:28)
[2017-04-18] MEDS: PROTONIX PO SCH ×2 (09:39→10:05)
[2017-04-18] MEDS: SYNTHROID PO SCH ×2 (09:40→10:04)
[2017-04-18] MEDS: THERAGRAN-M Tab PO SCH ×2 (09:40→10:04)
--- NOTE | 2017-04-18 09:53 | Gastroenterology Progress Note ---
<IRAM SCOTT - Last Filed: 04/18/17 09:53> Assessment and Plan 1.anemia 2.cirrhosis 3.acute respiratory distress 4..COPD exacerbation 5.sepsis 6..pneumonia 7..ETOH abuse Anemia -stool occult positive -HGB 6.1-s/p 2 units PRBCs yesterday -continue to monitor H/H and transfuse as needed -no active signs of bleeding -etiology-likely multifactorial and at least partly due to ETOH/cirrhosis/ malnutrition -continue PPI, MVI, nutritional support, and supportive care -Recommend EGD/colonoscopy once medically stable- pulmonary clearance needed Cirrhosis -abd U/S showed cirrhosis -hapatitis panel negative -etiology 2/2 ETOH abuse -recommend EGD for varices screen once medically stable -avoid narcotics -continue CIWA protocol -continue supportive care (MVI, nutrition, albumin) Subjective Date of service: 04/18/17 Principal diagnosis: anemia, cirrhosis Interval history: Patient sitting up in bed. No acute distress. Poor PO intake noted from breakfast bedside tray. Objective - Constitutional Vitals: Temp Pulse Resp BP Pulse Ox 96.3 F L 89 18 139/87 95 04/18/17 07:00 04/18/17 08:14 04/18/17 08:14 04/18/17 07:00 04/18/17 08:02 General appearance: no acute distress, other (disoriented) - Respiratory Respiratory: bilateral: rhonchi - Cardiovascular Rhythm: regular Heart Sounds: Present: S1 & S2 - Gastrointestinal General gastrointestinal: Present: soft, non-distended, normal bowel sounds - Neurologic Neurological: disoriented - Labs CBC & Chem 7: 04/18/17 03:40 04/18/17 03:40 Labs: Laboratory Results - last 24 hr 04/12/17 04/17/17 04/17/17 03:00 12:10 19:34 WBC RBC Hgb 7.6 L 7.9 L Hct 22.9 L 23.9 L MCV MCH MCHC RDW Plt Count Add Manual Diff Total Counted Seg Neutrophils % Seg Neuts % (Manual) Band Neutrophils % Lymphocytes % (Manual) Reactive Lymphs % (Man) Monocytes % (Manual) Eosinophils % (Manual) Basophils % (Manual) Metamyelocytes % Myelocytes % Promyelocytes % Blast Cells % Nucleated RBC % Seg Neutrophils # Man Band Neutrophils # Lymphocytes # (Manual) Abs React Lymphs (Man) Monocytes # (Manual) Eosinophils # (Manual) Basophils # (Manual) Metamyelocytes # Myelocytes # Promyelocytes # Blast Cells # WBC Morphology Hypersegmented Neuts Hyposegmented Neuts Hypogranular Neuts Smudge Cells Toxic Granulation Toxic Vacuolation Dohle Bodies Pelger-Huet Anomaly Monique Rods Platelet Estimate Clumped Platelets Plt Clumps, EDTA Large Platelets Giant Platelets Platelet Satelliting Plt Morphology Comment RBC Morphology Dimorphic RBCs Polychromasia Hypochromasia Poikilocytosis Anisocytosis Microcytosis Macrocytosis Spherocytes Pappenheimer Bodies Sickle Cells Target Cells Tear Drop Cells Ovalocytes Helmet Cells [place] Bodies [place] Rings [place] Cells Bite Cells Crenated Cell Elliptocytes Acanthocytes (Spur) Rouleaux Hemoglobin C Crystals Schistocytes Malaria parasites Vincent Bodies Hem Pathologist Commnt Sodium Potassium Chloride Carbon Dioxide Anion Gap BUN Creatinine Estimated GFR BUN/Creatinine Ratio Glucose Calcium AGUSTIN Screen Negative 04/18/17 04/18/17 03:40 03:40 WBC 19.4 H RBC 2.59 L Hgb 7.7 L Hct 23.2 L MCV 90 MCH 30 MCHC 33 RDW 18.6 H Plt Count 106 L Add Manual Diff Complete Total Counted 100 Seg Neutrophils % Embedded Software Architect Seg Neuts % (Manual) 96.0 H Band Neutrophils % 0 Lymphocytes % (Manual) 2.0 L Reactive Lymphs % (Man) 0 Monocytes % (Manual) 2.0 Eosinophils % (Manual) 0 Basophils % (Manual) 0 Metamyelocytes % 0 Myelocytes % 0 Promyelocytes % 0 Blast Cells % 0 Nucleated RBC % 3.0 H Seg Neutrophils # Man 18.6 H Band Neutrophils # 0.0 Lymphocytes # (Manual) 0.4 L Abs React Lymphs (Man) 0.0 Monocytes # (Manual) 0.4 Eosinophils # (Manual) 0.0 Basophils # (Manual) 0.0 Metamyelocytes # 0.0 Myelocytes # 0.0 Promyelocytes # 0.0 Blast Cells # 0.0 WBC Morphology Not Reportable Hypersegmented Neuts Not Reportable Hyposegmented Neuts Not Reportable Hypogranular Neuts Not Reportable Smudge Cells Not Reportable Toxic Granulation Not Reportable Toxic Vacuolation Not Reportable Dohle Bodies Not Reportable Pelger-Huet Anomaly Not Reportable Monique Rods Not Reportable Platelet Estimate Consistent w auto Clumped Platelets Not Reportable Plt Clumps, EDTA Not Reportable Large Platelets Not Reportable Giant Platelets Not Reportable Platelet Satelliting Not Reportable Plt Morphology Comment Not Reportable RBC Morphology Not Reportable Dimorphic RBCs Not Reportable Polychromasia Not Reportable Hypochromasia Not Reportable Poikilocytosis Not Reportable Anisocytosis 1+ Microcytosis Not Reportable Macrocytosis 1+ Spherocytes Not Reportable Pappenheimer Bodies Not Reportable Sickle Cells Not Reportable Target Cells 1+ Tear Drop Cells Not Reportable Ovalocytes Not Reportable Helmet Cells Not Reportable [place] Bodies Not Reportable [place] Rings Not Reportable [place] Cells Not Reportable Bite Cells Not Reportable Crenated Cell Not Reportable Elliptocytes Not Reportable Acanthocytes (Spur) Not Reportable Rouleaux Not Reportable Hemoglobin C Crystals Not Reportable Schistocytes Not Reportable Malaria parasites Not Reportable Vincent Bodies Not Reportable Hem Pathologist Commnt No Sodium 128 L Potassium 4.6 Chloride 93.5 L Carbon Dioxide 21 L Anion Gap 18 BUN 47 H Creatinine 2.2 H Estimated GFR 27 BUN/Creatinine Ratio 21 Glucose 134 H Calcium 7.3 L AGUSTIN Screen <KENDELL SERRANO - Last Filed: 04/18/17 10:01> Assessment and Plan - Patient Problems (1) Anemia Current Visit: Yes Status: Acute Plan to address problem: No signs of GI bleeding. Endoscopic work up will not add much value at this point given very poor mental status. (2) Cirrhosis Current Visit: Yes Status: Acute (3) TIA (transient ischemic attack) Current Visit: No Status: Acute (4) COPD (chronic obstructive pulmonary disease) Current Visit: No Status: Chronic (5) Cardiomyopathy Current Visit: No Status: Chronic (6) Altered mental state Current Visit: Yes Status: Acute Plan to address problem: Unchanged. Not oriented to place, year, president or self. Probably has underlying dementia. Rule out Wernicke's. May need neuro evaluation. (7) Cirrhosis, Laennec's Current Visit: Yes Status: Acute Plan to address problem: Stable advanced disease. (8) CHF (congestive heart failure) Current Visit: Yes Status: Acute (9) Hypothyroidism (acquired) Current Visit: No Status: Chronic Objective - Constitutional Vitals: Temp Pulse Resp BP Pulse Ox 96.3 F L 89 18 139/87 95 04/18/17 07:00 04/18/17 08:14 04/18/17 08:14 04/18/17 07:00 04/18/17 08:02 - Labs CBC & Chem 7: 04/18/17 03:40 04/18/17 03:40 Labs: Laboratory Results - last 24 hr 04/12/17 04/17/17 04/17/17 03:00 12:10 19:34 WBC RBC Hgb 7.6 L 7.9 L Hct 22.9 L 23.9 L MCV MCH MCHC RDW Plt Count Add Manual Diff Total Counted Seg Neutrophils % Seg Neuts % (Manual) Band Neutrophils % Lymphocytes % (Manual) Reactive Lymphs % (Man) Monocytes % (Manual) Eosinophils % (Manual) Basophils % (Manual) Metamyelocytes % Myelocytes % Promyelocytes % Blast Cells % Nucleated RBC % Seg Neutrophils # Man Band Neutrophils # Lymphocytes # (Manual) Abs React Lymphs (Man) Monocytes # (Manual) Eosinophils # (Manual) Basophils # (Manual) Metamyelocytes # Myelocytes # Promyelocytes # Blast Cells # WBC Morphology Hypersegmented Neuts Hyposegmented Neuts Hypogranular Neuts Smudge Cells Toxic Granulation Toxic Vacuolation Dohle Bodies Pelger-Huet Anomaly Monique Rods Platelet Estimate Clumped Platelets Plt Clumps, EDTA Large Platelets Giant Platelets Platelet Satelliting Plt Morphology Comment RBC Morphology Dimorphic RBCs Polychromasia Hypochromasia Poikilocytosis Anisocytosis Microcytosis Macrocytosis Spherocytes Pappenheimer Bodies Sickle Cells Target Cells Tear Drop Cells Ovalocytes Helmet Cells [place] Bodies [place] Rings [place] Cells Bite Cells Crenated Cell Elliptocytes Acanthocytes (Spur) Rouleaux Hemoglobin C Crystals Schistocytes Malaria parasites Vincent Bodies Hem Pathologist Commnt Sodium Potassium Chloride Carbon Dioxide Anion Gap BUN Creatinine Estimated GFR BUN/Creatinine Ratio Glucose Calcium AGUSTIN Screen Negative 04/18/17 04/18/17 03:40 03:40 WBC 19.4 H RBC 2.59 L Hgb 7.7 L Hct 23.2 L MCV 90 MCH 30 MCHC 33 RDW 18.6 H Plt Count 106 L Add Manual Diff Complete Total Counted 100 Seg Neutrophils % Embedded Software Architect Seg Neuts % (Manual) 96.0 H Band Neutrophils % 0 Lymphocytes % (Manual) 2.0 L Reactive Lymphs % (Man) 0 Monocytes % (Manual) 2.0 Eosinophils % (Manual) 0 Basophils % (Manual) 0 Metamyelocytes % 0 Myelocytes % 0 Promyelocytes % 0 Blast Cells % 0 Nucleated RBC % 3.0 H Seg Neutrophils # Man 18.6 H Band Neutrophils # 0.0 Lymphocytes # (Manual) 0.4 L Abs React Lymphs (Man) 0.0 Monocytes # (Manual) 0.4 Eosinophils # (Manual) 0.0 Basophils # (Manual) 0.0 Metamyelocytes # 0.0 Myelocytes # 0.0 Promyelocytes # 0.0 Blast Cells # 0.0 WBC Morphology Not Reportable Hypersegmented Neuts Not Reportable Hyposegmented Neuts Not Reportable Hypogranular Neuts Not Reportable Smudge Cells Not Reportable Toxic Granulation Not Reportable Toxic Vacuolation Not Reportable Dohle Bodies Not Reportable Pelger-Huet Anomaly Not Reportable Monique Rods Not Reportable Platelet Estimate Consistent w auto Clumped Platelets Not Reportable Plt Clumps, EDTA Not Reportable Large Platelets Not Reportable Giant Platelets Not Reportable Platelet Satelliting Not Reportable Plt Morphology Comment Not Reportable RBC Morphology Not Reportable Dimorphic RBCs Not Reportable Polychromasia Not Reportable Hypochromasia Not Reportable Poikilocytosis Not Reportable Anisocytosis 1+ Microcytosis Not Reportable Macrocytosis 1+ Spherocytes Not Reportable Pappenheimer Bodies Not Reportable Sickle Cells Not Reportable Target Cells 1+ Tear Drop Cells Not Reportable Ovalocytes Not Reportable Helmet Cells Not Reportable [place] Bodies Not Reportable [place] Rings Not Reportable [place] Cells Not Reportable Bite Cells Not Reportable Crenated Cell Not Reportable Elliptocytes Not Reportable Acanthocytes (Spur) Not Reportable Rouleaux Not Reportable Hemoglobin C Crystals Not Reportable Schistocytes Not Reportable Malaria parasites Not Reportable Vincent Bodies Not Reportable Hem Pathologist Commnt No Sodium 128 L Potassium 4.6 Chloride 93.5 L Carbon Dioxide 21 L Anion Gap 18 BUN 47 H Creatinine 2.2 H Estimated GFR 27 BUN/Creatinine Ratio 21 Glucose 134 H Calcium 7.3 L AGUSTIN Screen
--- NOTE | 2017-04-18 12:21 | Progress Note ---
Assessment and Plan 67 y/o female with acute exacerbation of COPD, now with acute blood loss anemia , concern for GI bleed, source not known, now with altered mental state. 1. COPD is stable at this time and not a current issue. Steroids can be tapered 2. Will sign off, call if questions. Continue all other maintenance medication for COPD Subjective Date of service: 04/18/17 Principal diagnosis: anemia, cirrhosis Interval history: patient now weaned down to room air. Breathing is stable. Objective Vital Signs - 12hr 04/18/17 04/18/17 04/18/17 05:04 05:15 06:15 Temperature Pulse Rate Pulse Rate [ 89 94 H Posterior Bilateral Throughout] Respiratory Rate Respiratory 20 20 Rate [Posterior Bilateral Throughout] Blood Pressure 112/78 Blood Pressure [Right] O2 Sat by Pulse Oximetry 04/18/17 04/18/17 04/18/17 07:00 08:01 08:02 Temperature 96.3 F L Pulse Rate 95 H Pulse Rate [ 88 Posterior Bilateral Throughout] Respiratory 24 Rate Respiratory 18 Rate [Posterior Bilateral Throughout] Blood Pressure Blood Pressure 139/87 [Right] O2 Sat by Pulse 97 95 Oximetry 04/18/17 08:14 Temperature Pulse Rate Pulse Rate [ 89 Posterior Bilateral Throughout] Respiratory Rate Respiratory 18 Rate [Posterior Bilateral Throughout] Blood Pressure Blood Pressure [Right] O2 Sat by Pulse Oximetry Constitutional: no acute distress, asleep Eyes: non-icteric ENT: oropharynx moist Neck: supple, no JVD Ascultation: Bilateral: wheezes (mild), rales, rhonchi (mild) Cardiovascular: regular rate and rhythm Gastrointestinal: normoactive bowel sounds, non-distended Integumentary: normal Extremities: no cyanosis, no edema Neurologic: normal mental status, non-focal exam, pupils equal and round, CN II- XII normal, other (easily arousable and able to answer all questions) Psychiatric: mood appropriate, affect normal CBC and BMP: 04/18/17 03:40 04/18/17 03:40 ABG, PT/INR, D-dimer: ABG POC ABG pH 7.356 (7.35-7.45) 04/16/17 09:45 POC ABG pCO2 40.4 (35-45) 04/16/17 09:45 POC ABG pO2 75 (80-105) L 04/16/17 09:45 POC ABG HCO3 22.6 04/16/17 09:45 POC ABG Total CO2 24 04/16/17 09:45 POC ABG O2 Sat 94 04/16/17 09:45 PT/INR, D-dimer PT 16.1 Sec. (12.2-14.9) H 04/16/17 09:55 INR 1.22 (0.87-1.13) H 04/16/17 09:55 D-Dimer 2989.51 ng/mlDDU (0-234) H 04/13/17 03:00 Abnormal lab findings: Abnormal Labs 04/05/17 04/05/17 04/05/17 16:14 16:14 20:43 WBC 17.4 H RBC 2.69 L Hgb 8.9 L Hct 27.2 L MCV 101 H MCH 33 H RDW 20.4 H Plt Count Seg Neuts % (Manual) 98.0 H Lymphocytes % (Manual) 2.0 L Nucleated RBC % 4.0 H Seg Neutrophils # Seg Neutrophils # Man 17.1 H Lymphocytes # (Manual) 0.3 L Monocytes # (Manual) PT INR Fibrinogen D-Dimer POC ABG pH POC ABG pCO2 POC ABG pO2 Sodium Potassium 3.3 L Chloride 95.0 L Carbon Dioxide BUN Creatinine 0.5 L Glucose POC Glucose Lactic Acid Calcium 6.7 L TIBC Ferritin AST 166 H ALT Lactate Dehydrogenase Troponin T 0.090 H NT-Pro-B Natriuret Pep 6486 H Serum Total Protein Total Protein Albumin 2.2 L Kvojd-4-Guvakxdeb Pbbc-7-Jwnbvzobwhdye PEP Interpretation HDL Cholesterol 32 L Vitamin B12 Folate Rheumatoid Factor Crossmatch 04/05/17 04/06/17 04/06/17 20:43 02:30 04:56 WBC RBC Hgb Hct MCV MCH RDW Plt Count Seg Neuts % (Manual) Lymphocytes % (Manual) Nucleated RBC % Seg Neutrophils # Seg Neutrophils # Man Lymphocytes # (Manual) Monocytes # (Manual) PT INR Fibrinogen D-Dimer 4892.81 H POC ABG pH 7.524 H POC ABG pCO2 34.7 L POC ABG pO2 Sodium Potassium Chloride Carbon Dioxide BUN Creatinine Glucose POC Glucose Lactic Acid 3.30 H* Calcium TIBC Ferritin AST ALT Lactate Dehydrogenase Troponin T NT-Pro-B Natriuret Pep Serum Total Protein Total Protein Albumin Rvfif-8-Dwqravsyc Lytr-8-Odvxemcqhvvet PEP Interpretation HDL Cholesterol Vitamin B12 Folate Rheumatoid Factor Crossmatch 04/06/17 04/06/17 04/07/17 07:38 Unknown 05:35 WBC 17.7 H RBC 2.29 L Hgb 7.4 L Hct 23.2 L MCV 101 H MCH RDW 20.0 H Plt Count 104 L Seg Neuts % (Manual) 81.0 H Lymphocytes % (Manual) 4.0 L Nucleated RBC % 12.0 H Seg Neutrophils # Seg Neutrophils # Man 14.3 H Lymphocytes # (Manual) 0.7 L Monocytes # (Manual) PT INR Fibrinogen D-Dimer POC ABG pH POC ABG pCO2 POC ABG pO2 Sodium Potassium Chloride Carbon Dioxide BUN Creatinine Glucose POC Glucose Lactic Acid 3.10 H* 3.60 H* Calcium TIBC Ferritin AST ALT Lactate Dehydrogenase Troponin T NT-Pro-B Natriuret Pep Serum Total Protein Total Protein Albumin Blzyb-4-Zuffnwmlb Mclu-8-Efzmsmnfgqaoj PEP Interpretation HDL Cholesterol Vitamin B12 Folate Rheumatoid Factor Crossmatch 04/07/17 04/09/17 04/09/17 05:35 05:30 05:30 WBC 15.3 H RBC 1.94 L Hgb 6.4 L Hct 19.7 L* MCV 101 H MCH 33 H RDW 19.3 H Plt Count 53 L Seg Neuts % (Manual) 78.0 H Lymphocytes % (Manual) 5.0 L Nucleated RBC % 16.0 H Seg Neutrophils # Seg Neutrophils # Man 11.9 H Lymphocytes # (Manual) 0.8 L Monocytes # (Manual) 0.9 H PT INR Fibrinogen D-Dimer POC ABG pH POC ABG pCO2 POC ABG pO2 Sodium Potassium 2.9 L* Chloride Carbon Dioxide BUN 20 H Creatinine Glucose 144 H 126 H POC Glucose Lactic Acid Calcium 6.2 L 6.2 L TIBC Ferritin AST ALT Lactate Dehydrogenase Troponin T NT-Pro-B Natriuret Pep Serum Total Protein Total Protein Albumin Iscsk-7-Ocqykzmky Mzna-9-Bnejuqnjeokrq PEP Interpretation HDL Cholesterol Vitamin B12 Folate Rheumatoid Factor Crossmatch 04/09/17 04/09/17 04/09/17 07:00 11:23 11:23 WBC RBC Hgb Hct MCV MCH RDW Plt Count Seg Neuts % (Manual) Lymphocytes % (Manual) Nucleated RBC % Seg Neutrophils # Seg Neutrophils # Man Lymphocytes # (Manual) Monocytes # (Manual) PT INR Fibrinogen D-Dimer POC ABG pH POC ABG pCO2 POC ABG pO2 Sodium Potassium Chloride Carbon Dioxide BUN Creatinine Glucose POC Glucose Lactic Acid Calcium TIBC 81 L Ferritin 2314.0 H AST ALT Lactate Dehydrogenase Troponin T NT-Pro-B Natriuret Pep Serum Total Protein Total Protein Albumin Fizgm-3-Marguhyec Wnbz-9-Hibrxdrssyrsl PEP Interpretation HDL Cholesterol Vitamin B12 Folate Rheumatoid Factor Crossmatch See Detail 04/09/17 04/09/17 04/10/17 11:23 11:23 Unknown WBC RBC Hgb 7.0 L Hct 21.3 L MCV MCH RDW Plt Count Seg Neuts % (Manual) Lymphocytes % (Manual) Nucleated RBC % Seg Neutrophils # Seg Neutrophils # Man Lymphocytes # (Manual) Monocytes # (Manual) PT INR Fibrinogen D-Dimer POC ABG pH POC ABG pCO2 POC ABG pO2 Sodium Potassium Chloride Carbon Dioxide BUN Creatinine Glucose POC Glucose Lactic Acid Calcium TIBC Ferritin AST ALT Lactate Dehydrogenase Troponin T NT-Pro-B Natriuret Pep Serum Total Protein Total Protein Albumin Krhsh-9-Obqrpipsj Sccf-8-Dcejargbnqckl PEP Interpretation HDL Cholesterol Vitamin B12 1641 H Folate 4.55 L Rheumatoid Factor Crossmatch 04/11/17 04/11/17 04/11/17 04:30 04:30 22:15 WBC 13.8 H RBC 2.24 L Hgb 6.9 L Hct 20.9 L MCV MCH RDW 17.4 H Plt Count 28 L Seg Neuts % (Manual) Lymphocytes % (Manual) 8.0 L Nucleated RBC % 12.0 H Seg Neutrophils # Seg Neutrophils # Man 9.1 H Lymphocytes # (Manual) 1.1 L Monocytes # (Manual) PT INR Fibrinogen D-Dimer POC ABG pH POC ABG pCO2 POC ABG pO2 55 L Sodium 134 L Potassium 3.5 L D Chloride 95.6 L Carbon Dioxide BUN 24 H Creatinine 1.5 H Glucose 215 H POC Glucose Lactic Acid Calcium 5.6 L* TIBC Ferritin AST ALT Lactate Dehydrogenase Troponin T NT-Pro-B Natriuret Pep Serum Total Protein Total Protein Albumin Mpqcq-4-Swrofzwxk Eaez-6-Xiecnnajdndja PEP Interpretation HDL Cholesterol Vitamin B12 Folate Rheumatoid Factor Crossmatch 04/12/17 04/12/17 04/12/17 06:05 06:05 06:05 WBC 11.4 H RBC 2.49 L Hgb 7.6 L Hct 23.0 L MCV MCH RDW 15.8 H Plt Count 37 L Seg Neuts % (Manual) 97.0 H Lymphocytes % (Manual) 2.0 L Nucleated RBC % 31.0 H Seg Neutrophils # Seg Neutrophils # Man 11.1 H Lymphocytes # (Manual) 0.2 L Monocytes # (Manual) PT 17.7 H INR 1.38 H Fibrinogen D-Dimer POC ABG pH POC ABG pCO2 POC ABG pO2 Sodium 131 L Potassium Chloride 95.4 L Carbon Dioxide 21 L BUN 30 H Creatinine 1.9 H Glucose 208 H POC Glucose Lactic Acid Calcium 5.8 L* TIBC Ferritin AST 75 H ALT 57 H Lactate Dehydrogenase Troponin T NT-Pro-B Natriuret Pep Serum Total Protein Total Protein 4.0 L Albumin 1.6 L Njnmg-8-Pwjjmbweb Hdlm-2-Lzfumfcehsalc PEP Interpretation HDL Cholesterol Vitamin B12 Folate Rheumatoid Factor Crossmatch 04/13/17 04/13/17 04/13/17 03:00 03:00 03:00 WBC RBC Hgb Hct MCV MCH RDW Plt Count Seg Neuts % (Manual) Lymphocytes % (Manual) Nucleated RBC % Seg Neutrophils # Seg Neutrophils # Man Lymphocytes # (Manual) Monocytes # (Manual) PT 17.2 H INR 1.33 H Fibrinogen 153 L D-Dimer 2989.51 H POC ABG pH POC ABG pCO2 POC ABG pO2 Sodium Potassium Chloride Carbon Dioxide BUN Creatinine Glucose POC Glucose Lactic Acid Calcium TIBC Ferritin AST ALT Lactate Dehydrogenase Troponin T NT-Pro-B Natriuret Pep Serum Total Protein Total Protein Albumin Ofzkm-7-Phyrslaxg Ozzn-8-Qjuwwbwkouodx 15.00 H PEP Interpretation HDL Cholesterol Vitamin B12 Folate Rheumatoid Factor 32 H Crossmatch 04/13/17 04/13/17 04/14/17 03:00 03:00 06:10 WBC 26.3 H RBC 1.66 L Hgb 4.8 L* Hct 15.5 L* D MCV MCH RDW 16.8 H Plt Count 111 L D Seg Neuts % (Manual) 89.0 H Lymphocytes % (Manual) 3.0 L Nucleated RBC % 6.0 H Seg Neutrophils # Seg Neutrophils # Man 23.4 H Lymphocytes # (Manual) 0.8 L Monocytes # (Manual) PT INR Fibrinogen D-Dimer POC ABG pH POC ABG pCO2 POC ABG pO2 Sodium Potassium Chloride Carbon Dioxide BUN Creatinine Glucose POC Glucose Lactic Acid Calcium TIBC Ferritin AST ALT Lactate Dehydrogenase 648 H Troponin T NT-Pro-B Natriuret Pep Serum Total Protein 3.8 L Total Protein Albumin 1.6 L Qiqmn-1-Uylhizqnq 0.3 L Wqyb-7-Tboosfxpmtagx PEP Interpretation see below H HDL Cholesterol Vitamin B12 Folate Rheumatoid Factor Crossmatch 04/14/17 04/14/17 04/14/17 06:10 11:31 22:15 WBC RBC Hgb Hct MCV MCH RDW Plt Count Seg Neuts % (Manual) Lymphocytes % (Manual) Nucleated RBC % Seg Neutrophils # Seg Neutrophils # Man Lymphocytes # (Manual) Monocytes # (Manual) PT INR Fibrinogen D-Dimer POC ABG pH POC ABG pCO2 POC ABG pO2 Sodium 132 L Potassium Chloride 95.3 L Carbon Dioxide 20 L BUN 41 H Creatinine 2.7 H Glucose 124 H POC Glucose 121 H Lactic Acid Calcium 6.1 L TIBC Ferritin AST 73 H ALT Lactate Dehydrogenase Troponin T NT-Pro-B Natriuret Pep Serum Total Protein Total Protein 4.4 L Albumin 2.2 L Zyfua-7-Ppkymeuiy Crnc-7-Mlazpfvjpjytr PEP Interpretation HDL Cholesterol Vitamin B12 Folate Rheumatoid Factor Crossmatch See Detail 04/15/17 04/15/17 04/16/17 07:30 07:30 05:30 WBC 22.0 H 21.8 H RBC 2.16 L 2.66 L Hgb 6.1 L 7.7 L Hct 18.9 L* 23.7 L MCV MCH RDW 18.2 H 17.8 H Plt Count 96 L 115 L Seg Neuts % (Manual) 92.0 H 82 H Lymphocytes % (Manual) 1.0 L 2 L Nucleated RBC % 7.0 H 7.0 H Seg Neutrophils # 21.5 H Seg Neutrophils # Man 20.2 H 17.8 H Lymphocytes # (Manual) 0.2 L 0.4 L Monocytes # (Manual) PT INR Fibrinogen D-Dimer POC ABG pH POC ABG pCO2 POC ABG pO2 Sodium 134 L Potassium 5.4 H Chloride 95.1 L Carbon Dioxide 20 L BUN 45 H Creatinine 2.9 H Glucose 103 H POC Glucose Lactic Acid Calcium 6.5 L TIBC Ferritin AST ALT Lactate Dehydrogenase Troponin T NT-Pro-B Natriuret Pep Serum Total Protein Total Protein Albumin Wiufy-8-Prjmwogeu Wvnr-7-Ladllnvxbydrv PEP Interpretation HDL Cholesterol Vitamin B12 Folate Rheumatoid Factor Crossmatch 04/16/17 04/16/17 04/16/17 05:30 09:45 09:55 WBC RBC Hgb Hct MCV MCH RDW Plt Count Seg Neuts % (Manual) Lymphocytes % (Manual) Nucleated RBC % Seg Neutrophils # Seg Neutrophils # Man Lymphocytes # (Manual) Monocytes # (Manual) PT 16.1 H INR 1.22 H Fibrinogen D-Dimer POC ABG pH POC ABG pCO2 POC ABG pO2 75 L Sodium 130 L Potassium Chloride 91.4 L Carbon Dioxide 21 L BUN 46 H Creatinine 2.7 H Glucose 139 H POC Glucose Lactic Acid Calcium 6.4 L TIBC Ferritin AST ALT Lactate Dehydrogenase Troponin T NT-Pro-B Natriuret Pep Serum Total Protein Total Protein Albumin Degik-8-Reaymrqhe Zzss-6-Uxumfvilprawo PEP Interpretation HDL Cholesterol Vitamin B12 Folate Rheumatoid Factor Crossmatch 04/16/17 04/16/17 04/17/17 12:15 18:20 01:00 WBC RBC Hgb 7.8 L 7.9 L 7.3 L Hct 24.2 L 24.8 L 22.3 L MCV MCH RDW Plt Count Seg Neuts % (Manual) Lymphocytes % (Manual) Nucleated RBC % Seg Neutrophils # Seg Neutrophils # Man Lymphocytes # (Manual) Monocytes # (Manual) PT INR Fibrinogen D-Dimer POC ABG pH POC ABG pCO2 POC ABG pO2 Sodium Potassium Chloride Carbon Dioxide BUN Creatinine Glucose POC Glucose Lactic Acid Calcium TIBC Ferritin AST ALT Lactate Dehydrogenase Troponin T NT-Pro-B Natriuret Pep Serum Total Protein Total Protein Albumin Nmbfq-9-Qlynltyce Nozg-5-Khqxixuigfvjm PEP Interpretation HDL Cholesterol Vitamin B12 Folate Rheumatoid Factor Crossmatch 04/17/17 04/17/17 04/17/17 05:50 12:10 19:34 WBC RBC Hgb 7.4 L 7.6 L 7.9 L Hct 22.3 L 22.9 L 23.9 L MCV MCH RDW Plt Count Seg Neuts % (Manual) Lymphocytes % (Manual) Nucleated RBC % Seg Neutrophils # Seg Neutrophils # Man Lymphocytes # (Manual) Monocytes # (Manual) PT INR Fibrinogen D-Dimer POC ABG pH POC ABG pCO2 POC ABG pO2 Sodium Potassium Chloride Carbon Dioxide BUN Creatinine Glucose POC Glucose Lactic Acid Calcium TIBC Ferritin AST ALT Lactate Dehydrogenase Troponin T NT-Pro-B Natriuret Pep Serum Total Protein Total Protein Albumin Rkshf-0-Bjziqyksh Jdtg-4-Dargvfragmgxe PEP Interpretation HDL Cholesterol Vitamin B12 Folate Rheumatoid Factor Crossmatch 04/18/17 04/18/17 03:40 03:40 WBC 19.4 H RBC 2.59 L Hgb 7.7 L Hct 23.2 L MCV MCH RDW 18.6 H Plt Count 106 L Seg Neuts % (Manual) 96.0 H Lymphocytes % (Manual) 2.0 L Nucleated RBC % 3.0 H Seg Neutrophils # Seg Neutrophils # Man 18.6 H Lymphocytes # (Manual) 0.4 L Monocytes # (Manual) PT INR Fibrinogen D-Dimer POC ABG pH POC ABG pCO2 POC ABG pO2 Sodium 128 L Potassium Chloride 93.5 L Carbon Dioxide 21 L BUN 47 H Creatinine 2.2 H Glucose 134 H POC Glucose Lactic Acid Calcium 7.3 L TIBC Ferritin AST ALT Lactate Dehydrogenase Troponin T NT-Pro-B Natriuret Pep Serum Total Protein Total Protein Albumin Lrply-0-Kpvsbjdds Yqwu-6-Kedbzauoziylz PEP Interpretation HDL Cholesterol Vitamin B12 Folate Rheumatoid Factor Crossmatch
--- NOTE | 2017-04-18 13:54 | Progress Note ---
Assessment and Plan Assessment and plan: 67-year-old -[place] female with past medical history significant for chronic systolic CHF, COPD, anemia presented to the emergency department for the complaints of shortness of breath. COPD exacerbation - Patient is managed with IV Solu-Medrol, IV antibiotics, - Pulmonary is following Acute respiratory failure - Improving saturating well on [place] oxygen Sepsis Pneumonia - Treated with IV antibiotic chronic systolic heart failure - Compensated. cont lasix Hypothyroidism (acquired) C- ont Synthyroid EtOH abuse. - [facility] protocol. Anemia - Gi consulted , FOBT is positive - Multifactorial - H/H holding Thrombocytopenia - Hematology following - Improving Dysphagia. 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 History Interval history: patient is demented and non communicative, management plan discussed with the family members were in the room, patient has skin lesion, which was worsened recently. Hospitalist Physical - Physical exam Narrative exam: Not in cardiopulmonary distress. On intranasal oxygen The patient appeared well nourished and normally developed. Vital signs as documented. Head exam is unremarkable. No scleral icterus . Neck is without jugular venous distension, thyromegaly, or carotid bruits. Lungs are clear to auscultation. Cardiac exam reveals regular rate and Rhythm. First and second heart sounds normal. No murmurs, rubs or gallops. Abdominal exam reveals normal bowel sounds, no masses, no organomegaly and no aortic enlargement. Extremities are nonedematous and both femoral and pedal pulses are normal. 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: Patient is sleepy, and communicative - Constitutional Vitals: Temp Pulse Resp BP Pulse Ox 96.3 F L 89 18 139/87 95 04/18/17 07:00 04/18/17 08:14 04/18/17 08:14 04/18/17 07:00 04/18/17 08:02 General appearance: Present: mild distress Results - Labs CBC & Chem 7: 04/18/17 03:40 04/18/17 03:40 Labs: Laboratory Last Values WBC 19.4 K/mm3 (4.5-11.0) H 04/18/17 03:40 RBC 2.59 M/mm3 (3.65-5.03) L 04/18/17 03:40 Hgb 7.7 gm/dl (10.1-14.3) L 04/18/17 03:40 Hct 23.2 % (30.3-42.9) L 04/18/17 03:40 MCV 90 fl (79-97) 04/18/17 03:40 MCH 30 pg (28-32) 04/18/17 03:40 MCHC 33 % (30-34) 04/18/17 03:40 RDW 18.6 % (13.2-15.2) H 04/18/17 03:40 Plt Count 106 K/mm3 (140-440) L 04/18/17 03:40 Lynn % (Auto) 3.1 % (0.0-7.3) 04/16/17 05:30 Eos % (Auto) 0.0 % (0.0-4.3) 04/16/17 05:30 Lynn # 0.7 K/mm3 (0.0-0.8) 04/16/17 05:30 Eos # 0.0 K/mm3 (0.0-0.4) 04/16/17 05:30 Baso # 0.1 K/mm3 (0.0-0.1) 04/16/17 05:30 Add Manual Diff Complete 04/18/17 03:40 Total Counted 100 04/18/17 03:40 Seg Neutrophils % Director State Pharm[facility] 04/18/17 03:40 Seg Neuts % (Manual) 96.0 % (40.0-70.0) H 04/18/17 03:40 Band Neutrophils % 0 % 04/18/17 03:40 Lymphocytes % (Manual) 2.0 % (13.4-35.0) L 04/18/17 03:40 Reactive Lymphs % (Man) 0 % 04/18/17 03:40 Monocytes % (Manual) 2.0 % (0.0-7.3) 04/18/17 03:40 Eosinophils % (Manual) 0 % (0.0-4.3) 04/18/17 03:40 Basophils % (Manual) 0 % (0.0-1.8) 04/18/17 03:40 Metamyelocytes % 0 % 04/18/17 03:40 Myelocytes % 0 % 04/18/17 03:40 Promyelocytes % 0 % 04/18/17 03:40 Blast Cells % 0 % 04/18/17 03:40 Nucleated RBC % 3.0 % (0.0-0.9) H 04/18/17 03:40 Seg Neutrophils # 21.5 K/mm3 (1.8-7.7) H 04/16/17 05:30 Seg Neutrophils # Man 18.6 K/mm3 (1.8-7.7) H 04/18/17 03:40 Band Neutrophils # 0.0 K/mm3 04/18/17 03:40 Lymphocytes # (Manual) 0.4 K/mm3 (1.2-5.4) L 04/18/17 03:40 Abs React Lymphs (Man) 0.0 K/mm3 04/18/17 03:40 Monocytes # (Manual) 0.4 K/mm3 (0.0-0.8) 04/18/17 03:40 Eosinophils # (Manual) 0.0 K/mm3 (0.0-0.4) 04/18/17 03:40 Basophils # (Manual) 0.0 K/mm3 (0.0-0.1) 04/18/17 03:40 Metamyelocytes # 0.0 K/mm3 04/18/17 03:40 Myelocytes # 0.0 K/mm3 04/18/17 03:40 Promyelocytes # 0.0 K/mm3 04/18/17 03:40 Blast Cells # 0.0 K/mm3 04/18/17 03:40 WBC Morphology Not Reportable 04/18/17 03:40 Hypersegmented Neuts Not Reportable 04/18/17 03:40 Hyposegmented Neuts Not Reportable 04/18/17 03:40 Hypogranular Neuts Not Reportable 04/18/17 03:40 Smudge Cells Not Reportable 04/18/17 03:40 Toxic Granulation Not Reportable 04/18/17 03:40 Toxic Vacuolation Not Reportable 04/18/17 03:40 Dohle Bodies Not Reportable 04/18/17 03:40 Pelger-Huet Anomaly Not Reportable 04/18/17 03:40 Monique Rods Not Reportable 04/18/17 03:40 Platelet Estimate Consistent w auto 04/18/17 03:40 Clumped Platelets Not Reportable 04/18/17 03:40 Plt Clumps, EDTA Not Reportable 04/18/17 03:40 Large Platelets Not Reportable 04/18/17 03:40 Giant Platelets Not Reportable 04/18/17 03:40 Platelet Satelliting Not Reportable 04/18/17 03:40 Plt Morphology Comment Not Reportable 04/18/17 03:40 RBC Morphology Not Reportable 04/18/17 03:40 Dimorphic RBCs Not Reportable 04/18/17 03:40 Polychromasia Not Reportable 04/18/17 03:40 Hypochromasia Not Reportable 04/18/17 03:40 Poikilocytosis Not Reportable 04/18/17 03:40 Anisocytosis 1+ 04/18/17 03:40 Microcytosis Not Reportable 04/18/17 03:40 Macrocytosis 1+ 04/18/17 03:40 Spherocytes Not Reportable 04/18/17 03:40 Pappenheimer Bodies Not Reportable 04/18/17 03:40 Sickle Cells Not Reportable 04/18/17 03:40 Target Cells 1+ 04/18/17 03:40 Tear Drop Cells Not Reportable 04/18/17 03:40 Ovalocytes Not Reportable 04/18/17 03:40 Helmet Cells Not Reportable 04/18/17 03:40 Aparicio-Ramah Bodies Not Reportable 04/18/17 03:40 [place] Rings Not Reportable 04/18/17 03:40 [place] Cells Not Reportable 04/18/17 03:40 Bite Cells Not Reportable 04/18/17 03:40 Crenated Cell Not Reportable 04/18/17 03:40 Elliptocytes Not Reportable 04/18/17 03:40 Acanthocytes (Spur) Not Reportable 04/18/17 03:40 Rouleaux Not Reportable 04/18/17 03:40 Hemoglobin C Crystals Not Reportable 04/18/17 03:40 Schistocytes Not Reportable 04/18/17 03:40 Malaria parasites Not Reportable 04/18/17 03:40 ESR 24 mm/Hr (0-20) 04/13/17 03:00 Percent Retic 1.53 % (0.78-2.58) 04/09/17 11:23 Vincent Bodies Not Reportable 04/18/17 03:40 Hem Pathologist Commnt No 04/18/17 03:40 PT 16.1 Sec. (12.2-14.9) H 04/16/17 09:55 INR 1.22 (0.87-1.13) H 04/16/17 09:55 APTT 34.1 Sec. (24.2-36.6) 04/16/17 09:55 Fibrinogen 153 mg/dl (211-480) L 04/13/17 03:00 D-Dimer 2989.51 ng/mlDDU (0-234) H 04/13/17 03:00 Lupus Anticoagulant see below 04/13/17 03:00 POC ABG pH 7.356 (7.35-7.45) 04/16/17 09:45 POC ABG pCO2 40.4 (35-45) 04/16/17 09:45 POC ABG pO2 75 (80-105) L 04/16/17 09:45 POC ABG HCO3 22.6 04/16/17 09:45 POC ABG Total CO2 24 04/16/17 09:45 POC ABG O2 Sat 94 04/16/17 09:45 POC ABG Base Excess -3 04/16/17 09:45 FiO2 1.5 % 04/16/17 09:45 Sodium 128 mmol/L (137-145) L 04/18/17 03:40 Potassium 4.6 mmol/L (3.6-5.0) 04/18/17 03:40 Chloride 93.5 mmol/L (98-107) L 04/18/17 03:40 Carbon Dioxide 21 mmol/L (22-30) L 04/18/17 03:40 Anion Gap 18 mmol/L 04/18/17 03:40 BUN 47 mg/dL (7-17) H 04/18/17 03:40 Creatinine 2.2 mg/dL (0.7-1.2) H 04/18/17 03:40 Estimated GFR 27 ml/min 04/18/17 03:40 BUN/Creatinine Ratio 21 % 04/18/17 03:40 Glucose 134 mg/dL (65-100) H 04/18/17 03:40 POC Glucose 121 (70-105) H 04/14/17 22:15 Lactic Acid 3.60 mmol/L (0.7-2.0) H* 04/06/17 Unknown Calcium 7.3 mg/dL (8.4-10.2) L 04/18/17 03:40 Iron 42 ug/dL (37-170) 04/09/17 11:23 TIBC 81 mcg/dL (250-450) L 04/09/17 11:23 Ferritin 2314.0 ng/mL (13.0-400.0) H 04/09/17 11:23 Total Bilirubin 0.80 mg/dL (0.1-1.2) 04/14/17 06:10 AST 73 units/L (5-40) H 04/14/17 06:10 ALT 53 units/L (7-56) 04/14/17 06:10 Alkaline Phosphatase 66 units/L (35-129) 04/14/17 06:10 Ammonia 32.0 umol/L (25-60) 04/17/17 05:50 Lactate Dehydrogenase 648 units/L (91-180) H 04/13/17 03:00 Troponin T 0.090 ng/mL (0.00-0.029) H 04/05/17 20:43 NT-Pro-B Natriuret Pep 6486 pg/mL (0-900) H 04/05/17 20:43 Serum Total Protein 3.8 g/dL (6.1-8.1) L 04/13/17 03:00 Total Protein 4.4 g/dL (6.3-8.2) L 04/14/17 06:10 Albumin 2.2 g/dL (3.9-5) L 04/14/17 06:10 Albumin/Globulin Ratio 1.0 % 04/14/17 06:10 Ivymu-9-Ufqucwufz 0.3 g/dL (0.2-0.3) 04/13/17 03:00 Iyjii-9-Fmebbbviz 0.3 g/dL (0.5-0.9) L 04/13/17 03:00 Beta Globulins 0.4 g/dL (0.2-0.5) 04/13/17 03:00 Yudc-5-Piztzkkvhadib 15.00 mg/L (<=2.51) H 04/13/17 03:00 Gamma Globulins 1.1 g/dL (0.8-1.7) 04/13/17 03:00 Abnorm Protein Band 1 see below 04/13/17 03:00 PEP Interpretation see below H 04/13/17 03:00 Triglycerides 64 mg/dL (2-149) 04/05/17 20:43 Cholesterol 98 mg/dL (50-199) 04/05/17 20:43 LDL Cholesterol Direct 54 mg/dL (50-130) 04/05/17 20:43 HDL Cholesterol 32 mg/dL (40-59) L 04/05/17 20:43 Cholesterol/HDL Ratio 3.06 % 04/05/17 20:43 Vitamin B12 1641 pg/mL (211-911) H 04/09/17 11:23 Folate 4.55 ng/mL (7.3-26.0) L 04/09/17 11:23 Immunofix Electrophor see below 04/13/17 03:00 Rheumatoid Factor 32 IU/ml (0-13) H 04/13/17 03:00 AGUSTIN Screen Negative (Negative) 04/12/17 03:00 Hepatitis A IgM Ab Non-reactive (NonReactive) 04/12/17 07:42 Hep Bs Antigen Non-reactive (Negative) 04/12/17 07:42 Hep B Core IgM Ab Non-reactive (NonReactive) 04/12/17 07:42 Hepatitis C Antibody Non-reactive (NonReactive) 04/12/17 07:42 Blood Type O POSITIVE 04/16/17 15:34 Antibody Screen Negative 04/16/17 15:34 Crossmatch See Detail 04/14/17 11:31
--- NOTE | 2017-04-18 14:39 | XRay Report ---
PORTABLE CHEST INDICATION: Aspiration pneumonia. COMPARISON: 04/13/2017 FINDINGS: Portable, frontal chest radiograph suggests slight improved hazy bibasilar pleural effusions, again obscuring the hemidiaphragms. Mild right mid lung atelectasis or scarring may again be noted. Slight fluid or thickening along the right minor fissure. No CHF. Stable cardiomediastinal silhouette, old healed left mid rib fractures, demineralized bones and old left proximal humeral/shoulder deformity. Some artifacts noted. Interval right upper extremity PICC removal. CONCLUSION: Small bibasilar pleural effusions and few other findings, as above. Thank you for the opportunity to participate in this patient's care.
--- NOTE | 2017-04-18 15:35 | Consultation ---
History of Present Illness - Reason for Consult Consult date: 04/18/17 acute renal failure, hyperkalemia, metabolic acidosis, other (hypotension) - History of Present Illness The patient is a 67-year-old AAF with medical history significant for COPD, Hypertension, CHF and Tobacco smoking who presented to the ER on 04/05/17 with shortness of breath and respiratory distress. Patient was also noted by family to have facial swelling, blistering on the legs and shortness of breath several days ago. She was hypoxic on arrival and required BiPAP. She was admitted with Acute respiratory failure, Community-acquired pneumonia, COPD exacerbation and Sepsis. Her creatinine was 0.5 on admission and peaked at 2.9 and 2.2 today. Her BP was low. Currently she is on NS at 100 ml /hr. Renal US was negative. Patient is a very poor historian. Past History Past Medical History: COPD, heart failure, hyperlipidemia, hypothyroidism, stroke Past Surgical History: Other (tubal ligation) Social history: lives with family, smoking, alcohol abuse Family history: diabetes, hypertension Medications and Allergies Allergies Allergy/AdvReac Type Severity Reaction Status Date / Time No Known Allergies Allergy Unverified 10/02/13 20:47 Home Medications Medication Instructions Recorded Confirmed Last Taken Type Aspirin [Aspirin BABY CHEW TAB] 81 mg PO QDAY #60 tab.chew 07/28/14 04/07/17 Unknown Rx Budesoni/Formotero 160-4.5(Nf) 2 puff IH BID #1 inha 07/28/14 04/07/17 Unknown Rx [Symbicort 160-4.5] Ipratropium/Albuterol Sulfate 1 ampul IH Q8HRT #90 ampul.neb 07/28/14 04/07/17 Unknown Rx [Duoneb 0.5 mg-3 mg/3 ml Soln] Levothyroxine [Synthroid] 125 mcg PO QAM #30 tablet 07/28/14 04/07/17 Unknown Rx HYDROcodone/APAP 5-325 [[place] 1 - 2 each PO Q6HR PRN #30 tablet 05/25/15 Unknown Rx 5/325] Furosemide [Lasix] 40 mg PO DAILY 04/07/17 04/07/17 Unknown History Losartan [Cozaar] 50 mg PO QDAY 04/07/17 04/07/17 Unknown History Losartan/Hydrochlorothiazide 1 each PO DAILY 04/07/17 04/07/17 Unknown History [Losartan-Hctz 50-12.5 mg Tab] Potassium Chloride 10 Meq [KCl 40 meq PO ONCE 04/07/17 04/07/17 Unknown History 10Meq/100Ml] Active Meds: Active Medications Acetaminophen (Tylenol) 650 mg PO Q6H PRN PRN Reason: Pain MILD(1-3)/Fever >100.5/YE Last Admin: 04/15/17 21:07 Dose: 650 mg Albuterol (Proventil) 2.5 mg IH Q4HRT PRN PRN Reason: Shortness Of Breath Last Admin: 04/18/17 05:03 Dose: 2.5 mg Albuterol/Ipratropium (Duoneb *Not For Prn Use*) [address] [facility] Last Admin: 04/18/17 15:14 Dose: 1 ampul Arformoterol Tartrate (Brovana Nebu) [address] [facility] Last Admin: 04/18/17 08:01 Dose: 15 mcg Budesonide (Pulmicort) [address] [facility] Last Admin: 04/18/17 08:00 Dose: 1 mg Sodium Chloride (Nacl 0.9% 1000 Ml) 1,000 mls @ 100 mls/hr IV DIRECT CRESCENCIO Levothyroxine Sodium (Synthroid) [address] [facility] Last Admin: 04/18/17 10:04 Dose: Not Given Lorazepam (Ativan) 0.5 mg IM Q8H PRN PRN Reason: Agitation Last Admin: 04/17/17 22:52 Dose: 0.5 mg Magnesium Hydroxide (Milk Of Magnesia) 30 ml PO Q4H PRN PRN Reason: Constipation Methylprednisolone Sodium Succinate (Solu-Medrol) [address] [facility] Last Admin: 04/18/17 09:39 Dose: 40 mg Multivitamins/Minerals (Theragran-M Tab) [address] [facility] Last Admin: 04/18/17 10:04 Dose: Not Given Ondansetron HCl (Zofran) 4 mg IV Q8H PRN PRN Reason: N/V unrelieved by Mehran Last Admin: 04/17/17 22:51 Dose: 4 mg Pantoprazole Sodium (Protonix) 40 mg PO QDAY CRESCENCIO Last Admin: 04/18/17 10:05 Dose: Not Given Review of Systems ROS unobtainable: due to mental status Exam - Vital Signs Vital signs: Vital Signs Pulse Resp BP Pulse Ox 92 H 28 H 138/119 99 04/05/17 15:30 04/05/17 15:30 04/05/17 15:30 04/05/17 15:30 - General Appearance General appearance: well-developed, appears stated age, frail, other (no distress) EENT: ATNC, mucous membranes moist Neck: Present: neck supple, trachea midline Respiratory: Clear to Ascultation Heart: regular, S1S2, no murmurs Gastrointestinal: Present: normoactive bowel sounds. Absent: tenderness, distended Integumentary: erythema Neurologic: other (patient is non-verbal and not following any command) Musculoskeletal: Present: other (no edema) Results - Lab Results 04/18/17 03:40 04/18/17 03:40 Most recent lab results Calcium 7.3 mg/dL (8.4-10.2) L 04/18/17 03:40 - Image Kidney/bladder ultrasound: report reviewed Assessment and Plan 1. Acute kidney Injury: OTIS in likely multifactorial in the setting of hypotension, IV contrast and severe anemia. Renal function is improving. Continue IV fluids. 2. Hyponatremia: Monitor. 3. Metabolic acidosis: Continue IV fluids. 4. Hypotension: BP is improving. 5. Hyperkalemia: Improved. 6. Anemia.
[2017-04-18] MEDS: NACL 0.9% 1000 ML 1,000 ML IV SCH (17:01)
--- NOTE | 2017-04-18 22:28 | Progress Note ---
Assessment and Plan - Patient Problems (1) Anemia Current Visit: Yes Status: Acute Plan to address problem: see orders. transfusion replacements. other w/up still pending results. see notes. (2) CHF (congestive heart failure) Current Visit: Yes Status: Chronic Qualifiers: Congestive heart failure type: combined Plan to address problem: follow you. (3) Thrombocytopenia Current Visit: Yes Status: Acute Plan to address problem: see orders. see notes. Beta -2 quite high, will await other w/up for myeloma. pending w/up results. ESLD.see notes. Subjective Date of service: 04/18/17 Principal diagnosis: anemia, cirrhosis Interval history: Patient seen/examined, resting in bed, sluggish.labs reviewed, as well as notes.Fibrinogen low, D-dimer elevated, with very high Ldh, indicating consumptive coagulopathy. She may have some auto immune d/o. along with other things l, and perhaps bkleeding contributing to her thrombocytopenia. She may benefit from some steriods.IF any procedure is intended, PLT can be given, +/_ FFP if indicated.Will continue to follow you.Still awaiting [id number]., and folate. Patient seen, resting in bed. Labs/notes reviewed, s/p replacement transfusion. Will do PNH panel.Steroid still recommended. Patient seen, resting in bed, family at the bed side, record /labs reviewed.It appears that she responded some to steroid as recommended. Patient seen today, transferred to the unit overnight due to decline as per notes/report reviewed. She remains slow/sluggish as usual.anemia persists, despite replacement transfusion.She will need GI scope, and if NL, will consider BM bx. Patient seen/examined in the ICU, record reviewed, case d/w her daughter. Patient with debility, non coherent enough due to chronic brain insult from etoh abuse, and given ESLD, her chances for even moderate functional recovery is quite grim. rec supportive care. Patient seen, resting in bed labs reviewed, and remain fair. Objective - Constitutional Vitals: Vital Signs - 12hr 04/18/17 04/18/17 04/18/17 14:36 15:18 15:28 Temperature 96.4 F L Pulse Rate 74 Pulse Rate [ 84 Anterior Bilateral Throughout] Pulse Rate [ 86 Posterior Bilateral Throughout] Respiratory 22 Rate Respiratory 16 Rate [Anterior Bilateral Throughout] Respiratory 20 Rate [Posterior Bilateral Throughout] Blood Pressure 135/89 [Left] O2 Sat by Pulse Oximetry 04/18/17 04/18/17 04/18/17 20:31 20:33 20:46 Temperature Pulse Rate Pulse Rate [ Anterior Bilateral Throughout] Pulse Rate [ 104 H 106 H Posterior Bilateral Throughout] Respiratory Rate Respiratory Rate [Anterior Bilateral Throughout] Respiratory 20 20 Rate [Posterior Bilateral Throughout] Blood Pressure [Left] O2 Sat by Pulse 100 Oximetry General appearance: Present: mild distress - EENT Eyes: PERRL, EOM intact ENT: hearing intact, clear oral mucosa Ears: bilateral: normal - Neck Neck: supple, normal ROM - Respiratory Respiratory: bilateral: diminished - Breasts Breasts: deferred - Cardiovascular Rhythm: regular Heart Sounds: Present: S1 & S2. Absent: gallop, rub Extremities: pulses intact, No edema, normal color, Full ROM - Gastrointestinal General gastrointestinal: Present: soft, non-tender, non-distended, normal bowel sounds Rectal Exam: deferred - Genitourinary Female genitourinary: deferred - Integumentary Integumentary: clear, warm, dry - Musculoskeletal Musculoskeletal: 1, strength equal bilaterally - Neurologic Neurologic: moves all extremities - Psychiatric Psychiatric: appropriate mood/affect - Labs CBC & Chem 7: 04/18/17 03:40 04/18/17 03:40 Labs: Abnormal lab results 04/18/17 04/18/17 Range/Units 03:40 03:40 WBC 19.4 H (4.5-11.0) K/mm3 RBC 2.59 L (3.65-5.03) M/mm3 Hgb 7.7 L (10.1-14.3) gm/dl Hct 23.2 L (30.3-42.9) % RDW 18.6 H (13.2-15.2) % Plt Count 106 L (140-440) K/mm3 Seg Neuts % (Manual) 96.0 H (40.0-70.0) % Lymphocytes % (Manual) 2.0 L (13.4-35.0) % Nucleated RBC % 3.0 H (0.0-0.9) % Seg Neutrophils # Man 18.6 H (1.8-7.7) K/mm3 Lymphocytes # (Manual) 0.4 L (1.2-5.4) K/mm3 Sodium 128 L (137-145) mmol/L Chloride 93.5 L (98-107) mmol/L Carbon Dioxide 21 L (22-30) mmol/L BUN 47 H (7-17) mg/dL Creatinine 2.2 H (0.7-1.2) mg/dL Glucose 134 H (65-100) mg/dL Calcium 7.3 L (8.4-10.2) mg/dL
[2017-04-19] MEDS: DUONEB *Not for PRN Use IH SCH ×4 (02:47→19:10)
[2017-04-19] MEDS: NACL 0.9% 1000 ML 1,000 ML IV SCH ×2 (05:58→14:56)
--- NOTE | 2017-04-19 09:09 | Progress Note ---
Assessment and Plan 1. Acute kidney Injury: OTIS in likely multifactorial in the setting of hypotension, IV contrast and severe anemia. Renal function is improving. Continue IV fluids. Replete Mg. 2. Hyponatremia: Improved. 3. Metabolic acidosis: Continue IV fluids. 4. Hypotension: BP is better. 5. Hyperkalemia: Improved. 6. Anemia. Subjective Date of service: 04/19/17 Principal diagnosis: anemia, cirrhosis Interval history: Patient was seen and examined at the bedside. Objective - Vital Signs Vital signs: Vital Signs - 12hr 04/18/17 23:12 Pulse Rate [ 106 H Right Radial] Respiratory 20 Rate O2 Sat by Pulse 100 Oximetry - General Appearance General appearance: well-developed, appears stated age, other (no distress) EENT: ATNC, PERRL Neck: supple Respiratory: Present: Clear to Ascultation Cardiology: regular, S1S2, no murmurs Gastrointestinal: normoactive bowel sounds, no tenderness, no distended Integumentary: erythema Neurologic: other (not following any command) Musculoskeletal: other (no edema) - Lab 04/19/17 14:42 04/19/17 14:42 Most recent lab results Calcium 7.3 mg/dL (8.4-10.2) L 04/18/17 03:40
[2017-04-19] MEDS: PULMICORT IH SCH ×3 (10:45→19:08)
[2017-04-19] MEDS: BROVANA NEBU IH SCH ×3 (11:24→19:08)
--- NOTE | 2017-04-19 12:01 | Progress Note ---
Assessment and Plan Assessment and plan: 67-year-old -[place] female with past medical history significant for chronic systolic CHF, COPD, anemia presented to the emergency department for the complaints of shortness of breath. COPD exacerbation - Patient is managed with IV Solu-Medrol, IV antibiotics, - Pulmonary is following Acute respiratory failure - Improving saturating well on [place] oxygen Sepsis, Pneumonia - Treated with IV antibiotic chronic systolic heart failure - Compensated. cont lasix Hypothyroidism (acquired) C- ont Synthyroid EtOH abuse. - CIIN protocol. Anemia - Gi consulted , FOBT is positive - Multifactorial - H/H holding Thrombocytopenia - Hematology following - Improving Dysphagia. 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 Malnutrition - Family refused O G-tube feeding and preferred to have PEG tube, GI consulted. History Interval history: patient is demented and non communicative, management plan discussed with the family members were in the room, patient has skin lesion, which was worsened recently. Patient is not eating and drinking and family refused OG tube feeding rather wants PEG tube and GI consulted. Hospitalist Physical - Physical exam Narrative exam: Not in cardiopulmonary distress. On intranasal oxygen The patient appeared well nourished and normally developed. Vital signs as documented. Head exam is unremarkable. No scleral icterus . Neck is without jugular venous distension, thyromegaly, or carotid bruits. Lungs are clear to auscultation. Cardiac exam reveals regular rate and Rhythm. First and second heart sounds normal. No murmurs, rubs or gallops. Abdominal exam reveals normal bowel sounds, no masses, no organomegaly and no aortic enlargement. Extremities are nonedematous and both femoral and pedal pulses are normal. Skin sloughed skin all over, ~35% LOAN OFFICER: Patient is sleepy, and communicative - Constitutional Vitals: Temp Pulse Resp BP Pulse Ox 98.3 F 82 21 139/90 87 04/19/17 05:13 04/19/17 09:19 04/19/17 05:13 04/19/17 09:19 04/19/17 09:19 General appearance: Present: mild distress Results - Labs CBC & Chem 7: 04/18/17 03:40 04/18/17 03:40 Labs: Laboratory Last Values WBC 19.4 K/mm3 (4.5-11.0) H 04/18/17 03:40 RBC 2.59 M/mm3 (3.65-5.03) L 04/18/17 03:40 Hgb 7.7 gm/dl (10.1-14.3) L 04/18/17 03:40 Hct 23.2 % (30.3-42.9) L 04/18/17 03:40 MCV 90 fl (79-97) 04/18/17 03:40 MCH 30 pg (28-32) 04/18/17 03:40 MCHC 33 % (30-34) 04/18/17 03:40 RDW 18.6 % (13.2-15.2) H 04/18/17 03:40 Plt Count 106 K/mm3 (140-440) L 04/18/17 03:40 [place] % (Auto) 3.1 % (0.0-7.3) 04/16/17 05:30 Eos % (Auto) 0.0 % (0.0-4.3) 04/16/17 05:30 [place] # 0.7 K/mm3 (0.0-0.8) 04/16/17 05:30 Eos # 0.0 K/mm3 (0.0-0.4) 04/16/17 05:30 Baso # 0.1 K/mm3 (0.0-0.1) 04/16/17 05:30 Add Manual Diff Complete 04/18/17 03:40 Total Counted 100 04/18/17 03:40 Seg Neutrophils % Heating And Ventilating Tender 04/18/17 03:40 Seg Neuts % (Manual) 96.0 % (40.0-70.0) H 04/18/17 03:40 Band Neutrophils % 0 % 04/18/17 03:40 Lymphocytes % (Manual) 2.0 % (13.4-35.0) L 04/18/17 03:40 Reactive Lymphs % (Man) 0 % 04/18/17 03:40 Monocytes % (Manual) 2.0 % (0.0-7.3) 04/18/17 03:40 Eosinophils % (Manual) 0 % (0.0-4.3) 04/18/17 03:40 Basophils % (Manual) 0 % (0.0-1.8) 04/18/17 03:40 Metamyelocytes % 0 % 04/18/17 03:40 Myelocytes % 0 % 04/18/17 03:40 Promyelocytes % 0 % 04/18/17 03:40 Blast Cells % 0 % 04/18/17 03:40 Nucleated RBC % 3.0 % (0.0-0.9) H 04/18/17 03:40 Seg Neutrophils # 21.5 K/mm3 (1.8-7.7) H 04/16/17 05:30 Seg Neutrophils # Man 18.6 K/mm3 (1.8-7.7) H 04/18/17 03:40 Band Neutrophils # 0.0 K/mm3 04/18/17 03:40 Lymphocytes # (Manual) 0.4 K/mm3 (1.2-5.4) L 04/18/17 03:40 Abs React Lymphs (Man) 0.0 K/mm3 04/18/17 03:40 Monocytes # (Manual) 0.4 K/mm3 (0.0-0.8) 04/18/17 03:40 Eosinophils # (Manual) 0.0 K/mm3 (0.0-0.4) 04/18/17 03:40 Basophils # (Manual) 0.0 K/mm3 (0.0-0.1) 04/18/17 03:40 Metamyelocytes # 0.0 K/mm3 04/18/17 03:40 Myelocytes # 0.0 K/mm3 04/18/17 03:40 Promyelocytes # 0.0 K/mm3 04/18/17 03:40 Blast Cells # 0.0 K/mm3 04/18/17 03:40 WBC Morphology Not Reportable 04/18/17 03:40 Hypersegmented Neuts Not Reportable 04/18/17 03:40 Hyposegmented Neuts Not Reportable 04/18/17 03:40 Hypogranular Neuts Not Reportable 04/18/17 03:40 Smudge Cells Not Reportable 04/18/17 03:40 Toxic Granulation Not Reportable 04/18/17 03:40 Toxic Vacuolation Not Reportable 04/18/17 03:40 Dohle Bodies Not Reportable 04/18/17 03:40 Pelger-Huet Anomaly Not Reportable 04/18/17 03:40 Monique Rods Not Reportable 04/18/17 03:40 Platelet Estimate Consistent w auto 04/18/17 03:40 Clumped Platelets Not Reportable 04/18/17 03:40 Plt Clumps, EDTA Not Reportable 04/18/17 03:40 Large Platelets Not Reportable 04/18/17 03:40 Giant Platelets Not Reportable 04/18/17 03:40 Platelet Satelliting Not Reportable 04/18/17 03:40 Plt Morphology Comment Not Reportable 04/18/17 03:40 RBC Morphology Not Reportable 04/18/17 03:40 Dimorphic RBCs Not Reportable 04/18/17 03:40 Polychromasia Not Reportable 04/18/17 03:40 Hypochromasia Not Reportable 04/18/17 03:40 Poikilocytosis Not Reportable 04/18/17 03:40 Anisocytosis 1+ 04/18/17 03:40 Microcytosis Not Reportable 04/18/17 03:40 Macrocytosis 1+ 04/18/17 03:40 Spherocytes Not Reportable 04/18/17 03:40 Pappenheimer Bodies Not Reportable 04/18/17 03:40 Sickle Cells Not Reportable 04/18/17 03:40 Target Cells 1+ 04/18/17 03:40 Tear Drop Cells Not Reportable 04/18/17 03:40 Ovalocytes Not Reportable 04/18/17 03:40 Helmet Cells Not Reportable 04/18/17 03:40 Aparicio-Lantry Bodies Not Reportable 04/18/17 03:40 [place] Rings Not Reportable 04/18/17 03:40 [place] Cells Not Reportable 04/18/17 03:40 Bite Cells Not Reportable 04/18/17 03:40 Crenated Cell Not Reportable 04/18/17 03:40 Elliptocytes Not Reportable 04/18/17 03:40 Acanthocytes (Spur) Not Reportable 04/18/17 03:40 Rouleaux Not Reportable 04/18/17 03:40 Hemoglobin C Crystals Not Reportable 04/18/17 03:40 Schistocytes Not Reportable 04/18/17 03:40 Malaria parasites Not Reportable 04/18/17 03:40 ESR 24 mm/Hr (0-20) 04/13/17 03:00 Percent Retic 1.53 % (0.78-2.58) 04/09/17 11:23 Vincent Bodies Not Reportable 04/18/17 03:40 Haptoglobin 70 mg/dL (43-212) 04/16/17 18:20 Hem Pathologist Commnt No 04/18/17 03:40 PT 16.1 Sec. (12.2-14.9) H 04/16/17 09:55 INR 1.22 (0.87-1.13) H 04/16/17 09:55 APTT 34.1 Sec. (24.2-36.6) 04/16/17 09:55 Fibrinogen 153 mg/dl (211-480) L 04/13/17 03:00 D-Dimer 2989.51 ng/mlDDU (0-234) H 04/13/17 03:00 Lupus Anticoagulant see below 04/13/17 03:00 POC ABG pH 7.356 (7.35-7.45) 04/16/17 09:45 POC ABG pCO2 40.4 (35-45) 04/16/17 09:45 POC ABG pO2 75 (80-105) L 04/16/17 09:45 POC ABG HCO3 22.6 04/16/17 09:45 POC ABG Total CO2 24 04/16/17 09:45 POC ABG O2 Sat 94 04/16/17 09:45 POC ABG Base Excess -3 04/16/17 09:45 FiO2 1.5 % 04/16/17 09:45 Sodium 128 mmol/L (137-145) L 04/18/17 03:40 Potassium 4.6 mmol/L (3.6-5.0) 04/18/17 03:40 Chloride 93.5 mmol/L (98-107) L 04/18/17 03:40 Carbon Dioxide 21 mmol/L (22-30) L 04/18/17 03:40 Anion Gap 18 mmol/L 04/18/17 03:40 BUN 47 mg/dL (7-17) H 04/18/17 03:40 Creatinine 2.2 mg/dL (0.7-1.2) H 04/18/17 03:40 Estimated GFR 27 ml/min 04/18/17 03:40 BUN/Creatinine Ratio 21 % 04/18/17 03:40 Glucose 134 mg/dL (65-100) H 04/18/17 03:40 POC Glucose 121 (70-105) H 04/14/17 22:15 Lactic Acid 3.60 mmol/L (0.7-2.0) H* 04/06/17 Unknown Calcium 7.3 mg/dL (8.4-10.2) L 04/18/17 03:40 Iron 42 ug/dL (37-170) 04/09/17 11:23 TIBC 81 mcg/dL (250-450) L 04/09/17 11:23 Ferritin 2314.0 ng/mL (13.0-400.0) H 04/09/17 11:23 Total Bilirubin 0.80 mg/dL (0.1-1.2) 04/14/17 06:10 AST 73 units/L (5-40) H 04/14/17 06:10 ALT 53 units/L (7-56) 04/14/17 06:10 Alkaline Phosphatase 66 units/L (35-129) 04/14/17 06:10 Ammonia 32.0 umol/L (25-60) 04/17/17 05:50 Lactate Dehydrogenase 648 units/L (91-180) H 04/13/17 03:00 Troponin T 0.090 ng/mL (0.00-0.029) H 04/05/17 20:43 NT-Pro-B Natriuret Pep 6486 pg/mL (0-900) H 04/05/17 20:43 Serum Total Protein 3.8 g/dL (6.1-8.1) L 04/13/17 03:00 Total Protein 4.4 g/dL (6.3-8.2) L 04/14/17 06:10 Albumin 2.2 g/dL (3.9-5) L 04/14/17 06:10 Albumin/Globulin Ratio 1.0 % 04/14/17 06:10 Zkyky-6-Nigiezocz 0.3 g/dL (0.2-0.3) 04/13/17 03:00 Sonog-5-Jeibkjfhp 0.3 g/dL (0.5-0.9) L 04/13/17 03:00 Beta Globulins 0.4 g/dL (0.2-0.5) 04/13/17 03:00 Oyqs-5-Tlwheappzjmdz 15.00 mg/L (<=2.51) H 04/13/17 03:00 Gamma Globulins 1.1 g/dL (0.8-1.7) 04/13/17 03:00 Abnorm Protein Band 1 see below 04/13/17 03:00 PEP Interpretation see below H 04/13/17 03:00 Triglycerides 64 mg/dL (2-149) 04/05/17 20:43 Cholesterol 98 mg/dL (50-199) 04/05/17 20:43 LDL Cholesterol Direct 54 mg/dL (50-130) 04/05/17 20:43 HDL Cholesterol 32 mg/dL (40-59) L 04/05/17 20:43 Cholesterol/HDL Ratio 3.06 % 04/05/17 20:43 Vitamin B12 1641 pg/mL (211-911) H 04/09/17 11:23 Folate 4.55 ng/mL (7.3-26.0) L 04/09/17 11:23 Immunofix Electrophor see below 04/13/17 03:00 Rheumatoid Factor 32 IU/ml (0-13) H 04/13/17 03:00 AGUSTIN Screen Negative (Negative) 04/12/17 03:00 Hepatitis A IgM Ab Non-reactive (NonReactive) 04/12/17 07:42 Hep Bs Antigen Non-reactive (Negative) 04/12/17 07:42 Hep B Core IgM Ab Non-reactive (NonReactive) 04/12/17 07:42 Hepatitis C Antibody Non-reactive (NonReactive) 04/12/17 07:42 Blood Type O POSITIVE 04/16/17 15:34 Antibody Screen Negative 04/16/17 15:34 Crossmatch See Detail 04/14/17 11:31
[2017-04-19] MEDS: THERAGRAN-M Tab PO SCH (12:49)
[2017-04-19] MEDS: PROTONIX PO SCH (12:49)
[2017-04-19] MEDS: SYNTHROID PO SCH (12:49)
[2017-04-19 15:32] LABS: Calcium 7.8 mg/dL (8.4-10.2)
[2017-04-19 15:33] LABS: Hematocrit 22.6 % (30.3-42.9); Hemoglobin 7.1 gm/dl (10.1-14.3); Mean Corpuscular HGB Conc 31 % (30-34); Mean Corpuscular Hemoglobin 29 pg (28-32); Mean Corpuscular Volume 92 fl (79-97); Red Blood Count 2.45 M/mm3 (3.65-5.03); Red Cell Distribution Width 19.6 % (13.2-15.2)
--- NOTE | 2017-04-19 16:36 | Progress Note ---
Assessment and Plan - Patient Problems (1) Anemia Current Visit: Yes Status: Acute Plan to address problem: see orders. transfusion replacements. other w/up still pending results. see notes. (2) CHF (congestive heart failure) Current Visit: Yes Status: Chronic Qualifiers: Congestive heart failure type: combined Plan to address problem: follow you. (3) Thrombocytopenia Current Visit: Yes Status: Acute Plan to address problem: see orders. see notes. Beta -2 quite high, will await other w/up for myeloma. pending w/up results. ESLD.see notes. replacement therapy if / when indicated. Subjective Date of service: 04/19/17 Principal diagnosis: anemia, cirrhosis Interval history: Patient seen/examined, resting in bed, sluggish.labs reviewed, as well as notes.Fibrinogen low, D-dimer elevated, with very high Ldh, indicating consumptive coagulopathy. She may have some auto immune d/o. along with other things l, and perhaps bkleeding contributing to her thrombocytopenia. She may benefit from some steriods.IF any procedure is intended, PLT can be given, +/_ FFP if indicated.Will continue to follow you.Still awaiting [id number]., and folate. Patient seen, resting in bed. Labs/notes reviewed, s/p replacement transfusion. Will do PNH panel.Steroid still recommended. Patient seen, resting in bed, family at the bed side, record /labs reviewed.It appears that she responded some to steroid as recommended. Patient seen today, transferred to the unit overnight due to decline as per notes/report reviewed. She remains slow/sluggish as usual.anemia persists, despite replacement transfusion.She will need GI scope, and if NL, will consider BM bx. Patient seen/examined in the ICU, record reviewed, case d/w her daughter. Patient with debility, non coherent enough due to chronic brain insult from etoh abuse, and given ESLD, her chances for even moderate functional recovery is quite grim. rec supportive care. Patient seen, resting in bed labs reviewed, and remain fair. Patient seen today, resting in bed, labs /notes reviewed. Hgb 7.1. if less than 7.0, may be transfused with PRBC. Objective - Constitutional Vitals: Vital Signs - 12hr 04/19/17 04/19/17 05:13 09:19 Temperature 98.3 F Pulse Rate 82 Respiratory 21 Rate Blood Pressure 150/97 139/90 O2 Sat by Pulse 87 Oximetry General appearance: Present: mild distress - EENT Eyes: PERRL, EOM intact ENT: hearing intact, clear oral mucosa Ears: bilateral: normal - Neck Neck: supple, normal ROM - Respiratory Respiratory effort: normal Respiratory: bilateral: CTA - Breasts Breasts: deferred - Cardiovascular Rhythm: regular Heart Sounds: Present: S1 & S2. Absent: gallop, rub Extremities: pulses intact, No edema, normal color, Full ROM - Gastrointestinal General gastrointestinal: Present: soft, non-tender, non-distended, normal bowel sounds Rectal Exam: deferred - Genitourinary Female genitourinary: deferred - Integumentary Integumentary: clear, warm, dry - Musculoskeletal Musculoskeletal: 1, strength equal bilaterally - Neurologic Neurologic: moves all extremities - Psychiatric Psychiatric: appropriate mood/affect - Labs CBC & Chem 7: 04/19/17 14:42 04/19/17 14:42 Labs: Abnormal lab results 04/19/17 04/19/17 Range/Units 14:42 14:42 WBC 15.5 H (4.5-11.0) K/mm3 RBC 2.45 L (3.65-5.03) M/mm3 Hgb 7.1 L (10.1-14.3) gm/dl Hct 22.6 L (30.3-42.9) % RDW 19.6 H (13.2-15.2) % Carbon Dioxide 20 L (22-30) mmol/L BUN 47 H (7-17) mg/dL Creatinine 1.9 H (0.7-1.2) mg/dL Glucose 111 H (65-100) mg/dL Calcium 7.8 L (8.4-10.2) mg/dL Magnesium 1.00 L (1.7-2.3) mg/dL Total Creatine Kinase 487 H (30-135) units/L
[2017-04-19 16:54] LABS: Band Neutrophils # (Manual) 3.1 K/mm3; Basophils % (Manual) 0 % (0.0-1.8); Eosinophils % (Manual) 0 % (0.0-4.3); Total Cells Counted 100
[2017-04-19 16:55] LABS: Anisocytosis 2+; Dimorphic RBC Yes; Target Cells 1+
[2017-04-19 16:56] LABS: Giant Platelets Few; Hypochromasia 1+; Macrocytosis 1+; Platelet Estimate Consistent w Auto; Poikilocytosis Few
[2017-04-19] MEDS ORDERED: MAGNESIUM SULFATE 4GM/100ML 4 GM/100 ML BAG IV ONE (20:00)
[2017-04-19 23:20] LABS: Platelet Count 89 K/mm3 (140-440)
[2017-04-20] MEDS: NACL 0.9% 1000 ML 1,000 ML IV SCH ×2 (02:14→13:28)
[2017-04-20] MEDS: DUONEB *Not for PRN Use IH SCH ×4 (03:15→22:04)
[2017-04-20 04:54] LABS: Magnesium 1.3 mg/dL (1.7-2.3)
[2017-04-20 05:15] LABS: Calcium 7.9 mg/dL (8.4-10.2)
[2017-04-20] MEDS: PULMICORT IH SCH ×2 (07:39→22:03)
[2017-04-20] MEDS: BROVANA NEBU IH SCH ×2 (07:39→22:04)
[2017-04-20] MEDS ORDERED: MAGNESIUM SULFATE 4GM/100ML 4 GM/100 ML BAG IV ONE (08:40)
--- NOTE | 2017-04-20 09:50 | Fluoroscopy Report ---
MODIFIED BARIUM SWALLOW History: dysphagia. Findings: Video radiography was provided by the radiologist for speech therapy to assess the swallowing mechanism. Please refer to the formal report by speech therapy. Impression: Successful modified barium swallow.
[2017-04-20] MEDS: SYNTHROID PO SCH (12:34)
[2017-04-20] MEDS: PROTONIX PO SCH (12:34)
[2017-04-20] MEDS: THERAGRAN-M Tab PO SCH (12:34)
--- NOTE | 2017-04-20 12:55 | Progress Note ---
Assessment and Plan 1. Acute kidney Injury: OTIS in likely multifactorial in the setting of hypotension, IV contrast and severe anemia. Renal function is improving. Continue IV fluids. Replete Mg. 2. Hyponatremia: Improved. 3. Metabolic acidosis: Continue IV fluids. 4. Hypotension: BP is better. 5. Hyperkalemia: Improved. 6. Anemia. D/w family members. Subjective Date of service: 04/20/17 Principal diagnosis: anemia, cirrhosis Interval history: Patient was seen and examined at the bedside. No new complaint. Objective - Vital Signs Vital signs: Vital Signs - 12hr 04/20/17 04/20/17 04/20/17 06:38 07:39 07:56 Temperature 97.5 F L Pulse Rate 76 Pulse Rate [ 74 78 Posterior Bilateral Throughout] Respiratory 20 Rate Respiratory 16 16 Rate [Posterior Bilateral Throughout] Blood Pressure 139/89 Blood Pressure [Left] O2 Sat by Pulse 92 Oximetry 04/20/17 04/20/17 08:00 08:32 Temperature Pulse Rate 75 Pulse Rate [ Posterior Bilateral Throughout] Respiratory 18 Rate Respiratory Rate [Posterior Bilateral Throughout] Blood Pressure 133/90 Blood Pressure 133/90 [Left] O2 Sat by Pulse 96 90 Oximetry - General Appearance General appearance: well-developed, appears stated age, other (no distress) EENT: ATNC, PERRL, hearing intact Neck: supple Respiratory: Present: Clear to Ascultation Cardiology: regular, S1S2, no murmurs Gastrointestinal: normoactive bowel sounds Integumentary: erythema Neurologic: other (not following any command, able to move extremities) Musculoskeletal: other (no edema) - Lab 04/19/17 14:42 04/20/17 04:00 Most recent lab results Calcium 7.9 mg/dL (8.4-10.2) L 04/20/17 04:00 Phosphorus 3.60 mg/dL (2.5-4.5) 04/20/17 04:00 Magnesium 1.30 mg/dL (1.7-2.3) L 04/20/17 04:00
--- NOTE | 2017-04-20 13:21 | Progress Note ---
Assessment and Plan Assessment and plan: 67-year-old -Welsh female with past medical history significant for chronic systolic CHF, COPD, anemia presented to the emergency department for the complaints of shortness of breath. COPD exacerbation - Patient is managed with IV Solu-Medrol, IV antibiotics, - Pulmonary is following Acute respiratory failure - Improving saturating well on [place] oxygen Sepsis, Pneumonia - Treated with IV antibiotic chronic systolic heart failure - Compensated. cont lasix Hypothyroidism (acquired) - Cont Synthyroid EtOH abuse. - [facility] protocol. Anemia - Gi consulted , FOBT is positive - Multifactorial - hemoglobin is 7.1 - Will monitor H/H. Thrombocytopenia - Hematology following - Improving Dysphagia. 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 Patient needs Meneses catheter, patient has skin lesion and is incontinent to urine. Malnutrition - Patient elder daughter who claimed she is the decision maker agreed with PEG History Interval history: patient is demented and non communicative, management plan discussed with multiple family members and each family member is telling me they are a decision maker. Hospitalist Physical - Physical exam Narrative exam: Not in cardiopulmonary distress. On intranasal oxygen The patient appeared well nourished and normally developed. Vital signs as documented. Head exam is unremarkable. No scleral icterus . Neck is without jugular venous distension, thyromegaly, or carotid bruits. Lungs are clear to auscultation. Cardiac exam reveals regular rate and Rhythm. First and second heart sounds normal. No murmurs, rubs or gallops. Abdominal exam reveals normal bowel sounds, no masses, no organomegaly and no aortic enlargement. Extremities are nonedematous and both femoral and pedal pulses are normal. Skin sloughed skin, getting better. HEALTH AND WELLNESS ADVISOR: Patient is sleepy, and communicative - Constitutional Vitals: Temp Pulse Resp BP Pulse Ox 97.5 F L 62 18 138/92 95 04/20/17 06:38 04/20/17 12:36 04/20/17 08:32 04/20/17 12:36 04/20/17 12:36 General appearance: Present: mild distress Results - Labs CBC & Chem 7: 04/19/17 14:42 04/20/17 04:00 Labs: Laboratory Last Values WBC 15.5 K/mm3 (4.5-11.0) H 04/19/17 14:42 RBC 2.45 M/mm3 (3.65-5.03) L 04/19/17 14:42 Hgb 7.1 gm/dl (10.1-14.3) L 04/19/17 14:42 Hct 22.6 % (30.3-42.9) L 04/19/17 14:42 MCV 92 fl (79-97) 04/19/17 14:42 MCH 29 pg (28-32) 04/19/17 14:42 MCHC 31 % (30-34) 04/19/17 14:42 RDW 19.6 % (13.2-15.2) H 04/19/17 14:42 Plt Count 89 K/mm3 (140-440) L 04/19/17 14:42 [place] % (Auto) 3.1 % (0.0-7.3) 04/16/17 05:30 Eos % (Auto) 0.0 % (0.0-4.3) 04/16/17 05:30 [place] # 0.7 K/mm3 (0.0-0.8) 04/16/17 05:30 Eos # 0.0 K/mm3 (0.0-0.4) 04/16/17 05:30 Baso # 0.1 K/mm3 (0.0-0.1) 04/16/17 05:30 Add Manual Diff Complete 04/19/17 14:42 Total Counted 100 04/19/17 14:42 Seg Neutrophils % City Dispatch Supervisor 04/19/17 14:42 Seg Neuts % (Manual) 78.0 % (40.0-70.0) H 04/19/17 14:42 Band Neutrophils % 20.0 % 04/19/17 14:42 Lymphocytes % (Manual) 0 % (13.4-35.0) L 04/19/17 14:42 Reactive Lymphs % (Man) 0 % 04/19/17 14:42 Monocytes % (Manual) 2.0 % (0.0-7.3) 04/19/17 14:42 Eosinophils % (Manual) 0 % (0.0-4.3) 04/19/17 14:42 Basophils % (Manual) 0 % (0.0-1.8) 04/19/17 14:42 Metamyelocytes % 0 % 04/19/17 14:42 Myelocytes % 0 % 04/19/17 14:42 Promyelocytes % 0 % 04/19/17 14:42 Blast Cells % 0 % 04/19/17 14:42 Nucleated RBC % 4.0 % (0.0-0.9) H 04/19/17 14:42 Seg Neutrophils # 21.5 K/mm3 (1.8-7.7) H 04/16/17 05:30 Seg Neutrophils # Man 12.1 K/mm3 (1.8-7.7) H 04/19/17 14:42 Band Neutrophils # 3.1 K/mm3 04/19/17 14:42 Lymphocytes # (Manual) 0.0 K/mm3 (1.2-5.4) L 04/19/17 14:42 Abs React Lymphs (Man) 0.0 K/mm3 04/19/17 14:42 Monocytes # (Manual) 0.3 K/mm3 (0.0-0.8) 04/19/17 14:42 Eosinophils # (Manual) 0.0 K/mm3 (0.0-0.4) 04/19/17 14:42 Basophils # (Manual) 0.0 K/mm3 (0.0-0.1) 04/19/17 14:42 Metamyelocytes # 0.0 K/mm3 04/19/17 14:42 Myelocytes # 0.0 K/mm3 04/19/17 14:42 Promyelocytes # 0.0 K/mm3 04/19/17 14:42 Blast Cells # 0.0 K/mm3 04/19/17 14:42 WBC Morphology Not Reportable 04/19/17 14:42 Hypersegmented Neuts Not Reportable 04/19/17 14:42 Hyposegmented Neuts Not Reportable 04/19/17 14:42 Hypogranular Neuts Not Reportable 04/19/17 14:42 Smudge Cells Not Reportable 04/19/17 14:42 Toxic Granulation Not Reportable 04/19/17 14:42 Toxic Vacuolation Not Reportable 04/19/17 14:42 Dohle Bodies Not Reportable 04/19/17 14:42 Pelger-Huet Anomaly Not Reportable 04/19/17 14:42 Monique Rods Not Reportable 04/19/17 14:42 Platelet Estimate Consistent w auto 04/19/17 14:42 Clumped Platelets Not Reportable 04/19/17 14:42 Plt Clumps, EDTA Not Reportable 04/19/17 14:42 Large Platelets Not Reportable 04/19/17 14:42 Giant Platelets Few 04/19/17 14:42 Platelet Satelliting Not Reportable 04/19/17 14:42 Plt Morphology Comment Not Reportable 04/19/17 14:42 RBC Morphology Not Reportable 04/19/17 14:42 Dimorphic RBCs Yes 04/19/17 14:42 Polychromasia Not Reportable 04/19/17 14:42 Hypochromasia 1+ 04/19/17 14:42 Poikilocytosis Few 04/19/17 14:42 Anisocytosis 2+ 04/19/17 14:42 Microcytosis Not Reportable 04/19/17 14:42 Macrocytosis 1+ 04/19/17 14:42 Spherocytes Not Reportable 04/19/17 14:42 Pappenheimer Bodies Not Reportable 04/19/17 14:42 Sickle Cells Not Reportable 04/19/17 14:42 Target Cells 1+ 04/19/17 14:42 Tear Drop Cells Not Reportable 04/19/17 14:42 Ovalocytes Not Reportable 04/19/17 14:42 Helmet Cells Not Reportable 04/19/17 14:42 [place] Bodies Not Reportable 04/19/17 14:42 [place] Rings Not Reportable 04/19/17 14:42 [place] Cells Not Reportable 04/19/17 14:42 Bite Cells Not Reportable 04/19/17 14:42 Crenated Cell Not Reportable 04/19/17 14:42 Elliptocytes Not Reportable 04/19/17 14:42 Acanthocytes (Spur) Not Reportable 04/19/17 14:42 Rouleaux Not Reportable 04/19/17 14:42 Hemoglobin C Crystals Not Reportable 04/19/17 14:42 Schistocytes Not Reportable 04/19/17 14:42 Malaria parasites Not Reportable 04/19/17 14:42 ESR 24 mm/Hr (0-20) 04/13/17 03:00 Percent Retic 1.53 % (0.78-2.58) 04/09/17 11:23 Vincent Bodies Not Reportable 04/19/17 14:42 Haptoglobin 70 mg/dL (43-212) 04/16/17 18:20 Hem Pathologist Commnt No 04/19/17 14:42 PT 16.1 Sec. (12.2-14.9) H 04/16/17 09:55 INR 1.22 (0.87-1.13) H 04/16/17 09:55 APTT 34.1 Sec. (24.2-36.6) 04/16/17 09:55 Fibrinogen 153 mg/dl (211-480) L 04/13/17 03:00 D-Dimer 2989.51 ng/mlDDU (0-234) H 04/13/17 03:00 Lupus Anticoagulant see below 04/13/17 03:00 POC ABG pH 7.356 (7.35-7.45) 04/16/17 09:45 POC ABG pCO2 40.4 (35-45) 04/16/17 09:45 POC ABG pO2 75 (80-105) L 04/16/17 09:45 POC ABG HCO3 22.6 04/16/17 09:45 POC ABG Total CO2 24 04/16/17 09:45 POC ABG O2 Sat 94 04/16/17 09:45 POC ABG Base Excess -3 04/16/17 09:45 FiO2 1.5 % 04/16/17 09:45 Sodium 138 mmol/L (137-145) 04/20/17 04:00 Potassium 5.0 mmol/L (3.6-5.0) 04/20/17 04:00 Chloride 99.5 mmol/L (98-107) 04/20/17 04:00 Carbon Dioxide 17 mmol/L (22-30) L 04/20/17 04:00 Anion Gap 27 mmol/L 04/20/17 04:00 BUN 44 mg/dL (7-17) H 04/20/17 04:00 Creatinine 1.9 mg/dL (0.7-1.2) H 04/20/17 04:00 Estimated GFR 32 ml/min 04/20/17 04:00 BUN/Creatinine Ratio 23 % 04/20/17 04:00 Glucose 42 mg/dL (65-100) L 04/20/17 04:00 POC Glucose 121 (70-105) H 04/14/17 22:15 Lactic Acid 3.60 mmol/L (0.7-2.0) H* 04/06/17 Unknown Calcium 7.9 mg/dL (8.4-10.2) L 04/20/17 04:00 Phosphorus 3.60 mg/dL (2.5-4.5) 04/20/17 04:00 Magnesium 1.30 mg/dL (1.7-2.3) L 04/20/17 04:00 Iron 42 ug/dL (37-170) 04/09/17 11:23 TIBC 81 mcg/dL (250-450) L 04/09/17 11:23 Ferritin 2314.0 ng/mL (13.0-400.0) H 04/09/17 11:23 Total Bilirubin 0.80 mg/dL (0.1-1.2) 04/14/17 06:10 AST 73 units/L (5-40) H 04/14/17 06:10 ALT 53 units/L (7-56) 04/14/17 06:10 Alkaline Phosphatase 66 units/L (35-129) 04/14/17 06:10 Ammonia 32.0 umol/L (25-60) 04/17/17 05:50 Lactate Dehydrogenase 648 units/L (91-180) H 04/13/17 03:00 Total Creatine Kinase 443 units/L (30-135) H 04/20/17 04:00 Troponin T 0.090 ng/mL (0.00-0.029) H 04/05/17 20:43 NT-Pro-B Natriuret Pep 6486 pg/mL (0-900) H 04/05/17 20:43 Serum Total Protein 3.8 g/dL (6.1-8.1) L 04/13/17 03:00 Total Protein 4.4 g/dL (6.3-8.2) L 04/14/17 06:10 Albumin 2.2 g/dL (3.9-5) L 04/14/17 06:10 Albumin/Globulin Ratio 1.0 % 04/14/17 06:10 Hshkm-1-Bwyskbzeq 0.3 g/dL (0.2-0.3) 04/13/17 03:00 Txuew-6-Ikqqmbshn 0.3 g/dL (0.5-0.9) L 04/13/17 03:00 Beta Globulins 0.4 g/dL (0.2-0.5) 04/13/17 03:00 Mdju-4-Kdrqdlajtjdsm 15.00 mg/L (<=2.51) H 04/13/17 03:00 Gamma Globulins 1.1 g/dL (0.8-1.7) 04/13/17 03:00 Abnorm Protein Band 1 see below 04/13/17 03:00 PEP Interpretation see below H 04/13/17 03:00 Triglycerides 64 mg/dL (2-149) 04/05/17 20:43 Cholesterol 98 mg/dL (50-199) 04/05/17 20:43 LDL Cholesterol Direct 54 mg/dL (50-130) 04/05/17 20:43 HDL Cholesterol 32 mg/dL (40-59) L 04/05/17 20:43 Cholesterol/HDL Ratio 3.06 % 04/05/17 20:43 Vitamin B12 1641 pg/mL (211-911) H 04/09/17 11:23 Folate 4.55 ng/mL (7.3-26.0) L 04/09/17 11:23 Immunofix Electrophor see below 04/13/17 03:00 Rheumatoid Factor 32 IU/ml (0-13) H 04/13/17 03:00 AGUSTIN Screen Negative (Negative) 04/12/17 03:00 Hepatitis A IgM Ab Non-reactive (NonReactive) 04/12/17 07:42 Hep Bs Antigen Non-reactive (Negative) 04/12/17 07:42 Hep B Core IgM Ab Non-reactive (NonReactive) 04/12/17 07:42 Hepatitis C Antibody Non-reactive (NonReactive) 04/12/17 07:42 Parvovirus B19 IgG Ab 1.3 (<0.9) H 04/16/17 15:30 Parvovirus B19 IgM Ab 0.1 (<0.9) 04/16/17 15:30 Blood Type O POSITIVE 04/16/17 15:34 Antibody Screen Negative 04/16/17 15:34 Crossmatch See Detail 04/14/17 11:31
--- NOTE | 2017-04-20 13:49 | Progress Note ---
Assessment and Plan - Patient Problems (1) Anemia Current Visit: Yes Status: Acute Plan to address problem: see orders. transfusion replacements. other w/up still pending results. see notes. (2) CHF (congestive heart failure) Current Visit: Yes Status: Chronic Qualifiers: Congestive heart failure type: combined Plan to address problem: follow you. (3) Thrombocytopenia Current Visit: Yes Status: Acute Plan to address problem: see orders. see notes. Beta -2 quite high, will await other w/up for myeloma. pending w/up results. ESLD.see notes. replacement therapy if / when indicated. Subjective Date of service: 04/20/17 Principal diagnosis: anemia, cirrhosis Interval history: Patient seen/examined, resting in bed, sluggish.labs reviewed, as well as notes.Fibrinogen low, D-dimer elevated, with very high Ldh, indicating consumptive coagulopathy. She may have some auto immune d/o. along with other things l, and perhaps bkleeding contributing to her thrombocytopenia. She may benefit from some steriods.IF any procedure is intended, PLT can be given, +/_ FFP if indicated.Will continue to follow you.Still awaiting [id number]., and folate. Patient seen, resting in bed. Labs/notes reviewed, s/p replacement transfusion. Will do PNH panel.Steroid still recommended. Patient seen, resting in bed, family at the bed side, record /labs reviewed.It appears that she responded some to steroid as recommended. Patient seen today, transferred to the unit overnight due to decline as per notes/report reviewed. She remains slow/sluggish as usual.anemia persists, despite replacement transfusion.She will need GI scope, and if NL, will consider BM bx. Patient seen/examined in the ICU, record reviewed, case d/w her daughter. Patient with debility, non coherent enough due to chronic brain insult from etoh abuse, and given ESLD, her chances for even moderate functional recovery is quite grim. rec supportive care. Patient seen, resting in bed labs reviewed, and remain fair. Patient seen today, resting in bed, labs /notes reviewed. Hgb 7.1. if less than 7.0, may be transfused with PRBC Patient seen/examined, resting in bed, labs reviewed, CPK elevated. Objective - Constitutional Vitals: Vital Signs - 12hr 04/20/17 04/20/1718 06:38 07:39 07:56 Temperature 97.5 F L Pulse Rate 76 Pulse Rate [ 74 78 Posterior Bilateral Throughout] Respiratory 20 Rate Respiratory 16 16 Rate [Posterior Bilateral Throughout] Blood Pressure 139/89 Blood Pressure [Left] O2 Sat by Pulse 92 Oximetry 04/20/17 04/20/17 04/20/17 08:00 08:32 12:36 Temperature Pulse Rate 75 62 Pulse Rate [ Posterior Bilateral Throughout] Respiratory 18 Rate Respiratory Rate [Posterior Bilateral Throughout] Blood Pressure 133/90 138/92 Blood Pressure 133/90 [Left] O2 Sat by Pulse 96 90 95 Oximetry General appearance: Present: no acute distress, well-nourished - EENT Eyes: PERRL, EOM intact ENT: hearing intact, clear oral mucosa Ears: bilateral: normal - Neck Neck: supple, normal ROM - Respiratory Respiratory effort: normal Respiratory: bilateral: CTA - Breasts Breasts: deferred - Cardiovascular Rhythm: regular Heart Sounds: Present: S1 & S2. Absent: gallop, rub Extremities: pulses intact, No edema, normal color, Full ROM - Gastrointestinal General gastrointestinal: Present: soft, non-tender, non-distended, normal bowel sounds Rectal Exam: deferred - Genitourinary Female genitourinary: deferred - Integumentary Integumentary: clear, warm, dry - Musculoskeletal Musculoskeletal: 1, strength equal bilaterally - Neurologic Neurologic: moves all extremities - Psychiatric Psychiatric: appropriate mood/affect - Labs CBC & Chem 7: 04/19/17 14:42 04/20/17 04:00 Labs: Abnormal lab results 04/16/17 04/19/17 04/19/17 Range/Units 15:30 14:42 14:42 WBC 15.5 H (4.5-11.0) K/mm3 RBC 2.45 L (3.65-5.03) M/mm3 Hgb 7.1 L (10.1-14.3) gm/dl Hct 22.6 L (30.3-42.9) % RDW 19.6 H (13.2-15.2) % Plt Count 89 L (140-440) K/mm3 Seg Neuts % (Manual) 78.0 H (40.0-70.0) % Lymphocytes % (Manual) 0 L (13.4-35.0) % Nucleated RBC % 4.0 H (0.0-0.9) % Seg Neutrophils # Man 12.1 H (1.8-7.7) K/mm3 Lymphocytes # (Manual) 0.0 L (1.2-5.4) K/mm3 Carbon Dioxide 20 L (22-30) mmol/L BUN 47 H (7-17) mg/dL Creatinine 1.9 H (0.7-1.2) mg/dL Glucose 111 H (65-100) mg/dL Calcium 7.8 L (8.4-10.2) mg/dL Magnesium 1.00 L (1.7-2.3) mg/dL Total Creatine Kinase 487 H (30-135) units/L Parvovirus B19 IgG Ab 1.3 H (<0.9) 04/20/17 Range/Units 04:00 WBC (4.5-11.0) K/mm3 RBC (3.65-5.03) M/mm3 Hgb (10.1-14.3) gm/dl Hct (30.3-42.9) % RDW (13.2-15.2) % Plt Count (140-440) K/mm3 Seg Neuts % (Manual) (40.0-70.0) % Lymphocytes % (Manual) (13.4-35.0) % Nucleated RBC % (0.0-0.9) % Seg Neutrophils # Man (1.8-7.7) K/mm3 Lymphocytes # (Manual) (1.2-5.4) K/mm3 Carbon Dioxide 17 L (22-30) mmol/L BUN 44 H (7-17) mg/dL Creatinine 1.9 H (0.7-1.2) mg/dL Glucose 42 L (65-100) mg/dL Calcium 7.9 L (8.4-10.2) mg/dL Magnesium 1.30 L (1.7-2.3) mg/dL Total Creatine Kinase 443 H (30-135) units/L Parvovirus B19 IgG Ab (<0.9)
[2017-04-20] MEDS: ZOFRAN IV PRN (22:24)
[2017-04-21 01:27] LABS: INR 1.13 (0.87-1.13)
[2017-04-21] MEDS: NACL 0.9% 1000 ML 1,000 ML IV SCH (02:53)
[2017-04-21] MEDS: ATIVAN IM PRN ×2 (02:53→22:58)
[2017-04-21] MEDS: DUONEB *Not for PRN Use IH SCH ×4 (03:49→19:58)
[2017-04-21 05:31] LABS: Hematocrit 21.5 % (30.3-42.9); Mean Corpuscular HGB Conc 33 % (30-34); Mean Corpuscular Hemoglobin 30 pg (28-32); Mean Corpuscular Volume 92 fl (79-97); Red Blood Count 2.35 M/mm3 (3.65-5.03)
[2017-04-21 05:32] LABS: Platelet Count 61 K/mm3 (140-440); Red Cell Distribution Width 20.4 % (13.2-15.2)
[2017-04-21 05:40] LABS: Calcium 8.2 mg/dL (8.4-10.2); Magnesium 3.3 mg/dL (1.7-2.3)
[2017-04-21 06:31] LABS: Band Neutrophils # (Manual) 1.3 K/mm3; Basophils % (Manual) 0 % (0.0-1.8); Eosinophils % (Manual) 0 % (0.0-4.3); Monocytes % (Manual) 0 % (0.0-7.3); Total Cells Counted 100
[2017-04-21 06:32] LABS: Anisocytosis 1+; Hypochromasia Few
[2017-04-21 06:33] LABS: Target Cells Few
[2017-04-21 06:34] LABS: Crenated RBC Few; Macrocytosis Few; Platelet Estimate Appears Decreased
[2017-04-21] MEDS ORDERED: NACL 0.9% 500 ML 500 ML IV NR (09:00)
--- NOTE | 2017-04-21 09:54 | Progress Note ---
Assessment and Plan 1. Acute kidney Injury: OTIS in likely multifactorial in the setting of hypotension, IV contrast and severe anemia. Renal function continue to improve. Continue IV fluids. Monitor renal function and lytes. 2. Hyponatremia: Improved. 3. Metabolic acidosis: Continue IV fluids. 4. Hypotension: BP is better. 5. Hyperkalemia: Improved. 6. Anemia. D/w family members at the bedside. Subjective Date of service: 04/21/17 Principal diagnosis: anemia, cirrhosis Interval history: Patient was seen and examined at the bedside. No new complaint. Objective - Vital Signs Vital signs: Vital Signs - 12hr 04/20/17 04/20/17 04/21/17 22:00 22:06 04:40 Temperature 97.3 F L Pulse Rate 67 Pulse Rate [ 74 Posterior Bilateral Throughout] Respiratory 24 Rate Respiratory 20 Rate [Posterior Bilateral Throughout] Blood Pressure [Right] O2 Sat by Pulse 95 94 Oximetry 04/21/17 07:55 Temperature Pulse Rate 63 Pulse Rate [ Posterior Bilateral Throughout] Respiratory 18 Rate Respiratory Rate [Posterior Bilateral Throughout] Blood Pressure 139/105 [Right] O2 Sat by Pulse 94 Oximetry - General Appearance General appearance: well-developed, appears stated age, other (no distress) EENT: ATNC, PERRL Neck: supple Respiratory: Present: Clear to Ascultation Cardiology: regular, S1S2, no murmurs Gastrointestinal: normoactive bowel sounds, no tenderness, no distended Integumentary: erythema Neurologic: other (not following any command) Musculoskeletal: other (no edema) - Lab 04/21/17 03:45 04/21/17 03:45 Most recent lab results Calcium 8.2 mg/dL (8.4-10.2) L 04/21/17 03:45 Phosphorus 3.60 mg/dL (2.5-4.5) 04/20/17 04:00 Magnesium 3.30 mg/dL (1.7-2.3) H 04/21/17 03:45
[2017-04-21] MEDS: PROTONIX PO SCH (10:26)
[2017-04-21] MEDS: SYNTHROID PO SCH (10:27)
[2017-04-21] MEDS: THERAGRAN-M Tab PO SCH (10:27)
[2017-04-21] MEDS: BROVANA NEBU IH SCH ×2 (10:43→19:58)
[2017-04-21] MEDS: PULMICORT IH SCH ×2 (10:43→19:58)
--- NOTE | 2017-04-21 11:44 | Gastroenterology Progress Note ---
<IRAM SCOTT - Last Filed: 04/21/17 11:59> Assessment and Plan 1.anemia 2.cirrhosis 3.acute respiratory distress 4..COPD exacerbation 5.sepsis 6..pneumonia 7..ETOH abuse 8.TIA 9.AMS 10.CHF 11.dysphagia Anemia -stool occult positive -HGB 7.0-stable -continue to monitor H/H and transfuse as needed -no active signs of bleeding -etiology-likely multifactorial -continue PPI, MVI, nutritional support, and supportive care -no plans for endoscopic work up at this time Cirrhosis -abd U/S showed cirrhosis -hapatitis panel negative -advanced stable disease-etiology 2/2 ETOH abuse -avoid narcotics -continue supportive care (MVI, nutrition, albumin) Dysphagia -currently NPO -failed speech eval with recommendations for PEG 04/19/17 -discussed PEG tube placement with family with consent to proceed given -will order repeat abd U/S today to assess for ascites -recommend Dobhoff tube today for temporary feedings until PEG placement -respirations slightly labored today upon exam- pulmonary clearance needed -will follow Subjective Date of service: 04/21/17 Principal diagnosis: anemia, cirrhosis Interval history: Patient resting in bed receiving breath treatment with respirations slightly labored. Family at bedside, discussed possible PEG placement to include nature of procedure, details of the technique, benefits, purpose, and risks. Family wishes to proceed with PEG. Objective - Constitutional Vitals: Temp Pulse Resp BP Pulse Ox 97.3 F L 76 18 139/105 97 04/21/17 04:40 04/21/17 10:44 04/21/17 10:44 04/21/17 07:55 04/21/17 10:00 General appearance: other (disoriented) - Respiratory Respiratory effort: other (slightly labored) Respiratory: bilateral: rhonchi - Cardiovascular Rhythm: regular Heart Sounds: Present: S1 & S2 - Gastrointestinal General gastrointestinal: Present: soft, non-distended, normal bowel sounds - Neurologic Neurological: disoriented - Labs CBC & Chem 7: 04/21/17 03:45 04/21/17 03:45 Labs: Laboratory Results - last 24 hr 04/21/17 04/21/17 04/21/17 00:13 03:45 03:45 WBC 14.6 H RBC 2.35 L Hgb 7.0 L Hct 21.5 L MCV 92 MCH 30 MCHC 33 RDW 20.4 H Plt Count 61 L Add Manual Diff Complete Total Counted 100 Seg Neutrophils % Hybrid Car Mechanic Seg Neuts % (Manual) 91.0 H Band Neutrophils % 9.0 Lymphocytes % (Manual) 0 L Reactive Lymphs % (Man) 0 Monocytes % (Manual) 0 Eosinophils % (Manual) 0 Basophils % (Manual) 0 Metamyelocytes % 0 Myelocytes % 0 Promyelocytes % 0 Blast Cells % 0 Nucleated RBC % 5.0 H Seg Neutrophils # Man 13.3 H Band Neutrophils # 1.3 Lymphocytes # (Manual) 0.0 L Abs React Lymphs (Man) 0.0 Monocytes # (Manual) 0.0 Eosinophils # (Manual) 0.0 Basophils # (Manual) 0.0 Metamyelocytes # 0.0 Myelocytes # 0.0 Promyelocytes # 0.0 Blast Cells # 0.0 WBC Morphology Not Reportable Hypersegmented Neuts Not Reportable Hyposegmented Neuts Not Reportable Hypogranular Neuts Not Reportable Smudge Cells Not Reportable Toxic Granulation Not Reportable Toxic Vacuolation Not Reportable Dohle Bodies Not Reportable Pelger-Huet Anomaly Not Reportable Monique Rods Not Reportable Platelet Estimate Appears decreased Clumped Platelets Not Reportable Plt Clumps, EDTA Not Reportable Large Platelets Not Reportable Giant Platelets Not Reportable Platelet Satelliting Not Reportable Plt Morphology Comment Not Reportable RBC Morphology Not Reportable Dimorphic RBCs Not Reportable Polychromasia Not Reportable Hypochromasia Few Poikilocytosis Not Reportable Anisocytosis 1+ Microcytosis Not Reportable Macrocytosis Few Spherocytes Not Reportable Pappenheimer Bodies Not Reportable Sickle Cells Not Reportable Target Cells Few Tear Drop Cells Not Reportable Ovalocytes Not Reportable Helmet Cells Not Reportable [place] Bodies Not Reportable Weston Rings Not Reportable Alfred[place] Cells Not Reportable Bite Cells Not Reportable Crenated Cell Few Elliptocytes Not Reportable Acanthocytes (Spur) Not Reportable Rouleaux Not Reportable Hemoglobin C Crystals Not Reportable Schistocytes Not Reportable Malaria parasites Not Reportable Vincent Bodies Not Reportable Hem Pathologist Commnt No PT 15.1 H INR 1.13 Sodium 142 Potassium 4.8 Chloride 107.1 H Carbon Dioxide 20 L Anion Gap 20 BUN 49 H Creatinine 1.5 H Estimated GFR 42 BUN/Creatinine Ratio 33 Glucose 101 H POC Glucose Calcium 8.2 L Magnesium 3.30 H Blood Type Crossmatch 04/21/17 04/21/17 06:59 10:50 WBC RBC Hgb Hct MCV MCH MCHC RDW Plt Count Add Manual Diff Total Counted Seg Neutrophils % Seg Neuts % (Manual) Band Neutrophils % Lymphocytes % (Manual) Reactive Lymphs % (Man) Monocytes % (Manual) Eosinophils % (Manual) Basophils % (Manual) Metamyelocytes % Myelocytes % Promyelocytes % Blast Cells % Nucleated RBC % Seg Neutrophils # Man Band Neutrophils # Lymphocytes # (Manual) Abs React Lymphs (Man) Monocytes # (Manual) Eosinophils # (Manual) Basophils # (Manual) Metamyelocytes # Myelocytes # Promyelocytes # Blast Cells # WBC Morphology Hypersegmented Neuts Hyposegmented Neuts Hypogranular Neuts Smudge Cells Toxic Granulation Toxic Vacuolation Dohle Bodies Pelger-Huet Anomaly Monique Rods Platelet Estimate Clumped Platelets Plt Clumps, EDTA Large Platelets Giant Platelets Platelet Satelliting Plt Morphology Comment RBC Morphology Dimorphic RBCs Polychromasia Hypochromasia Poikilocytosis Anisocytosis Microcytosis Macrocytosis Spherocytes Pappenheimer Bodies Sickle Cells Target Cells Tear Drop Cells Ovalocytes Helmet Cells [place] Bodies Weston Rings [place] Cells Bite Cells Crenated Cell Elliptocytes Acanthocytes (Spur) Rouleaux Hemoglobin C Crystals Schistocytes Malaria parasites Vincent Bodies Hem Pathologist Commnt PT INR Sodium Potassium Chloride Carbon Dioxide Anion Gap BUN Creatinine Estimated GFR BUN/Creatinine Ratio Glucose POC Glucose 141 H Calcium Magnesium Blood Type O POSITIVE Crossmatch See Detail <MARTINEZ HERR - Last Filed: 04/21/17 16:20> Assessment and Plan Patient seen and examined. Agree with note by Iram Scott. Currently not stable from respiratory stand point (on bipap with labored respirations) for peg tube placement. She also has a h/o cirrhosis and ascites further complicating the matter. Attempt dobhoff tube placement to start enteral tube feeds. If unable to tolerate, will need to be started on PPN vs TPN for time being. Will repeat abd US. Discussed in detail with patient's daughters at bedside. Objective - Constitutional Vitals: Temp Pulse Resp BP Pulse Ox 90.6 F L 70 20 96/66 100 04/21/17 15:40 04/21/17 15:40 04/21/17 15:40 04/21/17 15:40 04/21/17 15:40 - Labs CBC & Chem 7: 04/21/17 03:45 04/21/17 03:45 Labs: Laboratory Results - last 24 hr 04/14/17 04/21/17 04/21/17 11:31 00:13 03:45 WBC 14.6 H RBC 2.35 L Hgb 7.0 L Hct 21.5 L MCV 92 MCH 30 MCHC 33 RDW 20.4 H Plt Count 61 L Add Manual Diff Complete Total Counted 100 Seg Neutrophils % Hybrid Car Mechanic Seg Neuts % (Manual) 91.0 H Band Neutrophils % 9.0 Lymphocytes % (Manual) 0 L Reactive Lymphs % (Man) 0 Monocytes % (Manual) 0 Eosinophils % (Manual) 0 Basophils % (Manual) 0 Metamyelocytes % 0 Myelocytes % 0 Promyelocytes % 0 Blast Cells % 0 Nucleated RBC % 5.0 H Seg Neutrophils # Man 13.3 H Band Neutrophils # 1.3 Lymphocytes # (Manual) 0.0 L Abs React Lymphs (Man) 0.0 Monocytes # (Manual) 0.0 Eosinophils # (Manual) 0.0 Basophils # (Manual) 0.0 Metamyelocytes # 0.0 Myelocytes # 0.0 Promyelocytes # 0.0 Blast Cells # 0.0 WBC Morphology Not Reportable Hypersegmented Neuts Not Reportable Hyposegmented Neuts Not Reportable Hypogranular Neuts Not Reportable Smudge Cells Not Reportable Toxic Granulation Not Reportable Toxic Vacuolation Not Reportable Dohle Bodies Not Reportable Pelger-Huet Anomaly Not Reportable Monique Rods Not Reportable Platelet Estimate Appears decreased Clumped Platelets Not Reportable Plt Clumps, EDTA Not Reportable Large Platelets Not Reportable Giant Platelets Not Reportable Platelet Satelliting Not Reportable Plt Morphology Comment Not Reportable RBC Morphology Not Reportable Dimorphic RBCs Not Reportable Polychromasia Not Reportable Hypochromasia Few Poikilocytosis Not Reportable Anisocytosis 1+ Microcytosis Not Reportable Macrocytosis Few Spherocytes Not Reportable Pappenheimer Bodies Not Reportable Sickle Cells Not Reportable Target Cells Few Tear Drop Cells Not Reportable Ovalocytes Not Reportable Helmet Cells Not Reportable [place] Bodies Not Reportable Weston Rings Not Reportable [place] Cells Not Reportable Bite Cells Not Reportable Crenated Cell Few Elliptocytes Not Reportable Acanthocytes (Spur) Not Reportable Rouleaux Not Reportable Hemoglobin C Crystals Not Reportable Schistocytes Not Reportable Malaria parasites Not Reportable Vincent Bodies Not Reportable Hem Pathologist Commnt No PT 15.1 H INR 1.13 POC ABG pH POC ABG pCO2 POC ABG pO2 POC ABG HCO3 POC ABG Total CO2 POC ABG O2 Sat POC ABG Base Excess FiO2 Sodium Potassium Chloride Carbon Dioxide Anion Gap BUN Creatinine Estimated GFR BUN/Creatinine Ratio Glucose POC Glucose Calcium Magnesium Blood Type Antibody Screen Crossmatch See Detail 04/21/17 04/21/17 04/21/17 03:45 06:59 10:50 WBC RBC Hgb Hct MCV MCH MCHC RDW Plt Count Add Manual Diff Total Counted Seg Neutrophils % Seg Neuts % (Manual) Band Neutrophils % Lymphocytes % (Manual) Reactive Lymphs % (Man) Monocytes % (Manual) Eosinophils % (Manual) Basophils % (Manual) Metamyelocytes % Myelocytes % Promyelocytes % Blast Cells % Nucleated RBC % Seg Neutrophils # Man Band Neutrophils # Lymphocytes # (Manual) Abs React Lymphs (Man) Monocytes # (Manual) Eosinophils # (Manual) Basophils # (Manual) Metamyelocytes # Myelocytes # Promyelocytes # Blast Cells # WBC Morphology Hypersegmented Neuts Hyposegmented Neuts Hypogranular Neuts Smudge Cells Toxic Granulation Toxic Vacuolation Dohle Bodies Pelger-Huet Anomaly Monique Rods Platelet Estimate Clumped Platelets Plt Clumps, EDTA Large Platelets Giant Platelets Platelet Satelliting Plt Morphology Comment RBC Morphology Dimorphic RBCs Polychromasia Hypochromasia Poikilocytosis Anisocytosis Microcytosis Macrocytosis Spherocytes Pappenheimer Bodies Sickle Cells Target Cells Tear Drop Cells Ovalocytes Helmet Cells [place] Bodies Weston Rings [place] Cells Bite Cells Crenated Cell Elliptocytes Acanthocytes (Spur) Rouleaux Hemoglobin C Crystals Schistocytes Malaria parasites Vincent Bodies Hem Pathologist Commnt PT INR POC ABG pH POC ABG pCO2 POC ABG pO2 POC ABG HCO3 POC ABG Total CO2 POC ABG O2 Sat POC ABG Base Excess FiO2 Sodium 142 Potassium 4.8 Chloride 107.1 H Carbon Dioxide 20 L Anion Gap 20 BUN 49 H Creatinine 1.5 H Estimated GFR 42 BUN/Creatinine Ratio 33 Glucose 101 H POC Glucose 141 H Calcium 8.2 L Magnesium 3.30 H Blood Type O POSITIVE Antibody Screen Negative Crossmatch See Detail 04/21/17 13:17 WBC RBC Hgb Hct MCV MCH MCHC RDW Plt Count Add Manual Diff Total Counted Seg Neutrophils % Seg Neuts % (Manual) Band Neutrophils % Lymphocytes % (Manual) Reactive Lymphs % (Man) Monocytes % (Manual) Eosinophils % (Manual) Basophils % (Manual) Metamyelocytes % Myelocytes % Promyelocytes % Blast Cells % Nucleated RBC % Seg Neutrophils # Man Band Neutrophils # Lymphocytes # (Manual) Abs React Lymphs (Man) Monocytes # (Manual) Eosinophils # (Manual) Basophils # (Manual) Metamyelocytes # Myelocytes # Promyelocytes # Blast Cells # WBC Morphology Hypersegmented Neuts Hyposegmented Neuts Hypogranular Neuts Smudge Cells Toxic Granulation Toxic Vacuolation Dohle Bodies Pelger-Huet Anomaly Monique Rods Platelet Estimate Clumped Platelets Plt Clumps, EDTA Large Platelets Giant Platelets Platelet Satelliting Plt Morphology Comment RBC Morphology Dimorphic RBCs Polychromasia Hypochromasia Poikilocytosis Anisocytosis Microcytosis Macrocytosis Spherocytes Pappenheimer Bodies Sickle Cells Target Cells Tear Drop Cells Ovalocytes Helmet Cells [place] Bodies Weston Rings Alfredito Cells Bite Cells Crenated Cell Elliptocytes Acanthocytes (Spur) Rouleaux Hemoglobin C Crystals Schistocytes Malaria parasites Vincent Bodies Hem Pathologist Commnt PT INR POC ABG pH 7.250 L POC ABG pCO2 49.9 H POC ABG pO2 83 POC ABG HCO3 21.9 POC ABG Total CO2 23 POC ABG O2 Sat 94 POC ABG Base Excess -5 FiO2 32 Sodium Potassium Chloride Carbon Dioxide Anion Gap BUN Creatinine Estimated GFR BUN/Creatinine Ratio Glucose POC Glucose Calcium Magnesium Blood Type Antibody Screen Crossmatch
--- NOTE | 2017-04-21 14:27 | Progress Note ---
Assessment and Plan Assessment and plan: 67-year-old -[place] female with past medical history significant for chronic systolic CHF, COPD, anemia presented to the emergency department for the complaints of shortness of breath. COPD exacerbation - Patient is on IV Solu-Medrol, IV antibiotics - Pulmonary is following Acute respiratory failure - Patient is on BiPAP - Respiratory distress is likely due to fluid overload, I stop his IV fluid and gave her on furosemide 1 times Sepsis, Pneumonia - Patient is currently hypothermic, tachycardic and has leukocytosis - Blood culture was taken, empirically start his IV vancomycin and Zosyn Hypothyroidism (acquired) - Cont Synthyroid EtOH abuse. - [facility] protocol. Anemia - hemoglobin this morning is 7 will be transfused with 2 units of blood. Thrombocytopenia - Hematology following - Improving Dysphagia. 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 -on maddox cathter ESLD with ascites - continue supportive care - GI following Malnutrition - Family initially refused dobbhoff but now they agreed and will be placed and start feeding Prognosis - poor , given her multiple co-morbid conditions. History Interval history: Patient was seen and evaluated this morning, management plan was discussed with her family members. This morning the family members agreed about Dobbhoff feeding. Patient is respiratory distress likely from fluid overload. Patient is hypothermic. Hospitalist Physical - Physical exam Narrative exam: Patient is in respiratory distress, and currently on BiPAP. The patient appeared well nourished and normally developed. Vital signs as documented. Head exam is unremarkable. No scleral icterus . Neck is without jugular venous distension, thyromegaly, or carotid bruits. Lungs crackles all over the chest. Cardiac exam reveals regular rate and Rhythm. First and second heart sounds normal. No murmurs, rubs or gallops. Abdominal exam reveals normal bowel sounds, no masses, no organomegaly and no aortic enlargement. Extremities are nonedematous and both femoral and pedal pulses are normal. Skin sloughed skin, getting better. MANAGER MARKETING: Patient is sleepy, and communicative - Constitutional Vitals: Temp Pulse Resp BP Pulse Ox 97.3 F L 76 18 139/105 84 04/21/17 04:40 04/21/17 10:44 04/21/17 10:44 04/21/17 07:55 04/21/17 10:00 General appearance: Present: no acute distress, well-nourished Results - Labs CBC & Chem 7: 04/21/17 03:45 04/21/17 03:45 Labs: Laboratory Last Values WBC 14.6 K/mm3 (4.5-11.0) H 04/21/17 03:45 RBC 2.35 M/mm3 (3.65-5.03) L 04/21/17 03:45 Hgb 7.0 gm/dl (10.1-14.3) L 04/21/17 03:45 Hct 21.5 % (30.3-42.9) L 04/21/17 03:45 MCV 92 fl (79-97) 04/21/17 03:45 MCH 30 pg (28-32) 04/21/17 03:45 MCHC 33 % (30-34) 04/21/17 03:45 RDW 20.4 % (13.2-15.2) H 04/21/17 03:45 Plt Count 61 K/mm3 (140-440) L 04/21/17 03:45 [place] % (Auto) 3.1 % (0.0-7.3) 04/16/17 05:30 Eos % (Auto) 0.0 % (0.0-4.3) 04/16/17 05:30 [place] # 0.7 K/mm3 (0.0-0.8) 04/16/17 05:30 Eos # 0.0 K/mm3 (0.0-0.4) 04/16/17 05:30 Baso # 0.1 K/mm3 (0.0-0.1) 04/16/17 05:30 Add Manual Diff Complete 04/21/17 03:45 Total Counted 100 04/21/17 03:45 Seg Neutrophils % Carton Stapler 04/21/17 03:45 Seg Neuts % (Manual) 91.0 % (40.0-70.0) H 04/21/17 03:45 Band Neutrophils % 9.0 % 04/21/17 03:45 Lymphocytes % (Manual) 0 % (13.4-35.0) L 04/21/17 03:45 Reactive Lymphs % (Man) 0 % 04/21/17 03:45 Monocytes % (Manual) 0 % (0.0-7.3) 04/21/17 03:45 Eosinophils % (Manual) 0 % (0.0-4.3) 04/21/17 03:45 Basophils % (Manual) 0 % (0.0-1.8) 04/21/17 03:45 Metamyelocytes % 0 % 04/21/17 03:45 Myelocytes % 0 % 04/21/17 03:45 Promyelocytes % 0 % 04/21/17 03:45 Blast Cells % 0 % 04/21/17 03:45 Nucleated RBC % 5.0 % (0.0-0.9) H 04/21/17 03:45 Seg Neutrophils # 21.5 K/mm3 (1.8-7.7) H 04/16/17 05:30 Seg Neutrophils # Man 13.3 K/mm3 (1.8-7.7) H 04/21/17 03:45 Band Neutrophils # 1.3 K/mm3 04/21/17 03:45 Lymphocytes # (Manual) 0.0 K/mm3 (1.2-5.4) L 04/21/17 03:45 Abs React Lymphs (Man) 0.0 K/mm3 04/21/17 03:45 Monocytes # (Manual) 0.0 K/mm3 (0.0-0.8) 04/21/17 03:45 Eosinophils # (Manual) 0.0 K/mm3 (0.0-0.4) 04/21/17 03:45 Basophils # (Manual) 0.0 K/mm3 (0.0-0.1) 04/21/17 03:45 Metamyelocytes # 0.0 K/mm3 04/21/17 03:45 Myelocytes # 0.0 K/mm3 04/21/17 03:45 Promyelocytes # 0.0 K/mm3 04/21/17 03:45 Blast Cells # 0.0 K/mm3 04/21/17 03:45 WBC Morphology Not Reportable 04/21/17 03:45 Hypersegmented Neuts Not Reportable 04/21/17 03:45 Hyposegmented Neuts Not Reportable 04/21/17 03:45 Hypogranular Neuts Not Reportable 04/21/17 03:45 Smudge Cells Not Reportable 04/21/17 03:45 Toxic Granulation Not Reportable 04/21/17 03:45 Toxic Vacuolation Not Reportable 04/21/17 03:45 Dohle Bodies Not Reportable 04/21/17 03:45 Pelger-Huet Anomaly Not Reportable 04/21/17 03:45 Monique Rods Not Reportable 04/21/17 03:45 Platelet Estimate Appears decreased 04/21/17 03:45 Clumped Platelets Not Reportable 04/21/17 03:45 Plt Clumps, EDTA Not Reportable 04/21/17 03:45 Large Platelets Not Reportable 04/21/17 03:45 Giant Platelets Not Reportable 04/21/17 03:45 Platelet Satelliting Not Reportable 04/21/17 03:45 Plt Morphology Comment Not Reportable 04/21/17 03:45 RBC Morphology Not Reportable 04/21/17 03:45 Dimorphic RBCs Not Reportable 04/21/17 03:45 Polychromasia Not Reportable 04/21/17 03:45 Hypochromasia Few 04/21/17 03:45 Poikilocytosis Not Reportable 04/21/17 03:45 Anisocytosis 1+ 04/21/17 03:45 Microcytosis Not Reportable 04/21/17 03:45 Macrocytosis Few 04/21/17 03:45 Spherocytes Not Reportable 04/21/17 03:45 Pappenheimer Bodies Not Reportable 04/21/17 03:45 Sickle Cells Not Reportable 04/21/17 03:45 Target Cells Few 04/21/17 03:45 Tear Drop Cells Not Reportable 04/21/17 03:45 Ovalocytes Not Reportable 04/21/17 03:45 Helmet Cells Not Reportable 04/21/17 03:45 [place] Bodies Not Reportable 04/21/17 03:45 [place] Rings Not Reportable 04/21/17 03:45 [place] Cells Not Reportable 04/21/17 03:45 Bite Cells Not Reportable 04/21/17 03:45 Crenated Cell Few 04/21/17 03:45 Elliptocytes Not Reportable 04/21/17 03:45 Acanthocytes (Spur) Not Reportable 04/21/17 03:45 Rouleaux Not Reportable 04/21/17 03:45 Hemoglobin C Crystals Not Reportable 04/21/17 03:45 Schistocytes Not Reportable 04/21/17 03:45 Malaria parasites Not Reportable 04/21/17 03:45 ESR 24 mm/Hr (0-20) 04/13/17 03:00 Percent Retic 1.53 % (0.78-2.58) 04/09/17 11:23 Vincent Bodies Not Reportable 04/21/17 03:45 Haptoglobin 70 mg/dL (43-212) 04/16/17 18:20 Hem Pathologist Commnt No 04/21/17 03:45 PT 15.1 Sec. (12.2-14.9) H 04/21/17 00:13 INR 1.13 (0.87-1.13) 04/21/17 00:13 APTT 34.1 Sec. (24.2-36.6) 04/16/17 09:55 Fibrinogen 153 mg/dl (211-480) L 04/13/17 03:00 D-Dimer 2989.51 ng/mlDDU (0-234) H 04/13/17 03:00 Lupus Anticoagulant see below 04/13/17 03:00 POC ABG pH 7.250 (7.35-7.45) L 04/21/17 13:17 POC ABG pCO2 49.9 (35-45) H 04/21/17 13:17 POC ABG pO2 83 (80-105) 04/21/17 13:17 POC ABG HCO3 21.9 04/21/17 13:17 POC ABG Total CO2 23 04/21/17 13:17 POC ABG O2 Sat 94 04/21/17 13:17 POC ABG Base Excess -5 04/21/17 13:17 FiO2 32 % 04/21/17 13:17 Sodium 142 mmol/L (137-145) 04/21/17 03:45 Potassium 4.8 mmol/L (3.6-5.0) 04/21/17 03:45 Chloride 107.1 mmol/L (98-107) H 04/21/17 03:45 Carbon Dioxide 20 mmol/L (22-30) L 04/21/17 03:45 Anion Gap 20 mmol/L 04/21/17 03:45 BUN 49 mg/dL (7-17) H 04/21/17 03:45 Creatinine 1.5 mg/dL (0.7-1.2) H 04/21/17 03:45 Estimated GFR 42 ml/min 04/21/17 03:45 BUN/Creatinine Ratio 33 % 04/21/17 03:45 Glucose 101 mg/dL (65-100) H 04/21/17 03:45 POC Glucose 141 (70-105) H 04/21/17 06:59 Lactic Acid 3.60 mmol/L (0.7-2.0) H* 04/06/17 Unknown Calcium 8.2 mg/dL (8.4-10.2) L 04/21/17 03:45 Phosphorus 3.60 mg/dL (2.5-4.5) 04/20/17 04:00 Magnesium 3.30 mg/dL (1.7-2.3) H 04/21/17 03:45 Iron 42 ug/dL (37-170) 04/09/17 11:23 TIBC 81 mcg/dL (250-450) L 04/09/17 11:23 Ferritin 2314.0 ng/mL (13.0-400.0) H 04/09/17 11:23 Total Bilirubin 0.80 mg/dL (0.1-1.2) 04/14/17 06:10 AST 73 units/L (5-40) H 04/14/17 06:10 ALT 53 units/L (7-56) 04/14/17 06:10 Alkaline Phosphatase 66 units/L (35-129) 04/14/17 06:10 Ammonia 32.0 umol/L (25-60) 04/17/17 05:50 Lactate Dehydrogenase 648 units/L (91-180) H 04/13/17 03:00 Total Creatine Kinase 443 units/L (30-135) H 04/20/17 04:00 Troponin T 0.090 ng/mL (0.00-0.029) H 04/05/17 20:43 NT-Pro-B Natriuret Pep 6486 pg/mL (0-900) H 04/05/17 20:43 Serum Total Protein 3.8 g/dL (6.1-8.1) L 04/13/17 03:00 Total Protein 4.4 g/dL (6.3-8.2) L 04/14/17 06:10 Albumin 2.2 g/dL (3.9-5) L 04/14/17 06:10 Albumin/Globulin Ratio 1.0 % 04/14/17 06:10 Dhwyb-1-Ridzwpoge 0.3 g/dL (0.2-0.3) 04/13/17 03:00 Ekvbl-3-Tkrcezijc 0.3 g/dL (0.5-0.9) L 04/13/17 03:00 Beta Globulins 0.4 g/dL (0.2-0.5) 04/13/17 03:00 Gnyq-3-Xkpnybgpygnfy 15.00 mg/L (<=2.51) H 04/13/17 03:00 Gamma Globulins 1.1 g/dL (0.8-1.7) 04/13/17 03:00 Abnorm Protein Band 1 see below 04/13/17 03:00 PEP Interpretation see below H 04/13/17 03:00 Triglycerides 64 mg/dL (2-149) 04/05/17 20:43 Cholesterol 98 mg/dL (50-199) 04/05/17 20:43 LDL Cholesterol Direct 54 mg/dL (50-130) 04/05/17 20:43 HDL Cholesterol 32 mg/dL (40-59) L 04/05/17 20:43 Cholesterol/HDL Ratio 3.06 % 04/05/17 20:43 Vitamin B12 1641 pg/mL (211-911) H 04/09/17 11:23 Folate 4.55 ng/mL (7.3-26.0) L 04/09/17 11:23 Immunofix Electrophor see below 04/13/17 03:00 Rheumatoid Factor 32 IU/ml (0-13) H 04/13/17 03:00 AGUSTIN Screen Negative (Negative) 04/12/17 03:00 Hepatitis A IgM Ab Non-reactive (NonReactive) 04/12/17 07:42 Hep Bs Antigen Non-reactive (Negative) 04/12/17 07:42 Hep B Core IgM Ab Non-reactive (NonReactive) 04/12/17 07:42 Hepatitis C Antibody Non-reactive (NonReactive) 04/12/17 07:42 Parvovirus B19 IgG Ab 1.3 (<0.9) H 04/16/17 15:30 Parvovirus B19 IgM Ab 0.1 (<0.9) 04/16/17 15:30 Blood Type O POSITIVE 04/21/17 10:50 Antibody Screen Negative 04/21/17 10:50 Crossmatch See Detail 04/21/17 10:50
[2017-04-21] MEDS ORDERED: LASIX IV NR (14:30)
--- NOTE | 2017-04-21 14:56 | XRay Report ---
AP CHEST: HISTORY: Respiratory distress Small bilateral pleural effusions and bibasilar atelectasis has developed since . Heart size and pulmonary vascularity are at the upper limits of normal. No pneumothorax. The bones are osteopenic. IMPRESSION: Mild volume overload.
[2017-04-21] MEDS ORDERED: VANCOMYCIN PHARMACY TO DOSE IV SCH (15:00)
[2017-04-21] MEDS ORDERED: VANCOMYCIN 1,250 MG in NACL 0.9% 250ML 250 ML IV ONE (15:00)
[2017-04-21] MEDS: PROVENTIL IH PRN (15:19)
[2017-04-21] MEDS ORDERED: SIMPLE SYRUP FEEDTUBE PRN ×2 (16:17)
[2017-04-21] MEDS ORDERED: SODIUM BICARBONATE FEEDTUBE PRN (16:17)
[2017-04-21] MEDS ORDERED: PANCREAZE DR 10,500 UNIT FEEDTUBE PRN (16:17)
--- NOTE | 2017-04-21 18:51 | XRay Report ---
FINAL REPORT EXAM: XR ABDOMEN 1V AP HISTORY: Check Dobhoff placement TECHNIQUE: Single AP view of the abdomen PRIORS: None. FINDINGS: There is some residual oral contrast material within the colon. Small amount within the body of the stomach. There is Dobhoff tube present distal tip is the gastric fundus. No evidence for colonic or small bowel distention. No signs for free air on the view obtained. IMPRESSION: Tip of the Dobhoff tube is located proximally at the fundus of the stomach may be new advance min. Residual contrast material noted within the colon
[2017-04-21 18:56] LABS: Hematocrit 24.1 % (30.3-42.9); Hemoglobin 7.6 gm/dl (10.1-14.3)
--- NOTE | 2017-04-21 20:51 | Progress Note ---
Assessment and Plan - Patient Problems (1) Anemia Current Visit: Yes Status: Acute Plan to address problem: see orders. transfusion replacements. other w/up still pending results. see notes. (2) CHF (congestive heart failure) Current Visit: Yes Status: Chronic Qualifiers: Congestive heart failure type: combined Plan to address problem: follow you. (3) Thrombocytopenia Current Visit: Yes Status: Acute Plan to address problem: see orders. see notes. Beta -2 quite high, will await other w/up for myeloma. pending w/up results. ESLD.see notes. replacement therapy if / when indicated. Subjective Date of service: 04/21/17 Principal diagnosis: anemia, cirrhosis Interval history: Patient seen/examined, resting in bed, sluggish.labs reviewed, as well as notes.Fibrinogen low, D-dimer elevated, with very high Ldh, indicating consumptive coagulopathy. She may have some auto immune d/o. along with other things l, and perhaps bkleeding contributing to her thrombocytopenia. She may benefit from some steriods.IF any procedure is intended, PLT can be given, +/_ FFP if indicated.Will continue to follow you.Still awaiting [id number]., and folate. Patient seen, resting in bed. Labs/notes reviewed, s/p replacement transfusion. Will do PNH panel.Steroid still recommended. Patient seen, resting in bed, family at the bed side, record /labs reviewed.It appears that she responded some to steroid as recommended. Patient seen today, transferred to the unit overnight due to decline as per notes/report reviewed. She remains slow/sluggish as usual.anemia persists, despite replacement transfusion.She will need GI scope, and if NL, will consider BM bx. Patient seen/examined in the ICU, record reviewed, case d/w her daughter. Patient with debility, non coherent enough due to chronic brain insult from etoh abuse, and given ESLD, her chances for even moderate functional recovery is quite grim. rec supportive care. Patient seen, resting in bed labs reviewed, and remain fair. Patient seen today, resting in bed, labs /notes reviewed. Hgb 7.1. if less than 7.0, may be transfused with PRBC Patient seen/examined, resting in bed, labs reviewed, CPK elevated Patient seen/ examined, record reviewed, case d/w patients daughter at the bed side. Objective - Constitutional Vitals: Vital Signs - 12hr 04/21/17 04/21/17 04/21/17 10:00 10:44 14:00 Temperature Pulse Rate Pulse Rate [ Anterior Bilateral Throughout] Pulse Rate [ 76 71 Posterior Bilateral Throughout] Respiratory Rate Respiratory Rate [Anterior Bilateral Throughout] Respiratory 18 18 Rate [Posterior Bilateral Throughout] Blood Pressure O2 Sat by Pulse 84 Oximetry 04/21/17 04/21/17 04/21/17 14:05 14:20 14:42 Temperature 90.0 F L 90.2 F L 90.0 F L Pulse Rate 72 73 73 Pulse Rate [ Anterior Bilateral Throughout] Pulse Rate [ Posterior Bilateral Throughout] Respiratory 24 24 20 Rate Respiratory Rate [Anterior Bilateral Throughout] Respiratory Rate [Posterior Bilateral Throughout] Blood Pressure 118/92 106/88 129/71 O2 Sat by Pulse 90 96 97 Oximetry 04/21/17 04/21/17 04/21/17 14:50 15:07 15:13 Temperature 90.1 F L 90.3 F L Pulse Rate 75 73 71 Pulse Rate [ Anterior Bilateral Throughout] Pulse Rate [ Posterior Bilateral Throughout] Respiratory 20 20 20 Rate Respiratory Rate [Anterior Bilateral Throughout] Respiratory Rate [Posterior Bilateral Throughout] Blood Pressure 120/87 128/84 128/84 O2 Sat by Pulse 100 100 100 Oximetry 04/21/17 04/21/17 04/21/17 15:20 15:21 15:40 Temperature 90.2 F L 90.6 F L Pulse Rate 76 70 Pulse Rate [ Anterior Bilateral Throughout] Pulse Rate [ 73 Posterior Bilateral Throughout] Respiratory 20 20 Rate Respiratory Rate [Anterior Bilateral Throughout] Respiratory 18 Rate [Posterior Bilateral Throughout] Blood Pressure 144/96 96/66 O2 Sat by Pulse 100 100 Oximetry 04/21/17 04/21/17 04/21/17 15:50 19:39 19:55 Temperature 90.9 F L 91.6 F L Pulse Rate 76 Pulse Rate [ 80 Anterior Bilateral Throughout] Pulse Rate [ Posterior Bilateral Throughout] Respiratory 20 18 Rate Respiratory 30 H Rate [Anterior Bilateral Throughout] Respiratory Rate [Posterior Bilateral Throughout] Blood Pressure 139/86 125/83 O2 Sat by Pulse 100 Oximetry 04/21/17 20:13 Temperature Pulse Rate 88 Pulse Rate [ Anterior Bilateral Throughout] Pulse Rate [ Posterior Bilateral Throughout] Respiratory 21 Rate Respiratory Rate [Anterior Bilateral Throughout] Respiratory Rate [Posterior Bilateral Throughout] Blood Pressure O2 Sat by Pulse 99 Oximetry General appearance: Present: mild distress - EENT Eyes: PERRL, EOM intact ENT: hearing intact, clear oral mucosa Ears: bilateral: normal - Neck Neck: supple, normal ROM - Respiratory Respiratory: bilateral: diminished - Breasts Breasts: deferred - Cardiovascular Rhythm: regular Heart Sounds: Present: S1 & S2. Absent: gallop, rub Extremities: pulses intact, No edema, normal color, Full ROM - Gastrointestinal General gastrointestinal: Present: soft, non-tender, non-distended, normal bowel sounds Rectal Exam: deferred - Genitourinary Female genitourinary: deferred - Integumentary Integumentary: clear, warm, dry - Musculoskeletal Musculoskeletal: 1, strength equal bilaterally - Neurologic Neurologic: moves all extremities - Psychiatric Psychiatric: memory intact, appropriate mood/affect, intact judgment & insight - Labs CBC & Chem 7: 04/21/17 18:15 04/21/17 03:45 Labs: Abnormal lab results 04/14/17 04/21/17 04/21/17 Range/Units 11:31 00:13 03:45 WBC 14.6 H (4.5-11.0) K/mm3 RBC 2.35 L (3.65-5.03) M/mm3 Hgb 7.0 L (10.1-14.3) gm/dl Hct 21.5 L (30.3-42.9) % RDW 20.4 H (13.2-15.2) % Plt Count 61 L (140-440) K/mm3 Seg Neuts % (Manual) 91.0 H (40.0-70.0) % Lymphocytes % (Manual) 0 L (13.4-35.0) % Nucleated RBC % 5.0 H (0.0-0.9) % Seg Neutrophils # Man 13.3 H (1.8-7.7) K/mm3 Lymphocytes # (Manual) 0.0 L (1.2-5.4) K/mm3 PT 15.1 H (12.2-14.9) Sec. POC ABG pH (7.35-7.45) POC ABG pCO2 (35-45) Chloride (98-107) mmol/L Carbon Dioxide (22-30) mmol/L BUN (7-17) mg/dL Creatinine (0.7-1.2) mg/dL Glucose (65-100) mg/dL POC Glucose (70-105) Calcium (8.4-10.2) mg/dL Magnesium (1.7-2.3) mg/dL Crossmatch See Detail 04/21/17 04/21/17 04/21/17 Range/Units 03:45 06:59 10:50 WBC (4.5-11.0) K/mm3 RBC (3.65-5.03) M/mm3 Hgb (10.1-14.3) gm/dl Hct (30.3-42.9) % RDW (13.2-15.2) % Plt Count (140-440) K/mm3 Seg Neuts % (Manual) (40.0-70.0) % Lymphocytes % (Manual) (13.4-35.0) % Nucleated RBC % (0.0-0.9) % Seg Neutrophils # Man (1.8-7.7) K/mm3 Lymphocytes # (Manual) (1.2-5.4) K/mm3 PT (12.2-14.9) Sec. POC ABG pH (7.35-7.45) POC ABG pCO2 (35-45) Chloride 107.1 H (98-107) mmol/L Carbon Dioxide 20 L (22-30) mmol/L BUN 49 H (7-17) mg/dL Creatinine 1.5 H (0.7-1.2) mg/dL Glucose 101 H (65-100) mg/dL POC Glucose 141 H (70-105) Calcium 8.2 L (8.4-10.2) mg/dL Magnesium 3.30 H (1.7-2.3) mg/dL Crossmatch See Detail 04/21/17 04/21/17 Range/Units 13:17 18:15 WBC (4.5-11.0) K/mm3 RBC (3.65-5.03) M/mm3 Hgb 7.6 L (10.1-14.3) gm/dl Hct 24.1 L (30.3-42.9) % RDW (13.2-15.2) % Plt Count (140-440) K/mm3 Seg Neuts % (Manual) (40.0-70.0) % Lymphocytes % (Manual) (13.4-35.0) % Nucleated RBC % (0.0-0.9) % Seg Neutrophils # Man (1.8-7.7) K/mm3 Lymphocytes # (Manual) (1.2-5.4) K/mm3 PT (12.2-14.9) Sec. POC ABG pH 7.250 L (7.35-7.45) POC ABG pCO2 49.9 H (35-45) Chloride (98-107) mmol/L Carbon Dioxide (22-30) mmol/L BUN (7-17) mg/dL Creatinine (0.7-1.2) mg/dL Glucose (65-100) mg/dL POC Glucose (70-105) Calcium (8.4-10.2) mg/dL Magnesium (1.7-2.3) mg/dL Crossmatch
[2017-04-21] MEDS: ZOSYN/NS 2.25 GM/50ML 2.25 GM/50 ML BAG IV SCH (22:58)
[2017-04-22] MEDS: DUONEB *Not for PRN Use IH SCH ×4 (02:42→21:30)
[2017-04-22] MEDS: ZOSYN/NS 2.25 GM/50ML 2.25 GM/50 ML BAG IV SCH ×4 (04:00→23:35)
[2017-04-22 05:38] LABS: Hematocrit 23.6 % (30.3-42.9); Hemoglobin 7.5 gm/dl (10.1-14.3); Mean Corpuscular HGB Conc 32 % (30-34); Mean Corpuscular Hemoglobin 29 pg (28-32); Mean Corpuscular Volume 89 fl (79-97); Red Blood Count 2.64 M/mm3 (3.65-5.03)
[2017-04-22 05:39] LABS: Platelet Count 41 K/mm3 (140-440); Red Cell Distribution Width 20.5 % (13.2-15.2)
[2017-04-22 07:17] LABS: Band Neutrophils # (Manual) 5.8 K/mm3; Basophils % (Manual) 0 % (0.0-1.8); Eosinophils % (Manual) 0 % (0.0-4.3); Total Cells Counted 100
[2017-04-22 07:18] LABS: Anisocytosis 1+; Hypochromasia 1+
[2017-04-22 07:19] LABS: Platelet Estimate Consistent w Auto; Smudge Cells Few; Target Cells Few
[2017-04-22 07:27] LABS: Calcium 8.3 mg/dL (8.4-10.2)
[2017-04-22] MEDS: BROVANA NEBU IH SCH ×2 (07:58→22:43)
[2017-04-22] MEDS: PULMICORT IH SCH ×2 (07:58→21:30)
--- NOTE | 2017-04-22 08:21 | Progress Note ---
Assessment and Plan 1. Acute kidney Injury: OTIS in likely multifactorial in the setting of hypotension, IV contrast and severe anemia. Renal function is better and stable. Continue IV fluids. Monitor renal function and lytes. 2. Hyponatremia: Improved. 3. Metabolic acidosis: Continue IV fluids. 4. Hypotension: BP is better. 5. Hyperkalemia: Improved. 6. Anemia. D/w family members at the bedside. Subjective Date of service: 04/22/17 Principal diagnosis: anemia, cirrhosis Interval history: Patient was seen and examined at the bedside. On BIPAP. Objective - Vital Signs Vital signs: Vital Signs - 12hr 04/21/17 04/21/17 04/21/17 21:00 21:53 22:00 Temperature Pulse Rate Pulse Rate [ Anterior Bilateral Throughout] Pulse Rate [ Posterior Bilateral Throughout] Respiratory 22 Rate Respiratory Rate [Anterior Bilateral Throughout] Respiratory Rate [Posterior Bilateral Throughout] Blood Pressure Blood Pressure [Left] O2 Sat by Pulse 94 92 Oximetry 04/21/17 04/22/17 04/22/17 22:40 02:38 02:45 Temperature Pulse Rate 77 Pulse Rate [ 78 76 Anterior Bilateral Throughout] Pulse Rate [ Posterior Bilateral Throughout] Respiratory 23 Rate Respiratory 22 20 Rate [Anterior Bilateral Throughout] Respiratory Rate [Posterior Bilateral Throughout] Blood Pressure Blood Pressure [Left] O2 Sat by Pulse 97 Oximetry 04/22/17 04/22/17 04/22/17 03:15 04:26 07:01 Temperature 92.1 F L 91.9 F L Pulse Rate 86 71 Pulse Rate [ Anterior Bilateral Throughout] Pulse Rate [ Posterior Bilateral Throughout] Respiratory 21 18 20 Rate Respiratory Rate [Anterior Bilateral Throughout] Respiratory Rate [Posterior Bilateral Throughout] Blood Pressure 145/90 Blood Pressure 116/93 [Left] O2 Sat by Pulse 99 97 Oximetry 04/22/17 04/22/17 07:59 08:01 Temperature Pulse Rate 73 Pulse Rate [ 73 Anterior Bilateral Throughout] Pulse Rate [ 71 Posterior Bilateral Throughout] Respiratory 22 Rate Respiratory 20 Rate [Anterior Bilateral Throughout] Respiratory 22 Rate [Posterior Bilateral Throughout] Blood Pressure Blood Pressure [Left] O2 Sat by Pulse 98 Oximetry - General Appearance General appearance: well-developed, appears stated age, other (on BIPAP) EENT: ATNC Neck: supple Respiratory: Present: Clear to Ascultation Cardiology: regular, S1S2, no murmurs Gastrointestinal: normoactive bowel sounds, no tenderness, no distended Integumentary: erythema Neurologic: other (not following any command) Musculoskeletal: other - Lab 04/23/17 05:02 04/23/17 05:02 Most recent lab results Calcium 8.3 mg/dL (8.4-10.2) L 04/22/17 05:12 Phosphorus 3.60 mg/dL (2.5-4.5) 04/20/17 04:00 Magnesium 3.30 mg/dL (1.7-2.3) H 04/21/17 03:45
[2017-04-22] MEDS: PROTONIX PO SCH (09:14)
[2017-04-22] MEDS: SYNTHROID PO SCH (09:15)
[2017-04-22] MEDS: THERAGRAN-M Tab PO SCH (09:15)
--- NOTE | 2017-04-22 10:02 | Progress Note ---
Assessment and Plan Assessment and plan: COPD exacerbation - Patient is on IV Solu-Medrol, IV antibiotics - Pulmonary is following Acute respiratory failure - Patient is on BiPAP - Respiratory distress is likely due to fluid overload, patient received Lasix 1 yesterday Acute diastolic heart failure. -Echocardiogram revealed EF of 55-60%. -Consider cardiology consultation. -Follow-up chest x-ray. -Continue Lasix as needed. Sepsis, Pneumonia - Patient is currently hypothermic, tachycardic and has leukocytosis - Blood culture was taken, empirically start his IV vancomycin and Zosyn -Consider ID consultation. Hypothyroidism (acquired) - Cont Synthyroid EtOH abuse. - [facility] protocol. Anemia - hemoglobin stable Thrombocytopenia - Hematology following - Improving Dysphagia. 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 -on maddox catheter ESLD with ascites - continue supportive care - GI following Malnutrition - Continue dobbhoff tube feedings Prognosis - poor , given her multiple co-morbid conditions. History Interval history: No new issues Hospitalist Physical - Constitutional Vitals: Temp Pulse Resp BP Pulse Ox 91.9 F L 73 22 116/93 98 04/22/17 07:01 04/22/17 08:01 04/22/17 08:01 04/22/17 07:01 04/22/17 08:01 General appearance: Present: mild distress, other (on Bipap) - EENT Eyes: Present: PERRL, EOM intact ENT: hearing intact, clear oral mucosa, dentition normal - Neck Neck: Present: supple, normal ROM - Respiratory Respiratory effort: normal Respiratory: bilateral: CTA - Cardiovascular Rhythm: regular Heart Sounds: Present: S1 & S2. Absent: gallop, rub - Extremities Extremities: no ischemia, No edema, Full ROM - Abdominal General gastrointestinal: soft, non-tender, non-distended, normal bowel sounds - Integumentary Integumentary: Present: clear, warm, dry - Neurologic Neurologic: CNII-XII intact, moves all extremities Results - Labs CBC & Chem 7: 04/22/17 05:12 04/22/17 05:12 Labs: Laboratory Last Values WBC 16.6 K/mm3 (4.5-11.0) H 04/22/17 05:12 RBC 2.64 M/mm3 (3.65-5.03) L 04/22/17 05:12 Hgb 7.5 gm/dl (10.1-14.3) L 04/22/17 05:12 Hct 23.6 % (30.3-42.9) L 04/22/17 05:12 MCV 89 fl (79-97) 04/22/17 05:12 MCH 29 pg (28-32) 04/22/17 05:12 MCHC 32 % (30-34) 04/22/17 05:12 RDW 20.5 % (13.2-15.2) H 04/22/17 05:12 Plt Count 41 K/mm3 (140-440) L 04/22/17 05:12 [place] % (Auto) 3.1 % (0.0-7.3) 04/16/17 05:30 Eos % (Auto) 0.0 % (0.0-4.3) 04/16/17 05:30 [place] # 0.7 K/mm3 (0.0-0.8) 04/16/17 05:30 Eos # 0.0 K/mm3 (0.0-0.4) 04/16/17 05:30 Baso # 0.1 K/mm3 (0.0-0.1) 04/16/17 05:30 Add Manual Diff Complete 04/22/17 05:12 Total Counted 100 04/22/17 05:12 Seg Neutrophils % [employer] 04/22/17 05:12 Seg Neuts % (Manual) 53.0 % (40.0-70.0) 04/22/17 05:12 Band Neutrophils % 35.0 % 04/22/17 05:12 Lymphocytes % (Manual) 9.0 % (13.4-35.0) L 04/22/17 05:12 Reactive Lymphs % (Man) 0 % 04/22/17 05:12 Monocytes % (Manual) 3.0 % (0.0-7.3) 04/22/17 05:12 Eosinophils % (Manual) 0 % (0.0-4.3) 04/22/17 05:12 Basophils % (Manual) 0 % (0.0-1.8) 04/22/17 05:12 Metamyelocytes % 0 % 04/22/17 05:12 Myelocytes % 0 % 04/22/17 05:12 Promyelocytes % 0 % 04/22/17 05:12 Blast Cells % 0 % 04/22/17 05:12 Nucleated RBC % 5.0 % (0.0-0.9) H 04/22/17 05:12 Seg Neutrophils # 21.5 K/mm3 (1.8-7.7) H 04/16/17 05:30 Seg Neutrophils # Man 8.8 K/mm3 (1.8-7.7) H 04/22/17 05:12 Band Neutrophils # 5.8 K/mm3 04/22/17 05:12 Lymphocytes # (Manual) 1.5 K/mm3 (1.2-5.4) 04/22/17 05:12 Abs React Lymphs (Man) 0.0 K/mm3 04/22/17 05:12 Monocytes # (Manual) 0.5 K/mm3 (0.0-0.8) 04/22/17 05:12 Eosinophils # (Manual) 0.0 K/mm3 (0.0-0.4) 04/22/17 05:12 Basophils # (Manual) 0.0 K/mm3 (0.0-0.1) 04/22/17 05:12 Metamyelocytes # 0.0 K/mm3 04/22/17 05:12 Myelocytes # 0.0 K/mm3 04/22/17 05:12 Promyelocytes # 0.0 K/mm3 04/22/17 05:12 Blast Cells # 0.0 K/mm3 04/22/17 05:12 WBC Morphology Not Reportable 04/22/17 05:12 Hypersegmented Neuts Not Reportable 04/22/17 05:12 Hyposegmented Neuts Not Reportable 04/22/17 05:12 Hypogranular Neuts Not Reportable 04/22/17 05:12 Smudge Cells Few 04/22/17 05:12 Toxic Granulation Not Reportable 04/22/17 05:12 Toxic Vacuolation Not Reportable 04/22/17 05:12 Dohle Bodies Not Reportable 04/22/17 05:12 Pelger-Huet Anomaly Not Reportable 04/22/17 05:12 Monique Rods Not Reportable 04/22/17 05:12 Platelet Estimate Consistent w auto 04/22/17 05:12 Clumped Platelets Not Reportable 04/22/17 05:12 Plt Clumps, EDTA Not Reportable 04/22/17 05:12 Large Platelets Not Reportable 04/22/17 05:12 Giant Platelets Not Reportable 04/22/17 05:12 Platelet Satelliting Not Reportable 04/22/17 05:12 Plt Morphology Comment Not Reportable 04/22/17 05:12 RBC Morphology Not Reportable 04/22/17 05:12 Dimorphic RBCs Not Reportable 04/22/17 05:12 Polychromasia Few 04/22/17 05:12 Hypochromasia 1+ 04/22/17 05:12 Poikilocytosis Not Reportable 04/22/17 05:12 Anisocytosis 1+ 04/22/17 05:12 Microcytosis Not Reportable 04/22/17 05:12 Macrocytosis Not Reportable 04/22/17 05:12 Spherocytes Not Reportable 04/22/17 05:12 Pappenheimer Bodies Not Reportable 04/22/17 05:12 Sickle Cells Not Reportable 04/22/17 05:12 Target Cells Few 04/22/17 05:12 Tear Drop Cells Not Reportable 04/22/17 05:12 Ovalocytes Not Reportable 04/22/17 05:12 Helmet Cells Not Reportable 04/22/17 05:12 [place] Bodies Not Reportable 04/22/17 05:12 [place] Rings Not Reportable 04/22/17 05:12 [place] Cells Not Reportable 04/22/17 05:12 Bite Cells Not Reportable 04/22/17 05:12 Crenated Cell Not Reportable 04/22/17 05:12 Elliptocytes Few 04/22/17 05:12 Acanthocytes (Spur) Not Reportable 04/22/17 05:12 Rouleaux Not Reportable 04/22/17 05:12 Hemoglobin C Crystals Not Reportable 04/22/17 05:12 Schistocytes Not Reportable 04/22/17 05:12 Malaria parasites Not Reportable 04/22/17 05:12 ESR 24 mm/Hr (0-20) 04/13/17 03:00 Percent Retic 1.53 % (0.78-2.58) 04/09/17 11:23 Vincent Bodies Not Reportable 04/22/17 05:12 Haptoglobin 70 mg/dL (43-212) 04/16/17 18:20 Hem Pathologist Commnt No 04/22/17 05:12 PT 15.1 Sec. (12.2-14.9) H 04/21/17 00:13 INR 1.13 (0.87-1.13) 04/21/17 00:13 APTT 34.1 Sec. (24.2-36.6) 04/16/17 09:55 Fibrinogen 153 mg/dl (211-480) L 04/13/17 03:00 D-Dimer 2989.51 ng/mlDDU (0-234) H 04/13/17 03:00 Lupus Anticoagulant see below 04/13/17 03:00 POC ABG pH 7.317 (7.35-7.45) L 04/21/17 22:39 POC ABG pCO2 42.6 (35-45) 04/21/17 22:39 POC ABG pO2 54 (80-105) L 04/21/17 22:39 POC ABG HCO3 21.8 04/21/17 22:39 POC ABG Total CO2 23 04/21/17 22:39 POC ABG O2 Sat 85 04/21/17 22:39 POC ABG Base Excess -4 04/21/17 22:39 FiO2 40 % 04/21/17 22:39 Sodium 146 mmol/L (137-145) H 04/22/17 05:12 Potassium 4.3 mmol/L (3.6-5.0) 04/22/17 05:12 Chloride 110.8 mmol/L (98-107) H 04/22/17 05:12 Carbon Dioxide 16 mmol/L (22-30) L 04/22/17 05:12 Anion Gap 24 mmol/L 04/22/17 05:12 BUN 54 mg/dL (7-17) H 04/22/17 05:12 Creatinine 1.6 mg/dL (0.7-1.2) H 04/22/17 05:12 Estimated GFR 39 ml/min 04/22/17 05:12 BUN/Creatinine Ratio 34 % 04/22/17 05:12 Glucose 134 mg/dL (65-100) H 04/22/17 05:12 POC Glucose 141 (70-105) H 04/21/17 06:59 Lactic Acid 3.60 mmol/L (0.7-2.0) H* 04/06/17 Unknown Calcium 8.3 mg/dL (8.4-10.2) L 04/22/17 05:12 Phosphorus 3.60 mg/dL (2.5-4.5) 04/20/17 04:00 Magnesium 3.30 mg/dL (1.7-2.3) H 04/21/17 03:45 Iron 42 ug/dL (37-170) 04/09/17 11:23 TIBC 81 mcg/dL (250-450) L 04/09/17 11:23 Ferritin 2314.0 ng/mL (13.0-400.0) H 04/09/17 11:23 Total Bilirubin 0.80 mg/dL (0.1-1.2) 04/14/17 06:10 AST 73 units/L (5-40) H 04/14/17 06:10 ALT 53 units/L (7-56) 04/14/17 06:10 Alkaline Phosphatase 66 units/L (35-129) 04/14/17 06:10 Ammonia 32.0 umol/L (25-60) 04/17/17 05:50 Lactate Dehydrogenase 648 units/L (91-180) H 04/13/17 03:00 Total Creatine Kinase 443 units/L (30-135) H 04/20/17 04:00 Troponin T 0.090 ng/mL (0.00-0.029) H 04/05/17 20:43 NT-Pro-B Natriuret Pep 6486 pg/mL (0-900) H 04/05/17 20:43 Serum Total Protein 3.8 g/dL (6.1-8.1) L 04/13/17 03:00 Total Protein 4.4 g/dL (6.3-8.2) L 04/14/17 06:10 Albumin 2.2 g/dL (3.9-5) L 04/14/17 06:10 Albumin/Globulin Ratio 1.0 % 04/14/17 06:10 Srebj-7-Elzvcreyn 0.3 g/dL (0.2-0.3) 04/13/17 03:00 Jqnsp-1-Tbwkhprmt 0.3 g/dL (0.5-0.9) L 04/13/17 03:00 Beta Globulins 0.4 g/dL (0.2-0.5) 04/13/17 03:00 Wspn-7-Svoxjgisvonbq 15.00 mg/L (<=2.51) H 04/13/17 03:00 Gamma Globulins 1.1 g/dL (0.8-1.7) 04/13/17 03:00 Abnorm Protein Band 1 see below 04/13/17 03:00 PEP Interpretation see below H 04/13/17 03:00 Triglycerides 64 mg/dL (2-149) 04/05/17 20:43 Cholesterol 98 mg/dL (50-199) 04/05/17 20:43 LDL Cholesterol Direct 54 mg/dL (50-130) 04/05/17 20:43 HDL Cholesterol 32 mg/dL (40-59) L 04/05/17 20:43 Cholesterol/HDL Ratio 3.06 % 04/05/17 20:43 Vitamin B12 1641 pg/mL (211-911) H 04/09/17 11:23 Folate 4.55 ng/mL (7.3-26.0) L 04/09/17 11:23 Immunofix Electrophor see below 04/13/17 03:00 Rheumatoid Factor 32 IU/ml (0-13) H 04/13/17 03:00 AGUSTIN Screen Negative (Negative) 04/12/17 03:00 Hepatitis A IgM Ab Non-reactive (NonReactive) 04/12/17 07:42 Hep Bs Antigen Non-reactive (Negative) 04/12/17 07:42 Hep B Core IgM Ab Non-reactive (NonReactive) 04/12/17 07:42 Hepatitis C Antibody Non-reactive (NonReactive) 04/12/17 07:42 Parvovirus B19 IgG Ab 1.3 (<0.9) H 04/16/17 15:30 Parvovirus B19 IgM Ab 0.1 (<0.9) 04/16/17 15:30 Blood Type O POSITIVE 04/21/17 10:50 Antibody Screen Negative 04/21/17 10:50 Crossmatch See Detail 04/21/17 10:50
[2017-04-22] MEDS: VANCOMYCIN/NS 1 GM/250 ML 1 GM/250 ML BAG IV SCH (15:05)
[2017-04-22] MEDS ORDERED: SIMPLE SYRUP FEEDTUBE PRN ×2 (16:37)
[2017-04-22] MEDS ORDERED: PANCREAZE DR 10,500 UNIT FEEDTUBE PRN (16:37)
[2017-04-22] MEDS ORDERED: SODIUM BICARBONATE FEEDTUBE PRN (16:37)
--- NOTE | 2017-04-22 19:59 | Ultrasound Report ---
FINAL REPORT PROCEDURE: US ABDOMEN COMPLETE TECHNIQUE: Real-time sonography in multiple planes of the abdomen was performed with image documentation. CPT 89907 HISTORY: cirrhosis COMPARISON: Prior abdominal ultrasound 04/12/2017 FINDINGS: Gallbladder is contracted and contains multiple echogenic foci casting acoustic shadows consistent with cholelithiasis. I do not see evidence of acute cholecystitis. Common bile duct is normal caliber measuring under 2 millimeters. The intrahepatic ducts are not distended. The liver echogenicity is mildly heterogeneous without discrete masses suggesting cirrhosis. No ascites is visualized. Right and left kidney showed no abnormalities. The right kidney measures 9.2 centimeters greatest length the left kidney 9.8 centimeters greatest length. The spleen appeared normal measuring 8.7 centimeters. The pancreas was obscured by bowel gas and cannot be commented on. Only the proximal abdominal aorta was seen which showed no evidence of aneurysm. IMPRESSION: Cholelithiasis. Cirrhosis of the liver suspected. No other abnormalities are seen in the abdomen. Incidental note is made of partially visualize right pleural effusion..
--- NOTE | 2017-04-22 20:30 | Progress Note ---
Assessment and Plan - Patient Problems (1) Anemia Current Visit: Yes Status: Acute Plan to address problem: see orders. transfusion replacements. other w/up still pending results. see notes. (2) CHF (congestive heart failure) Current Visit: Yes Status: Chronic Plan to address problem: follow you. (3) Thrombocytopenia Current Visit: Yes Status: Acute Plan to address problem: see orders. see notes. Beta -2 quite high, will await other w/up for myeloma. pending w/up results. ESLD.see notes. replacement therapy if / when indicated. Subjective Date of service: 04/22/17 Principal diagnosis: anemia, cirrhosis Interval history: Patient seen/examined, resting in bed, sluggish.labs reviewed, as well as notes.Fibrinogen low, D-dimer elevated, with very high Ldh, indicating consumptive coagulopathy. She may have some auto immune d/o. along with other things l, and perhaps bkleeding contributing to her thrombocytopenia. She may benefit from some steriods.IF any procedure is intended, PLT can be given, +/_ FFP if indicated.Will continue to follow you.Still awaiting [id number]., and folate. Patient seen, resting in bed. Labs/notes reviewed, s/p replacement transfusion. Will do PNH panel.Steroid still recommended. Patient seen, resting in bed, family at the bed side, record /labs reviewed.It appears that she responded some to steroid as recommended. Patient seen today, transferred to the unit overnight due to decline as per notes/report reviewed. She remains slow/sluggish as usual.anemia persists, despite replacement transfusion.She will need GI scope, and if NL, will consider BM bx. Patient seen/examined in the ICU, record reviewed, case d/w her daughter. Patient with debility, non coherent enough due to chronic brain insult from etoh abuse, and given ESLD, her chances for even moderate functional recovery is quite grim. rec supportive care. Patient seen, resting in bed labs reviewed, and remain fair. Patient seen today, resting in bed, labs /notes reviewed. Hgb 7.1. if less than 7.0, may be transfused with PRBC Patient seen/examined, resting in bed, labs reviewed, CPK elevated Patient seen/ examined, record reviewed, case d/w patients daughter at the bed side. Patient seen/examined, resting in bed, record reviewed, labs reviewed, and fair. will continue to monitor along with you. Objective - Constitutional Vitals: Vital Signs - 12hr 04/22/17 04/22/17 04/22/17 10:00 12:00 13:39 Temperature 93 F L 92.4 F L Pulse Rate 76 79 Pulse Rate [ Anterior Bilateral Throughout] Pulse Rate [ Posterior Bilateral Throughout] Respiratory 24 20 Rate Respiratory Rate [Anterior Bilateral Throughout] Respiratory Rate [Posterior Bilateral Throughout] Blood Pressure 118/71 110/86 [Left] O2 Sat by Pulse 96 94 93 Oximetry 04/22/17 04/22/17 14:00 14:12 Temperature Pulse Rate 76 Pulse Rate [ 80 Anterior Bilateral Throughout] Pulse Rate [ 76 Posterior Bilateral Throughout] Respiratory 20 Rate Respiratory 21 Rate [Anterior Bilateral Throughout] Respiratory 22 Rate [Posterior Bilateral Throughout] Blood Pressure [Left] O2 Sat by Pulse 96 Oximetry General appearance: Present: mild distress - EENT Eyes: PERRL, EOM intact ENT: hearing intact, clear oral mucosa Ears: bilateral: normal - Neck Neck: supple, normal ROM - Respiratory Respiratory: bilateral: diminished - Breasts Breasts: deferred - Cardiovascular Rhythm: regular Heart Sounds: Present: S1 & S2. Absent: gallop, rub Extremities: pulses intact, No edema, normal color, Full ROM - Gastrointestinal General gastrointestinal: Present: soft, non-tender, non-distended, normal bowel sounds Rectal Exam: deferred - Genitourinary Female genitourinary: deferred - Integumentary Integumentary: clear, warm, dry - Musculoskeletal Musculoskeletal: 1, strength equal bilaterally - Neurologic Neurologic: moves all extremities - Psychiatric Psychiatric: appropriate mood/affect - Labs CBC & Chem 7: 04/22/17 05:12 04/22/17 05:12 Labs: Abnormal lab results 04/21/17 04/21/17 04/22/17 Range/Units 21:54 22:39 05:12 WBC 16.6 H (4.5-11.0) K/mm3 RBC 2.64 L (3.65-5.03) M/mm3 Hgb 7.5 L (10.1-14.3) gm/dl Hct 23.6 L (30.3-42.9) % RDW 20.5 H (13.2-15.2) % Plt Count 41 L (140-440) K/mm3 Lymphocytes % (Manual) 9.0 L (13.4-35.0) % Nucleated RBC % 5.0 H (0.0-0.9) % Seg Neutrophils # Man 8.8 H (1.8-7.7) K/mm3 POC ABG pH 7.300 L 7.317 L (7.35-7.45) POC ABG pO2 47 L 54 L (80-105) Sodium (137-145) mmol/L Chloride (98-107) mmol/L Carbon Dioxide (22-30) mmol/L BUN (7-17) mg/dL Creatinine (0.7-1.2) mg/dL Glucose (65-100) mg/dL Calcium (8.4-10.2) mg/dL 04/22/17 Range/Units 05:12 WBC (4.5-11.0) K/mm3 RBC (3.65-5.03) M/mm3 Hgb (10.1-14.3) gm/dl Hct (30.3-42.9) % RDW (13.2-15.2) % Plt Count (140-440) K/mm3 Lymphocytes % (Manual) (13.4-35.0) % Nucleated RBC % (0.0-0.9) % Seg Neutrophils # Man (1.8-7.7) K/mm3 POC ABG pH (7.35-7.45) POC ABG pO2 (80-105) Sodium 146 H (137-145) mmol/L Chloride 110.8 H (98-107) mmol/L Carbon Dioxide 16 L (22-30) mmol/L BUN 54 H (7-17) mg/dL Creatinine 1.6 H (0.7-1.2) mg/dL Glucose 134 H (65-100) mg/dL Calcium 8.3 L (8.4-10.2) mg/dL
[2017-04-23] MEDS: DUONEB *Not for PRN Use IH SCH ×4 (03:20→20:13)
[2017-04-23] MEDS: ZOSYN/NS 2.25 GM/50ML 2.25 GM/50 ML BAG IV SCH ×3 (04:00→14:45)
[2017-04-23 05:28] LABS: Hematocrit 24.7 % (30.3-42.9); Hemoglobin 7.7 gm/dl (10.1-14.3); Mean Corpuscular HGB Conc 31 % (30-34); Mean Corpuscular Hemoglobin 28 pg (28-32); Mean Corpuscular Volume 89 fl (79-97); Red Blood Count 2.78 M/mm3 (3.65-5.03)
[2017-04-23 05:33] LABS: Platelet Count 28 K/mm3 (140-440); Red Cell Distribution Width 21.4 % (13.2-15.2)
[2017-04-23 05:44] LABS: Calcium 8.1 mg/dL (8.4-10.2); Magnesium 2.3 mg/dL (1.7-2.3)
[2017-04-23 06:24] LABS: Anisocytosis 1+; Basophils % (Manual) 0 % (0.0-1.8); Eosinophils % (Manual) 0 % (0.0-4.3); Monocytes % (Manual) 0 % (0.0-7.3); Platelet Estimate Appears Decreased; Target Cells 1+; Total Cells Counted 100
[2017-04-23] MEDS: BROVANA NEBU IH SCH ×2 (07:22→20:13)
[2017-04-23] MEDS: PULMICORT IH SCH ×2 (07:22→20:13)
[2017-04-23] MEDS: THERAGRAN-M Tab PO SCH (09:04)
[2017-04-23] MEDS: SYNTHROID PO SCH (09:04)
[2017-04-23] MEDS: PROTONIX PO SCH (09:05)
--- NOTE | 2017-04-23 09:21 | Progress Note ---
Assessment and Plan Assessment and plan: COPD exacerbation - Patient is on IV Solu-Medrol, IV antibiotics - Pulmonary is following Acute respiratory failure - Patient is on BiPAP - Respiratory distress is likely due to fluid overload, patient received Lasix 1 yesterday Acute diastolic heart failure. -Echocardiogram revealed EF of 55-60%. -Consider cardiology consultation. -Follow-up chest x-ray. -Continue Lasix as needed. Sepsis, Pneumonia - Patient is currently hypothermic, tachycardic and has leukocytosis - Blood culture reveals budding yeast. -ID consultation. Fungemia -Start Diflucan. Discontinue vancomycin, Zosyn. Hypothyroidism (acquired) - Cont Synthyroid EtOH abuse. - CIWA protocol. Anemia - hemoglobin stable Thrombocytopenia - Hematology following - Improving Dysphagia. 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 -on maddox catheter ESLD with ascites - continue supportive care - GI following Malnutrition - Continue dobbhoff tube feedings Prognosis - poor , given her multiple co-morbid conditions. History Interval history: Patient currently somnolent and lethargic. Patient currently on BiPAP Hospitalist Physical - Constitutional Vitals: Temp Pulse Resp BP Pulse Ox 93.0 F L 86 22 100/69 96 04/23/17 07:20 04/23/17 07:20 04/23/17 07:20 04/23/17 07:20 04/23/17 07:20 General appearance: Present: mild distress - EENT Eyes: Present: PERRL, EOM intact ENT: hearing intact, clear oral mucosa, dentition normal - Neck Neck: Present: supple, normal ROM - Respiratory Respiratory effort: normal Respiratory: bilateral: CTA - Cardiovascular Rhythm: regular Heart Sounds: Present: S1 & S2. Absent: gallop, rub - Extremities Extremities: no ischemia, No edema, Full ROM - Abdominal General gastrointestinal: soft, non-tender, non-distended, normal bowel sounds - Integumentary Integumentary: Present: clear, warm, dry - Neurologic Neurologic: CNII-XII intact, moves all extremities Results - Labs CBC & Chem 7: 04/23/17 05:02 04/23/17 05:02 Labs: Laboratory Last Values WBC 20.0 K/mm3 (4.5-11.0) H 04/23/17 05:02 RBC 2.78 M/mm3 (3.65-5.03) L 04/23/17 05:02 Hgb 7.7 gm/dl (10.1-14.3) L 04/23/17 05:02 Hct 24.7 % (30.3-42.9) L 04/23/17 05:02 MCV 89 fl (79-97) 04/23/17 05:02 MCH 28 pg (28-32) 04/23/17 05:02 MCHC 31 % (30-34) 04/23/17 05:02 RDW 21.4 % (13.2-15.2) H 04/23/17 05:02 Plt Count 28 K/mm3 (140-440) L 04/23/17 05:02 [place] % (Auto) 3.1 % (0.0-7.3) 04/16/17 05:30 Eos % (Auto) 0.0 % (0.0-4.3) 04/16/17 05:30 Henderson # 0.7 K/mm3 (0.0-0.8) 04/16/17 05:30 Eos # 0.0 K/mm3 (0.0-0.4) 04/16/17 05:30 Baso # 0.1 K/mm3 (0.0-0.1) 04/16/17 05:30 Add Manual Diff Complete 04/23/17 05:02 Total Counted 100 04/23/17 05:02 Seg Neutrophils % Mobile Security Architect 04/23/17 05:02 Seg Neuts % (Manual) 85.0 % (40.0-70.0) H 04/23/17 05:02 Band Neutrophils % 15.0 % 04/23/17 05:02 Lymphocytes % (Manual) 0 % (13.4-35.0) L 04/23/17 05:02 Reactive Lymphs % (Man) 0 % 04/23/17 05:02 Monocytes % (Manual) 0 % (0.0-7.3) 04/23/17 05:02 Eosinophils % (Manual) 0 % (0.0-4.3) 04/23/17 05:02 Basophils % (Manual) 0 % (0.0-1.8) 04/23/17 05:02 Metamyelocytes % 0 % 04/23/17 05:02 Myelocytes % 0 % 04/23/17 05:02 Promyelocytes % 0 % 04/23/17 05:02 Blast Cells % 0 % 04/23/17 05:02 Nucleated RBC % 6.0 % (0.0-0.9) H 04/23/17 05:02 Seg Neutrophils # 21.5 K/mm3 (1.8-7.7) H 04/16/17 05:30 Seg Neutrophils # Man 17.0 K/mm3 (1.8-7.7) H 04/23/17 05:02 Band Neutrophils # 3.0 K/mm3 04/23/17 05:02 Lymphocytes # (Manual) 0.0 K/mm3 (1.2-5.4) L 04/23/17 05:02 Abs React Lymphs (Man) 0.0 K/mm3 04/23/17 05:02 Monocytes # (Manual) 0.0 K/mm3 (0.0-0.8) 04/23/17 05:02 Eosinophils # (Manual) 0.0 K/mm3 (0.0-0.4) 04/23/17 05:02 Basophils # (Manual) 0.0 K/mm3 (0.0-0.1) 04/23/17 05:02 Metamyelocytes # 0.0 K/mm3 04/23/17 05:02 Myelocytes # 0.0 K/mm3 04/23/17 05:02 Promyelocytes # 0.0 K/mm3 04/23/17 05:02 Blast Cells # 0.0 K/mm3 04/23/17 05:02 WBC Morphology Not Reportable 04/23/17 05:02 Hypersegmented Neuts Not Reportable 04/23/17 05:02 Hyposegmented Neuts Not Reportable 04/23/17 05:02 Hypogranular Neuts Not Reportable 04/23/17 05:02 Smudge Cells Not Reportable 04/23/17 05:02 Toxic Granulation Not Reportable 04/23/17 05:02 Toxic Vacuolation Not Reportable 04/23/17 05:02 Dohle Bodies Not Reportable 04/23/17 05:02 Pelger-Huet Anomaly Not Reportable 04/23/17 05:02 Monique Rods Not Reportable 04/23/17 05:02 Platelet Estimate Appears decreased 04/23/17 05:02 Clumped Platelets Not Reportable 04/23/17 05:02 Plt Clumps, EDTA Not Reportable 04/23/17 05:02 Large Platelets Not Reportable 04/23/17 05:02 Giant Platelets Not Reportable 04/23/17 05:02 Platelet Satelliting Not Reportable 04/23/17 05:02 Plt Morphology Comment Not Reportable 04/23/17 05:02 RBC Morphology Not Reportable 04/23/17 05:02 Dimorphic RBCs Not Reportable 04/23/17 05:02 Polychromasia Not Reportable 04/23/17 05:02 Hypochromasia Not Reportable 04/23/17 05:02 Poikilocytosis Not Reportable 04/23/17 05:02 Anisocytosis 1+ 04/23/17 05:02 Microcytosis Not Reportable 04/23/17 05:02 Macrocytosis Not Reportable 04/23/17 05:02 Spherocytes Not Reportable 04/23/17 05:02 Pappenheimer Bodies Not Reportable 04/23/17 05:02 Sickle Cells Not Reportable 04/23/17 05:02 Target Cells 1+ 04/23/17 05:02 Tear Drop Cells Not Reportable 04/23/17 05:02 Ovalocytes Not Reportable 04/23/17 05:02 Helmet Cells Not Reportable 04/23/17 05:02 Apar[place] Bodies Not Reportable 04/23/17 05:02 [place] Rings Not Reportable 04/23/17 05:02 [place] Cells Not Reportable 04/23/17 05:02 Bite Cells Not Reportable 04/23/17 05:02 Crenated Cell Not Reportable 04/23/17 05:02 Elliptocytes Not Reportable 04/23/17 05:02 Acanthocytes (Spur) Not Reportable 04/23/17 05:02 Rouleaux Not Reportable 04/23/17 05:02 Hemoglobin C Crystals Not Reportable 04/23/17 05:02 Schistocytes Not Reportable 04/23/17 05:02 Malaria parasites Not Reportable 04/23/17 05:02 ESR 24 mm/Hr (0-20) 04/13/17 03:00 Percent Retic 1.53 % (0.78-2.58) 04/09/17 11:23 Vincent Bodies Not Reportable 04/23/17 05:02 Haptoglobin 70 mg/dL (43-212) 04/16/17 18:20 Hem Pathologist Commnt No 04/23/17 05:02 PT 15.1 Sec. (12.2-14.9) H 04/21/17 00:13 INR 1.13 (0.87-1.13) 04/21/17 00:13 APTT 34.1 Sec. (24.2-36.6) 04/16/17 09:55 Fibrinogen 153 mg/dl (211-480) L 04/13/17 03:00 D-Dimer 2989.51 ng/mlDDU (0-234) H 04/13/17 03:00 Lupus Anticoagulant see below 04/13/17 03:00 POC ABG pH 7.317 (7.35-7.45) L 04/21/17 22:39 POC ABG pCO2 42.6 (35-45) 04/21/17 22:39 POC ABG pO2 54 (80-105) L 04/21/17 22:39 POC ABG HCO3 21.8 04/21/17 22:39 POC ABG Total CO2 23 04/21/17 22:39 POC ABG O2 Sat 85 04/21/17 22:39 POC ABG Base Excess -4 04/21/17 22:39 FiO2 40 % 04/21/17 22:39 Sodium 147 mmol/L (137-145) H 04/23/17 05:02 Potassium 4.0 mmol/L (3.6-5.0) 04/23/17 05:02 Chloride 112.5 mmol/L (98-107) H 04/23/17 05:02 Carbon Dioxide 20 mmol/L (22-30) L 04/23/17 05:02 Anion Gap 19 mmol/L 04/23/17 05:02 BUN 59 mg/dL (7-17) H 04/23/17 05:02 Creatinine 1.6 mg/dL (0.7-1.2) H 04/23/17 05:02 Estimated GFR 39 ml/min 04/23/17 05:02 BUN/Creatinine Ratio 37 % 04/23/17 05:02 Glucose 174 mg/dL (65-100) H 04/23/17 05:02 POC Glucose 141 (70-105) H 04/21/17 06:59 Lactic Acid 3.60 mmol/L (0.7-2.0) H* 04/06/17 Unknown Calcium 8.1 mg/dL (8.4-10.2) L 04/23/17 05:02 Phosphorus 3.60 mg/dL (2.5-4.5) 04/20/17 04:00 Magnesium 2.30 mg/dL (1.7-2.3) 04/23/17 05:02 Iron 42 ug/dL (37-170) 04/09/17 11:23 TIBC 81 mcg/dL (250-450) L 04/09/17 11:23 Ferritin 2314.0 ng/mL (13.0-400.0) H 04/09/17 11:23 Total Bilirubin 0.80 mg/dL (0.1-1.2) 04/14/17 06:10 AST 73 units/L (5-40) H 04/14/17 06:10 ALT 53 units/L (7-56) 04/14/17 06:10 Alkaline Phosphatase 66 units/L (35-129) 04/14/17 06:10 Ammonia 32.0 umol/L (25-60) 04/17/17 05:50 Lactate Dehydrogenase 648 units/L (91-180) H 04/13/17 03:00 Total Creatine Kinase 443 units/L (30-135) H 04/20/17 04:00 Troponin T 0.090 ng/mL (0.00-0.029) H 04/05/17 20:43 NT-Pro-B Natriuret Pep 6486 pg/mL (0-900) H 04/05/17 20:43 Serum Total Protein 3.8 g/dL (6.1-8.1) L 04/13/17 03:00 Total Protein 4.4 g/dL (6.3-8.2) L 04/14/17 06:10 Albumin 2.2 g/dL (3.9-5) L 04/14/17 06:10 Albumin/Globulin Ratio 1.0 % 04/14/17 06:10 Zlece-0-Zewaykfos 0.3 g/dL (0.2-0.3) 04/13/17 03:00 Nbidq-6-Wdybnzmpf 0.3 g/dL (0.5-0.9) L 04/13/17 03:00 Beta Globulins 0.4 g/dL (0.2-0.5) 04/13/17 03:00 Bler-8-Xqvnxstkugiap 15.00 mg/L (<=2.51) H 04/13/17 03:00 Gamma Globulins 1.1 g/dL (0.8-1.7) 04/13/17 03:00 Abnorm Protein Band 1 see below 04/13/17 03:00 PEP Interpretation see below H 04/13/17 03:00 Triglycerides 64 mg/dL (2-149) 04/05/17 20:43 Cholesterol 98 mg/dL (50-199) 04/05/17 20:43 LDL Cholesterol Direct 54 mg/dL (50-130) 04/05/17 20:43 HDL Cholesterol 32 mg/dL (40-59) L 04/05/17 20:43 Cholesterol/HDL Ratio 3.06 % 04/05/17 20:43 Vitamin B12 1641 pg/mL (211-911) H 04/09/17 11:23 Folate 4.55 ng/mL (7.3-26.0) L 04/09/17 11:23 Immunofix Electrophor see below 04/13/17 03:00 Rheumatoid Factor 32 IU/ml (0-13) H 04/13/17 03:00 AGUSTIN Screen Negative (Negative) 04/12/17 03:00 Hepatitis A IgM Ab Non-reactive (NonReactive) 04/12/17 07:42 Hep Bs Antigen Non-reactive (Negative) 04/12/17 07:42 Hep B Core IgM Ab Non-reactive (NonReactive) 04/12/17 07:42 Hepatitis C Antibody Non-reactive (NonReactive) 04/12/17 07:42 Parvovirus B19 IgG Ab 1.3 (<0.9) H 04/16/17 15:30 Parvovirus B19 IgM Ab 0.1 (<0.9) 04/16/17 15:30 Blood Type O POSITIVE 04/21/17 10:50 Antibody Screen Negative 04/21/17 10:50 Crossmatch See Detail 04/21/17 10:50
--- NOTE | 2017-04-23 09:22 | Progress Note ---
Assessment and Plan 1. Acute kidney Injury: OTIS in likely multifactorial in the setting of hypotension, IV contrast and severe anemia. Renal function is better and stable. Monitor renal function and lytes. Patient is not on IV fluids due to suspected volume overload. 2. Hypernatremia: Increase free water flushes. 3. Metabolic acidosis: Improving. 4. Hypotension: BP is better. 5. Hyperkalemia: Improved. 6. Anemia. 7. Respiratory failure. D/w family member at the bedside. Subjective Date of service: 04/23/17 Principal diagnosis: anemia, cirrhosis Interval history: Patient was seen and examined at the bedside. Remain on BIPAP. Objective - Vital Signs Vital signs: Vital Signs - 12hr 04/22/17 04/22/17 04/22/17 21:30 21:45 22:00 Temperature Pulse Rate Pulse Rate [ 74 78 Posterior Bilateral Throughout] Respiratory 20 Rate Respiratory 20 20 Rate [Posterior Bilateral Throughout] Blood Pressure Blood Pressure [Left] O2 Sat by Pulse 94 Oximetry 04/23/17 04/23/17 04/23/17 00:00 03:20 03:32 Temperature Pulse Rate 74 Pulse Rate [ 72 74 Posterior Bilateral Throughout] Respiratory 25 H Rate Respiratory 21 20 Rate [Posterior Bilateral Throughout] Blood Pressure Blood Pressure [Left] O2 Sat by Pulse 98 Oximetry 04/23/17 04/23/17 06:06 07:20 Temperature 93.6 F L 93.0 F L Pulse Rate 86 Pulse Rate [ Posterior Bilateral Throughout] Respiratory 18 22 Rate Respiratory Rate [Posterior Bilateral Throughout] Blood Pressure 120/71 Blood Pressure 100/69 [Left] O2 Sat by Pulse 96 Oximetry - General Appearance General appearance: well-developed, appears stated age, other (on BIPAP, NG feeding tube noted) EENT: ATNC Neck: supple Respiratory: Present: Other (coarse breath sounds) Cardiology: regular, S1S2, no murmurs Gastrointestinal: normoactive bowel sounds, no tenderness, no distended Integumentary: erythema Neurologic: obtunded Musculoskeletal: other (no edema) - Lab 04/23/17 05:02 04/23/17 05:02 Most recent lab results Calcium 8.1 mg/dL (8.4-10.2) L 04/23/17 05:02 Phosphorus 3.60 mg/dL (2.5-4.5) 04/20/17 04:00 Magnesium 2.30 mg/dL (1.7-2.3) 04/23/17 05:02
[2017-04-23] MEDS ORDERED: DIFLUCAN 200 ML IV ONE (10:00)
--- NOTE | 2017-04-23 14:36 | XRay Report ---
AP CHEST: HISTORY: Short of breath Extensive bilateral infiltrates and small pleural effusions are identified. This likely represents pulmonary edema. Heart size is at the upper limits of normal. Feeding tube transverses the esophagus. IMPRESSION: Bilateral pulmonary edema and small bilateral pleural effusions.
[2017-04-23] MEDS: VANCOMYCIN/NS 1 GM/250 ML 1 GM/250 ML BAG IV SCH (14:46)
--- NOTE | 2017-04-23 15:41 | Progress Note ---
Assessment and Plan Imp: 1. Fungemia 2. Severe sepsis 3. Acute respiratory failure, hypoxia 4. OTIS 5. Pulm edema; DDx includes 2/2 TACO + IVFs or ARDS due to sepsis, less likely aspiration 6. Thrombocytopenia 7. Alcoholic cirrhosis 8. s/p GI bleed 9. COPD exac. Rec: 1. Diflucan; ID consult; f/u cultures; appears midline was just placed 04/21/17; check lactic acid 2. Cont. BIPAP; check ABG 3. Increase free water flushes to 250mL e1abiui; give Lasix IV once 4. Cont. Solumedrol, Bronchodilators 5. DHT -> TFs 6. SCDs 7. Monitor platelets 8. Very poor prognosis; long discussion with family who understand this; full code for now but family will discuss further; will transfer to ICU [facility] when bed available CCt 31 minutes Plan of care reviewed in detail with family, they understand/agree Subjective Date of service: 04/23/17 Principal diagnosis: anemia, cirrhosis Interval history: Called back to see patient due to worsening SOB. Now on BIPAP. Hypothermic, confused. BP stable. Active Medications Acetaminophen (Tylenol) 650 mg PO Q6H PRN PRN Reason: Pain MILD(1-3)/Fever >100.5/YE Last Admin: 04/15/17 21:07 Dose: 650 mg Albuterol (Proventil) 2.5 mg IH Q4HRT PRN PRN Reason: Shortness Of Breath Last Admin: 04/21/17 15:19 Dose: 2.5 mg Albuterol/Ipratropium (Duoneb *Not For Prn Use*) 1 ampul IH Q6HRT [facility] Last Admin: 04/23/17 13:12 Dose: 1 ampul Lipase/Protease/Amylase ([place] Dr 10,500 Unit) 1 each FEEDTUBE PRN PRN PRN Reason: For Clogged Feeding Tube Arformoterol Tartrate (Brovana Nebu) 15 mcg IH Q12HRT [facility] Last Admin: 04/23/17 07:22 Dose: 15 mcg Budesonide (Pulmicort) 1 mg IH Q12HRT [facility] Last Admin: 04/23/17 07:22 Dose: 1 mg Furosemide (Lasix) 40 mg IV ONCE ONE Stop: 04/23/17 15:34 Vancomycin HCl (Vancomycin/Ns 1 Gm/250 Ml) 1 gm in 250 mls @ 166.667 mls/hr IV Q24H [facility] Last Admin: 04/23/17 14:46 Dose: 166.667 mls/hr Piperacillin Sod/Tazobactam Sod (Zosyn/Ns 2.25 Gm/50ml) 2.25 gm in 50 mls @ 100 mls/hr IV Q6H [facility] Last Admin: 04/23/17 14:45 Dose: 100 mls/hr Fluconazole (Diflucan) 200 mg in 100 mls @ 100 mls/hr IV Q24HR [facility] Levothyroxine Sodium (Synthroid) 125 mcg PO QAM [facility] Last Admin: 04/23/17 09:04 Dose: 125 mcg Lorazepam (Ativan) 0.5 mg IM Q8H PRN PRN Reason: Agitation Last Admin: 04/21/17 22:58 Dose: 0.5 mg Magnesium Hydroxide (Milk Of Magnesia) 30 ml PO Q4H PRN PRN Reason: Constipation Methylprednisolone Sodium Succinate (Solu-Medrol) 40 mg IV Q12HR [facility] Last Admin: 04/23/17 09:04 Dose: 40 mg Multivitamins/Minerals (Theragran-M Tab) 1 each PO QDAY [facility] Last Admin: 04/23/17 09:04 Dose: 1 each Ondansetron HCl (Zofran) 4 mg IV Q8H PRN PRN Reason: N/V unrelieved by Mehran Last Admin: 04/20/17 22:24 Dose: 4 mg Pantoprazole Sodium (Protonix) 40 mg PO QDAY [facility] Last Admin: 04/23/17 09:05 Dose: 40 mg Simple Syrup (Simple Syrup) 15 ml FEEDTUBE PRN PRN PRN Reason: Hypoglycemia Simple Syrup (Simple Syrup) 30 ml FEEDTUBE PRN PRN PRN Reason: Hypoglycemia Sodium Bicarbonate (Sodium Bicarbonate) 325 mg FEEDTUBE PRN PRN PRN Reason: For Clogged Feeding Tube Vancomycin HCl (Vancomycin Pharmacy To Dose) 1 each IV PKCONSULT [facility] PRN Reason: Protocol Objective Vital Signs - 12hr 04/23/17 04/23/17 04/23/17 06:06 07:20 07:22 Temperature 93.6 F L 93.0 F L Pulse Rate 86 82 Pulse Rate [ Anterior Bilateral Throughout] Pulse Rate [ 81 Posterior Bilateral Throughout] Respiratory 18 22 26 H Rate Respiratory Rate [Anterior Bilateral Throughout] Respiratory 26 H Rate [Posterior Bilateral Throughout] Blood Pressure 120/71 Blood Pressure 100/69 [Left] O2 Sat by Pulse 96 98 Oximetry 04/23/17 04/23/17 04/23/17 07:33 13:12 13:22 Temperature Pulse Rate Pulse Rate [ 82 Anterior Bilateral Throughout] Pulse Rate [ 83 84 82 Posterior Bilateral Throughout] Respiratory Rate Respiratory 26 H Rate [Anterior Bilateral Throughout] Respiratory 24 30 H 26 H Rate [Posterior Bilateral Throughout] Blood Pressure Blood Pressure [Left] O2 Sat by Pulse Oximetry 04/23/17 14:18 Temperature 93.9 F L Pulse Rate 81 Pulse Rate [ Anterior Bilateral Throughout] Pulse Rate [ Posterior Bilateral Throughout] Respiratory 22 Rate Respiratory Rate [Anterior Bilateral Throughout] Respiratory Rate [Posterior Bilateral Throughout] Blood Pressure 113/61 Blood Pressure [Left] O2 Sat by Pulse 88 Oximetry Constitutional: other (confused, arousable, critically ill on BIPAP) Eyes: non-icteric ENT: oropharynx moist Neck: supple Effort: mildly labored Ascultation: Bilateral: rales, rhonchi Cardiovascular: regular rate and rhythm (no mrg) Gastrointestinal: normoactive bowel sounds, soft, non-tender, non-distended Extremities: no cyanosis, no edema, pink and warm, edema Neurologic: normal mental status, non-focal exam, pupils equal and round, CN II- XII normal, other (easily arousable and able to answer all questions) Psychiatric: mood appropriate, affect normal CBC and BMP: 04/23/17 05:02 04/23/17 05:02 ABG, PT/INR, D-dimer: ABG POC ABG pH 7.317 (7.35-7.45) L 04/21/17 22:39 POC ABG pCO2 42.6 (35-45) 04/21/17 22:39 POC ABG pO2 54 (80-105) L 04/21/17 22:39 POC ABG HCO3 21.8 04/21/17 22:39 POC ABG Total CO2 23 04/21/17 22:39 POC ABG O2 Sat 85 04/21/17 22:39 PT/INR, D-dimer PT 15.1 Sec. (12.2-14.9) H 04/21/17 00:13 INR 1.13 (0.87-1.13) 04/21/17 00:13 D-Dimer 2989.51 ng/mlDDU (0-234) H 04/13/17 03:00 Abnormal lab findings: Abnormal Labs 04/05/17 04/05/17 04/05/17 16:14 16:14 20:43 WBC 17.4 H RBC 2.69 L Hgb 8.9 L Hct 27.2 L MCV 101 H MCH 33 H RDW 20.4 H Plt Count Seg Neuts % (Manual) 98.0 H Lymphocytes % (Manual) 2.0 L Nucleated RBC % 4.0 H Seg Neutrophils # Seg Neutrophils # Man 17.1 H Lymphocytes # (Manual) 0.3 L Monocytes # (Manual) PT INR Fibrinogen D-Dimer POC ABG pH POC ABG pCO2 POC ABG pO2 Sodium Potassium 3.3 L Chloride 95.0 L Carbon Dioxide BUN Creatinine 0.5 L Glucose POC Glucose Lactic Acid Calcium 6.7 L Magnesium TIBC Ferritin AST 166 H ALT Lactate Dehydrogenase Total Creatine Kinase Troponin T 0.090 H NT-Pro-B Natriuret Pep 6486 H Serum Total Protein Total Protein Albumin 2.2 L Mprih-8-Yzzphpvug Brio-9-Qwljlvwmzwjih PEP Interpretation HDL Cholesterol 32 L Vitamin B12 Folate Rheumatoid Factor Parvovirus B19 IgG Ab Crossmatch 04/05/17 04/06/17 04/06/17 20:43 02:30 04:56 WBC RBC Hgb Hct MCV MCH RDW Plt Count Seg Neuts % (Manual) Lymphocytes % (Manual) Nucleated RBC % Seg Neutrophils # Seg Neutrophils # Man Lymphocytes # (Manual) Monocytes # (Manual) PT INR Fibrinogen D-Dimer 4892.81 H POC ABG pH 7.524 H POC ABG pCO2 34.7 L POC ABG pO2 Sodium Potassium Chloride Carbon Dioxide BUN Creatinine Glucose POC Glucose Lactic Acid 3.30 H* Calcium Magnesium TIBC Ferritin AST ALT Lactate Dehydrogenase Total Creatine Kinase Troponin T NT-Pro-B Natriuret Pep Serum Total Protein Total Protein Albumin Sfgrr-6-Jlpggxdtb Vpzq-9-Mgteiytnxoffm PEP Interpretation HDL Cholesterol Vitamin B12 Folate Rheumatoid Factor Parvovirus B19 IgG Ab Crossmatch 04/06/17 04/06/17 04/07/17 07:38 Unknown 05:35 WBC 17.7 H RBC 2.29 L Hgb 7.4 L Hct 23.2 L MCV 101 H MCH RDW 20.0 H Plt Count 104 L Seg Neuts % (Manual) 81.0 H Lymphocytes % (Manual) 4.0 L Nucleated RBC % 12.0 H Seg Neutrophils # Seg Neutrophils # Man 14.3 H Lymphocytes # (Manual) 0.7 L Monocytes # (Manual) PT INR Fibrinogen D-Dimer POC ABG pH POC ABG pCO2 POC ABG pO2 Sodium Potassium Chloride Carbon Dioxide BUN Creatinine Glucose POC Glucose Lactic Acid 3.10 H* 3.60 H* Calcium Magnesium TIBC Ferritin AST ALT Lactate Dehydrogenase Total Creatine Kinase Troponin T NT-Pro-B Natriuret Pep Serum Total Protein Total Protein Albumin Psxwh-5-Vpvlueoxf Vzts-5-Ptqtxoogakqst PEP Interpretation HDL Cholesterol Vitamin B12 Folate Rheumatoid Factor Parvovirus B19 IgG Ab Crossmatch 04/07/17 04/09/17 04/09/17 05:35 05:30 05:30 WBC 15.3 H RBC 1.94 L Hgb 6.4 L Hct 19.7 L* MCV 101 H MCH 33 H RDW 19.3 H Plt Count 53 L Seg Neuts % (Manual) 78.0 H Lymphocytes % (Manual) 5.0 L Nucleated RBC % 16.0 H Seg Neutrophils # Seg Neutrophils # Man 11.9 H Lymphocytes # (Manual) 0.8 L Monocytes # (Manual) 0.9 H PT INR Fibrinogen D-Dimer POC ABG pH POC ABG pCO2 POC ABG pO2 Sodium Potassium 2.9 L* Chloride Carbon Dioxide BUN 20 H Creatinine Glucose 144 H 126 H POC Glucose Lactic Acid Calcium 6.2 L 6.2 L Magnesium TIBC Ferritin AST ALT Lactate Dehydrogenase Total Creatine Kinase Troponin T NT-Pro-B Natriuret Pep Serum Total Protein Total Protein Albumin Vvlux-4-Qmsretwob Mlwu-1-Ovryegdjsgfao PEP Interpretation HDL Cholesterol Vitamin B12 Folate Rheumatoid Factor Parvovirus B19 IgG Ab Crossmatch 04/09/17 04/09/17 04/09/17 07:00 11:23 11:23 WBC RBC Hgb Hct MCV MCH RDW Plt Count Seg Neuts % (Manual) Lymphocytes % (Manual) Nucleated RBC % Seg Neutrophils # Seg Neutrophils # Man Lymphocytes # (Manual) Monocytes # (Manual) PT INR Fibrinogen D-Dimer POC ABG pH POC ABG pCO2 POC ABG pO2 Sodium Potassium Chloride Carbon Dioxide BUN Creatinine Glucose POC Glucose Lactic Acid Calcium Magnesium TIBC 81 L Ferritin 2314.0 H AST ALT Lactate Dehydrogenase Total Creatine Kinase Troponin T NT-Pro-B Natriuret Pep Serum Total Protein Total Protein Albumin Tdovi-1-Bivkxgoov Mlqd-4-Fwafhoucimkie PEP Interpretation HDL Cholesterol Vitamin B12 Folate Rheumatoid Factor Parvovirus B19 IgG Ab Crossmatch See Detail 04/09/17 04/09/17 04/10/17 11:23 11:23 Unknown WBC RBC Hgb 7.0 L Hct 21.3 L MCV MCH RDW Plt Count Seg Neuts % (Manual) Lymphocytes % (Manual) Nucleated RBC % Seg Neutrophils # Seg Neutrophils # Man Lymphocytes # (Manual) Monocytes # (Manual) PT INR Fibrinogen D-Dimer POC ABG pH POC ABG pCO2 POC ABG pO2 Sodium Potassium Chloride Carbon Dioxide BUN Creatinine Glucose POC Glucose Lactic Acid Calcium Magnesium TIBC Ferritin AST ALT Lactate Dehydrogenase Total Creatine Kinase Troponin T NT-Pro-B Natriuret Pep Serum Total Protein Total Protein Albumin Grbih-8-Mdqzffogz Rfsq-0-Hidsdtyffxcfy PEP Interpretation HDL Cholesterol Vitamin B12 1641 H Folate 4.55 L Rheumatoid Factor Parvovirus B19 IgG Ab Crossmatch 04/11/17 04/11/17 04/11/17 04:30 04:30 22:15 WBC 13.8 H RBC 2.24 L Hgb 6.9 L Hct 20.9 L MCV MCH RDW 17.4 H Plt Count 28 L Seg Neuts % (Manual) Lymphocytes % (Manual) 8.0 L Nucleated RBC % 12.0 H Seg Neutrophils # Seg Neutrophils # Man 9.1 H Lymphocytes # (Manual) 1.1 L Monocytes # (Manual) PT INR Fibrinogen D-Dimer POC ABG pH POC ABG pCO2 POC ABG pO2 55 L Sodium 134 L Potassium 3.5 L D Chloride 95.6 L Carbon Dioxide BUN 24 H Creatinine 1.5 H Glucose 215 H POC Glucose Lactic Acid Calcium 5.6 L* Magnesium TIBC Ferritin AST ALT Lactate Dehydrogenase Total Creatine Kinase Troponin T NT-Pro-B Natriuret Pep Serum Total Protein Total Protein Albumin Ujoii-7-Onwklfflr Waxt-1-Pktaquhadhuvv PEP Interpretation HDL Cholesterol Vitamin B12 Folate Rheumatoid Factor Parvovirus B19 IgG Ab Crossmatch 04/12/17 04/12/17 04/12/17 06:05 06:05 06:05 WBC 11.4 H RBC 2.49 L Hgb 7.6 L Hct 23.0 L MCV MCH RDW 15.8 H Plt Count 37 L Seg Neuts % (Manual) 97.0 H Lymphocytes % (Manual) 2.0 L Nucleated RBC % 31.0 H Seg Neutrophils # Seg Neutrophils # Man 11.1 H Lymphocytes # (Manual) 0.2 L Monocytes # (Manual) PT 17.7 H INR 1.38 H Fibrinogen D-Dimer POC ABG pH POC ABG pCO2 POC ABG pO2 Sodium 131 L Potassium Chloride 95.4 L Carbon Dioxide 21 L BUN 30 H Creatinine 1.9 H Glucose 208 H POC Glucose Lactic Acid Calcium 5.8 L* Magnesium TIBC Ferritin AST 75 H ALT 57 H Lactate Dehydrogenase Total Creatine Kinase Troponin T NT-Pro-B Natriuret Pep Serum Total Protein Total Protein 4.0 L Albumin 1.6 L Bzhfb-3-Cpowowuew Xmse-5-Hemhyaobwbcxv PEP Interpretation HDL Cholesterol Vitamin B12 Folate Rheumatoid Factor Parvovirus B19 IgG Ab Crossmatch 04/13/17 04/13/17 04/13/17 03:00 03:00 03:00 WBC RBC Hgb Hct MCV MCH RDW Plt Count Seg Neuts % (Manual) Lymphocytes % (Manual) Nucleated RBC % Seg Neutrophils # Seg Neutrophils # Man Lymphocytes # (Manual) Monocytes # (Manual) PT 17.2 H INR 1.33 H Fibrinogen 153 L D-Dimer 2989.51 H POC ABG pH POC ABG pCO2 POC ABG pO2 Sodium Potassium Chloride Carbon Dioxide BUN Creatinine Glucose POC Glucose Lactic Acid Calcium Magnesium TIBC Ferritin AST ALT Lactate Dehydrogenase Total Creatine Kinase Troponin T NT-Pro-B Natriuret Pep Serum Total Protein Total Protein Albumin Zotce-4-Kvlqqujxw Cnoh-7-Wmprdipzdhtkp 15.00 H PEP Interpretation HDL Cholesterol Vitamin B12 Folate Rheumatoid Factor 32 H Parvovirus B19 IgG Ab Crossmatch 04/13/17 04/13/17 04/14/17 03:00 03:00 06:10 WBC 26.3 H RBC 1.66 L Hgb 4.8 L* Hct 15.5 L* D MCV MCH RDW 16.8 H Plt Count 111 L D Seg Neuts % (Manual) 89.0 H Lymphocytes % (Manual) 3.0 L Nucleated RBC % 6.0 H Seg Neutrophils # Seg Neutrophils # Man 23.4 H Lymphocytes # (Manual) 0.8 L Monocytes # (Manual) PT INR Fibrinogen D-Dimer POC ABG pH POC ABG pCO2 POC ABG pO2 Sodium Potassium Chloride Carbon Dioxide BUN Creatinine Glucose POC Glucose Lactic Acid Calcium Magnesium TIBC Ferritin AST ALT Lactate Dehydrogenase 648 H Total Creatine Kinase Troponin T NT-Pro-B Natriuret Pep Serum Total Protein 3.8 L Total Protein Albumin 1.6 L Kfwkd-1-Uwflcupvb 0.3 L Ambz-4-Rurzerbykljql PEP Interpretation see below H HDL Cholesterol Vitamin B12 Folate Rheumatoid Factor Parvovirus B19 IgG Ab Crossmatch 04/14/17 04/14/17 04/14/17 06:10 11:31 22:15 WBC RBC Hgb Hct MCV MCH RDW Plt Count Seg Neuts % (Manual) Lymphocytes % (Manual) Nucleated RBC % Seg Neutrophils # Seg Neutrophils # Man Lymphocytes # (Manual) Monocytes # (Manual) PT INR Fibrinogen D-Dimer POC ABG pH POC ABG pCO2 POC ABG pO2 Sodium 132 L Potassium Chloride 95.3 L Carbon Dioxide 20 L BUN 41 H Creatinine 2.7 H Glucose 124 H POC Glucose 121 H Lactic Acid Calcium 6.1 L Magnesium TIBC Ferritin AST 73 H ALT Lactate Dehydrogenase Total Creatine Kinase Troponin T NT-Pro-B Natriuret Pep Serum Total Protein Total Protein 4.4 L Albumin 2.2 L Tafhe-8-Whnubakyd Fhnw-9-Rtyhspvmbnxtg PEP Interpretation HDL Cholesterol Vitamin B12 Folate Rheumatoid Factor Parvovirus B19 IgG Ab Crossmatch See Detail 04/15/17 04/15/17 04/16/17 07:30 07:30 05:30 WBC 22.0 H 21.8 H RBC 2.16 L 2.66 L Hgb 6.1 L 7.7 L Hct 18.9 L* 23.7 L MCV MCH RDW 18.2 H 17.8 H Plt Count 96 L 115 L Seg Neuts % (Manual) 92.0 H 82 H Lymphocytes % (Manual) 1.0 L 2 L Nucleated RBC % 7.0 H 7.0 H Seg Neutrophils # 21.5 H Seg Neutrophils # Man 20.2 H 17.8 H Lymphocytes # (Manual) 0.2 L 0.4 L Monocytes # (Manual) PT INR Fibrinogen D-Dimer POC ABG pH POC ABG pCO2 POC ABG pO2 Sodium 134 L Potassium 5.4 H Chloride 95.1 L Carbon Dioxide 20 L BUN 45 H Creatinine 2.9 H Glucose 103 H POC Glucose Lactic Acid Calcium 6.5 L Magnesium TIBC Ferritin AST ALT Lactate Dehydrogenase Total Creatine Kinase Troponin T NT-Pro-B Natriuret Pep Serum Total Protein Total Protein Albumin Lpafn-0-Wtkhjdnxq Qucs-2-Blxvvecdehyjs PEP Interpretation HDL Cholesterol Vitamin B12 Folate Rheumatoid Factor Parvovirus B19 IgG Ab Crossmatch 04/16/17 04/16/17 04/16/17 05:30 09:45 09:55 WBC RBC Hgb Hct MCV MCH RDW Plt Count Seg Neuts % (Manual) Lymphocytes % (Manual) Nucleated RBC % Seg Neutrophils # Seg Neutrophils # Man Lymphocytes # (Manual) Monocytes # (Manual) PT 16.1 H INR 1.22 H Fibrinogen D-Dimer POC ABG pH POC ABG pCO2 POC ABG pO2 75 L Sodium 130 L Potassium Chloride 91.4 L Carbon Dioxide 21 L BUN 46 H Creatinine 2.7 H Glucose 139 H POC Glucose Lactic Acid Calcium 6.4 L Magnesium TIBC Ferritin AST ALT Lactate Dehydrogenase Total Creatine Kinase Troponin T NT-Pro-B Natriuret Pep Serum Total Protein Total Protein Albumin Xoskm-9-Hzmzthreg Psui-2-Xllsropzbrvms PEP Interpretation HDL Cholesterol Vitamin B12 Folate Rheumatoid Factor Parvovirus B19 IgG Ab Crossmatch 04/16/17 04/16/17 04/16/17 12:15 15:30 18:20 WBC RBC Hgb 7.8 L 7.9 L Hct 24.2 L 24.8 L MCV MCH RDW Plt Count Seg Neuts % (Manual) Lymphocytes % (Manual) Nucleated RBC % Seg Neutrophils # Seg Neutrophils # Man Lymphocytes # (Manual) Monocytes # (Manual) PT INR Fibrinogen D-Dimer POC ABG pH POC ABG pCO2 POC ABG pO2 Sodium Potassium Chloride Carbon Dioxide BUN Creatinine Glucose POC Glucose Lactic Acid Calcium Magnesium TIBC Ferritin AST ALT Lactate Dehydrogenase Total Creatine Kinase Troponin T NT-Pro-B Natriuret Pep Serum Total Protein Total Protein Albumin Ygvqm-0-Acdjwlwzk Aybg-1-Aepxxccoouprf PEP Interpretation HDL Cholesterol Vitamin B12 Folate Rheumatoid Factor Parvovirus B19 IgG Ab 1.3 H Crossmatch 04/17/17 04/17/17 04/17/17 01:00 05:50 12:10 WBC RBC Hgb 7.3 L 7.4 L 7.6 L Hct 22.3 L 22.3 L 22.9 L MCV MCH RDW Plt Count Seg Neuts % (Manual) Lymphocytes % (Manual) Nucleated RBC % Seg Neutrophils # Seg Neutrophils # Man Lymphocytes # (Manual) Monocytes # (Manual) PT INR Fibrinogen D-Dimer POC ABG pH POC ABG pCO2 POC ABG pO2 Sodium Potassium Chloride Carbon Dioxide BUN Creatinine Glucose POC Glucose Lactic Acid Calcium Magnesium TIBC Ferritin AST ALT Lactate Dehydrogenase Total Creatine Kinase Troponin T NT-Pro-B Natriuret Pep Serum Total Protein Total Protein Albumin Fipgw-0-Gbbseckvp Tsps-3-Kthzngkiwjpmn PEP Interpretation HDL Cholesterol Vitamin B12 Folate Rheumatoid Factor Parvovirus B19 IgG Ab Crossmatch 04/17/17 04/18/17 04/18/17 19:34 03:40 03:40 WBC 19.4 H RBC 2.59 L Hgb 7.9 L 7.7 L Hct 23.9 L 23.2 L MCV MCH RDW 18.6 H Plt Count 106 L Seg Neuts % (Manual) 96.0 H Lymphocytes % (Manual) 2.0 L Nucleated RBC % 3.0 H Seg Neutrophils # Seg Neutrophils # Man 18.6 H Lymphocytes # (Manual) 0.4 L Monocytes # (Manual) PT INR Fibrinogen D-Dimer POC ABG pH POC ABG pCO2 POC ABG pO2 Sodium 128 L Potassium Chloride 93.5 L Carbon Dioxide 21 L BUN 47 H Creatinine 2.2 H Glucose 134 H POC Glucose Lactic Acid Calcium 7.3 L Magnesium TIBC Ferritin AST ALT Lactate Dehydrogenase Total Creatine Kinase Troponin T NT-Pro-B Natriuret Pep Serum Total Protein Total Protein Albumin Kmjox-7-Eotyvxbtn Hsqj-1-Sylbkktxqzxez PEP Interpretation HDL Cholesterol Vitamin B12 Folate Rheumatoid Factor Parvovirus B19 IgG Ab Crossmatch 04/19/17 04/19/17 04/20/17 14:42 14:42 04:00 WBC 15.5 H RBC 2.45 L Hgb 7.1 L Hct 22.6 L MCV MCH RDW 19.6 H Plt Count 89 L Seg Neuts % (Manual) 78.0 H Lymphocytes % (Manual) 0 L Nucleated RBC % 4.0 H Seg Neutrophils # Seg Neutrophils # Man 12.1 H Lymphocytes # (Manual) 0.0 L Monocytes # (Manual) PT INR Fibrinogen D-Dimer POC ABG pH POC ABG pCO2 POC ABG pO2 Sodium Potassium Chloride Carbon Dioxide 20 L 17 L BUN 47 H 44 H Creatinine 1.9 H 1.9 H Glucose 111 H 42 L POC Glucose Lactic Acid Calcium 7.8 L 7.9 L Magnesium 1.00 L 1.30 L TIBC Ferritin AST ALT Lactate Dehydrogenase Total Creatine Kinase 487 H 443 H Troponin T NT-Pro-B Natriuret Pep Serum Total Protein Total Protein Albumin Nfjbj-3-Ryquyadub Lpih-9-Oopzxqnfgjujx PEP Interpretation HDL Cholesterol Vitamin B12 Folate Rheumatoid Factor Parvovirus B19 IgG Ab Crossmatch 04/21/17 04/21/17 04/21/17 00:13 03:45 03:45 WBC 14.6 H RBC 2.35 L Hgb 7.0 L Hct 21.5 L MCV MCH RDW 20.4 H Plt Count 61 L Seg Neuts % (Manual) 91.0 H Lymphocytes % (Manual) 0 L Nucleated RBC % 5.0 H Seg Neutrophils # Seg Neutrophils # Man 13.3 H Lymphocytes # (Manual) 0.0 L Monocytes # (Manual) PT 15.1 H INR Fibrinogen D-Dimer POC ABG pH POC ABG pCO2 POC ABG pO2 Sodium Potassium Chloride 107.1 H Carbon Dioxide 20 L BUN 49 H Creatinine 1.5 H Glucose 101 H POC Glucose Lactic Acid Calcium 8.2 L Magnesium 3.30 H TIBC Ferritin AST ALT Lactate Dehydrogenase Total Creatine Kinase Troponin T NT-Pro-B Natriuret Pep Serum Total Protein Total Protein Albumin Qbunw-8-Dxpkgcitm Cvvc-1-Saxbozxxkbhsw PEP Interpretation HDL Cholesterol Vitamin B12 Folate Rheumatoid Factor Parvovirus B19 IgG Ab Crossmatch 04/21/17 04/21/17 04/21/17 06:59 10:50 13:17 WBC RBC Hgb Hct MCV MCH RDW Plt Count Seg Neuts % (Manual) Lymphocytes % (Manual) Nucleated RBC % Seg Neutrophils # Seg Neutrophils # Man Lymphocytes # (Manual) Monocytes # (Manual) PT INR Fibrinogen D-Dimer POC ABG pH 7.250 L POC ABG pCO2 49.9 H POC ABG pO2 Sodium Potassium Chloride Carbon Dioxide BUN Creatinine Glucose POC Glucose 141 H Lactic Acid Calcium Magnesium TIBC Ferritin AST ALT Lactate Dehydrogenase Total Creatine Kinase Troponin T NT-Pro-B Natriuret Pep Serum Total Protein Total Protein Albumin Fwahk-5-Irnkzvnhx Jgsd-5-Ipnslwwvxpvyi PEP Interpretation HDL Cholesterol Vitamin B12 Folate Rheumatoid Factor Parvovirus B19 IgG Ab Crossmatch See Detail 04/21/17 04/21/17 04/21/17 18:15 21:54 22:39 WBC RBC Hgb 7.6 L Hct 24.1 L MCV MCH RDW Plt Count Seg Neuts % (Manual) Lymphocytes % (Manual) Nucleated RBC % Seg Neutrophils # Seg Neutrophils # Man Lymphocytes # (Manual) Monocytes # (Manual) PT INR Fibrinogen D-Dimer POC ABG pH 7.300 L 7.317 L POC ABG pCO2 POC ABG pO2 47 L 54 L Sodium Potassium Chloride Carbon Dioxide BUN Creatinine Glucose POC Glucose Lactic Acid Calcium Magnesium TIBC Ferritin AST ALT Lactate Dehydrogenase Total Creatine Kinase Troponin T NT-Pro-B Natriuret Pep Serum Total Protein Total Protein Albumin Xgjpw-8-Godikgrrc Cudp-5-Hfaprjapyyszn PEP Interpretation HDL Cholesterol Vitamin B12 Folate Rheumatoid Factor Parvovirus B19 IgG Ab Crossmatch 04/22/17 04/22/17 04/23/17 05:12 05:12 05:02 WBC 16.6 H 20.0 H RBC 2.64 L 2.78 L Hgb 7.5 L 7.7 L Hct 23.6 L 24.7 L MCV MCH RDW 20.5 H 21.4 H Plt Count 41 L 28 L Seg Neuts % (Manual) 85.0 H Lymphocytes % (Manual) 9.0 L 0 L Nucleated RBC % 5.0 H 6.0 H Seg Neutrophils # Seg Neutrophils # Man 8.8 H 17.0 H Lymphocytes # (Manual) 0.0 L Monocytes # (Manual) PT INR Fibrinogen D-Dimer POC ABG pH POC ABG pCO2 POC ABG pO2 Sodium 146 H Potassium Chloride 110.8 H Carbon Dioxide 16 L BUN 54 H Creatinine 1.6 H Glucose 134 H POC Glucose Lactic Acid Calcium 8.3 L Magnesium TIBC Ferritin AST ALT Lactate Dehydrogenase Total Creatine Kinase Troponin T NT-Pro-B Natriuret Pep Serum Total Protein Total Protein Albumin Pjvpj-5-Dqhmsjyao Tllg-9-Nsnljyjkotezi PEP Interpretation HDL Cholesterol Vitamin B12 Folate Rheumatoid Factor Parvovirus B19 IgG Ab Crossmatch 04/23/17 04/23/17 05:02 11:54 WBC RBC Hgb Hct MCV MCH RDW Plt Count Seg Neuts % (Manual) Lymphocytes % (Manual) Nucleated RBC % Seg Neutrophils # Seg Neutrophils # Man Lymphocytes # (Manual) Monocytes # (Manual) PT INR Fibrinogen D-Dimer POC ABG pH POC ABG pCO2 POC ABG pO2 Sodium 147 H Potassium Chloride 112.5 H Carbon Dioxide 20 L BUN 59 H Creatinine 1.6 H Glucose 174 H POC Glucose 189 H Lactic Acid Calcium 8.1 L Magnesium TIBC Ferritin AST ALT Lactate Dehydrogenase Total Creatine Kinase Troponin T NT-Pro-B Natriuret Pep Serum Total Protein Total Protein Albumin Qtrzf-1-Nrufnngnf Uxfv-1-Kevwuvupzshdx PEP Interpretation HDL Cholesterol Vitamin B12 Folate Rheumatoid Factor Parvovirus B19 IgG Ab Crossmatch Chest x-ray: report reviewed, image reviewed (worsening effusions/pulm edema)
[2017-04-23] MEDS ORDERED: LASIX IV ONE (16:33)
[2017-04-23] MEDS ORDERED: NACL 0.9% 1000 ML 1,000 ML ONE (17:30)
[2017-04-23] MEDS ORDERED: LEVOPHED DRIP 4 MG/NS 250 ML 4 MG/250 ML BAG IV ONE (17:47)
--- NOTE | 2017-04-23 19:49 | Consultation ---
History of Present Illness - Reason for Consult Consult date: 04/23/17 fungemia Requesting physician: SHANNEN CALDERÓN - History of Present Illness 64 years old with history of COPD, CHF, hyperlipidemia, hypothyroidism, CVA, ETOH abuse; admitted on 04/05/17 due to worsening shortness of breath and a rattling cough. Patient is now altered unable to give a history. Per daughter, she was brought to the ED due to worsening generalized weakness, SOB and cough. They also noted bilateral legs blisters. In the ED initial temp 97.6, HR 92, R 28, O2 sat 99%, BP 138/119 then 95/64. WWBC 17.4. Hg 8.9. Plat 151. CR 05. Lactate 33.. AGUSTIN neg. CXR neg. CTA no PE, COPD fibrosis infiltrae in RUL. TTE normal EF no vegetations. Blood cultures on 04/21 + yeast. Microbiology: Blood cultures: 04/06 neg 04/21 yeast 1 of 4 bottles Urine cultures: Respiratory cultures: Wound cultures: Stool cultures: Other: Current Antimicrobials: Zosyn 04/21 Vancomycin 04/21 fluconazole 04/24 Previous Antimicrobials: Past History Past Medical History: COPD, heart failure, hyperlipidemia, hypothyroidism, stroke Past Surgical History: Other (tubal ligation) Social history: lives with family, smoking, alcohol abuse Family history: diabetes, hypertension Medications and Allergies Allergies Allergy/AdvReac Type Severity Reaction Status Date / Time No Known Allergies Allergy Unverified 10/02/13 20:47 Home Medications Medication Instructions Recorded Confirmed Last Taken Type Aspirin [Aspirin BABY CHEW TAB] 81 mg PO QDAY #60 tab.chew 07/28/14 04/07/17 Unknown Rx Budesoni/Formotero 160-4.5(Nf) 2 puff IH BID #1 inha 07/28/14 04/07/17 Unknown Rx [Symbicort 160-4.5] Ipratropium/Albuterol Sulfate 1 ampul IH Q8HRT #90 ampul.neb 07/28/14 04/07/17 Unknown Rx [Duoneb 0.5 mg-3 mg/3 ml Soln] Levothyroxine [Synthroid] 125 mcg PO QAM #30 tablet 07/28/14 04/07/17 Unknown Rx HYDROcodone/APAP 5-325 [[place] 1 - 2 each PO Q6HR PRN #30 tablet 02/25/16 01/08/ 18 Unknown Rx 5/325] Furosemide [Lasix] 40 mg PO DAILY 04/07/17 04/07/17 Unknown History Losartan [Cozaar] 50 mg PO QDAY 04/07/17 04/07/17 Unknown History Losartan/Hydrochlorothiazide 1 each PO DAILY 04/07/17 04/07/17 Unknown History [Losartan-Hctz 50-12.5 mg Tab] Potassium Chloride 10 Meq [KCl 40 meq PO ONCE 04/07/17 04/07/17 Unknown History 10Meq/100Ml] Active Meds: Active Medications Acetaminophen (Tylenol) 650 mg PO Q6H PRN PRN Reason: Pain MILD(1-3)/Fever >100.5/YE Last Admin: 04/15/17 21:07 Dose: 650 mg Albuterol (Proventil) 2.5 mg IH Q4HRT PRN PRN Reason: Shortness Of Breath Last Admin: 04/21/17 15:19 Dose: 2.5 mg Albuterol/Ipratropium (Duoneb *Not For Prn Use*) 1 ampul IH Q6HRT [facility] Last Admin: 04/23/17 13:12 Dose: 1 ampul Lipase/Protease/Amylase ([place] Dr 10,500 Unit) 1 each FEEDTUBE PRN PRN PRN Reason: For Clogged Feeding Tube Arformoterol Tartrate (Brovana Nebu) 15 mcg IH Q12HRT [facility] Last Admin: 04/23/17 07:22 Dose: 15 mcg Budesonide (Pulmicort) 1 mg IH Q12HRT [facility] Last Admin: 04/23/17 07:22 Dose: 1 mg Vancomycin HCl (Vancomycin/Ns 1 Gm/250 Ml) 1 gm in 250 mls @ 166.667 mls/hr IV Q24H [facility] Last Admin: 04/23/17 14:46 Dose: 166.667 mls/hr Piperacillin Sod/Tazobactam Sod (Zosyn/Ns 2.25 Gm/50ml) 2.25 gm in 50 mls @ 100 mls/hr IV Q6H [facility] Last Admin: 04/23/17 14:45 Dose: 100 mls/hr Fluconazole (Diflucan) 200 mg in 100 mls @ 100 mls/hr IV Q24HR [facility] Levothyroxine Sodium (Synthroid) 125 mcg PO QAM [facility] Last Admin: 04/23/17 09:04 Dose: 125 mcg Lorazepam (Ativan) 0.5 mg IM Q8H PRN PRN Reason: Agitation Last Admin: 04/21/17 22:58 Dose: 0.5 mg Magnesium Hydroxide (Milk Of Magnesia) 30 ml PO Q4H PRN PRN Reason: Constipation Methylprednisolone Sodium Succinate (Solu-Medrol) 40 mg IV Q12HR [facility] Last Admin: 04/23/17 09:04 Dose: 40 mg Multivitamins/Minerals (Theragran-M Tab) 1 each PO QDAY [facility] Last Admin: 04/23/17 09:04 Dose: 1 each Ondansetron HCl (Zofran) 4 mg IV Q8H PRN PRN Reason: N/V unrelieved by Mehran Last Admin: 04/20/17 22:24 Dose: 4 mg Pantoprazole Sodium (Protonix) 40 mg PO QDAY [facility] Last Admin: 04/23/17 09:05 Dose: 40 mg Simple Syrup (Simple Syrup) 15 ml FEEDTUBE PRN PRN PRN Reason: Hypoglycemia Simple Syrup (Simple Syrup) 30 ml FEEDTUBE PRN PRN PRN Reason: Hypoglycemia Sodium Bicarbonate (Sodium Bicarbonate) 325 mg FEEDTUBE PRN PRN PRN Reason: For Clogged Feeding Tube Vancomycin HCl (Vancomycin Pharmacy To Dose) 1 each IV PKCONSULT [facility] PRN Reason: Protocol Review of Systems ROS unobtainable: due to mental status Physical Examination - Physical Exam Narrative exam: General appearance: somnolent debilitated in mod resp distress on CPAP Eyes: anicteric sclerae, moist conjunctivae; no lid-lag; PERRLA HENT: Atraumatic; oropharynx +CPAP Neck: Trachea midline; supple, no thyromegaly or lymphadenopathy Lungs: esequiel rhonchi CV: tachy Abdomen: Soft, non-tender; no masses or hepatosplenomegaly Extremities: No peripheral edema or extremity lymphadenopathy Skin: stage II sacral. +multiple unroofed bulla in legs Psych: somnolent Neuro: somnolent Lines: - Constitutional Vitals: Vital Signs Temp Pulse Resp BP Pulse Ox 93.9 F L 83 21 109/71 77 L 04/23/17 14:18 04/23/17 19:30 04/23/17 19:30 04/23/17 19:30 04/23/17 19:15 Temperature -Last 24 Hours Temperature 93.9 F Temperature 93.0 F Temperature 93.6 F Temperature 92.7 F Results - Labs CBC & Chem 7: 04/23/17 05:02 04/23/17 05:02 Labs: Abnormal lab results 04/23/17 04/23/17 04/23/17 Range/Units 05:02 05:02 11:54 WBC 20.0 H (4.5-11.0) K/mm3 RBC 2.78 L (3.65-5.03) M/mm3 Hgb 7.7 L (10.1-14.3) gm/dl Hct 24.7 L (30.3-42.9) % RDW 21.4 H (13.2-15.2) % Plt Count 28 L (140-440) K/mm3 Seg Neuts % (Manual) 85.0 H (40.0-70.0) % Lymphocytes % (Manual) 0 L (13.4-35.0) % Nucleated RBC % 6.0 H (0.0-0.9) % Seg Neutrophils # Man 17.0 H (1.8-7.7) K/mm3 Lymphocytes # (Manual) 0.0 L (1.2-5.4) K/mm3 Sodium 147 H (137-145) mmol/L Chloride 112.5 H (98-107) mmol/L Carbon Dioxide 20 L (22-30) mmol/L BUN 59 H (7-17) mg/dL Creatinine 1.6 H (0.7-1.2) mg/dL Glucose 174 H (65-100) mg/dL POC Glucose 189 H (70-105) Calcium 8.1 L (8.4-10.2) mg/dL Assessment and Plan Assessment: 1) Sepsis: Present on admission, manifested by tachycardia, leukocytosis, increased lactate. Etiology most likely COPD exacerbation with pneumonia +/- allergy reaction. Persistent sepsis - likely due to Candidemia, not present on admission 2) Candidemia: likely from midline infection placed on 04/08 3) Resp failure 4) Pneumonia 5) Bullous rash: unclear etiology ? not typical Maher Harvey ? pemphigoid rash. Unclear if rash started before or after admission. Per records and daughter reports it seems it started on 04/18. 6) ETOH cirrhosis Plan: -REMOVE all line as possible -stop fluconazole -start micafungin until Codie ID is available -repeat TTE eval for vegetations -Derm consultation -Avoid unnecessary meds -wound care consult -repeat blood cultures in 24h -obtain procalcitonin, C-reactive protein (CRP) -clinically deteriorating, family educated about poor prognosis -continue zosyn and vanco for now -pharmacy to review meds to determine possible meds involved in rash etiology Thank you Dr Calderón for your consultation, will follow up with you. Claudia Lacy MD Infectious Diseases Specialist [facility] ([facility] M [phone] O [phone]
--- NOTE | 2017-04-23 20:11 | Progress Note ---
Assessment and Plan - Patient Problems (1) Anemia Current Visit: Yes Status: Acute Plan to address problem: see orders. transfusion replacements. other w/up still pending results. see notes. fair at this time. (2) CHF (congestive heart failure) Current Visit: Yes Status: Chronic Plan to address problem: follow you. (3) Thrombocytopenia Current Visit: Yes Status: Acute Plan to address problem: see orders. see notes. Beta -2 quite high, will await other w/up for myeloma. pending w/up results. ESLD.see notes. replacement therapy if / when indicated. Will replace at this time. Subjective Date of service: 04/23/17 Principal diagnosis: anemia, cirrhosis Interval history: Patient seen/examined, resting in bed, sluggish.labs reviewed, as well as notes.Fibrinogen low, D-dimer elevated, with very high Ldh, indicating consumptive coagulopathy. She may have some auto immune d/o. along with other things l, and perhaps bkleeding contributing to her thrombocytopenia. She may benefit from some steriods.IF any procedure is intended, PLT can be given, +/_ FFP if indicated.Will continue to follow you.Still awaiting [id number]., and folate. Patient seen, resting in bed. Labs/notes reviewed, s/p replacement transfusion. Will do PNH panel.Steroid still recommended. Patient seen, resting in bed, family at the bed side, record /labs reviewed.It appears that she responded some to steroid as recommended. Patient seen today, transferred to the unit overnight due to decline as per notes/report reviewed. She remains slow/sluggish as usual.anemia persists, despite replacement transfusion.She will need GI scope, and if NL, will consider BM bx. Patient seen/examined in the ICU, record reviewed, case d/w her daughter. Patient with debility, non coherent enough due to chronic brain insult from etoh abuse, and given ESLD, her chances for even moderate functional recovery is quite grim. rec supportive care. Patient seen, resting in bed labs reviewed, and remain fair. Patient seen today, resting in bed, labs /notes reviewed. Hgb 7.1. if less than 7.0, may be transfused with PRBC Patient seen/examined, resting in bed, labs reviewed, CPK elevated Patient seen/ examined, record reviewed, case d/w patients daughter at the bed side. Patient seen/examined, resting in bed, record reviewed, labs reviewed, and fair. will continue to monitor along with you. Patient seen/examined, in the ICU, labs reviewed, case d/w her nurse, resp tech. Lots of family at the bed side. Objective - Constitutional Vitals: Vital Signs - 12hr 04/23/17 04/23/17 04/23/17 13:12 13:22 14:18 Temperature 93.9 F L Pulse Rate 81 Pulse Rate [ 82 Anterior Bilateral Throughout] Pulse Rate [ 84 82 Posterior Bilateral Throughout] Respiratory 22 Rate Respiratory 26 H Rate [Anterior Bilateral Throughout] Respiratory 30 H 26 H Rate [Posterior Bilateral Throughout] Blood Pressure 113/61 O2 Sat by Pulse 88 Oximetry 04/23/17 04/23/17 04/23/17 17:23 17:31 17:45 Temperature Pulse Rate 74 76 Pulse Rate [ Anterior Bilateral Throughout] Pulse Rate [ Posterior Bilateral Throughout] Respiratory 15 24 Rate Respiratory Rate [Anterior Bilateral Throughout] Respiratory Rate [Posterior Bilateral Throughout] Blood Pressure 44/29 80/51 O2 Sat by Pulse 50 L 67 L 70 L Oximetry 04/23/17 04/23/17 04/23/17 18:00 18:15 18:30 Temperature Pulse Rate 80 77 81 Pulse Rate [ Anterior Bilateral Throughout] Pulse Rate [ Posterior Bilateral Throughout] Respiratory 25 H 21 26 H Rate Respiratory Rate [Anterior Bilateral Throughout] Respiratory Rate [Posterior Bilateral Throughout] Blood Pressure 94/67 107/60 110/72 O2 Sat by Pulse 71 L 78 L 69 L Oximetry 04/23/17 04/23/17 04/23/17 18:45 19:01 19:15 Temperature Pulse Rate 81 87 82 Pulse Rate [ Anterior Bilateral Throughout] Pulse Rate [ Posterior Bilateral Throughout] Respiratory 26 H 24 28 H Rate Respiratory Rate [Anterior Bilateral Throughout] Respiratory Rate [Posterior Bilateral Throughout] Blood Pressure 106/71 125/64 108/63 O2 Sat by Pulse 75 L 69 L 77 L Oximetry 04/23/17 19:30 Temperature Pulse Rate 83 Pulse Rate [ Anterior Bilateral Throughout] Pulse Rate [ Posterior Bilateral Throughout] Respiratory 21 Rate Respiratory Rate [Anterior Bilateral Throughout] Respiratory Rate [Posterior Bilateral Throughout] Blood Pressure 109/71 O2 Sat by Pulse Oximetry General appearance: Present: severe distress - EENT Eyes: PERRL, EOM intact ENT: hearing intact, clear oral mucosa Ears: bilateral: normal - Neck Neck: supple, normal ROM - Respiratory Respiratory: bilateral: diminished, rhonchi - Breasts Breasts: deferred - Cardiovascular Rhythm: regular Heart Sounds: Present: S1 & S2. Absent: gallop, rub Extremities: pulses intact, No edema, normal color, Full ROM - Gastrointestinal General gastrointestinal: Present: soft, non-tender, non-distended, normal bowel sounds Rectal Exam: deferred - Genitourinary Female genitourinary: deferred - Integumentary Integumentary: clear, warm, dry - Neurologic Neurologic: moves all extremities - Labs CBC & Chem 7: 04/23/17 05:02 04/23/17 05:02 Labs: Abnormal lab results 04/23/17 04/23/17 04/23/17 Range/Units 05:02 05:02 11:54 WBC 20.0 H (4.5-11.0) K/mm3 RBC 2.78 L (3.65-5.03) M/mm3 Hgb 7.7 L (10.1-14.3) gm/dl Hct 24.7 L (30.3-42.9) % RDW 21.4 H (13.2-15.2) % Plt Count 28 L (140-440) K/mm3 Seg Neuts % (Manual) 85.0 H (40.0-70.0) % Lymphocytes % (Manual) 0 L (13.4-35.0) % Nucleated RBC % 6.0 H (0.0-0.9) % Seg Neutrophils # Man 17.0 H (1.8-7.7) K/mm3 Lymphocytes # (Manual) 0.0 L (1.2-5.4) K/mm3 Sodium 147 H (137-145) mmol/L Chloride 112.5 H (98-107) mmol/L Carbon Dioxide 20 L (22-30) mmol/L BUN 59 H (7-17) mg/dL Creatinine 1.6 H (0.7-1.2) mg/dL Glucose 174 H (65-100) mg/dL POC Glucose 189 H (70-105) Calcium 8.1 L (8.4-10.2) mg/dL
[2017-04-23] MEDS ORDERED: NACL 0.9% 500 ML 500 ML IV SCH (20:17)
[2017-04-23 20:19] VITALS: BP 104/79
[2017-04-23] MEDS ORDERED: MYCAMINE 100 MG in NACL 0.9% 100 ML IV ONE (21:24)
[2017-04-24] MEDS ORDERED: DIFLUCAN 200 MG/100 ML BAG IV SCH (10:00)
--- NOTE | 2017-04-25 12:20 | Death Summary ---
Summary - Providers Date of service: 04/25/17 Consults: 04/07/17 14:28 Physical Therapy Evaluation and Treat [CONS] Routine Comment: Reason For Exam: deconditioning; home needs 04/08/17 14:19 PICC Line Insertion [Consult to PICC Line RN] [CONS] Urgent Reason For Exam: PICC or Midline Type Line:: PICC 04/09/17 10:26 Speech Therapy Evaluation and Treat [CONS] Routine Reason For Exam: dysphagia 04/10/17 10:21 Consult to Wound/ET Nurse [CONS] Routine Reason For Exam: wound eval 04/11/17 11:28 Consult to Physician [CONS] Routine Consulting Provider: MARCI BOSE Reason For Exam: Anemia, occult stool positive Place consult to:: gi Notified:: aleksey Was contact made?: Yes Time called:: 12:06 04/12/17 12:09 Consult to Physician [CONS] Routine Consulting Provider: GURINDER HERNANDEZ Reason For Exam: anemia, thrombocytopeni Place consult to:: Dr. Hernandez Notified:: Lis FALLON Phone number called:: Was contact made?: Yes If yes, spoke with:: Mary[facility] Time called:: 12:26 04/14/17 11:31 Speech Therapy Evaluation and Treat [CONS] Urgent Reason For Exam: dysphagia 04/18/17 08:00 Consult to Wound/ET Nurse [CONS] Urgent Reason For Exam: New diagnosis: Hemant Hernando Syndrome 04/18/17 14:03 Consult to Physician [CONS] Routine Consulting Provider: KVNG ARCE Reason For Exam: OTIS Place consult to:: Nephrology Notified:: yes Phone number called:: [phone] Was contact made?: Yes 04/18/17 16:19 Consult to Physician [CONS] Routine Consulting Provider: MARCI BOSE Reason For Exam: PEG tube placement for dysphagia Place consult to:: Dr. Bose Notified:: [facility] Phone number called:: [phone] Was contact made?: Yes If yes, spoke with:: Jessica Samson Time called:: 16:20 04/19/17 16:45 Consult to PICC Line RN [CONS] Urgent Reason For Exam: IV antibiotics Type Line:: PICC 04/21/17 12:01 Consult to Dietitian/Nutrition [CONS] Routine Physician Instructions: Reason For Exam: Initiation of tube feedings Reason for Consult: Write/Manage Tube Feeding 04/23/17 09:20 Consult to Physician [CONS] Routine Consulting Provider: ANTONIO REYNOSO Reason For Exam: fungemia Place consult to:: Dr. Jeter Notified:: Yes Phone number called:: [phone] Was contact made?: No If yes, spoke with:: DR JETER Time called:: 10:50 Comment:: Left voice message 04/23/17 13:19 Consult to Dietitian/Nutrition [CONS] Stat Physician Instructions: Reason For Exam: Large residual volumes Reason for Consult: Write/Manage Tube Feeding Attending: SHANNEN RICHARDSON - summary Date of admission: 04/06/17 02:10 Date of : 04/23/17 Disposition: 64 years old with history of COPD, CHF, hyperlipidemia, hypothyroidism, CVA, ETOH abuse; admitted on 04/05/17 due to worsening shortness of breath and a rattling cough. The patient was brought to the ED due to worsening generalized weakness, SOB and cough. They also noted bilateral legs blisters. In the ED initial temp 97.6, HR 92, R 28, O2 sat 99%, BP 138/119 then 95/64. WWBC 17.4. Hg 8.9. Plat 151. CR 05. Lactate 33.. AGUSTIN neg. CXR neg. CTA no PE, COPD fibrosis infiltrae in RUL. She was admitted for acute hypoxemic respiratory failure, COPD exacerbation and Pneumonia.the patient was treated with IV antibiotics, breathing treatments, systemic steroids and supportive care with O2. Patient was also noted to have anemia after admission and seen by GI consultation. Occult stool positive. Patient received 2 units of packed red blood cells. GI felt that she had no evidence of active bleeding. H&H stabilized. CT scan of the abdomen was done to rule out retroperitoneal bleed, which was negative. Etiology is felt to be likely multifactorial secondary to EtOH/cirrhosis/malnutrition. Hepatitis panel was negative. Patient did have intermittent altered mentation, which was felt to be secondary to EtOH withdrawal/hepatic encephalopathy. Other complications during hospital stay included acute kidney injury which was likely multifactorial in setting of hypotension, IV contrast and severe anemia. Cardiology also evaluated the patient for the acute hypoxemic respiratory failure. TTE normal EF no vegetations. Cardiology did not recommend any further intervention. Unfortunately, patient continued to have further decline throughout hospital stay. Patient appeared to have worsening/recurrent sepsis and repeat cultures were obtained, which revealed yeast on 04/21. Initial cultures on 04/06/17 were negative. Given patient's comorbidities and overall poor prognosis, a discussion regarding advanced directives and end of life was explored with the family. Family opted for no intubation or compression but continue with pressor support and CPR. BiPAP was started on 04/21/17. Patient required large amounts of FiO2 on BiPAP. A forcefully, patient continued to decline and was noted to have asystole at 2104 and was pronounced . - Final diagnosis (1) Septic shock Note: Final diagnosis: (2) Toxic metabolic encephalopathy Note: Final diagnosis: (3) Cirrhosis Note: Final diagnosis: (4) Acute renal insufficiency Note: Final diagnosis: (5) Acute respiratory distress Note: Final diagnosis: (6) Altered mental state Note: Final diagnosis: (7) CHF (congestive heart failure) Note: Final diagnosis: (8) COPD exacerbation Note: Final diagnosis: (9) Cirrhosis Note: Final diagnosis: (10) HLD (hyperlipidemia) Qualifiers: Hyperlipidemia type: mixed hyperlipidemia Qualified Code(s): E78.2 - Mixed hyperlipidemia Note: Final diagnosis:
== END 2017-04-23 21:04 | DRG 871 ==
LOC: ED 15:20 → 4A 04-06 02:10 → CC1 04-15 22:35 → 2B-ACE 04-17 21:25 → CC1 04-23 16:57
PROVIDERS: ADMIT Internal Medicine; ATTEND Hospitalist
PROC: 4A033R1 Measurement of Arterial Saturation, Peripheral, Percutaneous Approach (ICD-10-PCS; 2017-04-06)
PROC: 30233N1 Transfusion of Nonautologous Red Blood Cells into Peripheral Vein, Percutaneous Approach (ICD-10-PCS; principal; 2017-04-09)
PROC: 5A09357 Assistance with Respiratory Ventilation, Less than 24 Consecutive Hours, Continuous Positive Airway Pressure (ICD-10-PCS; 2017-04-17)
PROC: 5A09457 Assistance with Respiratory Ventilation, 24-96 Consecutive Hours, Continuous Positive Airway Pressure (ICD-10-PCS; 2017-04-21)
DX: A41.9 Sepsis, unspecified organism (principal); J96.00 Acute respiratory failure, unspecified whether with hypoxia or hypercapnia; J18.9 Pneumonia, unspecified organism; I50.43 Acute on chronic combined systolic (congestive) and diastolic (congestive) heart failure; G92 Toxic encephalopathy; R65.21 Severe sepsis with septic shock; J44.1 Chronic obstructive pulmonary disease with (acute) exacerbation; K74.60 Unspecified cirrhosis of liver; G45.9 Transient cerebral ischemic attack, unspecified; N17.9 Acute kidney failure, unspecified; R13.10 Dysphagia, unspecified; I11.0 Hypertensive heart disease with heart failure; E03.9 Hypothyroidism, unspecified; Z98.51 Tubal ligation status; F17.200 Nicotine dependence, unspecified, uncomplicated; Z79.82 Long term (current) use of aspirin; J44.0 Chronic obstructive pulmonary disease with (acute) lower respiratory infection; E78.5 Hyperlipidemia, unspecified; Z82.49 Family history of ischemic heart disease and other diseases of the circulatory system; Z83.3 Family history of diabetes mellitus; E87.6 Hypokalemia; D69.6 Thrombocytopenia, unspecified; I42.0 Dilated cardiomyopathy; K92.2 Gastrointestinal hemorrhage, unspecified; D64.9 Anemia, unspecified; E87.1 Hypo-osmolality and hyponatremia; L51.1 Stevens-Johnson syndrome; E46 Unspecified protein-calorie malnutrition; Z68.27 Body mass index [BMI] 27.0-27.9, adult; F10.10 Alcohol abuse, uncomplicated; Y90.9 Presence of alcohol in blood, level not specified; R18.8 Other ascites; B49 Unspecified mycosis
CPT/HCPCS: 36415; 36600; 71045; 71275; 74018; 74230; 76700; 80048; 80053; 80061; 80074; 82140; 82232; 82270; 82550; 82607; 82728; 82747; 82803; 82962; 83010; 83550; 83615; 83735; 83880; 84100; 84165; 84484; 85007; 85014; 85018; 85025; 85027; 85045; 85379; 85384; 85610; 85613; 85652; 85730; 86038; 86334; 86618; 86747; 86850; 86900; 86901; 86920; 87040; 90686; 93005; 93010; 93306; 94640; 94660; 94760; 96372; 96374; 96375; C9113; G8978-GP; G8979-GP; G8996-GN; G8997-GN; J0171; J0456; J0696; J1450; J1650; J1940; J2060; J2248; J2405; J2543; J2920; J2930; J2997; J3370; J3475; J3480; J7030; J7040; J7050; P9016; P9047; Q9967